=== PATIENT | female | born 1975 | race Caucasian/White ===

== ENCOUNTER 2019-05-22 19:25 | Emergency (ER) | payer MEDICAID, SELFPAY ==
[2019-05-22 19:38] VITALS: BP 145/98; PULSE 73; RESP 18; TEMP 36.8; O2SAT 100
--- NOTE | 2019-05-22 20:06 | ED.ABDPAIN ---
HPI - Abdominal Pain General Chief Complaint: Urogenital-Female Stated Complaint: UTI Time Seen by Provider: 05/22/19 19:52 Source: patient and old records reviewed Mode of arrival: ambulatory Limitations: no limitations History of Present Illness HPI narrative: Patient is a 43-year-old female who presents to emergency department for evaluation of urinary tract infection symptoms that began today had outpatient urinalysis performed by primary care was instructed to come to the emergency department for evaluation patient notes she has been taking Azo as well has been having some urinary urgency and frequency. Patient notes she was treated for presumed urinary tract infection at the end of April was given a Rocephin shot and put on ciprofloxacin for 7 days which she has completed. Patient denies fever vomiting diarrhea or vaginal discharge. Patient notes that she has history of resistant urinary tract infection organism patient notes mild lower abdominal and back discomfort Related Data Home Medications Medication Instructions Recorded Confirmed bupropion HCl 100 mg PO BID 04/30/19 04/30/19 clonazepam 1 mg PO BID PRN 04/30/19 04/30/19 dextroamphetamine-amphetamine 20 mg PO DAILY 04/30/19 04/30/19 trazodone 150 mg PO HS 04/30/19 04/30/19 Allergies Allergy/AdvReac Type Severity Reaction Status Date / Time No Known Allergies Allergy Verified 05/22/19 19:54 Review of Systems Review of Systems: All systems reviewed & are unremarkable except as noted in HPI and below PMFSH Past Medical History Medical History (Updated 05/22/19 @ 21:53 by Reuben Torrez PA-C) Kidney infection UTI (urinary tract infection) Surgical History Surgical History Hx of breast augmentation No pertinent past surgical history Family History Family History Father Lung cancer Social History Social History Smoking status: Never smoker Alcohol intake: never Drinks per week: 0 Substance use: never Substance use type: does not use Gender identity (if verbalized by the patient): Female Spiritual care concerns: No Agree to blood products: Yes Exam Narrative: Exam Narrative: GENERAL: Well-appearing, well-nourished, and in no acute distress. HEAD: Normocephalic, atraumatic. EYES: PERRLA and EOMI. ENT: Nares clear, no rhinorrhea or epistaxis. Mucous membranes moist. NECK: Supple. No adenopathy or masses. No carotid bruits or JVD CHEST: Clear to auscultation. No respiratory distress. No wheezes rales or rhonchi HEART: Regular rate and rhythm. No murmur heard. Normal peripheral pulses. ABDOMEN: Soft, nontender, nondistended EXTREMITIES: Normal range of motion. No edema. SKIN: Warm, dry, no rash. NEURO: No focal deficits. Alert and oriented x3. PSYCH: Normal mood and affect. Course Course Emergency Course: Patient in the room in no distress aware of case findings treatment plan and diagnosis agreeing to follow-up as directed with primary care is aware of discussion with primary care Consultations Consultation #1: Discussed case with primary care who notes that patient had unremarkable urinalysis with out urine culture results at this time does not recommend placing the patient on antibiotics given the history and would like the patient to follow in clinic Date: 05/22/19 Vital Signs Vital signs: Vital Signs Temperature 98.2 F 05/22/19 19:38 Pulse Rate 73 05/22/19 19:38 Respiratory Rate 18 05/22/19 19:38 Blood Pressure 145/98 H 05/22/19 19:38 Pulse Oximetry 100 05/22/19 19:38 Temperature 98.2 F 05/22/19 19:38 Pulse Rate 73 05/22/19 19:38 Respiratory Rate 18 05/22/19 19:38 Blood Pressure 145/98 H 05/22/19 19:38 Pulse Oximetry 100 05/22/19 19:38 MDM - Abdominal Pain MDM Narrative Medical decision win[facility]
[2019-05-22] MEDS: IBUPROFEN IV 800 MG/200 ML 800 MG/200 ML BAG 400 MG IVPB (20:16)
[2019-05-22] MEDS: FAMOTIDINE 20 MG/2 ML VIAL IV PUSH (20:16)
[2019-05-22 20:18] LABS: Add Urine Microscopic? YES; Appearance Urine Clear (Clear); Bacteria Urine Trace /hpf; Bilirubin Urine Negative (Negative); Blood Urine 1+ (Negative); Color Urine Amber (Yellow); Glucose Urine UA Negative (Negative); Ketones Urine Negative (Negative); Leukocyte Esterase Ur 1+ LEU/UL (Negative); Mucus Urine Rare /lpf; Nitrate Urine Positive (Negative); Protein Urine 1+ mg/dL (Negative); Specific Grav Ur 1.019 (1.001-1.035); Squamous Epithelial Cell Urine Many /hpf (Few); WBC Urine >75 /hpf
[2019-05-22] MEDS: SODIUM CHLORIDE 0.9% IV 1,000 ML 999 ML IV CONT (20:18)
[2019-05-22 20:20] LABS: Basophils Absolute Auto 0.1 K/mm3 (0.0-0.1); Basophils Percent Auto 0.8 % (0.2-1.2); Eosinophils Absolute Auto 0.2 K/mm3 (0-0.3); Eosinophils Percent Auto 2.4 % (0-4.4); Hematocrit 34.3 % (37.0-47.0); Immature Granulocyte Absolute 0.02 K/mm3 (0.00-0.031); Immature Granulocyte Percent A 0.3 % (0-0.5); Lymphocytes Absolute Auto 2.51 K/mm3 (0.9-3.2); Lymphocytes Percent Auto 31.5 % (18.3-44.2); Mean Corpuscular HGB Conc 32.1 g/dl (32-36); Mean Corpuscular Hemoglobin 30.7 pg (26-34); Mean Corpuscular Volume 95.8 fl (80-100); Mean Platelet Volume 8.4 fl (7.4-10.4); Monocytes Absolute Auto 0.5 K/mm3 (0.1-0.6); Monocytes Percent Auto 6.6 % (2.6-8.5); Neutrophils Absolute Auto 4.7 K/mm3 (1.3-6.7); Neutrophils Percent Auto 58.4 % (45.5-73.1); Platelet Count Result 239 k/mm3 (150-375); Red Blood Count 3.58 M/mm3 (4.2-5.4); Red Cell Distribution Width 12.2 % (11.5-14.5)
[2019-05-22 20:30] LABS: Alanine Aminotransferase 24 U/L (4-35); Albumin Level 4.4 g/dL (3.5-5.1); Alkaline Phosphatase 24 U/L (38-126); Aspartate Amino Transferase 24 U/L (14-36); Bilirubin,Total 0.3 mg/dL (0.2-1.3); Blood Urea Nitrogen 15 mg/dL (7-17); Calcium 8.6 mg/dL (8.4-10.2); Carbon Dioxide 29 mmol/L (22-30); Chloride 99 mmol/L (98-107); Estimated CRCL calculation 76 ml/min; Estimated Glomerular Filt Rate > 60; Glucose 77 mg/dL (65-105); Potassium 3.4 mmol/L (3.4-5.0); Sodium 137 mmol/L (137-145)
--- NOTE | 2019-05-26 14:05 | PC.NURSE ---
LATE ENTRY This note is being entered to document information to the patient's record. The following information was omitted on [05/22/2019], by [Deidre Mayfield]. Vancomycin Stop time 2312
== END 2019-05-22 22:46 | disposition home or self-care (01) ==
PROVIDERS: Emergency Medicine; Emergency Medicine Emergency Medical Services; Emergency Provider Emergency Medicine; PCP Nurse Practitioner Family
DX: R10.9 Unspecified abdominal pain (principal)
CPT/HCPCS: 36415; 80053; 81001; 85025; 87086; 87804; 96365; 96367; 96375; 99285; J1741; J3370; J7030

== ENCOUNTER 2019-06-21 20:40 | Emergency (ER) | payer MEDICAID, SELFPAY ==
[2019-06-21 20:42] VITALS: BP 148/86; PULSE 69; RESP 16; TEMP 36.7; O2SAT 100
[2019-06-21 21:09] LABS: Add Urine Microscopic? YES; Appearance Urine Clear (Clear); Bacteria Urine Trace /hpf; Bilirubin Urine Negative (Negative); Color Urine Amber (Yellow); Glucose Urine UA Negative (Negative); Ketones Urine Negative (Negative); Leukocyte Esterase Ur 1+ LEU/UL (Negative); Mucus Urine Rare /lpf; Nitrate Urine Positive (Negative); Protein Urine Negative (Negative); Specific Grav Ur 1.015 (1.001-1.035); Squamous Epithelial Cell Urine Many /hpf (Few)
[2019-06-21 21:10] LABS: Blood Urine Negative (Negative)
--- NOTE | 2019-06-21 23:02 | ED.ABDPAIN ---
HPI - Abdominal Pain General Chief Complaint: Urogenital-Female Stated Complaint: possible uti Time Seen by Provider: 06/21/19 22:39 Source: RN notes reviewed History of Present Illness HPI narrative: Patient presents emergency department from home for dysuria. Patient states symptoms began 3 days ago. Patient notes dysuria, frequent urination and associated suprapubic abdominal pain with radiation to bilateral flank. Patient denies having any fevers or chills, nausea vomiting or any other symptoms denies any chance of . Patient states she is been having a history of frequent UTIs and is scheduled to see a uro-design project manager on the and has been told she possibly needs a cystoscopy. Related Data Home Medications Medication Instructions Recorded Confirmed bupropion HCl 100 mg PO BID 04/30/19 04/30/19 clonazepam 1 mg PO BID PRN 04/30/19 04/30/19 dextroamphetamine-amphetamine 20 mg PO DAILY 04/30/19 04/30/19 trazodone 150 mg PO HS 04/30/19 04/30/19 Allergies Allergy/AdvReac Type Severity Reaction Status Date / Time No Known Allergies Allergy Verified 05/22/19 19:54 Review of Systems Review of Systems: Narrative: Gen.: Denies fevers or chills ENT: Denies congestion Respiratory: Denies shortness of breath or cough CV: Denies chest pain or palpitations GI: Reports suprapubic abdominal pain see HPI Musculoskeletal: Denies back pain or muscle pain Neuro: Denies numbness, tingling, weakness or focal weakness Skin: Denies rash Except as documented, all other systems reviewed and negative [facility] Past Medical History Medical History Kidney infection UTI (urinary tract infection) Social History Social History Smoking status: Never smoker Alcohol intake: never Drinks per week: 0 Substance use: never Substance use type: does not use Gender identity (if verbalized by the patient): Female Spiritual care concerns: No Agree to blood products: Yes Exam Narrative: Exam Narrative: APPEARANCE: No acute distress, nontoxic, resting in bed HEENT: Normocephalic, atraumatic, OMM RESPIRATORY: No respiratory distress, clear to auscultation bilaterally with no rhonchi wheezing or rales CARDIOVASCULAR: RRR s murmur ABDOMINAL: Soft, nondistended, tender palpation suprapubic region, no tenderness right upper quadrant, left upper quadrant, right lower quadrant with lower quadrant, no rebound or guarding MUSCULOSKELETAl: Moves all extremities. No clubbing, cyanosis or edema. NEURO: Awake and alert. Following commands, speech normal, no focal deficits SKIN:: Warm, dry. Normal Color PSYCHIATRIC: Normal affect/mood Course Course Emergency Course: Discussed with patient results of workup and diagnosis. Discussed need for follow-up with primary care, proper use of medication, and reasons to return to the emergency department. Patient understands and agrees to current treatment plan Vital Signs Vital signs: Vital Signs Temperature 98.1 F 06/21/19 20:42 Pulse Rate 69 06/21/19 20:42 Respiratory Rate 16 06/21/19 20:42 Blood Pressure 148/86 H 06/21/19 20:42 Pulse Oximetry 100 06/21/19 20:42 Temperature 98.1 F 06/21/19 20:42 Pulse Rate 69 06/21/19 20:42 Respiratory Rate 16 06/21/19 20:42 Blood Pressure 148/86 H 06/21/19 20:42 Pulse Oximetry 100 06/21/19 20:42 MDM - Abdominal Pain Lab Data Result diagrams: 06/21/19 23:06 06/21/19 23:06 Labs: Lab Results 06/21/19 06/21/19 06/21/19 Range/Units 20:55 23:06 23:06 WBC 9.2 (4.5-10.0) K/mm3 RBC 3.96 L (4.2-5.4) M/mm3 Hgb 12.1 (12.0-15.0) g/dL Hct 36.8 L (37.0-47.0) % MCV 92.9 (80-100) fl MCH 30.6 (26-34) pg MCHC 32.9 (32-36) g/dl RDW 11.3 L (11.5-14.5) % Plt Count 266 (150-375) k/mm3 MPV 8.8 (7.4-10.4) fl Immature Gran % (Auto) 0.3
[2019-06-21 23:14] LABS: Basophils Absolute Auto 0.1 K/mm3 (0.0-0.1); Basophils Percent Auto 0.8 % (0.2-1.2); Eosinophils Absolute Auto 0.2 K/mm3 (0-0.3); Eosinophils Percent Auto 1.6 % (0-4.4); Hematocrit 36.8 % (37.0-47.0); Hemoglobin 12.1 g/dL (12.0-15.0); Immature Granulocyte Absolute 0.03 K/mm3 (0.00-0.031); Immature Granulocyte Percent A 0.3 % (0-0.5); Lymphocytes Absolute Auto 2.48 K/mm3 (0.9-3.2); Lymphocytes Percent Auto 26.9 % (18.3-44.2); Mean Corpuscular HGB Conc 32.9 g/dl (32-36); Mean Corpuscular Hemoglobin 30.6 pg (26-34); Mean Corpuscular Volume 92.9 fl (80-100); Mean Platelet Volume 8.8 fl (7.4-10.4); Monocytes Absolute Auto 0.5 K/mm3 (0.1-0.6); Monocytes Percent Auto 5.2 % (2.6-8.5); Neutrophils Percent Auto 65.2 % (45.5-73.1); Platelet Count Result 266 k/mm3 (150-375); Red Blood Count 3.96 M/mm3 (4.2-5.4); Red Cell Distribution Width 11.3 % (11.5-14.5); White Blood Count 9.2 K/mm3 (4.5-10.0)
[2019-06-21] MEDS: KETOROLAC 30 MG/ML VIAL (*BKC) IV PUSH (23:14)
[2019-06-21] MEDS: LACTATED RINGERS 1,000 ML 999 ML IV CONT (23:15)
[2019-06-21 23:25] LABS: Alanine Aminotransferase 22 U/L (4-35); Albumin Level 4.1 g/dL (3.5-5.1); Alkaline Phosphatase 25 U/L (38-126); Aspartate Amino Transferase 24 U/L (14-36); Bilirubin,Total 0.3 mg/dL (0.2-1.3); Blood Urea Nitrogen 15 mg/dL (7-17); Calcium 8.9 mg/dL (8.4-10.2); Carbon Dioxide 29 mmol/L (22-30); Chloride 102 mmol/L (98-107); Estimated Glomerular Filt Rate > 60; Glucose 81 mg/dL (65-105); Potassium 3.7 mmol/L (3.4-5.0); Sodium 136 mmol/L (137-145)
[2019-06-21] MEDS: NITROFURANTOIN MONOHYD MACROCR 100 MG CAP PO (23:43)
[2019-06-22 00:31] VITALS: BP 136/88; PULSE 64; RESP 16; O2SAT 98
== END 2019-06-22 00:32 | disposition home or self-care (01) ==
PROVIDERS: Emergency Medicine; Emergency Provider Emergency Medicine; PCP Nurse Practitioner Family
DX: N39.0 Urinary tract infection, site not specified (principal)
CPT/HCPCS: 36415; 80053; 81001; 81025; 85025; 87086; 87088; 96361; 96374; 99284; A9270; J1885; J7120

== ENCOUNTER 2019-11-18 17:12 | Emergency (ER) | payer OTHER, SELFPAY ==
[2019-11-18 17:15] VITALS: BP 157/85; PULSE 67; RESP 18; TEMP 36.9; O2SAT 100
[2019-11-18 19:49] VITALS: RESP 16; O2SAT 100
--- NOTE | 2019-11-18 19:52 | ED.GENADULT ---
HPI - General Adult General Chief complaint: Unspecified Stated complaint: ruptured silicone implant, need covid test Time Seen by Provider: 11/18/19 19:44 History of Present Illness HPI narrative: Patient comes in with multiple complaints. She has had cold exposure and has had recent chills. She has had no documented fever. She says she feels shortness of breath, but her oxygenation is 100% here. She says she has no cough. She said she just feels terrible and wants some IV fluids. She also complains of asymmetry on her breasts. She has had bilateral breast implants by Dr. Herndon in the past. Her primary care physician said to come to the ER to get an ultrasound of the breasts. But I explained that would best be done by her plastic surgeon. She works doing [employer]. Her only surgery is her breast implant. She does not smoke cigarettes, drink alcohol, do drugs. She said she has had a stressful year. Related Data Home Medications Medication Instructions Recorded Confirmed bupropion HCl 100 mg PO BID 04/30/19 04/30/19 clonazepam 1 mg PO BID PRN 04/30/19 04/30/19 dextroamphetamine-amphetamine 20 mg PO DAILY 04/30/19 04/30/19 trazodone 150 mg PO HS 04/30/19 04/30/19 Allergies Allergy/AdvReac Type Severity Reaction Status Date / Time No Known Allergies Allergy Verified 05/22/19 19:54 Review of Systems Review of Systems: Narrative: CONSTITUTIONAL: Denies fever, but has had chills. EYES: Denies visual changes, redness, or discharge. ENT: Denies rhinorrhea, congestion, sore throat, or otalgia. CARDIOVASCULAR: Denies chest pain, palpitations, or edema. RESPIRATORY: Denies cough, but has had shortness of breath. GASTROINTESTINAL: Denies abdominal pain, nausea, vomiting, or diarrhea. She said her appetite is poor. GENITOURINARY: Denies dysuria or hematuria. SKIN: Denies rash or itching. MUSCULOSKELETAL: Denies back pain, joint pain, or myalgia. NEUROLOGIC: Denies headache, numbness, or weakness. PSYCHIATRIC: She has stress.. All systems reviewed & are unremarkable except as noted in HPI and below PMFSH Past Medical History Medical History Anxiety Kidney infection UTI (urinary tract infection) Surgical History Surgical History (Updated 11/18/19 @ 19:55 by Tonya Beltran MD) Hx of breast augmentation Social History Social History Smoking status: Never smoker Alcohol intake: never Drinks per week: 0 Substance use: never Substance use type: does not use Gender identity (if verbalized by the patient): Female Spiritual care concerns: No Agree to blood products: Yes Exam Narrative: Exam Narrative: GENERAL: Cachectic, crying HEAD: Normocephalic, atraumatic. EYES: PERRLA and EOMI. ENT: Nares clear, no rhinorrhea or epistaxis. Mucous membranes moist. NECK: Supple. CHEST: Clear to auscultation. No respiratory distress. HEART: Regular rate and rhythm. No murmur heard. Normal peripheral pulses. ABDOMEN: Soft, nontender, nondistended, normal active bowel sounds. EXTREMITIES: Normal range of motion. No edema. Hands are cool with purple discoloration. SKIN: Warm, dry, no rash. NEURO: No focal deficits. Alert and oriented x3. PSYCH: Anxious. Course Vital Signs Vital signs: Vital Signs Temperature 98.5 F 11/18/19 17:15 Pulse Rate 67 11/18/19 17:15 Respiratory Rate 18 11/18/19 17:15 Blood Pressure 157/85 H 11/18/19 17:15 Pulse Oximetry 100 11/18/19 17:15 Temperature 98.5 F 11/18/19 17:15 Pulse Rate 58 L 11/18/19 21:52 Respiratory Rate 18 11/18/19 21:52 Blood Pressure 159/90 H 11/18/19 21:52 Pulse Oximetry 99 11/18/19 21:52 Medical Decision Making MDM Narrative Medical decision making narrative: The patient seems very upset over I do not know what. She is not happy that I recommend she see her plastic surgeon for the evaluation of her asymmetric breast.
[2019-11-18] MEDS: SODIUM CHLORIDE 0.9% IV 1,000 ML 999 ML IV CONT (20:20)
[2019-11-18 20:26] LABS: Basophils Absolute Auto 0.1 K/mm3 (0.0-0.1); Basophils Percent Auto 1.1 % (0.2-1.2); Eosinophils Absolute Auto 0.1 K/mm3 (0-0.3); Eosinophils Percent Auto 1.8 % (0-4.4); Hematocrit 35.9 % (37.0-47.0); Hemoglobin 11.8 g/dL (12.0-15.0); Immature Granulocyte Absolute 0.02 K/mm3 (0.00-0.031); Immature Granulocyte Percent A 0.3 % (0-0.5); Lymphocytes Absolute Auto 2.52 K/mm3 (0.9-3.2); Lymphocytes Percent Auto 38.5 % (18.3-44.2); Mean Corpuscular HGB Conc 32.9 g/dl (32-36); Mean Corpuscular Hemoglobin 29.4 pg (26-34); Mean Corpuscular Volume 89.3 fl (80-100); Mean Platelet Volume 8.9 fl (7.4-10.4); Monocytes Absolute Auto 0.4 K/mm3 (0.1-0.6); Monocytes Percent Auto 6.3 % (2.6-8.5); Neutrophils Absolute Auto 3.4 K/mm3 (1.3-6.7); Platelet Count Result 224 k/mm3 (150-375); Red Blood Count 4.02 M/mm3 (4.2-5.4); Red Cell Distribution Width 12.3 % (11.5-14.5); White Blood Count 6.5 K/mm3 (4.5-10.0)
[2019-11-18 20:44] LABS: Alanine Aminotransferase 25 U/L (4-35); Albumin Level 4.2 g/dL (3.5-5.1); Alkaline Phosphatase 24 U/L (38-126); Anion Gap 10.4 mmol/L (7-16); Aspartate Amino Transferase 29 U/L (14-36); Bilirubin,Total 0.3 mg/dL (0.2-1.3); Blood Urea Nitrogen 11 mg/dL (7-17); Calcium 8.6 mg/dL (8.4-10.2); Carbon Dioxide 28 mmol/L (22-30); Chloride 102 mmol/L (98-107); Estimated CRCL calculation 88 ml/min; Estimated Glomerular Filt Rate > 60; Glucose 53 mg/dL (65-105); Potassium 3.4 mmol/L (3.4-5.0); Sodium 137 mmol/L (137-145)
[2019-11-18 21:52] VITALS: BP 159/90; PULSE 58; RESP 18; O2SAT 99
[2019-11-18 22:05] LABS: Glucose Point of Care 39 (65-105)
[2019-11-18 22:05] LABS: Glucose Point of Care 72 (65-105)
== END 2019-11-18 21:53 | disposition home or self-care (01) ==
PROVIDERS: Emergency Provider Emergency Medicine; PCP Nurse Practitioner Family
DX: F41.9 Anxiety disorder, unspecified (principal); R63.0 Anorexia; E16.2 Hypoglycemia, unspecified; Z87.440 Personal history of urinary (tract) infections; Z68.1 Body mass index [BMI] 19.9 or less, adult
CPT/HCPCS: 36415; 80053; 82948; 85025; 96360; 99283; J7030

== ENCOUNTER 2019-12-16 12:33 | Outpatient (CLI) | payer OTHER, SELFPAY ==
--- NOTE | ~2019-12-16 | MMUS_ITS ---
EXAMINATION: MM screen RT diag LT w joleen, US breast LT limited HISTORY: Left breast pain. Breast implants. TECHNIQUE: Additional 3-D tomosynthesis images of the breasts were performed and synthetic 2-D images were generated. CAD analysis was submitted and interpreted. High resolution left breast ultrasound w as performed. COMPARISON: None BREAST PARENCHYMAL COMPOSITION: The breasts are extremely dense, which lowers the sensitivity of mamm ography FINDINGS: MAMMOGRAPHIC FINDINGS: There is no mammographic evidence for malignancy in the right breast. There are multiple clusters of pleomorphic calcifications centered in the upper outer quadrant of the left breast. ULTRASOUND: Left breast ultrasound: At 12:00, 4 cm from the nipple adjacent to the breast implant there is an oval hypoechoic mass with c ircumscribed margins, parallel orientation and no internal vascularity. No significant posterior feat ures. This mass measures 8 x 7 x 4 mm. IMPRESSION: 1. Multiple clusters of pleomorphic regional calcifications centered in the upper outer quadrant of t he left breast. Stereotactic left breast biopsy recommended. 2. Probable benign left breast mass identified by ultrasound at 12:00, 4 cm from the nipple. Six-butch h follow-up left breast ultrasound recommended. BI-RADS category 4, suspicious findings. Reviewed, dictated and finalized at location A. IMPRESSION: 1. Multiple clusters of pleomorphic regional calcifications centered in the upp er outer quadrant of the left breast. Stereotactic left breast biopsy recommend ed. 2. Probable benign left breast mass identified by ultrasound at 12:00, 4 cm fro m the nipple. Six-month follow-up left breast ultrasound recommended. BI-RADS category 4, suspicious findings.
== END 2019-12-16 12:34 | disposition home or self-care (01) ==
LOC: ANHIMG 12:36
PROVIDERS: PCP Nurse Practitioner Family; Visit Provider Nurse Practitioner Family
DX: N64.4 Mastodynia (principal); R92.8 Other abnormal and inconclusive findings on diagnostic imaging of breast
CPT/HCPCS: 76642; 77063; 77065; 77067

== ENCOUNTER 2020-08-28 14:11 | Emergency (ER) | payer OTHER, SELFPAY ==
[2020-08-28 14:23] VITALS: BP 128/77; PULSE 69; RESP 16; TEMP 36.9; O2SAT 97
--- NOTE | 2020-08-28 14:25 | ED.FEMALEGU ---
HPI - Female Genitourinary General Chief complaint: Urogenital-Female Stated complaint: UTI Time Seen by Provider: 08/28/20 14:25 Source: patient and RN notes reviewed Mode of arrival: ambulatory Limitations: no limitations History of Present Illness HPI Narrative: 44-year-old female presents to the [facility] with complaints of dysuria, frequency and urgency for couple of days. Patient currently undergoing radiation treatment for left-sided breast cancer. Has a history of interstitial cystitis. States that she has had fatigue since starting radiation treatment. Diagnosed with a sinus infection and put on a Z-Fredo yesterday. MD elicited complaint: UTI Related Data Home Medications Medication Instructions Recorded Confirmed clonazepam 1 mg PO BID PRN 04/30/19 08/28/20 dextroamphetamine-amphetamine 20 mg PO DAILY 04/30/19 08/28/20 trazodone 150 mg PO HS 04/30/19 08/28/20 bupropion HCl 300 mg PO DAILY 08/28/20 08/28/20 montelukast 10 mg PO DAILY 08/28/20 08/28/20 solifenacin 10 mg PO DAILY 08/28/20 08/28/20 tamoxifen 20 mg PO DAILY 08/28/20 08/28/20 Allergies Allergy/AdvReac Type Severity Reaction Status Date / Time No Known Allergies Allergy Verified 08/28/20 15:07 Review of Systems Review of Systems: All systems reviewed & are unremarkable except as noted in HPI and below Constitutional: Constitutional: Reports no additional constitutional complaints, Denies chills and Reports fatigue ENT: Reports system reviewed and no additional complaints, except as documented Cardiovascular: Cardiovascular: Reports no additional cardiovascular complaints and Denies chest pain Respiratory: Respiratory: Reports no additional respiratory complaints, Denies cough, Denies dyspnea and Denies wheezing Genitourinary: Genitourinary: Reports as per HPI, Reports dysuria, Denies pelvic pain, Denies flank pain and Denies vaginal discharge Musculoskeletal: Musculoskeletal: Reports no additional musculoskeletal complaints Integumentary/Breasts: Skin/Breast: Reports system reviewed and no additional complaints, except as docu and Denies rash Neurologic: Reports system reviewed and no additional complaints, except as documented Psychiatric: Psychiatric: Reports no additional psychiatric complaints PMFSH Past Medical History Medical History (Updated 08/29/20 @ 12:55 by Gita Lopez) Anxiety Breast cancer Interstitial cystitis Kidney infection UTI (urinary tract infection) Surgical History Surgical History (Updated 08/29/20 @ 12:55 by Gita Lopez) History of lumpectomy of left breast Hx of breast augmentation Family History Family History Father Lung cancer Social History Social History Smoking status: Never smoker Alcohol intake: never Drinks per week: 0 Substance use: never Substance use type: does not use Gender identity (if verbalized by the patient): Female Spiritual care concerns: No Agree to blood products: Yes Comments At the time of my signature, I reviewed and agree with the nursing past medical, surgical, social, and family history. There is no relevant family history pertinent to the patient complaint. Exam Const: General: healthy appearing, no acute distress and alert Nutritional Appearance: well nourished and thin Orientation/consciousness: patient oriented x3 HENMT: Head: normal to inspection Ears: external ears normal and TM's normal bilaterally Eyes: Conjunctivae: conjunctivae normal Pupils: Equal, round and reactive pupils present Neck: Neck: normal visual inspection Resp: Effort & Inspection: normal respiratory effort and no use of accessory muscles Auscultation: clear to auscultation bilaterally, no crackles, no rales, no rhonchi and no wheezes Cardio: Rate: regular rate Rhythm: regular rhythm : General: Yes no CVA tenderness Back/Spine/Pelvis: Back:
== END 2020-08-28 14:50 | disposition home or self-care (01) ==
PROVIDERS: Emergency Provider Nurse Practitioner; PCP Nurse Practitioner Family
DX: R30.0 Dysuria (principal); F41.9 Anxiety disorder, unspecified; Z85.3 Personal history of malignant neoplasm of breast
CPT/HCPCS: 81003; 99213; G0463

== ENCOUNTER → 2020-11-02 02:16 | Outpatient (CLI) | payer OTHER, SELFPAY ==
[2020-11-02 17:52] LABS: SARS-CoV-2 RNA PCR Negative
== END ==
PROVIDERS: PCP Nurse Practitioner Family; Visit Provider Student in an Organized Health Care Education/Training Program
DX: Z01.812 Encounter for preprocedural laboratory examination (principal); Z20.822 Contact with and (suspected) exposure to COVID-19
CPT/HCPCS: C9803; U0003; U0005

== ENCOUNTER 2020-11-03 08:31 | Outpatient (CLI) | payer OTHER, SELFPAY ==
[2020-11-03 09:31] LABS: Hemoglobin 11.5 g/dL (12.0-15.0); Mean Corpuscular HGB Conc 31.9 g/dl (32-36); Mean Corpuscular Hemoglobin 30.4 pg (26-34); Mean Corpuscular Volume 95.2 fl (80-100); Mean Platelet Volume 9.7 fl (7.4-10.4); Platelet Count Result 166 k/mm3 (150-375); Red Blood Count 3.78 M/mm3 (4.2-5.4); Red Cell Distribution Width 11.5 % (11.5-14.5); White Blood Count 3.6 K/mm3 (4.5-10.0)
== END 2020-11-03 08:32 | disposition home or self-care (01) ==
LOC: ANHSURGERY 08:36
PROVIDERS: PCP Nurse Practitioner Family; Visit Provider Student in an Organized Health Care Education/Training Program
DX: Z01.812 Encounter for preprocedural laboratory examination (principal); C50.919 Malignant neoplasm of unspecified site of unspecified female breast
CPT/HCPCS: 36415; 85027; 86850; 86900; 86901

== ENCOUNTER 2020-11-05 01:19 | Day surgery (SDC) | payer OTHER, SELFPAY ==
[2020-11-01 14:46] VITALS: BMI 19.0
--- NOTE | 2020-11-04 16:56 | P.PNAN_ITS ---
Anes - Initial Pre Proc Eval Procedure: Operation Date: 11/05/20 11:30 Proposed Procedures p Robotic Assisted Total Vaginal Hysterectomy, with Bilateral Salpingo- Oophorectomy - Hay Mchugh MD Date/Time: 11/04/20 16:56 Surgeon: Hay Mchugh MD Pre Op Diagnosis: Breast Cancer Patient Data Age: 44 Gender: F Height: 1.75 m Weight: 58.34 kg Allergies Allergy/AdvReac Type Severity Reaction Status Date / Time No Known Allergies Allergy Verified 11/01/20 14:40 Home Medications Medication Instructions Recorded Confirmed Type clonazepam 1 mg PO BID PRN 04/30/19 11/01/20 History dextroamphetamine-amphetamine 20 mg PO DAILY PRN 04/30/19 11/01/20 History trazodone 150 mg PO HS 04/30/19 11/01/20 History bupropion HCl 300 mg PO DAILY 08/28/20 11/01/20 History montelukast 10 mg PO DAILY 08/28/20 11/01/20 History solifenacin 10 mg PO DAILY 08/28/20 11/01/20 History tamoxifen 20 mg PO DAILY 08/28/20 11/01/20 History Patient hx anesthesia problems: none Family hx anesthesia problems: none PMFSH Past Medical History Medical History (Updated 11/05/20 @ 08:54 by Hay Mchugh MD) Anxiety Breast cancer Interstitial cystitis Kidney infection UTI (urinary tract infection) Surgical History Surgical History (Updated 08/29/20 @ 12:55 by Gita Lopez) History of lumpectomy of left breast Hx of breast augmentation Family History Family History Father Lung cancer Social History Social History Smoking status: Never smoker Second hand tobacco smoke exposure: No Alcohol intake: former Drinks per week: 0 Alcohol use details: LAST 2019 Substance use: never Substance use type: marijuana Other substance usage details: MEDICAL MARIJUANA Last use: 10/31/2020 Living arrangements: with family Gender identity (if verbalized by the patient): Female Spiritual care concerns: No Agree to blood products: Yes Anes - Eval Final PreProcedure Day of Procedure 11/04/20 16:56 Patient weight: normal Heart: regular rate and rhythm Lungs: clear to auscultation and normal air movement Airway: Mallampati scale class II Neurological: alert and oriented Last oral intake: >/= 8 hours ASA classification: III Emergent: no Anesthetic plan: proceed Anesthesia type and monitoring: general ETT Informed Consent: The patient's anesthetic plan and its attendant risks and benefits were discussed with the patient/family/POA. Questions were solicited and answers provided to the satisfaction of the patient/family/POA.
[2020-11-05] VITALS (10 sets, daily range): BP systolic 104–130; BP diastolic 57–70; PULSE 52–70; RESP 16–23; TEMP 36.2–36.9; O2SAT 90–99
--- NOTE | 2020-11-05 08:48 | PM.IMHP ---
H&P: HPI History of Present Illness Date/Time: 11/05/20 08:48 43 yo female who presents for robotic assisted TLH/BSO. Pt was recently diagnosed with hormone sensitive breast cancer. She is s/p lumpectomy and currently taking tamoxifen and has undergone radiation. She was referred to me by her oncologist for risk reducing prophylactic oophorectomy. Chief Complaint: hormone sensitive breast cancer Review of Systems Cardiovascular: Cardiovascular: Denies chest pain, Denies leg edema, Denies palpitations, Denies dyspnea and Denies dyspnea on exertion Respiratory: Respiratory: Denies cough, Denies dyspnea and Denies dyspnea on exertion Gastrointestinal: Gastrointestinal: Denies abdominal pain, Denies constipation, Denies diarrhea, Denies nausea and Denies vomiting Genitourinary: Genitourinary: Denies hematuria, Denies urinary frequency, Denies dysuria, Denies pelvic pain, Denies urinary incontinence and Denies vaginal discharge Neurologic: Reports system reviewed and no additional complaints, except as documented Psychiatric: Psychiatric: Reports no additional psychiatric complaints Endocrine: Endocrine: Denies palpitations PMFSH Past Medical History Medical History (Updated 11/05/20 @ 08:54 by Hay Mchugh MD) Anxiety Breast cancer Interstitial cystitis Kidney infection UTI (urinary tract infection) Surgical History Surgical History (Updated 08/29/20 @ 12:55 by Gita Lopez) History of lumpectomy of left breast Hx of breast augmentation Family History Family History Father Lung cancer Social History Social History Smoking status: Never smoker Second hand tobacco smoke exposure: No Alcohol intake: former Drinks per week: 0 Alcohol use details: LAST 2019 Substance use: never Substance use type: marijuana Other substance usage details: MEDICAL MARIJUANA Last use: 10/31/2020 Living arrangements: with family Gender identity (if verbalized by the patient): Female Spiritual care concerns: No Agree to blood products: Yes Meds Home Medications and Allergies Home Medications Medication Instructions Recorded Confirmed Type clonazepam 1 mg PO BID PRN 04/30/19 11/01/20 History dextroamphetamine-amphetamine 20 mg PO DAILY PRN 04/30/19 11/01/20 History trazodone 150 mg PO HS 04/30/19 11/01/20 History bupropion HCl 300 mg PO DAILY 08/28/20 11/01/20 History montelukast 10 mg PO DAILY 08/28/20 11/01/20 History solifenacin 10 mg PO DAILY 08/28/20 11/01/20 History tamoxifen 20 mg PO DAILY 08/28/20 11/01/20 History Allergies Allergy/AdvReac Type Severity Reaction Status Date / Time No Known Allergies Allergy Verified 11/01/20 14:40 Exam Const: General: no acute distress Eyes: EOM: EOMs intact bilaterally Neck: Neck: supple Thyroid: thyroid normal Chest: Breast/axilla inspection: normal inspection of the breasts Breast/axilla palpation: normal palpation of the breasts, normal palpation of the axillae and no axillary lymphadenopathy Resp: Effort & Inspection: normal respiratory effort Auscultation: clear to auscultation bilaterally Cardio: Rate: regular rate Rhythm: regular rhythm GI: Inspection: non-distended GI Palp: Yes Soft to palpation, No Tenderness to palpation present (GI) and No Guarding due to palpation present (GI) Auscultation: normal bowel sounds : General: No bladder normal to palpation External Female Exam: normal external appearance Speculum Exam - Vagina: normal vaginal discharge and No vaginal bleeding Speculum Exam - Cervix: nontender Bimanual exam- vagina & uterus: No bladder normal to palpation and No Cervical tenderness present OB/external & speculum: No vaginal bleeding Skin: General skin exam: normal color and no rashes or lesions noted Neuro: Cognition (Neuro): normal cognition Speech: normal speech Extrem: General: normal
--- NOTE | 2020-11-05 08:56 | WPDHPUPDATE1 ---
History and Physical Update Update Date/Time: 11/05/20 08:56 History and Physical has been reviewed, including an updated exam of the patient. There are NO changes in the patient's condition. Risks, benefits, and alternatives have been discussed and questions answered. Patient agrees to proceed with procedure.
[2020-11-05] MEDS: LACTATED RINGERS 1,000 ML 30 ML IV CONT ×2 (10:30→14:29)
[2020-11-05] MEDS: ACETAMINOPHEN 500 MG TABLET 1000 MG PO (11:00)
[2020-11-05] MEDS: KETOROLAC 15 MG/ML VIAL (*BKC) IV PUSH (11:00)
[2020-11-05] MEDS: ceFAZolin 2 GM/D5W 50 ML 2 GM/50 ML BAG IVPB (11:41)
[2020-11-05] MEDS: LIDO 1%/EPINEPHRINE 1:100,000 10 ML VIAL 50 ML INFILTRATE (12:35)
[2020-11-05] MEDS: METHYLENE BLUE 0.5% INJ 10 ML AMPULE IV PUSH (13:22)
--- NOTE | 2020-11-05 13:55 | W.PM.PROC2 ---
Procedure Note - Detailed Date of Procedure 11/05/20 Pre-op Diagnosis hormone sensitive Breast Cancer Post-op Diagnosis same Procedure Performed robotic assisted total laparoscopic hysterectomy and bilateral salpingo-oophorectomy cystoscopy Surgeon Hay Mchugh MD Anesthesia general Indications pt with hormone sensitive breast cancer presents for prophylactic oophorectomy Findings normal appearing uterus. bilateral serosal adhesions of the ovaries to the posterior broad ligament Description of Procedure After the patient was appropriately consented she was taken to the operating room where she was transferred to the table in a dorsal supine position. General anesthesia was then induced with endotracheal intubation. The patient was transferred to a dorsal lithotomy position using adjustable yellow-fin stirrups. Her position was adjusted for appropriate support of her lower back and lower extremities. The patient was prepped and draped. A transurethral parra catheter was place. The cervix was sequentially dilated and a ELIAS uterine manipulator placed in typical fashion about a 3cm NICOLE ring. Gloves were changed. After confirmation of a functioning orogastric tube, lidocaine was injected at James's point in the LUQ and a 5mm incision was made. A 5mm Optiview trocar was then inserted into the abdominal cavity under direct visualization and done so without complication. The abdomen was then insufflated with approximately 2-3L of CO2 establishing a pneumoperitoneum and the patient was placed in Trendelenburg position. Just above the umbilicus in the midline, a 8 mm incision made after injection of lidocaine and a 8 mm bladeless trocar advanced into the abdominal cavity under direct visualization without incident. We subsequently placed two robotic ports in a similar fashion, one in the left mid-quadrant and one in the right, 10cm lateral to the midline port. The robot was then docked. The left round ligament was divided and the pararectal and paravesicle spaces developed, identifying the course of the ureter. The infundibulopelvic ligaments were skeletonized, triply coagulated and then transected with monopolar maddie away from the course of the ureter. The posterior aspect of the broad ligament was then skeletonized down to the level of the internal cervical os. During dissection the ureter was noted to have an abherent course and was directing toward the ovary in the posterior broad ligament. Attention was taken to help mobilizing the ureter laterally. The bladder flap was then created sharply. The ipsilateral uterine artery was skeletonized, bipolar cauterized and transected. A similar procedure was performed on the contralateral side, developing the pelvic spaces, coagulating and dividing the IP away from the ureter, completing the bladder flap, and skeletonizing, ligating, and dividing the uterine artery on this side. Again the course of the ureter was noted to extended in close proximity to the ovary in the posterior broad ligament. The ureter was cautiously dissected away from the uterine vessels. We ensured the vaginal pneumo-occluder balloon was insufflated and made a circumferential colpotomy using monopolar current. The uterus, cervix, bilateral tubes and ovaries were then delivered transvaginally. A single interrupted figure of 8 sutures was placed in the left lateral apex of the vaginal cuff with 0-vicryl. I then re-approximated the colpotomy with a running #1 PDO Quill suture in 2 layers. Following this dissection, the abdomen and pelvis were copiously irrigated and all surgical sites found to be hemostatic. The area of the ureters were again visualized bilaterally. Peristalsis was difficult to appreciate in the patient's left ureter. Methylene blue was administered and cystoscopy was called for. The robot was un-docked and the parra catheter was removed. Cystoscopy was performed. The bladder was found to be free of any lesions or injury. [place]
[2020-11-05] MEDS: ONDANSETRON INJ 4 MG/2 ML VIAL IV PUSH (15:04)
[2020-11-05] MEDS: fentaNYL CITRATE INJ (*CRX) 100 MCG/2 ML VIAL 25 MCG IV PUSH ×4 (15:10→15:35)
--- NOTE | 2020-11-05 15:13 | SUR.PHASEI ---
1504; PT C/O NAUSEA, HAVING DRY HEAVES. ZOFRAN GIVEN IV. IVF INCREASED.
--- NOTE | 2020-11-05 15:53 | SUR.PHASEI ---
PT DOZING. AWAKENS EASILY, RESTING COMFORTABLY. MEETS DISCHARGE CRITERIA. DENIES NAUSEA. STATES PAIN MODERATE
--- NOTE | 2020-11-05 16:36 | PC.NURSE ---
This patient, Alice Rowe, was received from PACU on 11/05/20 at 1607. Patient/family oriented to unit policies and routines
[2020-11-05] MEDS: KETOROLAC 30 MG/ML VIAL (*BKC) IV PUSH ×2 (17:15→23:09)
[2020-11-05] MEDS: DEXTROSE 5%/LACTATED RINGERS 1,000 ML 125 ML IV CONT (17:15)
[2020-11-05] MEDS: oxyCODONE/ACETAMINOPHEN (*CRX) 5-325 MG TABLET 1 TABLET PO ×2 (18:49→23:10)
[2020-11-05] MEDS: SENNA/DOCUSATE SODIUM TABLET 2 TAB PO (23:09)
[2020-11-05] MEDS: diphenhydrAMINE HCl INJ 50 MG/ML VIAL 25 MG IV PUSH (23:39)
[2020-11-06 05:00] VITALS: BP 136/83; PULSE 62; RESP 16; TEMP 37.1; O2SAT 98
[2020-11-06] MEDS: IBUPROFEN 600 MG TABLET PO ×2 (05:02→10:45)
[2020-11-06] MEDS: oxyCODONE/ACETAMINOPHEN (*CRX) 5-325 MG TABLET 1 TABLET PO ×2 (05:03→09:02)
[2020-11-06] MEDS: SIMETHICONE 80 MG TAB.CHEW (05:20)
[2020-11-06 06:00] LABS: Basophils Percent Auto 0.4 % (0.2-1.2); Eosinophils Percent Auto 0.1 % (0-4.4); Hematocrit 33.3 % (37.0-47.0); Hemoglobin 10.9 g/dL (12.0-15.0); Immature Granulocyte Absolute 0.05 K/mm3 (0.00-0.031); Immature Granulocyte Percent A 0.4 % (0-0.5); Lymphocytes Absolute Auto 0.86 K/mm3 (0.9-3.2); Lymphocytes Percent Auto 7.6 % (18.3-44.2); Mean Corpuscular HGB Conc 32.7 g/dl (32-36); Mean Corpuscular Hemoglobin 30.5 pg (26-34); Mean Corpuscular Volume 93.3 fl (80-100); Mean Platelet Volume 9.6 fl (7.4-10.4); Monocytes Absolute Auto 0.6 K/mm3 (0.1-0.6); Monocytes Percent Auto 5.1 % (2.6-8.5); Neutrophils Absolute Auto 9.7 K/mm3 (1.3-6.7); Neutrophils Percent Auto 86.4 % (45.5-73.1); Platelet Count Result 172 k/mm3 (150-375); Red Blood Count 3.57 M/mm3 (4.2-5.4); Red Cell Distribution Width 11.3 % (11.5-14.5); White Blood Count 11.3 K/mm3 (4.5-10.0)
[2020-11-06 06:14] LABS: Anion Gap 4 mmol/L (8-16); Blood Urea Nitrogen 10 mg/dL (7-17); Calcium 8.5 mg/dL (8.4-10.2); Carbon Dioxide 28 mmol/L (22-30); Chloride 105 mmol/L (98-107); Estimated CRCL calculation 73 ml/min; Estimated Glomerular Filt Rate > 60; Glucose 83 mg/dL (65-110); Sodium 137 mmol/L (137-145)
--- NOTE | 2020-11-06 08:44 | PM.DS ---
DS: Admitting Diagnosis Admitting Diagnosis hormone sensitive breast cancer DS: Summary Hospital Course Hospital Course: Alice Rowe was admitted after robotic assisted total laparoscopic hysterectomy and bilateral salpingo-oophorectomy for prophylactic oophorectomy in the setting of hormone sensitive breast cancer. The above procedure was performed with no complications. She is doing well post op. She states her pain is well controlled with PO medications. She reports minimal bleeding. She is ambulating up to the chair. Her parra catheter was removed. She is tolerating PO without N/V. She reports passing flatus. Status at Discharge Overall status at discharge: patient is progressing back to baseline Time Spent with Patient Time attestation: Total time spent providing and/or coordinating discharge services: Time spent: Less than 30 minutes Exam Const: General: comfortable and no acute distress Limitations: no limitations Resp: Effort & Inspection: normal respiratory effort Auscultation: clear to auscultation bilaterally Cardio: Rate: regular rate Rhythm: regular rhythm GI: Inspection: non-distended GI Palp: Yes Soft to palpation, Yes Tenderness to palpation present (GI) (milder tenderness to deep palpation) and No Guarding due to palpation present (GI) Auscultation: normal bowel sounds Other: incisions C/D/I covered with dermabond Urinary Catheter: Urinary Catheter: urine clear Skin: General skin exam: normal color Extrem: General: normal to inspection Psych: Mental Status: mental status grossly normal Affect: normal affect DS: Data Data Completed and Pending Pending studies at discharge: Pending at discharge 11/05/20 12:47 Surgical [PTH] Routine Labs on day of discharge: Labs from last 24 hours 11/06/20 11/06/20 05:13 05:13 WBC 11.3 H RBC 3.57 L Hgb 10.9 L Hct 33.3 L MCV 93.3 MCH 30.5 MCHC 32.7 RDW 11.3 L Plt Count 172 MPV 9.6 Immature Gran % (Auto) 0.4 Neut % (Auto) 86.4 H Lymph % (Auto) 7.6 L Moody % (Auto) 5.1 Eos % (Auto) 0.1 Baso % (Auto) 0.4 Lymph # (Auto) 0.86 L Moody # (Auto) 0.6 Eos # (Auto) 0.0 Baso # (Auto) 0.0 Abs Immat Gran (auto) 0.05 H Absolute Neuts (auto) 9.7 H Absolute Nucleated RBC 0.0 Nucleated RBC % 0.0 Sodium 137 Potassium 4.0 Chloride 105 Carbon Dioxide 28 Anion Gap 4 L BUN 10 Creatinine 0.70 Estim Creat Clear Calc 73 Estimated GFR > 60 Glucose 83 Calcium 8.5 Discharge Plan Discharge Patient Disposition: Home, Self-Care Discharge Instructions: call or return for temperature >100.4, bleeding >2 pads/hr for 2 hrs, pain not controlled with medications Patient Instructions: Hysterectomy (DC), Deep Vein Thrombosis Prevention (DC) Stand Alone Forms: General Discharge Instructions Follow-up/Referrals: Hay Mchugh MD [Physician] - 2 Weeks Discharge Medications: New ibuprofen 600 mg Tablet 600 mg PO Q6H PRN (Reason: Cramping) Qty: 30 RF: 0 enoxaparin [Lovenox] 40 mg/0.4 mL Syringe 40 mg subcut DAILY 14 Days Qty: 5.6 RF: 0 oxycodone-acetaminophen 5-325 mg tablet 1 tablet PO Q6H PRN (Reason: pain) Qty: 28 RF: 0 Continued montelukast 10 mg tablet 10 mg PO DAILY RF: 0 tamoxifen 20 mg tablet 20 mg PO DAILY RF: 0 bupropion HCl 300 mg tablet extended release 24 hr 300 mg PO DAILY RF: 0 solifenacin 10 mg tablet 10 mg PO DAILY RF: 0 dextroamphetamine-amphetamine 20 mg tablet 20 mg PO DAILY PRN (Reason: ATTENTION DEFICIT) RF: 0 Held clonazepam 1 mg tablet 1 mg PO BID PRN (Reason: Anxiety) RF: 0 Hold Instructions: Resume on 11/10/20. Hold while taking narcotic pain medications trazodone 150 mg tablet 150 mg PO HS RF: 0 Hold Instructions: Resume on 11/10/20. Hold while taking narcotic pain medications
[2020-11-06 09:00] VITALS: BP 110/77; PULSE 52; PULSE 62; RESP 16; TEMP 37.4; O2SAT 95; O2SAT 96
[2020-11-06] MEDS: ENOXAPARIN 40 MG/0.4 ML SYRINGE SUB-Q (10:45)
== END 2020-11-06 11:00 | disposition home or self-care (01) ==
LOC: ANHSURGERY 09:33 → ANHOB2 20:51
PROVIDERS: PCP Nurse Practitioner Family; Visit Provider Student in an Organized Health Care Education/Training Program
PROC: (CPT 58571; principal; 2020-11-05 11:30)
DX: Z40.02 Encounter for prophylactic removal of ovary(s) (principal); Z85.3 Personal history of malignant neoplasm of breast; N80.2 Endometriosis of fallopian tube; N73.6 Female pelvic peritoneal adhesions (postinfective); N80.0 Endometriosis of uterus; N83.201 Unspecified ovarian cyst, right side; F41.9 Anxiety disorder, unspecified; F12.90 Cannabis use, unspecified, uncomplicated
CPT/HCPCS: 58571; S2900; 36415; 80048; 85025; 88307; 99199; A9270; J0360; J0690; J1100; J1170; J1200; J1650; J1885; J2250; J2405; J2704; J3010; J7030; J7120; J7121; Q9968

== ENCOUNTER 2021-02-17 09:03 | Emergency (ER) | payer OTHER, SELFPAY ==
--- NOTE | ~2021-02-17 | XR_ITS ---
EXAMINATION: XR chest 1V portable EXAM DATE: 02/17/2021 10:18 INDICATION: Body aches chills. History breast cancer. TECHNIQUE: Portable AP frontal chest x-ray was obtained. There is no prior study for comparison. FINDINGS: The lungs are clear. There are no pleural effusions. The cardiomediastinal silhouette is within normal limits. There is no pneumothorax suspected. Left breast surgical changes, spacer. IMPRESSION: No acute cardiopulmonary findings. Reviewed, dictated and finalized at location A.
[2021-02-17 09:19] VITALS: BP 132/119; PULSE 59; RESP 18; TEMP 36.8; O2SAT 100
[2021-02-17] MEDS: SODIUM CHLORIDE 0.9% IV 1,000 ML 999 ML IV CONT (10:07)
[2021-02-17 10:12] LABS: Basophils Absolute Auto 0.1 K/mm3 (0.0-0.1); Basophils Percent Auto 1.3 % (0.2-1.2); Eosinophils Absolute Auto 0.2 K/mm3 (0-0.3); Eosinophils Percent Auto 4.8 % (0-4.4); Hemoglobin 11.6 g/dL (12.0-15.0); Immature Granulocyte Absolute 0.01 K/mm3 (0.00-0.031); Immature Granulocyte Percent A 0.3 % (0-0.5); Lymphocytes Absolute Auto 0.85 K/mm3 (0.9-3.2); Lymphocytes Percent Auto 21.5 % (18.3-44.2); Mean Corpuscular HGB Conc 33.1 g/dl (32-36); Mean Corpuscular Volume 93.6 fl (80-100); Mean Platelet Volume 9.1 fl (7.4-10.4); Monocytes Absolute Auto 0.3 K/mm3 (0.1-0.6); Monocytes Percent Auto 7.1 % (2.6-8.5); Neutrophils Absolute Auto 2.6 K/mm3 (1.3-6.7); Platelet Count Result 171 k/mm3 (150-375); Red Blood Count 3.74 M/mm3 (4.2-5.4); Red Cell Distribution Width 12.1 % (11.5-14.5)
[2021-02-17 10:29] LABS: Alanine Aminotransferase 22 U/L (4-35); Alkaline Phosphatase 25 U/L (38-126); Anion Gap 3 mmol/L (8-16); Aspartate Amino Transferase 26 U/L (14-36); Bilirubin,Total 0.6 mg/dL (0.2-1.3); Blood Urea Nitrogen 12 mg/dL (7-17); Carbon Dioxide 32 mmol/L (22-30); Chloride 105 mmol/L (98-107); Estimated CRCL calculation 88 ml/min; Estimated Glomerular Filt Rate > 60; Glucose 91 mg/dL (65-110); Potassium 4.2 mmol/L (3.4-5.0); Sodium 140 mmol/L (137-145)
[2021-02-17 10:32] LABS: Add Urine Microscopic? YES; Appearance Urine Turbid (Clear); Bilirubin Urine Negative (Negative); Blood Urine Negative (Negative); Color Urine Amber (Yellow); Glucose Urine UA Negative (Negative); Ketones Urine Negative (Negative); Leukocyte Esterase Ur Negative LEU/UL (Negative); Mucus Urine Rare /lpf; Nitrate Urine Negative (Negative); Protein Urine Negative (Negative); RBC Urine 0-2 /hpf (0-2); Specific Grav Ur 1.016 (1.001-1.035); Squamous Epithelial Cell Urine Occasional /hpf (Few); Urobilinogen Urine Negative mg/dL (<2.0)
[2021-02-17 12:10] VITALS: BP 148/93; PULSE 58; RESP 18; O2SAT 100
--- NOTE | 2021-02-17 12:19 | ED.GENADULT ---
HPI - General Adult General Chief complaint: Upper Respiratory Infection Stated complaint: body aches Time Seen by Provider: 02/17/21 09:18 Source: patient Mode of arrival: ambulatory Limitations: no limitations History of Present Illness HPI narrative: Patient [id number]-nek female with chief complaint of breast cancer in remission since November. Patient reports that she had radiation performed that ended in October and she has since been on chemotherapy pills which she will be on for the next 5 years. Patient reports in October she had a left-sided mastectomy. She has a spacer in place at this time. Patient reports that her oncologist is Dr. Arnett in [place]. Patient reports that she has been attempting to go to work but she calls off every other day due to fatigue and body aches. Patient states that this has been going on for multiple months. Patient reports that her symptoms are side effect of the chemotherapy but she wants to make sure that there may not be an acute cause. Patient reports that her primary care did blood work last week to evaluate but did not check her urine. Patient reports that she also has a metallic taste on her tongue and feels that her mouth is dry. She is concerned that she may be dehydrated. Patient has not had any fevers, vomiting, diarrhea, or bleeding from any of her orifices. Patient denies chance of due to hysterectomy. Related Data Home Medications Medication Instructions Recorded Confirmed clonazepam 1 mg PO BID PRN 04/30/19 11/05/20 dextroamphetamine-amphetamine 20 mg PO DAILY PRN 04/30/19 11/01/20 trazodone 150 mg PO HS 04/30/19 11/05/20 bupropion HCl 300 mg PO DAILY 08/28/20 11/05/20 montelukast 10 mg PO DAILY 08/28/20 11/05/20 solifenacin 10 mg PO DAILY 08/28/20 11/05/20 tamoxifen 20 mg PO DAILY 08/28/20 11/05/20 Allergies Allergy/AdvReac Type Severity Reaction Status Date / Time No Known Allergies Allergy Verified 11/05/20 11:23 Review of Systems Review of Systems: CONSTITUTIONAL: Reports body aches and chills denies fever or sweats. EYES: Denies visual changes, redness, or discharge. ENT: Denies rhinorrhea, congestion, sore throat, or otalgia. CARDIOVASCULAR: Denies chest pain, palpitations, or edema. RESPIRATORY: Denies cough or dyspnea. GASTROINTESTINAL: Denies abdominal pain, nausea, vomiting, or diarrhea. GENITOURINARY: Denies dysuria or hematuria. SKIN: Denies rash or itching. MUSCULOSKELETAL: Denies back pain, joint pain, or myalgia. NEUROLOGIC: Denies headache, numbness, dizziness, or weakness. PSYCHIATRIC: Denies anxiety or depression. [facility] Past Medical History Medical History (Updated 02/17/21 @ 12:42 by Rio Fallon PA-C) Anxiety Breast cancer Interstitial cystitis Kidney infection UTI (urinary tract infection) Surgical History Surgical History (Updated 08/29/20 @ 12:55 by Gita Lopez) History of lumpectomy of left breast Hx of breast augmentation Family History Family History Father Lung cancer Social History Social History Smoking status: Never smoker Second hand tobacco smoke exposure: No Alcohol intake: former Drinks per week: 0 Alcohol use details: LAST 2019 Substance use: never Substance use type: marijuana Other substance usage details: MEDICAL MARIJUANA Last use: 10/31/2020 Gender identity (if verbalized by the patient): Female Spiritual care concerns: No Agree to blood products: Yes Exam Narrative: GENERAL: Well-appearing, well-nourished, and in no acute distress. HEAD: Normocephalic, atraumatic. EYES: PERRLA and EOMI. ENT: Nares clear, no rhinorrhea or epistaxis. Mucous membranes slightly dry. Oropharynx without tonsillar hypertrophy exudate or other lesions. Bilateral TMs pearly chinchilla nonbulging. NECK: Supple. ROM intact. CHEST: Clear to auscultation. No respiratory distress. No
[2021-02-17 12:56] VITALS: BP 132/84; PULSE 84; RESP 16; O2SAT 97
== END 2021-02-17 12:56 | disposition home or self-care (01) ==
PROVIDERS: Physician Assistant; Emergency Provider Emergency Medicine; PCP Nurse Practitioner Family
DX: R52 Pain, unspecified (principal); C50.912 Malignant neoplasm of unspecified site of left female breast; F41.9 Anxiety disorder, unspecified; N30.10 Interstitial cystitis (chronic) without hematuria; Z87.440 Personal history of urinary (tract) infections; Z92.3 Personal history of irradiation; Z79.899 Other long term (current) drug therapy; Z90.12 Acquired absence of left breast and nipple
CPT/HCPCS: 36415; 71045; 80053; 81001; 85025; 96360; 99283; J7030

== ENCOUNTER 2021-05-11 18:04 | Emergency (ER) | payer OTHER, SELFPAY ==
[2021-05-11 18:17] VITALS: BP 137/88; PULSE 75; RESP 16; TEMP 37.3; O2SAT 100
--- NOTE | 2021-05-11 18:26 | ED.URI ---
HPI - URI/Sore Throat General Chief Complaint: Upper Respiratory Infection Stated Complaint: body aches/sore throat/ear pain Time Seen by Provider: 05/11/21 18:26 Source: patient and RN notes reviewed Mode of arrival: ambulatory Limitations: no limitations History of Present Illness HPI Narrative: 45-year-old female presents with concern for right ear pain. She reports she has had symptoms for 3 weeks of nasal congestion, rhinorrhea, ear pain, fatigue, body aches. Reports she had a teledoc visit with her primary doctor who prescribed her Augmentin which she has been taking for 7 days without relief. Reports she had multiple negative Covid test. Reports she has been using Flonase and occasionally Sudafed. MD elicited complaint: nasal congestion and other (Ear pain) Related Data Home Medications Medication Instructions Recorded Confirmed clonazepam 1 mg PO BID PRN 04/30/19 05/11/21 dextroamphetamine-amphetamine 20 mg PO DAILY 04/30/19 05/11/21 trazodone 150 mg PO HS 04/30/19 05/11/21 bupropion HCl 300 mg PO DAILY 08/28/20 05/11/21 montelukast 10 mg PO DAILY 08/28/20 05/11/21 amoxicillin-pot clavulanate 1 tablet PO DAILY 05/11/21 05/11/21 Allergies Allergy/AdvReac Type Severity Reaction Status Date / Time No Known Allergies Allergy Verified 05/11/21 18:10 Review of Systems Review of Systems: CONSTITUTIONAL: Reports malaise, fatigue. Denies chills, sweats, or fever. EYES: Denies visual changes, redness, or discharge. ENT: Reports rhinorrhea, congestion,otalgia. Denies sinus pain and sore throat. CARDIOVASCULAR: Denies chest pain, palpitations, or edema. RESPIRATORY: Denies cough. Denies dyspnea. GASTROINTESTINAL: Denies abdominal pain, nausea, vomiting, diarrhea SKIN: Denies rash or itching. MUSCULOSKELETAL: Reports myalgia. NEUROLOGIC: Reports headache. All systems reviewed & are unremarkable except as noted in HPI and below PMFSH Past Medical History Medical History (Updated 05/11/21 @ 18:36 by Gita Stovall NP) Anxiety Breast cancer Interstitial cystitis Kidney infection UTI (urinary tract infection) Surgical History Surgical History (Updated 08/29/20 @ 12:55 by Gita Lopez) History of lumpectomy of left breast Hx of breast augmentation Family History Family History Father Lung cancer Social History Social History Smoking status: Never smoker Second hand tobacco smoke exposure: No Alcohol intake: former Drinks per week: 0 Alcohol use details: LAST 2019 Substance use: never Substance use type: marijuana Other substance usage details: MEDICAL MARIJUANA Last use: 10/31/2020 Gender identity (if verbalized by the patient): Female Spiritual care concerns: No Agree to blood products: Yes Comments At time of signature, agree with nursing past medical, surgical, social and family history. There is no relevant family history pertinent to the presenting complaint Exam Narrative: GENERAL: Well-appearing, well-nourished, and in no acute distress. HEAD: Normocephalic EYES: PERRLA, conjunctivae clear ENT: Nares clear, turbinates edematous and erythematous, clear discharge. Mucous membranes moist. TM pearly chinchilla with sharp light reflex bilaterally; no tragal tenderness. Oropharynx not erythematous without lesions. Tonsils not enlarged and without exudate, no drooling, no hoarseness, no trismus, uvula midline. NECK: Supple. No lymphadenopathy CHEST: Clear to auscultation, breath sounds equal. No wheezing, rhonchi, rales, or stridor. No respiratory distress, speaks in full sentences. HEART: Regular rate and rhythm. No murmur heard. SKIN: Warm, dry, no rash. NEURO: Alert and oriented x3. PSYCH: Normal mood and affect Course Course Emergency Course: Patient is aware of diagnosis, understands and agrees to treatment plan. Anticipatory guidance given. Patient agrees to fol
== END 2021-05-11 18:37 | disposition home or self-care (01) ==
PROVIDERS: Emergency Provider Nurse Practitioner; PCP Nurse Practitioner Family
DX: H92.01 Otalgia, right ear (principal); F41.9 Anxiety disorder, unspecified; Z85.3 Personal history of malignant neoplasm of breast
CPT/HCPCS: 99213; G0463

== ENCOUNTER 2021-05-16 16:14 | Emergency (ER) | payer OTHER, SELFPAY ==
[2021-05-16 16:24] VITALS: BP 151/83; PULSE 70; RESP 16; TEMP 36.6; O2SAT 100
--- NOTE | 2021-05-16 17:27 | ED.GENADULT ---
HPI - General Adult General Chief complaint: Upper Respiratory Infection Stated complaint: Ear Pain,Body Aches Time Seen by Provider: 05/16/21 17:22 Source: patient, family, RN notes reviewed and old records reviewed Mode of arrival: ambulatory Limitations: no limitations History of Present Illness HPI narrative: 45-year-old female presents to the [facility] with complaints of right ear pain and generalized body aches since 16 April. Has just finished a course of amoxicillin for 10 days. States that she has been taking a steroid. Has done multiple [id number] Covid test which she states is negative Patient has a very complicated past medical history and to include breast cancer. Had tried calling her primary care provider but they were out with health issues. Just finished Augmentin her medical record. Related Data Home Medications Medication Instructions Recorded Confirmed clonazepam 1 mg PO BID PRN 04/30/19 05/16/21 dextroamphetamine-amphetamine 20 mg PO DAILY 04/30/19 05/16/21 trazodone 150 mg PO HS 04/30/19 05/16/21 montelukast 10 mg PO DAILY 08/28/20 05/16/21 exemestane 25 mg PO DAILY 05/16/21 05/16/21 Allergies Allergy/AdvReac Type Severity Reaction Status Date / Time No Known Allergies Allergy Verified 05/16/21 17:01 Review of Systems Review of Systems: All systems reviewed & are unremarkable except as noted in HPI and below Constitutional: Constitutional: Reports no additional constitutional complaints, Denies chills, Denies fever(s) and Denies headache(s) Eyes: Eyes: Reports no additional eye complaints ENT: Reports as per HPI, Denies vertigo, Denies dizziness, Denies headache(s), Reports nasal congestion and Denies sore throat Cardiovascular: Cardiovascular: Reports no additional cardiovascular complaints, Denies chest pain, Denies syncope, Denies rapid heart rate and Denies dyspnea Respiratory: Respiratory: Reports no additional respiratory complaints, Denies cough, Denies dyspnea and Denies wheezing Gastrointestinal: Gastrointestinal: Reports no additional gastrointestinal complaints, Denies abdominal pain, Denies diarrhea, Denies nausea and Denies vomiting Musculoskeletal: Musculoskeletal: Reports no additional musculoskeletal complaints and Denies numbness Integumentary/Breasts: Skin/Breast: Reports system reviewed and no additional complaints, except as docu Neurologic: Reports system reviewed and no additional complaints, except as documented, Denies vertigo, Denies dizziness, Denies syncope, Denies headache(s), Denies focal weakness and Denies numbness Psychiatric: Psychiatric: Reports no additional psychiatric complaints Allergic/Immunologic: Allergic/Immunologic: Reports no additional allergic/immunologic complaints and Denies wheezing PMFSH Past Medical History Medical History Anxiety Breast cancer Interstitial cystitis Kidney infection UTI (urinary tract infection) Surgical History Surgical History History of lumpectomy of left breast Hx of breast augmentation Family History Family History Father Lung cancer Social History Social History Smoking status: Never smoker Second hand tobacco smoke exposure: No Alcohol intake: former Drinks per week: 0 Alcohol use details: LAST 2019 Substance use: never Substance use type: marijuana Other substance usage details: MEDICAL MARIJUANA Last use: 10/31/2020 Gender identity (if verbalized by the patient): Female Spiritual care concerns: No Agree to blood products: Yes Comments At the time of my signature, I reviewed and agree with the nursing past medical, surgical, social, and family history. There is no relevant family history pertinent to the patient complaint. Exam Const: General: cooperative, hea
[2021-05-18 10:49] LABS: SARS-CoV-2 RNA PCR Negative
== END 2021-05-16 17:55 | disposition home or self-care (01) ==
PROVIDERS: Emergency Provider Nurse Practitioner; PCP Nurse Practitioner Family
DX: H65.01 Acute serous otitis media, right ear (principal); J32.9 Chronic sinusitis, unspecified; Z20.822 Contact with and (suspected) exposure to COVID-19; Z85.3 Personal history of malignant neoplasm of breast; F41.9 Anxiety disorder, unspecified
CPT/HCPCS: 99213; C9803; G0463; U0003; U0005

== ENCOUNTER 2021-08-07 11:25 | Emergency (ER) | payer OTHER, SELFPAY ==
[2021-08-07 11:30] VITALS: BP 126/75; PULSE 59; RESP 16; TEMP 36.7; O2SAT 100
--- NOTE | 2021-08-07 11:32 | ED.FEMALEGU ---
HPI - Female Genitourinary General Chief complaint: Urogenital-Female Stated complaint: uti Time Seen by Provider: 08/07/21 11:33 Source: patient Mode of arrival: ambulatory Limitations: no limitations History of Present Illness HPI Narrative: Ms Rowe is a 45-year-old female patient presenting to the clinic today with complaints of urinary symptoms x1 to 2 days. She reports she is to get surgery here this week and is concerned that she may have a urinary tract infection. She is reporting some burning and frequency with urination. Does have a history of frequent UTIs as well as interstitial cystitis. Also stating that she has some congestion and some ear fullness. She denies any fever or chills. She denies any known exposure to anybody with COVID, influenza, or strep. Related Data Home Medications Medication Instructions Recorded Confirmed clonazepam 1 mg PO BID PRN 04/30/19 05/16/21 dextroamphetamine-amphetamine 20 mg PO DAILY 04/30/19 05/16/21 trazodone 150 mg PO HS 04/30/19 05/16/21 montelukast 10 mg PO DAILY 08/28/20 05/16/21 exemestane 25 mg PO DAILY 05/16/21 05/16/21 Allergies Allergy/AdvReac Type Severity Reaction Status Date / Time No Known Allergies Allergy Verified 05/16/21 17:01 Review of Systems Review of Systems: Pertinent positives per HPI. Patient denies any fever, chills, rash, headache, visual changes, dizziness, cough, sore throat, shortness of breath, chest pain, palpitations, nausea, vomiting, diarrhea, constipation, abdominal pain. [facility] Past Medical History Medical History Anxiety Breast cancer Interstitial cystitis Kidney infection UTI (urinary tract infection) Surgical History Surgical History History of lumpectomy of left breast Hx of breast augmentation Family History Family History Father Lung cancer Social History Social History Smoking status: Never smoker Second hand tobacco smoke exposure: No Alcohol intake: former Drinks per week: 0 Alcohol use details: LAST 2019 Substance use: never Substance use type: marijuana Other substance usage details: MEDICAL MARIJUANA Last use: 10/31/2020 Gender identity (if verbalized by the patient): Female Spiritual care concerns: No Agree to blood products: Yes Comments At the time of my signature, I reviewed and agree with the nursing past medical, surgical, social, and family history. There is no relevant family history pertinent to the patient complaint. Exam Narrative: General: Well-developed, well nourished, in no apparent distress Head: Normocephalic, atraumatic Eyes: Pupils equally round and reactive to light bilaterally, EOM intact, sclera and conjunctive clear, no discharge, lids normal Ears: TMs intact, dull, mild fluid behind TMs, ear canals clear, no drainage, grossly hearing normal. Nose: Nares patent, clear discharge, no inflammation, no sinus tenderness. Mouth: Oropharynx without lesions or masses, good dentition, MMM. Neck: Supple, trachea midline, no enlargement of anterior or posterior cervical nodes, no thyroid masses or goiter palpable. Cardio: Regular rate and rhythm, s1 and s2 normal, no murmur appreciated. Resp: Clear to auscultation bilaterally anteriorly and posteriorly, no rhonchi, rales, wheezing or rubs Abdomen: Soft, pliable, bowel sounds present in all quadrants, non-tender to palpation, no organomegly, no CVAT tenderness. No suprapubic tenderness Course Course Emergency Course: Portions of this record may have been created with voice recognition software. Level of Care: Express Care Visit Vital Signs Vital signs: Vital Signs Temperature 36.7 C 08/07/21 11:30 Pulse Rate 59 L 08/07/21 11:30 Respiratory
== END 2021-08-07 12:07 | disposition home or self-care (01) ==
PROVIDERS: Emergency Provider Nurse Practitioner Family
DX: N30.10 Interstitial cystitis (chronic) without hematuria (principal); J30.9 Allergic rhinitis, unspecified; F41.9 Anxiety disorder, unspecified; Z85.3 Personal history of malignant neoplasm of breast; F12.90 Cannabis use, unspecified, uncomplicated
CPT/HCPCS: 81003; 99212; G0463

== ENCOUNTER 2022-08-03 16:26 | Emergency (ER) | payer OTHER, SELFPAY ==
[2022-08-03 16:37] VITALS: BP 170/74; PULSE 62; RESP 12; TEMP 36.6; O2SAT 100
--- NOTE | 2022-08-03 17:00 | ED.GENADULT ---
HPI - General Adult General Chief complaint: Extremity Injury, Lower Stated complaint: Right Leg Pain Time Seen by Provider: 08/03/22 17:01 Source: patient, RN notes reviewed and old records reviewed Mode of arrival: ambulatory Limitations: no limitations History of Present Illness HPI narrative: 46-year-old female presents to the [facility] with complaints of right or back and right leg pain that has increased over the last 4 days. States that she has not been able a CT of bed because the pain is so bad. Currently on gabapentin for her back pain as well as muscle relaxers and hydrocodone. States those are not working for her pain. Sees a pain management at [facility]. Patient had for stated that she is possibly scheduled for a spinal injection steroids next week. Is requesting a shot Toradol stating that has helped her in the past. discussed with patient that Toradol shots or any NSAIDs or blood thinners are not recommended within a week spinal injections the risk spinal hematomas, paralysis could occur. Patient then stated that her injections for her bulging tests were denied. Denies any loss or retention of bowel bladder. Denies any saddle anesthesia. States the pain shoots down right leg. Patient had MRI from March of 2022 reports that she has taken medications and is sitting ice pack that helps. Related Data Home Medications Medication Instructions Recorded Confirmed montelukast 10 mg tablet 10 mg PO DAILY 08/28/20 07/21/22 letrozole 2.5 mg tablet 2.5 mg PO DAILY 01/05/22 07/21/22 solifenacin 10 mg tablet 10 mg PO DAILY 01/05/22 07/21/22 prednisone PO 03/29/22 07/21/22 Allergies Allergy/AdvReac Type Severity Reaction Status Date / Time No Known Allergies Allergy Verified 08/03/22 17:02 Review of Systems Review of Systems: All systems reviewed & are unremarkable except as noted in HPI and below Constitutional: Constitutional: Reports no additional constitutional complaints Eyes: Eyes: Reports no additional eye complaints ENT: Reports system reviewed and no additional complaints, except as documented Cardiovascular: Cardiovascular: Reports no additional cardiovascular complaints, Denies chest pain and Denies dyspnea Respiratory: Respiratory: Reports no additional respiratory complaints, Denies chest congestion, Denies cough and Denies dyspnea Gastrointestinal: Gastrointestinal: Reports no additional gastrointestinal complaints, Denies abdominal pain, Denies nausea and Denies vomiting Musculoskeletal: Musculoskeletal: Reports as per HPI Integumentary/Breasts: Skin/Breast: Reports system reviewed and no additional complaints, except as docu Neurologic: Reports system reviewed and no additional complaints, except as documented Psychiatric: Psychiatric: Reports no additional psychiatric complaints Allergic/Immunologic: Allergic/Immunologic: Reports no additional allergic/immunologic complaints PMFSH Past Medical History Medical History Acne ADHD Anorexia Anxiety Anxiety and depression Breast cancer Chronic allergic rhinitis Chronic idiopathic constipation Constipation Depression Encounter to establish care Interstitial cystitis Irritable bowel syndrome with constipation Kidney infection Low back pain with right-sided sciatica Post-operative pain Sinusitis UTI (urinary tract infection) Surgical History Surgical History H/O: hysterectomy History of lumpectomy of left breast Hx of breast augmentation Family History Family History Father Lung cancer Social History Social History Smoking status: Never smoker Second hand tobacco smoke exposure: No Alcohol intake: former Drinks per week: 0 Alcohol use details: LAST 2019 Substance use: cu
[2022-08-03] MEDS: KETOROLAC (*BKC) 60 MG/2 ML VIAL IM (17:29)
== END 2022-08-03 18:09 | disposition home or self-care (01) ==
PROVIDERS: Emergency Provider Nurse Practitioner; PCP Nurse Practitioner Family
DX: G89.29 Other chronic pain (principal); M54.50 Low back pain, unspecified; Z85.3 Personal history of malignant neoplasm of breast; F12.90 Cannabis use, unspecified, uncomplicated
CPT/HCPCS: 81003; 96372; 99213; G0463; J1885

== ENCOUNTER 2022-12-28 15:12 | Emergency (ER) | payer OTHER, SELFPAY ==
--- NOTE | 2022-12-28 15:14 | ED.BACK ---
HPI - Back Pain/Injury General Chief Complaint: Back Pain/Injury Stated Complaint: back pain Time Seen by Provider: 12/28/22 15:14 Source: patient Mode of arrival: ambulatory Limitations: no limitations History of Present Illness HPI Narrative: patient is a 47-year-old female that presents with right-sided low back pain that is worsened in the last 3 days. Patient has chronic back pain with bulging discs. Patient is currently in physical therapy and applying for disability. Patient has been seen by pain management and had steroid injections in the past. Patient states she has also been given Toradol injections with relief in the past and is requesting a Toradol injection. Has not taken any ibuprofen or Celebrex today. Denies any numbness tingling or loss of bowel or bladder. Related Data Home Medications Medication Instructions Recorded Confirmed letrozole 2.5 mg tablet 2.5 mg PO DAILY 01/05/22 12/28/22 Allergies Allergy/AdvReac Type Severity Reaction Status Date / Time No Known Allergies Allergy Verified 12/28/22 15:17 Review of Systems Review of Systems: All systems reviewed & are unremarkable except as noted in HPI and below Constitutional: Constitutional: Denies body ache(s), Denies chills, Denies fatigue, Denies fever(s), Denies headache(s), Denies malaise and Denies weakness Eyes: Eyes: Denies blurry vision, Denies irritation and Denies loss of vision ENT: Denies otalgia, Denies headache(s), Denies nasal discharge, Denies sinus pain and Denies sore throat Cardiovascular: Cardiovascular: Denies chest pain, Denies irregular heart rhythm and Denies dyspnea Respiratory: Respiratory: Denies dyspnea Gastrointestinal: Gastrointestinal: Denies abdominal pain, Denies melena, Denies hematochezia, Denies diarrhea, Denies nausea and Denies vomiting Musculoskeletal: Musculoskeletal: Reports back pain, Denies myalgias and Denies arthralgias Integumentary/Breasts: Skin/Breast: Denies pruritus and Denies rash Neurologic: Denies headache(s), Denies loss of vision and Denies weakness Psychiatric: Psychiatric: Reports no additional psychiatric complaints Endocrine: Endocrine: Denies fatigue PMFSH Past Medical History Medical History Acne ADHD Anorexia Anxiety Anxiety and depression Breast cancer Chronic allergic rhinitis Chronic idiopathic constipation Constipation Depression Encounter to establish care Interstitial cystitis Irritable bowel syndrome with constipation Kidney infection Low back pain with right-sided sciatica Post-operative pain Sinusitis Urinary frequency UTI (urinary tract infection) Surgical History Surgical History H/O: hysterectomy History of lumpectomy of left breast Hx of breast augmentation Family History Family History Father Lung cancer Social History Social History Smoking status: Never smoker Second hand tobacco smoke exposure: No Alcohol intake: former Drinks per week: 0 Alcohol use details: LAST 2019 Substance use: current Substance use type: marijuana Other substance usage details: MEDICAL MARIJUANA Last use: 10/31/2020 Lack of Transportation: No Lack of Food: Sometimes True Current Housing: I Have Housing Concerned About Future Housing: No Difficulty Paying Gas/Electric Bills: YES Difficulty Paying for Meds: No Currently Unemployed: No Education: Trade/Vocational Certificate Difficulty w/ Childcare or Family Care: No Living arrangements: with family Gender identity (if verbalized by the patient): Female Spiritual care concerns: No Agree to blood products: Yes Comments At time of signature, agree with nursing past medical, surgical, social and family history. There is no relevant family
[2022-12-28 15:25] VITALS: BP 106/61; PULSE 120; RESP 14; TEMP 36.6; O2SAT 100
[2022-12-28 15:28] VITALS: BP 106/61; PULSE 120; RESP 14; TEMP 36.6; O2SAT 100
[2022-12-28] MEDS: KETOROLAC (*BKC) 60 MG/2 ML VIAL IM (16:30)
[2022-12-28 16:53] VITALS: PULSE 62
== END 2022-12-28 16:53 | disposition home or self-care (01) ==
PROVIDERS: Emergency Provider Nurse Practitioner Family; PCP Nurse Practitioner Family
DX: M54.16 Radiculopathy, lumbar region (principal); F41.9 Anxiety disorder, unspecified; F32.A Depression, unspecified; Z85.3 Personal history of malignant neoplasm of breast
CPT/HCPCS: 96372; 99213; G0463; J1885

== ENCOUNTER 2023-02-16 13:45 | Outpatient (RCR) | payer OTHER, SELFPAY ==
--- NOTE | 2022-09-28 15:54 | PCPTNOTE ---
Patient did not show up for scheduled evaluation this date.
--- NOTE | 2022-12-15 13:38 | OPREHPOC ---
Outpatient Therapy Plan of Care This is a Multidisciplinary Plan of Care that may contain components documented by all disciplines (PT, OT, and ST.) PT Problem 1 PT Problem #1 Knowledge Deficit PT Goal 1 Goal 1* indep with HEP- on land and in water 2* demonstrate good posture and position of back during session PT Problem 2 PT Problem #2 Pain PT Goal 1 Goal 1* pt report pain rating at worst of 5/10 2* radicular pain to R knee at worst 3* Oswestry self assessment functional limitation of 50% PT Problem 3 PT Problem #3 Impaired Flexibility PT Goal 1 Goal 1* increase length of hamstring with supine SLR R 60' 2* supine trunk rotation R/L without pain increase 3* supine hamstring stretch without pain increase PT Problem 4 PT Problem #4 Impaired Strength PT Goal 1 Goal 1* pt able to perform 45 minutes of aquatic exercises 2* pt able to perform 20 reps of mat strengthening exercises with good stability 3* pt able to perform 10 reps of sitting on ball exercises with good stability of trunk
--- NOTE | 2022-12-15 13:38 | PTOPEVAL1 ---
Assessment and note entered by Dunia Link, PT Evaluation Information Assessment Status Evaluation Diagnosis lumbar pain Onset about the past year Subjective Information gradual increase in back pain, history of back pain and now taking chemo med, Letrozole which can cause joint and muscle pains, osteoporosis-- have discussed with her oncologist; have been to urgent care a few times due to severe pain; had chiropractor treatment, helped some, massage gun and lie on a machine for 10 min; pain management- had 2 injections, did not help; has not had PT treatment; back surgeon--at [facility], recommended surgery to back MRI-- R hip small labral tear; ganglion cyst; lumbar: L 3-4: mod facet arthropathy, L 4-5 foraminal stenosis and facet arthropathy; L5-S1 moderate to advance facet arthropathy; ACTIVITY: not able to work due to pain, have not worked since September 2022; 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 [employer]- had to quit due to not able to stand and lean over and 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; Have tried some exercises at home, from internet and dr office, but they do not help; was in [place], liked the water exercises; Reported Pain Level Pain Score Self Report Additional Pain Score Comments pain range in the past week 2-8/10; throb, hurts; R lower lumbar, sacral and buttock; always to lateral upper thigh and at worst, to R foot increase pain: sitting 30 min; stress-tension; decrease pain: walking, change positions, ice; gabapentin and celebrex with sleeping, take med to help with sleeping; awaken with pain after 6 hours sleeping Assessment PT Clinical Summary Alice has the diagnosis of back pain. Pain is radicular intermittent to R foot, with self assessment functional limitation of 66%; limited sitting, sleeping, activity level due to pain. Reports she is not able to work due to pain. Her history includes breast cancer with radiation treatment, completed in 2020 and is still taking chemo pill letrozo
--- NOTE | 2023-01-02 11:43 | PCPTNOTE ---
Pt cancelled due to injections she received yesterday.
--- NOTE | 2023-01-04 11:35 | PCPTNOTE ---
Patient called & cancelled scheduled appointment this date due to being sick.
--- NOTE | 2023-01-09 12:34 | PCPTNOTE ---
Pt. canceled 01/09/23 appointment stating she was in too much pain.
--- NOTE | 2023-01-11 11:57 | PCPTNOTE ---
Pt cancelled appt today.
--- NOTE | 2023-01-18 10:58 | OPREHPOC ---
Outpatient Therapy Plan of Care This is a Multidisciplinary Plan of Care that may contain components documented by all disciplines (PT, OT, and ST.) PT Problem 1 PT Problem #1 Knowledge Deficit PT Goal 1 Goal 1* indep with HEP- on land and in water 2* demonstrate good posture and position of back during session Progress Partially Met Comment 01-18-23 progress continue towards goals for education PT Problem 2 PT Problem #2 Pain PT Goal 1 Goal 1* pt report pain rating at worst of 5/10 2* radicular pain to R knee at worst 3* Oswestry self assessment functional limitation of 50% Progress Not Met Comment 01-18-23 progress continue towards goals PT Problem 3 PT Problem #3 Impaired Flexibility PT Goal 1 Goal 1* increase length of hamstring with supine SLR R 60' 2* supine trunk rotation R/L without pain increase 3* supine hamstring stretch without pain increase Progress Partially Met Comment 01-18-23 progress met goal 2; continue towards goals 1 & 3 PT Problem 4 PT Problem #4 Impaired Strength PT Goal 1 Goal 1* pt able to perform 45 minutes of aquatic exercises 2* pt able to perform 20 reps of mat strengthening exercises with good stability 3* pt able to perform 10 reps of sitting on ball exercises with good stability of trunk Progress Partially Met Comment 01-18-23 progress met goal 2 continue with goals & progress to more advanced mat strengthening
--- NOTE | 2023-01-18 10:58 | PTOPPROG ---
Assessment and note entered by Dunia Link, PT Evaluation Information Assessment Status Progress Diagnosis lumbar pain Onset about the past year Subjective Information was in ER due to hip pain few days ago; going to get a second opinion about back surgery--not sure what going to do; no longer seeing pain management; PAIN: range in the past week: 5 -9/10; R lumbar into R lateral ankle- intermittent; gabapentin helps; self assessment Oswestry rating of 82% limitation in activity; increase pain: house work, activity; sitting 20 min in car; grocery shop with 13 yr old son assist to carry groceries decrease pain: sit,rest,ice, lidocaine pain patch; Assessment PT Clinical Summary Alice has received 3 PT sessions. She called and canceled 4 appointments due to being ill and having more pain. She did go to ER recently due to pain. During sessions, she has anxiety about increasing her pain, what to do for her back and sometimes asks the same question multiple times during the session. Compared to the initial evaluation: pain rating is worse, from 2-8/10 to 5-9/10; radicular p ain continues to be to R ankle/foot intermittent; self assessment Oswestry is worse, from 66 to 82% limitation in activity level; reported sitting tolerance worse, from 30 to 20 minutes; improved with strength of trunk and hips with mat exercises and supine trunk rotation does not increase her pain now; The goals were not achieved. She only had 3 sessions. Educated pt on home exercise program, importance of moving as tolerated and posture. Continue PT treatment. She agreed to attend therapy. Plan of Care Interventions Aquatic Therapy,Gait Training,Hot Pack/Cold Pack, Manual Therapy,Mechanical Traction,Neuro Re- education,Patient Education,Therapeutic Activities,Therapeutic Exercise,Other Other Interventions DESIRAE proctor PT Services Indicated Yes Treatment Frequency and 2x/wk for 4 weeks Duration These treatments will address
--- NOTE | 2023-01-30 08:44 | PCPTNOTE ---
Patient called to cancel appointment due to illness 01/30/23.
--- NOTE | 2023-02-06 13:23 | PCPTNOTE ---
Pt showed for appt and then cancelled due to not feeling well .
--- NOTE | 2023-02-16 15:58 | PTOPPROG ---
Assessment and note entered by Americo Segal, PT Evaluation Information Assessment Status Progress Diagnosis lumbar pain Onset 1 year Subjective Information Reports that she was doing better up until this week. She is noticing some pain in the back of the right hamstring and into her foot. Pain has been fairly consistent and she has not seen a lot of consistent pain relief with therapy at this time. She is concerned about the physics tutor presence of her pain and plans to consult for possible surgical intervention should she not see consistent relief. Assessment PT Clinical Summary Patient was seeing minimal improvement up to this progress note. Continues to rate subjective pain as significantly above 5/10 consistently. Gets increased pain with abdominal work and with integrated recent mexican ball activity. She appeared to be on track with prone progressions but has not seen mcc improvement in pain. She has remaining treatment time available and plans to continue emphasis on prone extension activity deferring exercise progression due to recent increase in pain. Continues to show signs and symptoms consistent with chronic unilateral discogenic agitation. Plan of Care Interventions Aquatic Therapy,Gait Training,Hot Pack/Cold Pack, Manual Therapy,Mechanical Traction,Neuro Re- education,Patient/Caregiver Education,Therapeutic Activities,Therapeutic Exercise,Other Other Interventions gaeling, [facility] PT Services Indicated Yes Treatment Frequency and 2x/wk for 2 weeks Duration These treatments will address the objective and functional deficits as defined above. The patient will be advanced safely and appropriately in order for the patient to progress towards his/her prior level of function. Additional exercises will be introduced and as well as a comprehensive home exercise program upon discharge, if needed, ?to ensure carryover of functional gains achieved in the clinic. This treatment plan has been reviewed and agreement upon by the patient.
--- NOTE | 2023-02-28 11:01 | PCPTNOTE ---
02/28/23: Patient did not receive any further authorization for treatment and today's session was canceled.
--- NOTE | 2023-03-12 15:07 | PTOPDC ---
Assessment and note entered by Dunia Link, PT Discharge Information Assessment Status Discharge - Pt Not Present Diagnosis lumbar pain Onset about the past year Assessment PT Clinical Summary PHYSICAL THERAPY DISCHARGE Alice has not returned for additional therapy since the progress report dated 02-16-23. Her insurance did not authorize any additional appointments. Therefore, she will be discharged from PT at this time. The goals were not achieved. Plan of Care PT Services Indicated No
== END 2023-03-12 15:19 | disposition home or self-care (01) ==
LOC: ANHPT 13:45
PROVIDERS: PCP Nurse Practitioner Family; Visit Provider Nurse Practitioner Family
DX: M54.41 Lumbago with sciatica, right side (principal); G89.29 Other chronic pain
CPT/HCPCS: 97012; 97110; 97140; 97161; 97530

== ENCOUNTER 2023-03-04 10:30 | Emergency (ER) | payer OTHER, SELFPAY ==
[2023-03-04 10:39] VITALS: BP 136/75; PULSE 57; RESP 16; TEMP 37.2; O2SAT 100
--- NOTE | 2023-03-04 11:54 | ED.GENADULT ---
HPI - General Adult General Chief complaint: Back Pain/Injury Stated complaint: back pain, unable to go to bathroom Source: patient Mode of arrival: ambulatory Limitations: no limitations History of Present Illness HPI narrative: Patient presents for evaluation of right lower back pain. Symptom onset a few weeks ago. She thinks she strained it while picking something up in a store. Pain is constant, without descriptive quality, rated 9/10 in severity, with radiation down RLE. She states movement makes her symptoms worse. She has tried celebrex and gabapentin for her symptoms. She has a history of herniated lumbar discs in lumbar spine. In the past she has been given Toradol which alleviates her pain. She does reports some urinary symptoms including frequency, hesitancy and dysuria. No fever, chills, nausea, vomiting and abdominal pain. Related Data Home Medications Medication Instructions Recorded Confirmed letrozole 2.5 mg tablet 2.5 mg PO DAILY 01/05/22 03/04/23 Allergies Allergy/AdvReac Type Severity Reaction Status Date / Time No Known Allergies Allergy Verified 03/04/23 10:33 Review of Systems Review of Systems: CONSTITUTIONAL: Denies fever, chills, or sweats. EYES: Denies visual changes, redness, or discharge. ENT: Denies rhinorrhea, congestion, sore throat, or otalgia. CARDIOVASCULAR: Denies chest pain, palpitations, or edema. RESPIRATORY: Denies cough or dyspnea. GASTROINTESTINAL: Denies abdominal pain, nausea, vomiting, or diarrhea. GENITOURINARY: Reports dysuria, urinary frequency and hesitancy. SKIN: Denies rash or itching. MUSCULOSKELETAL: Reports right lower back pain. Denies joint pain, or myalgia. NEUROLOGIC: Denies headache, numbness, dizziness, or weakness. PSYCHIATRIC: Denies anxiety or depression. [facility] Past Medical History Medical History Acne ADHD Anorexia Anxiety Anxiety and depression Breast cancer Chronic allergic rhinitis Chronic idiopathic constipation Constipation Depression Encounter to establish care Interstitial cystitis Irritable bowel syndrome with constipation Kidney infection Low back pain with right-sided sciatica Post-operative pain Sinusitis Urinary frequency UTI (urinary tract infection) Surgical History Surgical History H/O: hysterectomy History of lumpectomy of left breast Hx of breast augmentation Family History Family History Father Lung cancer Social History Social History Smoking status: Never smoker Second hand tobacco smoke exposure: No Alcohol intake: former Drinks per week: 0 Alcohol use details: LAST 2019 Substance use: current Substance use type: marijuana Other substance usage details: MEDICAL MARIJUANA Last use: 10/31/2020 Lack of Transportation: No Lack of Food: Sometimes True Current Housing: I Have Housing Concerned About Future Housing: No Difficulty Paying Gas/Electric Bills: YES Difficulty Paying for Meds: No Currently Unemployed: No Education: Trade/Vocational Certificate Difficulty w/ Childcare or Family Care: No Living arrangements: with family Gender identity (if verbalized by the patient): Female Spiritual care concerns: No Agree to blood products: Yes Exam Narrative: GENERAL: Well-appearing, well-nourished, and in no acute distress. HEAD: Normocephalic, atraumatic. EYES: PERRLA and EOMI. ENT: Nares clear, no rhinorrhea or epistaxis. Mucous membranes moist. Oropharynx without tonsillar hypertrophy exudate or other lesions. Bilateral TMs pearly chinchilla nonbulging NECK: Supple. No adenopathy or masses. No carotid bruits or JVD CHEST: Clear to auscultation. No respiratory distress. No wheezes rales or rhonchi HEART: Regu
[2023-03-04] MEDS: KETOROLAC (*BKC) 60 MG/2 ML VIAL IM (12:10)
== END 2023-03-04 12:21 | disposition home or self-care (01) ==
PROVIDERS: Emergency Provider Nurse Practitioner; PCP Nurse Practitioner Family
DX: M54.50 Low back pain, unspecified (principal); R31.29 Other microscopic hematuria; M51.26 Other intervertebral disc displacement, lumbar region; Z85.3 Personal history of malignant neoplasm of breast; Z90.12 Acquired absence of left breast and nipple
CPT/HCPCS: 81003; 96372; 99213; G0463; J1885

== ENCOUNTER 2023-03-20 16:52 | Emergency (ER) | payer OTHER, SELFPAY ==
[2023-03-20 17:00] VITALS: BP 76/39; PULSE 53; RESP 16; TEMP 36.8; O2SAT 99
[2023-03-20 17:02] VITALS: BP 76/39; BP 78/40; PULSE 53; RESP 16; TEMP 36.8; O2SAT 99
[2023-03-20] MEDS: SODIUM CHLORIDE 0.9% IV 1,000 ML 999 ML IV CONT (17:16)
--- NOTE | 2023-03-20 17:19 | ED.DIZZY ---
HPI - Dizziness General Chief Complaint: Back Pain/Injury Stated Complaint: Dizziness/Back Pain Time Seen by Provider: 03/20/23 17:05 Source: patient Mode of arrival: ambulatory Limitations: no limitations History of Present Illness HPI Narrative: 47-year-old female presents with concern for dizziness, back pain. She reports right low back pain that radiates down to her toes, dizziness, nausea. She reports she has recently in remission from breast cancer which gave her osteoporosis, she had an infusion for osteoporosis yesterday. She reports she was tired all day, slept most of the day and woke up with the symptoms. MD elicited complaint: dizziness Related Data Home Medications Medication Instructions Recorded Confirmed letrozole 2.5 mg tablet 2.5 mg PO DAILY 01/05/22 03/20/23 Allergies Allergy/AdvReac Type Severity Reaction Status Date / Time No Known Allergies Allergy Verified 03/16/23 14:42 Review of Systems Review of Systems: CONSTITUTIONAL: Reports malaise, cloudy thinking CARDIOVASCULAR: Denies chest pain, palpitations, or edema. RESPIRATORY: Denies dyspnea. GASTROINTESTINAL: Reports nausea MUSCULOSKELETAL: Reports back pain radiating down the right leg All systems reviewed & are unremarkable except as noted in HPI and below PMFSH Past Medical History Medical History Acne ADHD Anorexia Anxiety Anxiety and depression Breast cancer Chronic allergic rhinitis Chronic idiopathic constipation Constipation Depression Encounter to establish care Interstitial cystitis Irritable bowel syndrome with constipation Kidney infection Low back pain with right-sided sciatica Post-operative pain Sinusitis Urinary frequency UTI (urinary tract infection) Surgical History Surgical History H/O: hysterectomy History of lumpectomy of left breast Hx of breast augmentation Family History Family History Father Lung cancer Social History Social History Smoking status: Never smoker Second hand tobacco smoke exposure: No Alcohol intake: former Drinks per week: 0 Alcohol use details: LAST 2019 Substance use: current Substance use type: marijuana Other substance usage details: MEDICAL MARIJUANA Last use: 10/31/2020 Lack of Transportation: No Lack of Food: Never True Current Housing: I Have Housing Concerned About Future Housing: No Difficulty Paying Gas/Electric Bills: YES Difficulty Paying for Meds: No Currently Unemployed: YES Education: Trade/Vocational Certificate Difficulty w/ Childcare or Family Care: No Living arrangements: with family Gender identity (if verbalized by the patient): Female Spiritual care concerns: No Agree to blood products: Yes Comments At time of signature, agree with nursing past medical, surgical, social and family history. There is no relevant family history pertinent to the presenting complaint Exam Narrative: GENERAL: Ill-appearing HEAD: Normocephalic, atraumatic. EYES: Sclera clear, patient having trouble with EOMI NECK: Supple. CHEST: No respiratory distress. Clear to auscultation. No bony deformities, no asymmetry. Speaks in full sentences. HEART: Slow rate. ABDOMEN: Soft, nontender, nondistended SKIN: Warm, dry NEURO: Alert and oriented x3. PSYCH: Slightly slurred speech Course Course Emergency Course: Right AC IV started by RN, normal saline bolus started Patient is aware of, understands and agrees to be transferred to the emergency room via EMS. Patient stated her [facility] because that is where her physicians are, however due to her low blood pressure EMS would like to go to the closest hospital which is [place]. She is agreeable Portions of this record may have been
== END 2023-03-20 17:22 | disposition short-term general hospital (02) ==
PROVIDERS: Emergency Provider Nurse Practitioner; PCP Nurse Practitioner Family
DX: I95.9 Hypotension, unspecified (principal); Z85.3 Personal history of malignant neoplasm of breast; F41.9 Anxiety disorder, unspecified; F32.A Depression, unspecified
CPT/HCPCS: 99215; G0463; J7030

== ENCOUNTER 2023-03-20 17:37 | Emergency (ER) | payer OTHER, SELFPAY ==
[2023-03-20 17:38] VITALS: BP 96/47; PULSE 53; RESP 18; TEMP 36.6; O2SAT 98
--- NOTE | 2023-03-20 17:47 | ECG_ITS ---
Measurements Intervals [place] Rate: 52 P: 30 NE: 160 QRS: 26 QRSD: 100 T: 39 QT: 454 QTc: 423 Interpretive Statements SINUS BRADYCARDIA POSSIBLE RIGHT VENTRICULAR CONDUCTION DELAY [RSR (QR) IN V1/V2] NO PREVIOUS ECG AVAILABLE FOR COMPARISON Electronically Signed On 03-20-2023 20:24:26 STOCK CHECKER by Tess Monique M.D.
[2023-03-20 18:36] LABS: Hematocrit 33.5 % (37.0-47.0); Hemoglobin 10.7 g/dL (12.0-15.0); Immature Platelet Fraction Pct 2.2 % (0.9-11.2); Mean Corpuscular HGB Conc 31.9 g/dl (32-36); Mean Corpuscular Hemoglobin 30.7 pg (26-34); Mean Platelet Volume 9.8 fl (7.4-10.4); Platelet Count Result 139 k/mm3 (150-375); Red Blood Count 3.49 M/mm3 (4.2-5.4); Red Cell Distribution Width 11.5 % (11.5-14.5); White Blood Count 4.4 K/mm3 (4.5-10.0)
[2023-03-20 18:37] LABS: Alanine Aminotransferase 95 U/L (6-35); Albumin Level 3.6 g/dL (3.5-5.1); Alkaline Phosphatase 44 U/L (38-126); Anion Gap 7 mmol/L (8-16); Aspartate Amino Transferase 98 U/L (14-36); Bilirubin,Total 0.6 mg/dL (0.2-1.3); Blood Urea Nitrogen 34 mg/dL (7-17); Calcium 8.2 mg/dL (8.4-10.2); Carbon Dioxide 20 mmol/L (22-30); Chloride 107 mmol/L (98-107); Estimated CRCL calculation 60 ml/min; Estimated Glomerular Filt Rate > 60; Glucose 86 mg/dL (65-110); Potassium 4.4 mmol/L (3.4-5.0); Sodium 134 mmol/L (137-145)
--- NOTE | 2023-03-20 19:32 | ED.DIZZY ---
HPI - Dizziness General Chief Complaint: Dizziness Stated Complaint: hypotensive Time Seen by Provider: 03/20/23 19:04 History of Present Illness HPI Narrative: Patient is a 47-year-old female with a history of breast cancer in remission presenting with low blood pressure. Patient states that she had an infusion yesterday for osteoporosis. She was warned that she may feel ill today. States that she has chronic lower back pain that has been worse than normal lately. States that the pain is radiating all the way down to her ankle. She has already seen her back surgeon and oncologist regarding this and had recent imaging. States that today she was feeling lightheaded her and nausea as well as generally weak. She went to urgent care and her blood pressure was in the 70 systolic. She was brought here for further evaluation. states that she starting to feel better after IV fluids but she still feels generally weak. States that she thinks she may be dehydrated. No chest pain, shortness of breath, cough, fevers, abdominal pain, vomiting, dysuria. Related Data Home Medications Medication Instructions Recorded Confirmed letrozole 2.5 mg tablet 2.5 mg PO DAILY 01/05/22 03/20/23 Allergies Allergy/AdvReac Type Severity Reaction Status Date / Time No Known Allergies Allergy Verified 03/16/23 14:42 Review of Systems Review of Systems: All systems reviewed & are unremarkable except as noted in HPI and below PMFSH Past Medical History Medical History Acne ADHD Anorexia Anxiety Anxiety and depression Breast cancer Chronic allergic rhinitis Chronic idiopathic constipation Constipation Depression Encounter to establish care Interstitial cystitis Irritable bowel syndrome with constipation Kidney infection Low back pain with right-sided sciatica Post-operative pain Sinusitis Urinary frequency UTI (urinary tract infection) Surgical History Surgical History H/O: hysterectomy History of lumpectomy of left breast Hx of breast augmentation Family History Family History Father Lung cancer Social History Social History Smoking status: Never smoker Second hand tobacco smoke exposure: No Alcohol intake: former Drinks per week: 0 Alcohol use details: LAST 2019 Substance use: current Substance use type: marijuana Other substance usage details: MEDICAL MARIJUANA Last use: 10/31/2020 Lack of Transportation: No Lack of Food: Never True Current Housing: I Have Housing Concerned About Future Housing: No Difficulty Paying Gas/Electric Bills: YES Difficulty Paying for Meds: No Currently Unemployed: YES Education: Trade/Vocational Certificate Difficulty w/ Childcare or Family Care: No Living arrangements: with family Gender identity (if verbalized by the patient): Female Spiritual care concerns: No Agree to blood products: Yes Exam Narrative: GENERAL: Well-appearing, In no acute distress, pleasant cooperative HEAD: Normocephalic, atraumatic. EYES: PERRLA and EOMI. ENT: Mucous membranes dry NECK: Supple. CHEST: . No respiratory distress. HEART: bradycardic, regular rhythm ABDOMEN: nondistended EXTREMITIES: Normal range of motion. No edema. SKIN: Warm, dry, no rash. NEURO: Alert and oriented x3. PSYCH: Normal mood and affect. Course Vital Signs Vital signs: Vital Signs Temperature 97.8 F 03/20/23 17:38 Pulse Rate 53 L 03/20/23 17:38 Respiratory Rate 18 03/20/23 17:38 Blood Pressure 96/47 L 03/20/23 17:38 Pulse Oximetry 98 03/20/23 17:38 Oxygen Delivery Room Air 03/20/23 17:38 Temperature 97.8 F 03/20/23 17:38 Pulse Rate 62 03/20/23 22:18 Respiratory Rate 15 03/20/23 22:18 Blood Pr
[2023-03-20 19:45] VITALS: BP 91/48; PULSE 55; RESP 15; O2SAT 98
[2023-03-20] MEDS: SODIUM CHLORIDE 0.9% IV 1,000 ML 999 ML IV CONT ×2 (19:48→19:49)
[2023-03-20] MEDS: HYDROmorphone HCL INJ (*CRX) 1 MG/ML SYR 0.5 MG IV PUSH (19:49)
[2023-03-20] MEDS: KETOROLAC 30 MG/ML VIAL (*BKC) IV PUSH (19:49)
[2023-03-20 19:54] VITALS: BP 95/59; PULSE 54
[2023-03-20 19:58] VITALS: BP 103/60; PULSE 64
[2023-03-20 20:10] LABS: Appearance Urine Clear (Clear); Bacteria Urine None Seen /hpf; Bilirubin Urine Negative (Negative); Blood Urine Trace (Negative); Color Urine Yellow (Yellow); Glucose Urine UA Negative (Negative); Ketones Urine Negative (Negative); Leukocyte Esterase Ur Negative LEU/UL (Negative); Nitrate Urine Negative (Negative); Non Pathogenic Casts 0-2; Protein Urine Negative (Negative); RBC Urine 0-2 /hpf (0-2); Specific Grav Ur 1.008 (1.001-1.035); Squamous Epithelial Cell Urine Occasional /hpf (Few); Urobilinogen Urine 0.2 mg/dL (<2.0); WBC Urine 0-5 /hpf
[2023-03-20 20:11] LABS: Pregnancy On Board Control Positive; Urine Pregnancy Test Negative
[2023-03-20 20:12] LABS: Add Urine Microscopic? YES
[2023-03-20] MEDS: ONDANSETRON INJ 4 MG/2 ML VIAL IV PUSH (20:20)
[2023-03-20 20:34] LABS: Lactic Acid Reflex < 0.5 mmol/L (0.7-2.0)
[2023-03-20 20:56] VITALS: PULSE 85; RESP 13; O2SAT 99
[2023-03-20 22:06] LABS: Lipase 45 U/L (23-300)
[2023-03-20 22:18] VITALS: BP 107/69; PULSE 62; RESP 15; O2SAT 100
== END 2023-03-20 22:10 | disposition home or self-care (01) ==
PROVIDERS: Emergency Medicine; Emergency Provider Emergency Medicine; PCP Nurse Practitioner Family
DX: M54.41 Lumbago with sciatica, right side (principal); E86.0 Dehydration; I95.9 Hypotension, unspecified; F90.9 Attention-deficit hyperactivity disorder, unspecified type; F41.9 Anxiety disorder, unspecified; F32.A Depression, unspecified; Z87.440 Personal history of urinary (tract) infections
CPT/HCPCS: 36415; 80053; 81001; 81025; 83605; 83690; 85025; 85055; 93005; 96361; 96374; 96375; 99284; J1170; J1885; J2405; J7030

== ENCOUNTER 2023-03-27 10:59 | Emergency (ER) | payer OTHER, SELFPAY ==
--- NOTE | ~2023-03-27 | CT_ITS ---
EXAMINATION: CT abdomen pelvis wo con DATE: 03/27/2023 12:40 INDICATION: Low back pain. Nausea. TECHNIQUE: Computed tomography (CT) of the abdomen and pelvis was performed without intravenous contr ast. Automated exposure control and iterative reconstruction technique were employed. The dose-length product was 230.74 mGy-cm. COMPARISON: CT abdomen and pelvis 04/30/2019 FINDINGS: The visualized portions of the lung bases demonstrate mild atelectasis. No pleural effusion . The heart size is normal. No pericardial effusion. Breast implants are noted. The liver, gallbladde r, spleen, pancreas, adrenal glands, and right kidney are normal. There is a 4 mm stone in left kidne y. There are no dilated loops of bowel. The appendix is not visualized. There are no pathologically e nlarged lymph nodes. There is no free intraperitoneal fluid. There is mild thoracic and lumbar spondy losis. Thoracolumbar dextroscoliosis is noted. IMPRESSION: 1. 4 mm nonobstructing left kidney stone. Reviewed, dictated and finalized at location A. MATIC GLOVE FORMER
[2023-03-27 11:03] VITALS: BP 144/79; PULSE 61; RESP 16; TEMP 36.8; O2SAT 100
--- NOTE | 2023-03-27 12:14 | ED.BACK ---
HPI - Back Pain/Injury General Chief Complaint: Back Pain/Injury Stated Complaint: acute on chronic back pain Time Seen by Provider: 03/27/23 13:19 Source: patient Mode of arrival: wheelchair Limitations: no limitations History of Present Illness HPI Narrative: This is a 47-year-old female that presents to the emergency department for low back pain. Worsening since last night. She bent down and felt sudden pain in her low back. She has had difficulty ambulating since. Reports some nausea and feels as though she is dehydrated. Denies fevers, vomiting, dysuria, hematuria, saddle anesthesia, bowel/bladder incontinence. Related Data Home Medications Medication Instructions Recorded Confirmed letrozole 2.5 mg tablet 2.5 mg PO DAILY 01/05/22 03/20/23 Allergies Allergy/AdvReac Type Severity Reaction Status Date / Time No Known Allergies Allergy Verified 03/16/23 14:42 Review of Systems Review of Systems: CONSTITUTIONAL: Denies fever GASTROINTESTINAL: Reports nausea. Denies abdominal pain, vomiting GENITOURINARY: Denies dysuria or hematuria. SKIN: Denies rash MUSCULOSKELETAL: Reports back pain, joint pain, and myalgia. NEUROLOGIC: Denies numbness, or weakness. All systems reviewed & are unremarkable except as noted in HPI and below PMFSH Past Medical History Medical History Acne ADHD Anorexia Anxiety Anxiety and depression Breast cancer Chronic allergic rhinitis Chronic idiopathic constipation Constipation Depression Encounter to establish care Interstitial cystitis Irritable bowel syndrome with constipation Kidney infection Low back pain with right-sided sciatica Post-operative pain Sinusitis Urinary frequency UTI (urinary tract infection) Surgical History Surgical History H/O: hysterectomy History of lumpectomy of left breast Hx of breast augmentation Family History Family History Father Lung cancer Social History Social History Smoking status: Never smoker Second hand tobacco smoke exposure: No Alcohol intake: former Drinks per week: 0 Alcohol use details: LAST 2019 Substance use: current Substance use type: marijuana Other substance usage details: MEDICAL MARIJUANA Last use: 10/31/2020 Lack of Transportation: No Lack of Food: Never True Current Housing: I Have Housing Concerned About Future Housing: No Difficulty Paying Gas/Electric Bills: YES Difficulty Paying for Meds: No Currently Unemployed: YES Education: Trade/Vocational Certificate Difficulty w/ Childcare or Family Care: No Living arrangements: with family Gender identity (if verbalized by the patient): Female Spiritual care concerns: No Agree to blood products: Yes Exam Narrative: GENERAL: Well-appearing, well-nourished, and in no acute distress. HEAD: Normocephalic, atraumatic. EYES: EOMI. CHEST: Clear to auscultation. No respiratory distress. No wheezes rales or rhonchi HEART: Regular rate and rhythm. No murmur heard. Normal peripheral pulses. ABDOMEN: Soft, nontender, nondistended, normal active bowel sounds. EXTREMITIES: Normal range of motion. No edema. Strength equal in bilateral lower extremities (5/5) SKIN: Warm, dry, no rash. NEURO: No focal deficits. Alert and oriented x3. Normal gait PSYCH: Normal mood and affect Course Course Emergency Course: Patient updated on workup. Reports improvement. Walked to the bathroom Vital Signs Vital signs: Vital Signs Temperature 98.3 F 03/27/23 11:03 Pulse Rate 61 03/27/23 11:03 Respiratory Rate 16 03/27/23 11:03 Blood Pressure 144/79 H 03/27/23 11:03 Pulse Oximetry 100 03/27/23 11:03 Oxygen Delivery Room Air 03/27/23 11:03 Temperature 98.3 F 12
[2023-03-27] MEDS: ONDANSETRON INJ 4 MG/2 ML VIAL IV PUSH (12:26)
[2023-03-27] MEDS: diazePAM INJ (*CRX) 10 MG/2 ML SYRINGE 5 MG IV PUSH (12:26)
[2023-03-27] MEDS: ACETAMINOPHEN 500 MG TABLET 1000 MG PO (12:27)
[2023-03-27 12:37] LABS: Basophils Absolute Auto 0.1 K/mm3 (0.0-0.1); Basophils Percent Auto 0.8 % (0.2-1.2); Eosinophils Absolute Auto 0.2 K/mm3 (0-0.3); Eosinophils Percent Auto 2.8 % (0-4.4); Hematocrit 38.8 % (37.0-47.0); Hemoglobin 12.9 g/dL (12.0-15.0); Immature Granulocyte Absolute 0.02 K/mm3 (0.00-0.031); Immature Granulocyte Percent A 0.3 % (0-0.5); Lymphocytes Percent Auto 28.5 % (18.3-44.2); Mean Corpuscular HGB Conc 33.2 g/dl (32-36); Mean Corpuscular Hemoglobin 30.8 pg (26-34); Mean Corpuscular Volume 92.6 fl (80-100); Monocytes Absolute Auto 0.5 K/mm3 (0.1-0.6); Monocytes Percent Auto 7.9 % (2.6-8.5); Neutrophils Absolute Auto 3.8 K/mm3 (1.3-6.7); Neutrophils Percent Auto 59.7 % (45.5-73.1); Platelet Count Result 250 k/mm3 (150-375); Red Blood Count 4.19 M/mm3 (4.2-5.4); Red Cell Distribution Width 11.1 % (11.5-14.5); White Blood Count 6.3 K/mm3 (4.5-10.0)
[2023-03-27] MEDS: KETOROLAC 15 MG/ML VIAL (*BKC) IV PUSH (12:41)
[2023-03-27 12:47] LABS: Alanine Aminotransferase 44 U/L (6-35); Albumin Level 4.9 g/dL (3.5-5.1); Alkaline Phosphatase 54 U/L (38-126); Anion Gap 7 mmol/L (8-16); Aspartate Amino Transferase 26 U/L (14-36); Bilirubin,Total 0.6 mg/dL (0.2-1.3); Blood Urea Nitrogen 23 mg/dL (7-17); Calcium 9.4 mg/dL (8.4-10.2); Carbon Dioxide 31 mmol/L (22-30); Chloride 104 mmol/L (98-107); Estimated CRCL calculation 75 ml/min; Estimated Glomerular Filt Rate > 60; Glucose 92 mg/dL (65-110); Potassium 4.1 mmol/L (3.4-5.0); Sodium 142 mmol/L (137-145)
[2023-03-27 12:53] LABS: Appearance Urine Cloudy (Clear); Bacteria Urine None Seen /hpf; Bilirubin Urine Negative (Negative); Blood Urine Negative (Negative); Color Urine Dark Yellow (Yellow); Glucose Urine UA Negative (Negative); Ketones Urine Trace mg/dL (Negative); Leukocyte Esterase Ur Negative LEU/UL (Negative); Need Manual Microscopic Reviewed; Nitrate Urine Negative (Negative); Non Pathogenic Casts 0-2; Protein Urine Trace mg/dL (Negative); Squamous Epithelial Cell Urine Few /hpf (Few); WBC Urine 0-5 /hpf; pH Urine 6.5 (5.0-9.0)
[2023-03-27 12:55] LABS: Add Urine Microscopic? YES; Specific Grav Ur 1.037 (1.001-1.035)
[2023-03-27] MEDS: SODIUM CHLORIDE 0.9% IV 1,000 ML 999 ML IV CONT (13:25)
[2023-03-27] MEDS: MORPHINE SULFATE (*CRX) 4 MG/ML INJ IV PUSH (14:16)
[2023-03-27] MEDS: predniSONE 20 MG TABLET 40 MG PO (14:16)
[2023-03-27] MEDS: oxyCODONE HCL (*CRX) 5 MG TAB IR PO (15:38)
== END 2023-03-27 15:51 | disposition home or self-care (01) ==
PROVIDERS: Emergency Provider Physician Assistant; PCP Nurse Practitioner Family
DX: M54.16 Radiculopathy, lumbar region (principal); F41.9 Anxiety disorder, unspecified; F32.A Depression, unspecified; Z85.3 Personal history of malignant neoplasm of breast
CPT/HCPCS: 36415; 74176; 80053; 81001; 81025; 85025; 96361; 96374; 96375; 99284; A9270; J1885; J2270; J2405; J3360; J7030; J7512

== ENCOUNTER 2023-03-30 09:38 | Outpatient (CLI) | payer OTHER, SELFPAY ==
--- NOTE | ~2023-03-30 | XR_ITS ---
EXAMINATION: XR lumbar spine min 4V DATE: 03/30/2023 09:58 INDICATION: Low back pain AP TECHNIQUE: AP and lateral views of the lumbar spine in neutral, flexion, and extension were obtained. COMPARISON: None. FINDINGS: There are 15 degrees of lumbar dextroscoliosis. There are 3 mm of anterolisthesis of L5 on S1. No hypermobility is present with flexion or extension. The vertebral body heights are maintained. There is mild loss of intervertebral disc space height at L5-S1. IMPRESSION: 1. Mild lumbar spondylosis at L5-S1. 2. Lumbar dextroscoliosis. Reviewed, dictated and finalized at location B. 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
== END 2023-03-30 09:39 | disposition home or self-care (01) ==
PROVIDERS: PCP Nurse Practitioner Family; Visit Provider Physician Assistant
DX: M54.41 Lumbago with sciatica, right side (principal); G89.29 Other chronic pain; M48.07 Spinal stenosis, lumbosacral region; M47.816 Spondylosis without myelopathy or radiculopathy, lumbar region
CPT/HCPCS: 72110

== ENCOUNTER 2023-04-04 07:49 | Outpatient (CLI) | payer OTHER, SELFPAY ==
--- NOTE | ~2023-04-04 | MR_ITS ---
MRI of the lumbar spine Clinical History: Back pain Technique: Axial T2-weighted images, and sagittal T1-weighted, T2-weighted, and T2 fat-sat images wer e acquired. Findings: No fracture. There are there is minimal grade 1 retrolisthesis of L3 over L4, and L4 over L 5. No suspicious bone marrow signal reality seen. At L1-L2 and L2-L3, there is no disc bulge or herniation. There are mild facet joint degenerative christopher nges. No spinal canal stenosis or neural foraminal narrowing at these levels. At L3-L4, there is mild disc bulge with mild to moderate facet arthropathy. No central canal stenosis . There is mild bilateral neural foraminal narrowing. At L4-L5, there is moderate degenerative disc narrowing. There is disc bulge and moderate facet arthr opathy. No central canal stenosis. There is moderate bilateral neural foraminal narrowing. At L5-S1, there is diffuse disc bulge and advanced facet arthropathy, with right lateral recess steno sis. There is severe right neural foraminal narrowing. There is mild to moderate left neural foramina l narrowing. Paravertebral soft tissues are unremarkable. Impression: [id number] degenerative spondylosis of the lower lumbar spine, worst at L5-S1, as above. Reviewed, dictated and finalized at location . 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
== END 2023-04-04 07:50 | disposition home or self-care (01) ==
PROVIDERS: PCP Nurse Practitioner Family; Visit Provider Physician Assistant
DX: G89.29 Other chronic pain (principal); M48.07 Spinal stenosis, lumbosacral region; M54.41 Lumbago with sciatica, right side; M43.16 Spondylolisthesis, lumbar region
CPT/HCPCS: 72148

== ENCOUNTER 2023-04-16 12:56 | Emergency (ER) | payer OTHER, SELFPAY ==
--- NOTE | ~2023-04-16 | XR_ITS ---
EXAMINATION: [id number] DATE: 04/16/2023 13:22 INDICATION: Left chest pain. Fall. TECHNIQUE: A frontal view of the chest and 2 views on 4 radiographs of the left ribs were obtained. COMPARISON: Chest single view 02/17/2021, CT abdomen and pelvis 03/27/2023 FINDINGS: There is no pneumonia, pleural effusion, pneumothorax. The heart size is normal. Breast imp lants are noted. IMPRESSION: 1. No rib fracture. Reviewed, dictated and finalized at location A. CTOR OF SCOUT WORK IMPRESSION: 1. No rib fracture.
[2023-04-16 12:57] VITALS: BP 151/81; PULSE 70; RESP 16; TEMP 36.6; O2SAT 100
[2023-04-16 13:58] VITALS: BP 157/81; PULSE 68; RESP 18; O2SAT 100
--- NOTE | 2023-04-16 15:17 | ED.FALL ---
HPI - Fall General Chief Complaint: Fall Stated Complaint: fall Time Seen by Provider: 04/16/23 13:50 History of Present Illness HPI Narrative: Patient is a 47-year-old female presenting with left-sided chest pain. Patient states that she fell last night and landed on her left ribs. States that she has a history of breast cancer and she actually fell right along the incision line on her left breast. States that there was some swelling that she is concerned about. She took some Tylenol with minimal relief. No shortness of breath. Denies striking her head or losing consciousness. No neck or back pain. No further complaints. Related Data Home Medications Medication Instructions Recorded Confirmed letrozole 2.5 mg tablet 2.5 mg PO DAILY 01/05/22 03/30/23 Allergies Allergy/AdvReac Type Severity Reaction Status Date / Time No Known Allergies Allergy Verified 04/16/23 13:58 Review of Systems Review of Systems: All systems reviewed & are unremarkable except as noted in HPI and below PMFSH Past Medical History Medical History Acne ADHD Anorexia Anxiety Anxiety and depression Breast cancer Chronic allergic rhinitis Chronic idiopathic constipation Constipation Depression Encounter to establish care Interstitial cystitis Irritable bowel syndrome with constipation Kidney infection Low back pain with right-sided sciatica Post-operative pain Sinusitis Urinary frequency UTI (urinary tract infection) Surgical History Surgical History H/O: hysterectomy History of lumpectomy of left breast Hx of breast augmentation Family History Family History Father Lung cancer Social History Social History Smoking status: Never smoker Second hand tobacco smoke exposure: No Alcohol intake: former Drinks per week: 0 Alcohol use details: LAST 2019 Substance use: current Substance use type: marijuana Other substance usage details: MEDICAL MARIJUANA Last use: 10/31/2020 Do You Feel Safe in your Home?: Yes Lack of Transportation: No Lack of Food: Never True Current Housing: I Have Housing Concerned About Future Housing: No Difficulty Paying Gas/Electric Bills: YES Difficulty Paying for Meds: No Currently Unemployed: YES Education: Trade/Vocational Certificate Difficulty w/ Childcare or Family Care: No Living arrangements: with family Gender identity (if verbalized by the patient): Female Spiritual care concerns: No Agree to blood products: Yes Exam Narrative: GENERAL: Well-appearing, No acute distress, pleasant cooperative HEAD: Normocephalic, atraumatic. EYES: PERRLA and EOMI. ENT: grossly unremarkable NECK: Supple. CHEST: Clear to auscultation. No respiratory distress. incision on left breast is intact, there is a hematoma along the lateral aspect of the incision, tenderness over her left lower ribs HEART: Regular rate and rhythm ABDOMEN: Soft, nontender, nondistended EXTREMITIES: Normal range of motion SKIN: Warm, dry, as above NEURO: Alert and oriented x3. PSYCH: Normal mood and affect. Course Vital Signs Vital signs: Vital Signs Temperature 97.8 F 04/16/23 12:57 Pulse Rate 70 04/16/23 12:57 Respiratory Rate 16 04/16/23 12:57 Blood Pressure 151/81 H 04/16/23 12:57 Pulse Oximetry 100 04/16/23 12:57 Oxygen Delivery Room Air 04/16/23 12:57 Temperature 97.8 F 04/16/23 12:57 Pulse Rate 68 04/16/23 13:58 Respiratory Rate 18 04/16/23 13:58 Blood Pressure 157/81 H 04/16/23 13:58 Pulse Oximetry 100 04/16/23 13:58 Oxygen Delivery Room Air 04/16/23 12:57 MDM - Fall MDM Narrative Medical decision making narrative: patient is a 47-year-old female presenting with left br
[2023-04-16] MEDS: HYDROcodone/acetaminophen (*CRX) 5-325 MG TABLET 1 TAB PO (15:38)
== END 2023-04-16 15:45 | disposition home or self-care (01) ==
PROVIDERS: Emergency Provider Emergency Medicine; PCP Nurse Practitioner Family
DX: S20.02XA Contusion of left breast, initial encounter (principal); K58.1 Irritable bowel syndrome with constipation; N30.10 Interstitial cystitis (chronic) without hematuria; Z85.3 Personal history of malignant neoplasm of breast; Z87.440 Personal history of urinary (tract) infections; Z90.710 Acquired absence of both cervix and uterus; W19.XXXA Unspecified fall, initial encounter
CPT/HCPCS: 71101; 99283; A9270

== ENCOUNTER 2023-05-06 13:18 | Emergency (ER) | payer OTHER, SELFPAY ==
[2023-05-06 14:25] VITALS: BP 152/73; PULSE 56; O2SAT 100
--- NOTE | 2023-05-06 15:22 | ED.GENADULT ---
HPI - General Adult General Chief complaint: Back Pain/Injury Stated complaint: Back /Right Leg Pain Source: patient Mode of arrival: ambulatory Limitations: no limitations History of Present Illness HPI narrative: Patient presents for evaluation of low back pain with radiation into the right lower extremity for the last 2 days. She was evaluated by neuro surgery last month. Documentation from that time indicates that she had an MRI 1 year prior that showed right L5-S1 lateral disc bulge /herniation causing severe right neural foraminal stenosis. She states she has exacerbations of pain which typically respond well to Toradol. She is requesting an injection today. She rates her current pain as 8 on scale of 1-10. She has tingling in the right foot. She denies numbness. No saddle anesthesia. No bladder / bowel incontinence. She received medrol dose tiffany in the past and does not feel it helped much. She cannot identify a recent injury to exacerbate her pain. Related Data Home Medications Medication Instructions Recorded Confirmed letrozole 2.5 mg tablet 2.5 mg PO DAILY 01/05/22 03/30/23 Allergies Allergy/AdvReac Type Severity Reaction Status Date / Time No Known Allergies Allergy Verified 04/16/23 13:58 Review of Systems Review of Systems: CONSTITUTIONAL: Denies fever, chills, or sweats. EYES: Denies visual changes, redness, or discharge. ENT: Denies rhinorrhea, congestion, sore throat, or otalgia. CARDIOVASCULAR: Denies chest pain, palpitations, or edema. RESPIRATORY: Denies cough or dyspnea. GASTROINTESTINAL: Denies abdominal pain, nausea, vomiting, or diarrhea. GENITOURINARY: Denies dysuria or hematuria. SKIN: Denies rash or itching. MUSCULOSKELETAL: Reports low back pain with radiation into RLE NEUROLOGIC: reports tingling in the right foot. Denies headache, numbness, dizziness, or weakness. PSYCHIATRIC: Denies anxiety or depression. [facility] Past Medical History Medical History Acne ADHD Anorexia Anxiety Anxiety and depression Breast cancer Chronic allergic rhinitis Chronic idiopathic constipation Constipation Depression Encounter to establish care Interstitial cystitis Irritable bowel syndrome with constipation Kidney infection Low back pain with right-sided sciatica Post-operative pain Sinusitis Urinary frequency UTI (urinary tract infection) Surgical History Surgical History H/O: hysterectomy History of lumpectomy of left breast Hx of breast augmentation Family History Family History Father Lung cancer Social History Social History Smoking status: Never smoker Second hand tobacco smoke exposure: No Alcohol intake: former Drinks per week: 0 Alcohol use details: LAST 2019 Substance use: current Substance use type: marijuana Other substance usage details: MEDICAL MARIJUANA Last use: 10/31/2020 Do You Feel Safe in your Home?: Yes Lack of Transportation: No Lack of Food: Never True Current Housing: I Have Housing Concerned About Future Housing: No Difficulty Paying Gas/Electric Bills: YES Difficulty Paying for Meds: No Currently Unemployed: YES Education: Trade/Vocational Certificate Difficulty w/ Childcare or Family Care: No Living arrangements: with family Gender identity (if verbalized by the patient): Female Spiritual care concerns: No Agree to blood products: Yes Exam Narrative: GENERAL: Well-appearing, well-nourished, and in no acute distress. HEAD: Normocephalic, atraumatic. EYES: PERRLA and EOMI. ENT: Nares clear, no rhinorrhea or epistaxis. Mucous membranes moist. Oropharynx without tonsillar hypertrophy exudate or other lesions. Bilateral TMs pearly chinchilla nonbul
[2023-05-06] MEDS: KETOROLAC (*BKC) 60 MG/2 ML VIAL IM (15:32)
== END 2023-05-06 16:10 | disposition home or self-care (01) ==
PROVIDERS: Emergency Provider Nurse Practitioner; PCP Nurse Practitioner Family
DX: M51.16 Intervertebral disc disorders with radiculopathy, lumbar region (principal); Z85.3 Personal history of malignant neoplasm of breast
CPT/HCPCS: 96372; 99213; G0463; J1885

== ENCOUNTER 2023-05-28 12:45 | Outpatient (CLI) | payer OTHER, SELFPAY ==
--- NOTE | ~2023-05-28 | MR_ITS ---
MRI of the cervical spine Clinical History: Cervicalgia Technique: Axial T2-weighted and gradient images, and sagittal T1-weighted, T2-weighted, and STIR alysa ges were acquired. Findings: No acute fracture seen. There is 4 mm anterolisthesis of C4 over C5. There is 2 mm retrolis thesis of C5 over C6. There is minimal grade 1 retrolisthesis of C6 over C7. No suspicious bone marro w signal abnormality seen. At C2-C3, there is small central disc protrusion. No spinal canal stenosis, cord compression, or neur al foraminal narrowing. At C3-C4, there is minimal disc osteophyte complex. No spinal canal stenosis or cord compression. Pro bable minimal bilateral neural foraminal narrowing, right worse than left, with mild facet arthropath y. At C4-C5, there is mild disc osteophyte complex, without canal stenosis or cord compression. There is right neural foraminal narrowing and moderate facet arthropathy. Left neural foramen preserved. At C5-C6, there is degenerative disc narrowing and minimal disc osteophyte complex. There is mild can al stenosis without pamela cord compression. There is bilateral neural foraminal narrowing. At C6-C7, there is tiny central disc protrusion. No central canal stenosis or cord compression. There is probable bilateral neural foraminal narrowing, left worse than right. No abnormal signal seen in the spinal cord. Paravertebral soft tissues are unremarkable. Impression: [id number] degenerative spondylosis, as above. Multiple grade 1 listheses in the cervical spine, as detailed above. Reviewed, dictated and finalized at [facility]. 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 Multiple grade 1 listheses in the cervical spine, as detailed above.
== END 2023-05-28 12:46 | disposition home or self-care (01) ==
LOC: ANHIMG 12:46
PROVIDERS: PCP Nurse Practitioner Family; Visit Provider Physician Assistant
DX: M50.322 Other cervical disc degeneration at C5-C6 level (principal); M43.02 Spondylolysis, cervical region
CPT/HCPCS: 72141

== ENCOUNTER 2023-05-31 12:55 | Emergency (ER) | payer OTHER, SELFPAY | END 2023-05-31 14:04 | disposition left against medical advice (07) | PROVIDERS: PCP Nurse Practitioner Family | DX: Z53.21 Procedure and treatment not carried out due to patient leaving prior to being seen by health care provider (principal) | CPT/HCPCS: 99199 ==

== ENCOUNTER 2023-07-20 22:51 | Emergency (ER) | payer OTHER, SELFPAY ==
--- NOTE | ~2023-07-20 | CT_ITS ---
EXAMINATION: CT lumbar spine w con DATE: 07/21/2023 00:38 INDICATION: Fever post lumbar spine fusion TECHNIQUE: Computed tomography (CT) of the lumbar spine was performed without intravenous contrast. T he mA was adjusted according to patient size. Iterative reconstruction technique was employed. Exam d ose: 193.00 mGy-cm total exam DLP. Lumbar spine COMPARISON: None FINDINGS: There are bilateral L5 and S1 pedicle screws with rods, providing posterior fixation at L5- S1. This bone graft material along the posterior elements bilaterally. There is minimal grade 1 anterolisthesis at L5-S1. Lumbar and lumbosacral interspaces are well preserved. No fracture or bone destruction is evident. Approximately 3.5 mm nonobstructing lower pole left renal calculus is incidentally noted. IMPRESSION: Status post bilateral posterior surgical fusion at L5-S1 Reviewed, dictated and finalized at [facility]. Reviewed, dictated and finalized at location A.
--- NOTE | ~2023-07-20 | XR_ITS ---
XR chest 2V DATE: 07/21/2023 00:40 INDICATION: Fever and back pain TECHNIQUE: PA and lateral views COMPARISON: No prior radiographs are available from PACS at this time. FINDINGS: There is suggestion of left ventricular enlargement. The lungs are moderately hyperinflated , with mild discoid atelectasis or scarring in the basilar right lower lobe, but otherwise clear. No pleural effusion or pulmonary vascular congestion or pneumothorax. Contrast material is noted in bilateral renal collecting systems. Osteopenia IMPRESSION: Mild discoid atelectasis or scarring, basilar right lower lobe Bilateral hyperinflation, suggesting obstructive airways disease Left ventricular enlargement Osteopenia Reviewed, dictated and finalized at location A.
[2023-07-20 22:54] VITALS: BP 131/55; PULSE 85; RESP 15; TEMP 37.2; O2SAT 97
[2023-07-20 23:10] VITALS: BP 138/72; PULSE 79; RESP 18; O2SAT 99
[2023-07-20 23:16] VITALS: BP 147/81; PULSE 80; PULSE 84; RESP 18; RESP 20; O2SAT 100
--- NOTE | 2023-07-20 23:28 | ED.FEVER ---
HPI - Fever General Chief Complaint: Fever <VAIBHAV Peraza Last Filed: 07/21/23 03:12> Stated Complaint: fever, recent spinal injections <VAIBHAV Peraza Last Filed: 07/21/23 03:12> Time Seen by Provider: 07/20/23 23:06 <VAIBHAV Peraza Last Filed: 07/21/23 03:12> History of Present Illness HPI Narrative: 47-year-old female with a hx of breast cancer presents to the emergency department for a fever, body aches and chills started today. Patient had a L4, 5 and [address] Dumont 2 days ago at [facility]. Patient states the procedure went well and she was discharged home the following day without complications. States today she began feeling ill and noted a 101.5 T-max at home which prompted her to come to the ED. She took oxycodone with Tylenol prior to arrival her temperature is now 98.9 in the ED. denies saddle anesthesia, lower extremity weakness or numbness, nausea or vomiting, abdominal pain, dysuria or hematuria. <VAIBHAV Peraza Last Filed: 07/21/23 03:12> Related Data Home Medications: Home Medications Medication Instructions Recorded Confirmed letrozole 2.5 mg tablet 2.5 mg PO DAILY 01/05/22 05/18/23 <VAIBHAV Peraza Last Filed: 07/21/23 03:12> Allergies/Adverse Reactions: Allergies Allergy/AdvReac Type Severity Reaction Status Date / Time No Known Allergies Allergy Verified 05/18/23 09:15 <VAIBHAV Peraza Last Filed: 07/21/23 03:12> Review of Systems Review of Systems: CONSTITUTIONAL: Denies fever, chills, or sweats. EYES: Denies visual changes, redness, or discharge. ENT: Denies rhinorrhea, congestion, sore throat, or otalgia. CARDIOVASCULAR: Denies chest pain, palpitations, or edema. RESPIRATORY: Denies cough or dyspnea. GASTROINTESTINAL: Denies abdominal pain, nausea, vomiting, or diarrhea. GENITOURINARY: Denies dysuria or hematuria. SKIN: Denies rash or itching. MUSCULOSKELETAL: See HPI NEUROLOGIC: Denies headache, numbness, or weakness. PSYCHIATRIC: Denies anxiety or depression. <Bere Padron PA-C - Last Filed: 07/21/23 03:12> [facility] Past Medical History Medical History: Medical History Acne ADHD Anorexia Anxiety Anxiety and depression Breast cancer Chronic allergic rhinitis Chronic idiopathic constipation Constipation Depression Encounter to establish care Interstitial cystitis Irritable bowel syndrome with constipation Kidney infection Low back pain with right-sided sciatica Post-operative pain Sinusitis Urinary frequency UTI (urinary tract infection) <Bere Padron PA-C - Last Filed: 07/21/23 03:12> Surgical History Surgical History: Surgical History H/O: hysterectomy History of lumpectomy of left breast Hx of breast augmentation <Bere Padron PA-C - Last Filed: 07/21/23 03:12> Family History Family History: Family History Father Lung cancer <Bere Padron PA-C - Last Filed: 07/21/23 03:12> Social History Social History: Social History Smoking status: Never smoker Second hand tobacco smoke exposure: No Alcohol intake: former Drinks per week: 0 Alcohol use details: LAST 2019 Substance use: current Substance use type: marijuana Other substance usage details: MEDICAL MARIJUANA Last use: 10/31/2020 Do You Feel Safe in your Home?: Yes Lack of Transportation: No Lack of Food: Never True Current Housing: I Have Housing Concerned About Future Housing: No Difficulty Paying Gas/Electric Bills: YES Difficulty Paying for Meds: No Currently Unemployed: YES Education: Trade/Vocational Certificate Difficulty w/ Childcare or Family Care: No [place]
[2023-07-20 23:31] VITALS: BP 145/76; PULSE 80; RESP 22; O2SAT 100
[2023-07-20] MEDS: MORPHINE SULFATE (*CRX) 2 MG/ML INJ IV PUSH (23:54)
[2023-07-20] MEDS: SODIUM CHLORIDE 0.9% IV 1,000 ML 999 ML IV CONT (23:54)
[2023-07-20 23:56] LABS: Basophils Percent Auto 0.3 % (0.2-1.2); Eosinophils Percent Auto 0.4 % (0-4.4); Hematocrit 34.8 % (37.0-47.0); Hemoglobin 11.4 g/dL (12.0-15.0); Immature Granulocyte Absolute 0.03 K/mm3 (0.00-0.031); Immature Granulocyte Percent A 0.3 % (0-0.5); Lymphocytes Absolute Auto 1.09 K/mm3 (0.9-3.2); Lymphocytes Percent Auto 11.5 % (18.3-44.2); Mean Corpuscular HGB Conc 32.8 g/dl (32-36); Mean Corpuscular Hemoglobin 31.1 pg (26-34); Mean Corpuscular Volume 94.8 fl (80-100); Mean Platelet Volume 9.3 fl (7.4-10.4); Monocytes Absolute Auto 0.7 K/mm3 (0.1-0.6); Monocytes Percent Auto 7.6 % (2.6-8.5); Neutrophils Absolute Auto 7.5 K/mm3 (1.3-6.7); Neutrophils Percent Auto 79.9 % (45.5-73.1); Platelet Count Result 159 k/mm3 (150-375); Red Blood Count 3.67 M/mm3 (4.2-5.4); Red Cell Distribution Width 11.5 % (11.5-14.5); White Blood Count 9.5 K/mm3 (4.5-10.0)
[2023-07-21 00:04] LABS: Appearance Urine Clear (Clear); Bacteria Urine None Seen /hpf; Bilirubin Urine Negative (Negative); Blood Urine 1+ (Negative); Color Urine Yellow (Yellow); Glucose Urine UA Negative (Negative); Ketones Urine Negative (Negative); Leukocyte Esterase Ur Negative LEU/UL (Negative); Nitrate Urine Negative (Negative); Non Pathogenic Casts 0-2; Protein Urine Trace mg/dL (Negative); Specific Grav Ur 1.011 (1.001-1.035); Squamous Epithelial Cell Urine None Seen /hpf (Few); Urobilinogen Urine 0.2 mg/dL (<2.0); WBC Urine 0-5 /hpf (0-3)
[2023-07-21 00:06] LABS: Add Urine Microscopic? YES; Lactic Acid Reflex 0.9 mmol/L (0.7-2.0)
[2023-07-21 00:14] LABS: Alanine Aminotransferase 61 U/L (6-35); Albumin Level 4.2 g/dL (3.5-5.1); Alkaline Phosphatase 33 U/L (38-126); Anion Gap 6 mmol/L (4-12); Aspartate Amino Transferase 70 U/L (14-36); Bilirubin,Total 0.6 mg/dL (0.2-1.3); Blood Urea Nitrogen 10 mg/dL (7-17); Calcium 9.2 mg/dL (8.4-10.2); Carbon Dioxide 28 mmol/L (22-30); Chloride 102 mmol/L (98-107); Estimated CRCL calculation 93 ml/min; Estimated Glomerular Filt Rate > 60; Glucose 125 mg/dL (65-110); Potassium 3.3 mmol/L (3.4-5.0); Sodium 136 mmol/L (137-145)
[2023-07-21 00:32] LABS: CRP 19.1 mg/dL (<1.0)
[2023-07-21 00:35] LABS: Influenza A QL RT-PCR Negative (Negative); Influenza B QL RT-PCR Negative (Negative); RSV RNA, RT-PCR Negative (Negative); SARS-CoV-2 RNA PCR Negative (Negative)
[2023-07-21 00:41] LABS: Erythrocyte Sedimentation Rate 55 mm/hr (0-20)
[2023-07-21] MEDS: HYDROmorphone HCL INJ (*CRX) 1 MG/ML SYR IV PUSH (00:56)
[2023-07-21 01:00] VITALS: BP 146/72; PULSE 75; RESP 13; O2SAT 100
[2023-07-21] MEDS: MORPHINE SULFATE (*CRX) 4 MG/ML INJ IV PUSH (02:58)
[2023-07-21 04:49] VITALS: BP 136/72; PULSE 84; RESP 20; TEMP 37.2; O2SAT 99
--- NOTE | 2023-07-21 04:52 | PC.NURSE ---
pt verbalized that she needed something more for pain. this rn spoke with edp dr. shankar. per edp dr. shankar pt to recieve 2mg of morphine. pt refused morphine at this time stating, I do not want that, nothing works. I have sat here for 5 hours in pain and no one is doing anything . This Rn educated patient about statrad and delayed wait times for scans. Pt stated, I cannot wait here any longer, my medications I take at home are better than the ones here . This rn verbalized understanding and instilled active listening. this rn notified edp dr. shankar about patient request. Pt visitor requested pt temperature be taken to check for a fever. this rn used temporal scanner to check patient temperature. pt temperature at this time was 99 degrees Fahrenheit.
[2023-07-21] MEDS: HYDROmorphone HCL INJ (*CRX) 1 MG/ML SYR 0.5 MG IV PUSH (05:26)
== END 2023-07-21 05:34 | disposition left against medical advice (07) ==
PROVIDERS: Physician Assistant; Emergency Provider Emergency Medicine; PCP Nurse Practitioner Family
DX: M54.50 Low back pain, unspecified (principal); F41.8 Other specified anxiety disorders; Z85.3 Personal history of malignant neoplasm of breast; Z20.822 Contact with and (suspected) exposure to COVID-19
CPT/HCPCS: 36415; 71046; 72132; 80053; 81001; 81025; 83605; 85025; 85652; 86140; 87637; 96361; 96374; 96375; 96376; 99284; J1170; J2270; J7030; Q9967

== ENCOUNTER 2023-09-05 09:45 | Outpatient (CLI) | payer OTHER, SELFPAY ==
--- NOTE | ~2023-09-05 | XR_ITS ---
EXAMINATION: XR pelvis 1-2V DATE: 09/05/2023 10:02 INDICATION: Low back pain. Leg pain. TECHNIQUE: An anteroposterior view of the pelvis standing was obtained. COMPARISON: CT abdomen and pelvis 03/27/2023 FINDINGS: There is lumbar dextroscoliosis. There are changes of posterior fusion procedure at L5-S1. There is mild osteoarthritis of the hips characterized by tiny osteophytes. IMPRESSION: 1. Mild osteoarthritis of the hips. Reviewed, dictated and finalized at location A.
--- NOTE | ~2023-09-05 | XR_ITS ---
EXAMINATION: XR lumbar spine 2-3V DATE: 09/05/2023 10:02 INDICATION: Spinal stenosis, lumbosacral region. TECHNIQUE: 3 views of lumbar spine were obtained. COMPARISON: Lumbar spine radiographs 03/30/2023, CT 07/21/2023 FINDINGS: There is 13 degrees levoscoliosis of the lumbar spine. Vertebral body heights are normal. T here are changes of posterior fusion procedure L5-S1 with pedicle screws. There is mildly decreased d isc height at L3-L4 and L4-L5 and moderately decreased disc height at L5-S1. There is multilevel face t joint osteoarthritis, severe in lower lumbar spine. IMPRESSION: 1. Mild lumbar spondylosis. 2. Posterior fusion procedure at L5-S1. 3. Thoracolumbar dextroscoliosis. Reviewed, dictated and finalized at location A.
== END 2023-09-05 09:46 | disposition home or self-care (01) ==
LOC: ANHIMG 09:48
PROVIDERS: PCP Nurse Practitioner Family; Visit Provider Neurological Surgery
DX: M54.50 Low back pain, unspecified (principal); M54.16 Radiculopathy, lumbar region; M16.0 Bilateral primary osteoarthritis of hip; M43.06 Spondylolysis, lumbar region; Z98.1 Arthrodesis status; M41.85 Other forms of scoliosis, thoracolumbar region
CPT/HCPCS: 72100; 72170; 97110; 97140; 97161; 97530

== ENCOUNTER 2023-10-29 11:15 | Emergency (ER) | payer OTHER, SELFPAY ==
[2023-10-29 11:24] VITALS: BP 137/74; PULSE 67; RESP 20; TEMP 36.7; O2SAT 100
--- NOTE | 2023-10-29 11:35 | ED.FEMALEGU ---
HPI - Female Genitourinary General Chief complaint: Urogenital-Female Stated complaint: UTI Time Seen by Provider: 10/29/23 11:30 Source: patient Mode of arrival: ambulatory Limitations: no limitations History of Present Illness HPI Narrative: Alice is a 47-year-old female patient presenting to the clinic today with complaints of bladder pain and urinary frequency over the last few days. She reports that she has noticed some blood in her urine. Has been taking azo for symptoms. States that she did have a kidney stone and is wondering if she is passing it. Related Data Home Medications Medication Instructions Recorded Confirmed letrozole 2.5 mg tablet 2.5 mg PO DAILY 01/05/22 10/29/23 buprenorphine transdermal 10/04/23 10/04/23 Allergies Allergy/AdvReac Type Severity Reaction Status Date / Time No Known Allergies Allergy Verified 10/29/23 11:31 Review of Systems Review of Systems: Pertinent positives per HPI. Patient denies any fever, chills, rash, headache, visual changes, dizziness, cough, runny nose, sore throat, shortness of breath, chest pain, palpitations, nausea, vomiting, diarrhea, constipation, abdominal pain. [facility] Past Medical History Medical History (Updated 10/29/23 @ 11:38 by Junior Jacinto APRN) Acne ADHD Anemia Anorexia Anxiety Anxiety and depression Breast cancer Chronic allergic rhinitis Chronic idiopathic constipation Constipation Depression Elevated liver enzymes Encounter to establish care Interstitial cystitis Irritable bowel syndrome with constipation Kidney infection Low back pain with right-sided sciatica Osteoporosis Post-operative pain Sinusitis Urinary frequency UTI (urinary tract infection) Surgical History Surgical History H/O: hysterectomy History of lumpectomy of left breast Hx of breast augmentation Family History Family History Father Lung cancer Social History Social History Smoking status: Never smoker Second hand tobacco smoke exposure: No Alcohol intake: former Drinks per week: 0 Alcohol use details: LAST 2019 Substance use: current Substance use type: marijuana Other substance usage details: MEDICAL MARIJUANA Last use: 10/31/2020 Do You Feel Safe in your Home?: Yes Lack of Transportation: No Lack of Food: Never True Current Housing: I Have Housing Concerned About Future Housing: No Difficulty Paying Gas/Electric Bills: No Difficulty Paying for Meds: No Currently Unemployed: YES Education: Associate Degree Difficulty w/ Childcare or Family Care: No Living arrangements: with family Gender identity (if verbalized by the patient): Female Spiritual care concerns: No Agree to blood products: Yes Comments At the time of my signature, I reviewed and agree with the nursing past medical, surgical, social, and family history. There is no relevant family history pertinent to the patient complaint. Exam Narrative: General: Well-developed, well nourished, in no apparent distress. Head: Normocephalic, atraumatic. Cardio: Regular rate and rhythm, s1 and s2 normal, no murmur appreciated. Resp: Clear to auscultation bilaterally, no rhonchi, rales, wheezing or rubs. Abdomen: Soft, pliable, bowel sounds present in all quadrants, tender to palpation over the urinary bladder, no organomegly, no CVAT tenderness. Course Course Emergency Course: Portions of this record may have been created with voice recognition software. Level of Care: Express Care Visit Vital Signs Vital signs: Vital Signs Temperature 36.7 C 10/29/23 11:24 Pulse Rate 67 10/29/23 11:24 Respiratory Rate 20 10/29/23 11:24 Blood Pressure 137/74 10/29/23 11:24 Pulse Oximetry 100 10/29/23 11:24 Oxygen Delivery Room Air
[2023-10-29 11:52] LABS: EDUAAPPEAR Cloudy; EDUABILI 1+; EDUABLOOD 3+; EDUACOLOR1 Yellow; EDUAGLUCOSE Negative; EDUAKETONE Trace; EDUALEUKO 3+; EDUANITRATE Negative; EDUAPH 6.5; EDUAPROTEIN 1+; EDUASPGRAVITY 1.025; EDUAUROBILI 0.2
== END 2023-10-29 12:05 | disposition home or self-care (01) ==
PROVIDERS: Emergency Provider Nurse Practitioner Family; PCP Nurse Practitioner Family
DX: N39.0 Urinary tract infection, site not specified (principal); B96.20 Unspecified Escherichia coli [E. coli] as the cause of diseases classified elsewhere; M81.0 Age-related osteoporosis without current pathological fracture; Z85.3 Personal history of malignant neoplasm of breast; Z90.12 Acquired absence of left breast and nipple
CPT/HCPCS: 81003; 87077; 87086; 87186; 99213; G0463

== ENCOUNTER 2023-11-20 08:00 | Outpatient (RCR) | payer OTHER, SELFPAY ==
--- NOTE | 2023-09-05 12:21 | PTOPEVAL1 ---
Assessment and note entered by Tasha Lopez, PT Evaluation Information Assessment Status Evaluation Diagnosis arthrodesis s/p lumbar fusion Onset 07/18/2023 Therapy Conditions pain weakness ROM deficits postural impairments Subjective Information Pt reports she underwent lumbar decompression, posterolateral fusion last 07/18/2023. States experienced severe pain last night 12/24 and passed out in bed, when she woke up this morning, she only felt faint stiffness and throbbing which was resolved after applying pain patches. states pain at this time is /10, denies using pain medication. Reports having difficulty with sitting or standing for prolonged period of time, which makes driving challenging. She states she sits on an icepack while driving during days that the pain is bad; she also has difficulty with stairs and getting in and out of bed. Reported Pain Level Pain Score 4: Self Report Assessment PT Clinical Summary Pt presents with increased pain, muscle imbalance due to postural deficits and compensatory S curve (thoracic dextroscoliosis and lumbar levoscoliosis ), weakness RLE > LLE, balance deficits and gait impairments impacting ability to perform ADLs and IADLs. Skilled PT indicated to reduce pain, improve flexibility and strength, improve safety awareness and proper body mechanics. Plan of Care Interventions Electrical Stimulation,Gait Training,Hot Pack/Cold Pack,Manual Therapy,Neuro Re-education,Patient/ Caregiver Education,Therapeutic Activities, Therapeutic Exercise PT Services Indicated Yes Treatment Frequency and 2x/wk x 12 visits Duration These treatments will address the objective and functional deficits as defined above. The patient will be advanced safely and appropriately in order for the patient to progress towards his/her prior level of function. Additional exercises will be introduced and as well as a comprehensive home exercise program upon discharge, if needed, ?to ensure carryover of functional gains achieved in the clinic. This treatment plan has been reviewed and agreement upon by the patient.
--- NOTE | 2023-09-05 12:23 | OPREHPOC ---
Outpatient Therapy Plan of Care This is a Multidisciplinary Plan of Care that may contain components documented by all disciplines (PT, OT, and ST.) PT Problem 1 PT Problem #1 Knowledge Deficit PT Goal 1 Goal Pt will demo proper body mechanics in lifting and performing bed mobility. Target Visit 6 PT Goal 2 Goal Pt will demo HEPs to improve core strength, total body strength and flexibility (Scoliosis exercises) Target Visit 12 PT Problem 2 PT Problem #2 Pain PT Goal 1 Goal Pt will report pain level of 2/10 at worst or during functional tasks (standing and walking, stairs ambulation) Target Visit 12 PT Problem 3 PT Problem #3 Impaired Strength PT Goal 1 Goal Pt will demo 5/5 strength of thoracic, lumbar and BLEs Target Visit 12 PT Problem 4 PT Problem #4 Impaired Gait PT Goal 1 Goal Pt will demo normalized gait pattern with improved weight shifting and stance time on LLE Target Visit 12
--- NOTE | 2023-09-18 12:55 | PCPTNOTE ---
Pt canceled due to car troubles.
--- NOTE | 2023-10-23 07:51 | PCPTNOTE ---
pt called and canceled today's reevaluation appt due to being ill.
--- NOTE | 2023-10-30 13:45 | PCPTNOTE ---
pt called/canceled and rescheduled today's reevaluation appt. due to illness.
--- NOTE | 2023-11-20 09:01 | OPREHPOC ---
Outpatient Therapy Plan of Care This is a Multidisciplinary Plan of Care that may contain components documented by all disciplines (PT, OT, and ST.) PT Problem 1 PT Problem #1 Knowledge Deficit PT Goal 1 Goal Pt will demo proper body mechanics in lifting and performing bed mobility. Target Visit 6 PT Goal 2 Goal Pt will demo HEPs to improve core strength, total body strength and flexibility (Scoliosis exercises) Target Visit 12 Progress Met Comment 11-20-23 progress goals met continue to progress HEP and education TARGET visit: 17 total PT Problem 2 PT Problem #2 Pain PT Goal 1 Goal Pt will report pain level of 2/10 at worst or during functional tasks (standing and walking, stairs ambulation) Target Visit 12 Progress Not Met Comment 11-20-23 progress goal not met NEW GOALS: 1* pain rating of 5/10 at worst 2* self assessment Oswestry rating of 60% limitation 3* pt report activity tolerance with light home tasks of 30 minutes 4* radicular pain R LE to knee at worst 5* radicular pain L LE to mid thigh at worst TARGET visit: 17 total PT Problem 3 PT Problem #3 Impaired Strength PT Goal 1 Goal Pt will demo 5/5 strength of thoracic, lumbar and BLEs Target Visit 12 Progress Not Met Comment 11-20-23 progress goal not met; NEW GOALS: 1* single leg standing R x 10 seconds with good stability
--- NOTE | 2023-11-20 09:01 | PTOPPROG ---
Assessment and note entered by Dunia Link, PT Progress Report Assessment Status Progress Diagnosis arthrodesis s/p lumbar fusion ICD-10 Condition Codes (PT) Pain in low back M54.50,M54.16,R26.9,Weakness R53. 1 Onset 07/18/2023 Subjective Information feel like about the same; still having the back pain and limited in what I can do; to see surgeon next week; still with pain management dr--for pain meds; the pain patches have given her problems with constipation; have a brain fog going on-do not recall things; have been doing the stretches at home, they help--have an exercise ball; have been going to the pool and letting the water help her back; PAIN: range in the past week 5-8/10; both lumbar-sacral, no longer sharp shooting pain into legs, but radiates into R lateral ankle/ L to mid calf decrease pain: gabapentin, celebrex, pain patch opioid increase pain: do activity--bend over, home chores, 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 Compared to the initial evaluation: pain rating from 4-9/10 to 5-8/10; continues to have radicular pain into both LE's; Self assessment Oswestry from 54% to 74% limitation in activity level; decreased reported sleep, sit, walk and activity tolerance; is not working due to her pain; children assisting with home tasks; 2 minute walking test distance of 310' weakness of trunk and hips, with single leg standing time R 3/L 7 seconds--unsteady and mat exercises 10-15 reps; bilateral UE lift max floor /waist height 5# due to back pain; Discussed aquatic therapy with pt and she is not interested in water exercises. She likes water and sits in the pool; discussed with her walking in the water and standing leg exercises. The goals for education were met; continues to have weakness and decreased activity tolerance. Continue PT treatment. Plan of Care Interventions Electrical Stimulation,Hot Pack/Cold
--- NOTE | 2023-12-03 13:31 | PCPTNOTE ---
This treatment is being continued on visit number [id number]. Please see documentation on both accounts to view progress. Completed interventions, outcomes, and problems have been marked as Inactive to facilitate the copying of the Care plan routine for recurring accounts.
== END 2023-12-03 09:42 | disposition home or self-care (01) ==
LOC: ANHPT 08:00
PROVIDERS: PCP Nurse Practitioner Family; Visit Provider Neurological Surgery
DX: Z98.1 Arthrodesis status (principal)
CPT/HCPCS: 97014; 97110; 97140; 97161; 97530; G0283

== ENCOUNTER 2023-11-24 08:37 | Emergency (ER) | payer OTHER, SELFPAY ==
--- NOTE | 2023-11-24 08:47 | ED.FEMALEGU ---
HPI - Female Genitourinary General Chief complaint: Urogenital-Female Stated complaint: Urinary issue Time Seen by Provider: 11/24/23 08:47 Source: patient Mode of arrival: ambulatory Limitations: no limitations History of Present Illness HPI Narrative: Alice is a 48-year-old female patient presenting to the clinic today with complaints of possible urinary tract infection. She reports she was seen 1 month ago and prescribed antibiotics and states that the antibiotics that were prescribed did not cover the bacteria in her urine so she was changed to Augmentin. States she finished the antibiotics approximately 1 week ago and felt better however now she is having pain itchy vaginal discharge in some burning with urination. She denies any odor to the vaginal discharge. She is not concern for any sexually transmitted infections as she has been with the same partner. Denies any changes in soaps, shampoos, or detergents. Denies any fevers, chills, body aches, back pain, or abdominal pain. Related Data Home Medications Medication Instructions Recorded Confirmed letrozole 2.5 mg tablet 2.5 mg PO DAILY 01/05/22 11/24/23 buprenorphine 15 mcg/hour weekly 15 mcg transdermal WEEKLY 11/24/23 11/24/23 transdermal patch Allergies Allergy/AdvReac Type Severity Reaction Status Date / Time No Known Allergies Allergy Verified 11/24/23 08:49 Review of Systems Review of Systems: Pertinent positives per HPI. Patient denies any fever, chills, rash, headache, visual changes, dizziness, cough, runny nose, sore throat, shortness of breath, chest pain, palpitations, nausea, vomiting, diarrhea, constipation, abdominal pain. PMFSH Past Medical History Medical History Acne ADHD Anemia Anorexia Anxiety Anxiety and depression Breast cancer Chronic allergic rhinitis Chronic idiopathic constipation Constipation Depression Elevated liver enzymes Encounter to establish care Interstitial cystitis Irritable bowel syndrome with constipation Kidney infection Low back pain with right-sided sciatica Osteoporosis Post-operative pain Sinusitis Urinary frequency UTI (urinary tract infection) Surgical History Surgical History H/O: hysterectomy History of lumpectomy of left breast Hx of breast augmentation Family History Family History Father Lung cancer Social History Social History Smoking status: Never smoker Second hand tobacco smoke exposure: No Alcohol intake: former Drinks per week: 0 Alcohol use details: LAST 2019 Substance use: current Substance use type: marijuana Other substance usage details: MEDICAL MARIJUANA Last use: 10/31/2020 Do You Feel Safe in your Home?: Yes Lack of Transportation: No Lack of Food: Never True Current Housing: I Have Housing Concerned About Future Housing: No Difficulty Paying Gas/Electric Bills: No Difficulty Paying for Meds: No Currently Unemployed: YES Education: Associate Degree Difficulty w/ Childcare or Family Care: No Living arrangements: with family Gender identity (if verbalized by the patient): Female Spiritual care concerns: No Agree to blood products: Yes Comments At the time of my signature, I reviewed and agree with the nursing past medical, surgical, social, and family history. There is no relevant family history pertinent to the patient complaint. Exam Narrative: General: Well-developed, well nourished, in no apparent distress. Head: Normocephalic, atraumatic. Cardio: Regular rate and rhythm, s1 and s2 normal, no murmur appreciated. Resp: Clear to auscultation bilaterally, no rhonchi, rales, wheezing or rubs. Abdomen: Soft, pliable, bowel sounds present in all quadrants, non-tender
[2023-11-24 08:53] LABS: EDUAAPPEAR Clear; EDUABILI Negative; EDUABLOOD Trace; EDUACOLOR1 Yellow; EDUAGLUCOSE Negative; EDUAKETONE Negative; EDUALEUKO Negative; EDUANITRATE Negative; EDUAPH 6.5; EDUAPROTEIN Negative; EDUASPGRAVITY 1.025
[2023-11-24 08:55] VITALS: BP 108/64; PULSE 67; RESP 16; TEMP 37.2; O2SAT 99
== END 2023-11-24 09:09 | disposition home or self-care (01) ==
PROVIDERS: Emergency Provider Nurse Practitioner Family; PCP Nurse Practitioner Family
DX: R30.0 Dysuria (principal); N89.8 Other specified noninflammatory disorders of vagina; M81.0 Age-related osteoporosis without current pathological fracture; Z85.3 Personal history of malignant neoplasm of breast; Z90.12 Acquired absence of left breast and nipple
CPT/HCPCS: 81003; 87086; 99213; G0463

== ENCOUNTER 2024-01-03 09:45 | Outpatient (RCR) | payer OTHER, SELFPAY ==
--- NOTE | 2023-12-03 13:32 | PCPTNOTE ---
This treatment is being continued from visit number [id number]. Please see documentation on both accounts to view progress. Completed interventions, outcomes, and problems have been marked as Inactive to facilitate the copying of the Care plan routine for recurring accounts.
--- NOTE | 2023-12-19 11:08 | PCPTNOTE ---
Cancelled, reason unknown. AKS
--- NOTE | 2023-12-26 09:34 | PCPTNOTE ---
Pt canceled due to ill child.
--- NOTE | 2024-01-10 09:39 | PCPTNOTE ---
Pt. called and canceled her appointment due to feeling ill.
--- NOTE | 2024-02-15 14:27 | PTOPDC ---
Assessment and note entered by Dunia Link, PT Discharge Report Assessment Status Discharge - Pt Not Present Diagnosis arthrodesis s/p lumbar fusion ICD-10 Condition Codes (PT) R26.9,Weakness R53.1,Pain in low back M54.50,M54. 16 Onset 07/18/2023 Subjective Information pt was not seen this date. Assessment PT Clinical Summary Alice has received 11 PT sessions, from August 22 to Jan 02. She called/canceled 7 appointments. Discharge PT services, due to not attending. The goals were not addressed. Plan of Care PT Services Indicated No
== END 2024-02-15 16:39 | disposition home or self-care (01) ==
LOC: ANHPT 09:45
PROVIDERS: PCP Nurse Practitioner Family; Visit Provider Neurological Surgery
DX: Z98.1 Arthrodesis status (principal)
CPT/HCPCS: 97110; 97140

== ENCOUNTER 2024-03-11 14:14 | Outpatient (CLI) | payer OTHER, SELFPAY ==
--- NOTE | ~2024-03-11 | XR_ITS ---
3 VIEWS LUMBAR SPINE Ordering provider: Aggie Dumont MD History: . Z98.1 - Arthrodesis status, POST FUSION . Comparison: None. FINDINGS: VERTEBRAL BODIES: Dextroscoliosis. Postoperative changes in the lower lumbar and sacral area. No visible fracture or s ubluxation. DISK SPACES: Normal. SOFT TISSUES: Normal. IMPRESSION: No acute osseous abnormality lumbar spine. ). Reviewed, dictated and finalized at location A. N RESOURCES TECHNICIAN
--- NOTE | ~2024-03-11 | MR_ITS ---
EXAMINATION: MR lumbar spine wo/w con DATE: 03/11/2024 15:26 INDICATION: Spinal stenosis of lumbar region. Pain radiating to the left foot. TECHNIQUE: Magnetic resonance imaging (MRI) of the lumbar spine was performed without and with 11 mL MultiHance intravenous contrast. COMPARISON: Lumbar spine MRI 04/04/2023, radiographs 03/11/2024 FINDINGS: There is 8 degrees dextrocurvature of thoracolumbar spine. There is 3 mm retrolisthesis of L3 on L4 and L4 on L5 and 3 mm anterolisthesis of L5 on S1. There are changes of posterior fusion pro cedure at L5-S1 with pedicle screws. There is mildly decreased disc height at L2-L3, L3-L4, and L4-L5 and moderately decreased disc height at L5-S1. The distal spinal cord signal intensity is normal. Th e conus medullaris is at L1. The following disc levels are specifically discussed: L1-L2: The disc does not extend beyond the endplate margin. There is mild bilateral facet joint osteo arthritis. There is no neural foraminal stenosis. There is no central canal stenosis. L2-L3: The disc is bulging with superimposed right foraminal extrusion. There is moderate right and m ild left facet joint osteoarthritis. There is mild bilateral neural foraminal stenosis. There is mild central canal stenosis. L3-L4: The disc is bulging and has an annular fissure. There is moderate bilateral facet joint osteoa rthritis. There is moderate bilateral neural foraminal stenosis. There is mild central canal stenosis . L4-L5: The disc is bulging and has an annular fissure. There is moderate bilateral facet joint osteoa rthritis. There is moderate right and mild left neural foraminal stenosis. There is mild central bienvenido l stenosis. L5-S1: The disc is bulging and has an annular fissure. There is mild bilateral facet joint hypertroph y. There is mild bilateral neural foraminal stenosis. There is no central canal stenosis. IMPRESSION: 1. Moderate lumbar spondylosis. 2. Posterior fusion procedure at L5-S1. Reviewed, dictated and finalized at location A. [employer]
== END 2024-03-11 14:15 | disposition home or self-care (01) ==
PROVIDERS: PCP Nurse Practitioner Family; Visit Provider Anesthesiology Pain Medicine
DX: M48.061 Spinal stenosis, lumbar region without neurogenic claudication (principal); M47.816 Spondylosis without myelopathy or radiculopathy, lumbar region; Z98.1 Arthrodesis status
CPT/HCPCS: 72100; 72158; A9577

== ENCOUNTER 2024-03-24 11:59 | Emergency (ER) | payer OTHER, SELFPAY ==
[2024-03-24 12:08] VITALS: BP 117/75; PULSE 70; RESP 16; TEMP 37.1; O2SAT 100
--- NOTE | 2024-03-24 12:52 | ED.BACK ---
HPI - Back Pain/Injury General Chief Complaint: Back Pain/Injury Stated Complaint: Bodyaches Time Seen by Provider: 03/24/24 12:53 Source: patient, RN notes reviewed and old records reviewed Mode of arrival: ambulatory Limitations: no limitations History of Present Illness HPI Narrative: Patient presents with complaints of exacerbation of chronic pain. Patient reports spinal fusion surgery earlier this year. Reports that she has been in significant pain since the time of her surgery. She is managed by pain management. Says next appointment is tomorrow. She denies any recent injury or trauma. She reports that she has been working too hard at work Related Data Home Medications Medication Instructions Recorded Confirmed letrozole 2.5 mg tablet 2.5 mg PO DAILY 01/05/22 03/24/24 buprenorphine 15 mcg/hour weekly 15 mcg transdermal WEEKLY 11/24/23 03/24/24 transdermal patch Allergies Allergy/AdvReac Type Severity Reaction Status Date / Time No Known Allergies Allergy Verified 03/24/24 13:30 Review of Systems Review of Systems: All systems reviewed & are unremarkable except as noted in HPI and below Constitutional: Constitutional: Reports no additional constitutional complaints ENT: Reports system reviewed and no additional complaints, except as documented Cardiovascular: Cardiovascular: Reports no additional cardiovascular complaints Respiratory: Respiratory: Reports no additional respiratory complaints Gastrointestinal: Gastrointestinal: Reports no additional gastrointestinal complaints Musculoskeletal: Musculoskeletal: Reports as per HPI and Reports back pain PMFSH Past Medical History Medical History Acne ADHD Anemia Anorexia Anxiety Anxiety and depression Breast cancer Chronic allergic rhinitis Chronic idiopathic constipation Constipation Depression Elevated glucose Elevated liver enzymes Encounter to establish care Interstitial cystitis Irritable bowel syndrome with constipation Kidney infection Low back pain with right-sided sciatica Osteoporosis Post-operative pain Sinusitis Urinary frequency UTI (urinary tract infection) Surgical History Surgical History H/O: hysterectomy History of lumpectomy of left breast Hx of breast augmentation Family History Family History Father Lung cancer Social History Social History Smoking status: Never smoker Second hand tobacco smoke exposure: No Alcohol intake: former Drinks per week: 0 Alcohol use details: LAST 2019 Substance use: current Substance use type: marijuana Other substance usage details: MEDICAL MARIJUANA Last use: 10/31/2020 Do You Feel Safe in your Home?: Yes Lack of Transportation: No Lack of Food: Never True Current Housing: I Have Housing Concerned About Future Housing: No Difficulty Paying Gas/Electric Bills: No Difficulty Paying for Meds: No Currently Unemployed: YES Education: Associate Degree Difficulty w/ Childcare or Family Care: No Living arrangements: with family Gender identity (if verbalized by the patient): Female Spiritual care concerns: No Agree to blood products: Yes Comments At the time of my signature, I reviewed and agree with the nursing past medical, surgical, social, and family history. There is no relevant family history pertinent to the patient complaint. Exam Const: General: cooperative, no acute distress, alert and awake Orientation/consciousness: oriented to person, oriented to place and oriented to time HENMT: Head: normal to inspection Resp: Effort & Inspection: normal respiratory effort and able to speak in complete sentences Auscultation: clear to auscultation bilaterally, no crackles, no rales, no rhonchi and no wheezes Cardio: Palpation: normal PMI Rate: regular rate Rhythm: regular rhythm Heart sounds: S1 normal heart sound present and S2 normal heart sound present Neuro: General: oriented to person, oriented to place and oriented to time Cranial nerves: Yes CN's II-XII intact bilaterally Psych: Appearance: grossly normal Thought process: Normal thought process present Insight: Good insight present (Psych) Judgement: Good judgement present (Psych) Course Course Level of Care: Express Care Visit Vital Signs Vital signs: Vital Signs Temperature 98.7 F 03/24/24 12:08 Pulse Rate 70 03/24/24 12:08 Respiratory Rate 16 03/24/24 12:08 Blood Pressure 117/75 03/24/24 12:08 Pulse Oximetry 100 03/24/24 12:08 Oxygen Delivery Room Air 03/24/24 12:08 Temperature 98.7 F 03/24/24 12:08 Pulse Rate 70 03/24/24 12:08 Respiratory Rate 16 03/24/24 12:08 Blood Pressure 117/75 03/24/24 12:08 Pulse Oximetry 100 03/24/24 12:08 Oxygen Delivery Room Air 03/24/24 12:08 Reviewed MDM - Back Pain/Injury MDM Narrative Medical decision making narrative: Patient with exacerbation of chronic pain. Toradol shot given while in clinic. Patient has appointment to follow with pain management tomorrow. Discharge instructions reviewed with patient, as well as provided in writing per nursing staff. The instructions also include specific and strict return/GO TO THE ER as well as f/u information. All questions have been answered, and the patient deny any further questions with discharge and discharge plan. Some parts of this dictation were generated by voice recognition software and may contain typographical and/or grammatical inaccuracies. Differential Diagnosis Differential diagnosis: Likely lumbar radiculopathy, sciatica, strain of lumbar region and thoracic back pain Medical Records Attestation: I reviewed the patient's medical records. Discharge Plan Discharge Clinical Impression: Back pain Qualifiers: Back pain location: back pain in unspecified location Chronicity: unspecified Back pain laterality: unspecified Qualified Code(s): M54.9 - Dorsalgia, unspecified Patient Disposition: Home, Self-Care Condition: Stable Instructions: Antibiotic Form, Back Pain (ED) Additional Instructions: Follow-up with pain management in the morning as scheduled. Emergency department for new or worse symptoms Patient Language: Faroese Prescriptions: No Action buprenorphine 15 mcg/hour patch weekly 15 mcg transdermal WEEKLY letrozole 2.5 mg tablet 2.5 mg PO DAILY Rx Instructions: begin between days 2 and 5 of mentrual cycle minocycline 100 mg tablet 100 mg PO BID Qty: 60 11RF famotidine 40 mg tablet 40 mg PO BID Qty: 60 5RF ondansetron HCl 4 mg tablet 4 mg PO Q8H PRN (Reason: nausea and vomiting) Qty: 30 2RF trazodone 150 mg tablet 150 mg PO QHS PRN (Reason: sleep) Qty: 90 3RF lidocaine 5 % adhesive patch,medicated 1 patch topical DAILY Qty: 30 11RF Rx Instructions: leave on most painful area for up to 12 hrs, then remove for 12hours gabapentin 300 mg capsule 900 mg PO TID Qty: 300 11RF Rx Instructions: Take 900mg in the AM and afternoon. Take 1200mg at bedtime. clonazepam 1 mg tablet 1 mg PO BID PRN (Reason: Anxiety) Qty: 60 5RF Hold Instructions: Resume on 11/10/20. Hold while taking narcotic pain medications cyclobenzaprine 10 mg tablet 10 mg PO TID PRN (Reason: muscle spasm) Qty: 30 3RF solifenacin [Vesicare] 10 mg tablet 10 mg PO DAILY Qty: 90 3RF montelukast 10 mg tablet 10 mg PO QHS Qty: 30 11RF dextroamphetamine-amphetamine [Adderall] 20 mg tablet 20 mg PO BID Qty: 60 0RF Rx Instructions: administer doses at least 4-6 hours apart Follow-up/Referrals: Leonie Ortega NP [Primary Care Provider] - 2 Weeks Stand Alone Forms: Work/School Release IP Time of Disposition: 13:19
[2024-03-24] MEDS: KETOROLAC (*BKC) 60 MG/2 ML VIAL IM (13:12)
== END 2024-03-24 13:41 | disposition home or self-care (01) ==
PROVIDERS: Emergency Provider Nurse Practitioner Family; PCP Nurse Practitioner Family
DX: M54.9 Dorsalgia, unspecified (principal); M81.0 Age-related osteoporosis without current pathological fracture; Z85.3 Personal history of malignant neoplasm of breast
CPT/HCPCS: 96372; 99213; G0463; J1885

== ENCOUNTER 2024-07-25 14:37 | Emergency (ER) | payer OTHER, SELFPAY ==
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
--- OUTSIDE RECORDS SUMMARY | 2024-07-25 14:40 | XMS_ITS | Clinical Summary ---
Author Organization [facility] Address [address], [facility] [address] [place] [address] Phone Care Team Providers Care Account Clerk Name Role Phone Leonie Ortega APRN, NOHEMI Primary Care Provider + Pierre Arnett DO Unavailable [phone] Allergies No known active allergies Medications amphetamine-dex troamphetamine (ADDERALL) 20 MG Tablet TK 1 T PO BID 0 Active buPROPion (WELLBUTRIN) 300 MG TABLET SR 24 HR XL tablet 0 Active clonazePAM (KlonoPIN) 1 MG Tablet TK 1 T PO BID PRA 0 Active montelukast (SINGULAIR) 10 MG Tablet 0 Active Probiotic Product (Acidophilus/Go at Milk) Capsule Take 1 Tab by mouth. Active vitamin b-12 (CYANOCOBALAMIN ) 100 MCG Tablet Take 100 mcg by mouth daily. Active solifenacin (VESICARE) 10 MG Tablet 1 Active SSD 1 % Cream 1 Active Ascorbic Acid 1000 MG Tablet Take 1,000 mg by mouth. Active ondansetron (Zofran) 4 MG Tablet Take 1 Tablet by mouth every 6 hours as needed for Nausea - 1st line. 30 Tablet 1 Active prochlorperazin e (COMPAZINE) 10 MG Tablet Take 1 Tablet by mouth every 8 hours as needed for Nausea - 2nd line. 14 Tablet 2 Active gabapentin (NEURONTIN) 300 MG Capsule 3 Active tiZANidine (ZANAFLEX) 4 MG Tablet TAKE 1 TABLET BY MOUTH THREE TIMES DAILY NEEDED FOR MUSCLE SPASMS 3 Active lidocaine (LIDODERM) 5 % Patch 3 Active traZODone (DESYREL) 150 MG Tablet TAKE 1 TABLET BY MOUTH EVERY DAY AT BEDTIME NEEDED FOR SLEEP 3 Active naloxegol (MOVANTIK) 25 MG Tablet Take 1 Tablet by mouth daily. 3 Active Minocycline HCl 100 MG Tablet Take 1 Tablet by mouth 2 times daily. 4 Active methocarbamol (ROBAXIN) 750 MG Tablet Take 750 mg by mouth 3 times daily as needed. 4 Active busPIRone HCl 7.5 MG Tablet TAKE 1 TABLET BY MOUTH 2 TIMES PER DAY 4 Active HYDROcodone-elma taminophen (NORCO) 5-325 MG Tablet TAKE 1 TABLET BY MOUTH EVERY 4-6 HOURS NEEDED FOR MODERATE PAIN 4 Active buprenorphine 15 MCG/HR PATCH WEEKLY APPLY 1 PATCH TOPICALLY TO THE SKIN EVERY 7 DAYS Active cyclobenzaprine (FLEXERIL) 10 MG Tablet Take 10 mg by mouth 3 times daily as needed for Muscle spasms. 4 Active letrozole (FEMARA) 2.5 MG TabletIndicatio ns:Er+ [place]+ carcinoma of breast, left (HCC) TAKE 1 TABLET BY MOUTH DAILY 30 Tablet 3 4 Active Active Problems Problem Noted Date Diagnosed Date Osteoporosis 02/20/2023 Seasonal allergies 10/25/2021 Overview (01/05/2022): Well controlled on singulair. Can add zyrtec with flares of symptoms Recurrent major depressive disorder, in partial remission 10/25/2021 Overview (01/05/2022): As above. I feel that adding buspar to her regimen would be a great option to improve symtpoms. She declines. I won't fill the clonazepam Psychophysiological insomnia 10/25/2021 Overview (01/05/2022): Okay with trazodone, but not the combination of trazodone with clonazepam Attention deficit hyperactiv ity disorder (ADHD), combined type 10/25/2021 Overview (01/05/2022): ILP reviewed. Okay to refill medication. Refill sent to pharmacy Bone pain 02/25/2021 Malignant neoplasm of overla pping sites of left breast in female, estrogen receptor positive 06/18/2020 Malignant neoplasm of female breast 06/18/2020 Er+ [place]+ carcinoma of breast, left 05/18/2020 Neuropathy 10/28/2019 Bipolar disorder 01/07/2016 Depression with anxiety 01/05/2016 Encounters Date Type Department Care Team Description 07/15/2024 Telephone [facility] [address] [address] Pierre Arnett, DO [employer] / Spa injection from Last 3 Months Immunizations Immunization Administration Dates Next Due Influenza Vaccine 03/15/2015 Influenza Vaccine, Quadrivalent, PF 12/23/2019,0 01/05/2016,03/03/2013 TDAP Vaccine 03/11/2018 Family History Medical History Relation Name Comments No Known Problems Brother 1 No Known Problems Brother 2 Cancer Father No Known Problems Sister Relation Name Status Comments Brother 1 Alive Brother 2 Alive Father asbestos from [employer] Mother Alive Sister Alive Social History Tobacco Use Types Packs/Day Years Used Date Smoking Tobacco: Never Smokeless Tobacco: Never Tobacco Cessation:Counseling Given: Not Answered Alcohol Use Standard Drinks/Week Comments Yes 0 (1 standard drink = 0.6 oz pur e alcohol) not often, couple months PHQ-2 Answer Date Recorded Total Score - Questions 1-9 0 09/14 Education Answer Date Recorded What is the highest level of school you have completed or the highest degree you have received? 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 Not on file Not on file Not on file Last Filed Vital Signs Vital Sign Reading Time Taken Comments Blood Pressure 140/90 04/04/2024 11:10 AM CSR RETAIL Pulse 77 04/04/2024 11:10 AM CSR RETAIL Temperature 36.7 C (98 F) 04/04/2024 11:10 AM CSR RETAIL Respiratory Rate 18 04/04/2024 11:1 0 AM CSR RETAIL Oxygen Saturation 95% 04/04/2024 11: 10 AM CSR RETAIL Inhaled Oxygen Concentration - - Weight 54.3 kg (119 lb 11.2 oz) 024 11:10 AM CSR RETAIL Height 172.7 cm (5' 8 ) 04/04/2024 11:1 0 AM CSR RETAIL Body Mass Index 18.2 04/04/2024 11:10 AM CSR RETAIL Plan of Treatment Upcoming Encounters Date Type Department Care Team (Late st Contact Info) Description 08/08/2024 10:30 AM CDT Office Visit [facility] [address] [place] [address] Pierre Arnett, [address] [place] [address] Health Maintenance Due Date Last Done Comments SARS-COV-2 Immunization (#1) 1982 Hepatitis B Immunization (1 of 3 - 19+ 3-dose series) 1996 Pneumococcal Immunization Combined (1 of 2 - PCV) 1996 Pap Smear 1998 Cervical Cancer Screening ([facility]S) 11/14/2007 HPV/Cotest 11/14/2007 Colonoscopy 2022 Colorectal Cancer Screening 2022 Influenza Immunization (Season Ended) 2024 12/23/2019, 01/05/2016, 03/15/2015, Additional history exists Mammogram Unilateral 04/22/2025 04/22/2024, 04/22/2024, 11/03/2022, Additional history exists Td Immunization Every 10 Years (Adults With 1 Tdap) 03/11/2028 03/11/2018 Respiratory Syncytial Virus (RSV) Immunization (Adult) (1 - 1-dose 75+ series) 2052 DTaP/Tdap/Td Immunization Discontinued 03/11/2018 Hepatitis C Virus (HCV) Screening Completed 11/26/2018 Discussion re Starting/Frequency of Mammograms Completed 04/22/2024, 11/03/2022, 06/29/2021, Additional history exists Meningococcal Immunization (ACWY) Aged Out No longer eligible based on patient's age to complete this topic Rotavirus Immunization Aged Out No lo nger eligible based on patient's age to complete this topic Insurance MEDICAID [place] Care Teams Account Clerk Relationship Specialty Start Date End Date Leonie Ortega APRN, TR[employer]HY [employer]SEMBLER [address] [place] [id number] PCP - General Advanced Practice Nurse 03/21/22 Pierre Arnett DO [address] [place] [phone] Consulting Physician Oncology 03/19/23
--- OUTSIDE RECORDS SUMMARY | 2024-07-25 14:40 | XMS_ITS | Clinical Summary ---
Author Organization [facility] [place] Address [address] [place] [address] Care Team Providers Care Research Recruiter Name Role Phone Leonie Ortega DEBORAH Primary Care Provider [phone] Pierre Arnett DO Unavailable [phone] Allergies No known active allergies Medications buPROPion XL 300 MG 24 hr tabletIndicatio ns:Depression with anxiety Take 1 tablet (300 mg total) by mouth daily. 90 tablet 1 2 Active Additional Information Patient taking differently:300 mg OralNightly, Reported on 07/09/2023 TRAZODONE 150 MG tabletIndicatio ns:Primary insomnia TAKE 1 TABLET(150 MG) BY MOUTH EVERY NIGHT AT BEDTIME 90 tablet 1 2 Active clonazePAM 1 MG tabletIndicatio ns:Depression with anxiety Take 1 tablet (1 mg total) by mouth 2 (two) times daily as needed. FOR ANXIETY 60 tablet 1 2 Active letrozole (FEMARA) 2.5 MG tablet Take 1 tablet by mouth nightly. Active montelukast (SINGULAIR) 10 MG tabletIndicatio ns:Allergies Take 1 tablet (10 mg total) by mouth nightly at bedtime. Appointment required for future refills 90 tablet 3 Active gabapentin (NEURONTIN) 300 MG capsule Take 1 capsule (300 mg total) by mouth 4 (four) times daily. 3 Active busPIRone (BUSPAR) 7.5 MG tablet Take 1 tablet (7.5 mg total) by mouth 2 (two) times a day. 4 Active solifenacin succinate (VESICARE) 10 MG Tab Take 1 tablet (10 mg total) by mouth nightly. 4 Active Multiple Vitamins-Minera ls (HAIR SKIN AND NAILS FORMULA) Tab Take 1 tablet by mouth nightly. Active Multiple Vitamin (MULTIVITAMIN ADULT OR) Take 1 tablet by mouth nightly. Active Cholecalciferol (VITAMIN D-3 OR) Take 1 tablet by mouth nightly. Active CALCIUM MAGNESIUM ZINC OR Take 1 tablet by mouth nightly. Active minocycline (MINOCIN) 100 MG tablet Take 1 tablet (100 mg total) by mouth 2 (two) times daily. 4 Active oxyCODONE-aceta minophen (PERCOCET) 5-325 MG tabletIndicatio ns:Acute Pain < 7 Day Supply Take 1-2 tablets by mouth every 6 (six) hours as needed. Indications: Acute Pain < 7 Day Supply 56 tablet 4 Active naloxone (NARCAN) 4 MG/0.1ML nasal spray 1 spray by Nasal route as needed for Opioid reversal. may repeat every 2 to 3 minutes in alternating nostrils until medical assistance becomes available 1 each 4 07/19/19 25 Active Problems Problem Noted Date Diagnosed Date Spondylolisthesis of lumbar region 07/18/2023 Generalized body aches 01/26/2021 Fatigue, unspecified type 01/26/2021 COVID-19 vaccine series not administered 021 Malignant neoplasm of overla pping sites of left breast in female, estrogen receptor positive ([facility]) 06/18/2020 Primary insomnia 05/18/2020 Invasive ductal carcinoma of breast, female, left ([facility]) 05/18/2020 Er+ NC+ carcinoma of breast, left ([facility]) 05/18/2020 Left breast mass 12/24/2019 Neck pain 10/28/2019 Abnormal TSH 10/28/2019 Neuropathy 10/28/2019 OAB (overactive bladder) 10/28/2019 Yeast vaginitis 05/18/2019 Frequent urination 11/27/2018 High risk sexual behavior, unspecified type 11/14 Vitamin D deficiency 11/27/2018 Frequent UTI 11/27/2018 Urgency of urination 11/27/2018 Vaginal yeast infection 11/27/2018 Acute cystitis without hematuria 07/02/2018 ADD (attention deficit disorder) without hyperac tivity 07/02/2018 Bipolar disorder ([facility]) 01/07/2016 Depression with anxiety 01/05/2016 Resolved Problems Problem Noted Date Diagnosed Date Resolved Date Need for COVID-19 vaccine 12/29/2020 Pap smear for cervical cancer screening 11/27/2018 12/26/2019 Immunizations Name Administration Dates Next Due Fluzone 6 Months+ Quad (0.5 mL Prefilled Syringe) 12/23/2019 Influenza (Generic) 01/05/2016 Influenza Adult (Generic) 01/05/2016,03/15/2015, 03/03/2013 Tdap (Boostrix) 03/11/2018 Family History Medical History Relation Comments Cancer Father cancer from work ing around asbestos at [employer] No Known Problems Maternal Aunt No Known Problems Maternal Grandfather No Known Problems Maternal Grandmother No Known Problems Maternal Uncle No Known Problems Mother No Known Problems Paternal Aunt No Known Problems Paternal Grandfather Diabetes Paternal Grandmother No Known Problems Paternal Uncle Asthma Son Relation Status Comments Daughter Alive Father (Age 64) of cancer 2017 Maternal Aunt Maternal Grandfather Maternal Grandmother Maternal Uncle Mother Alive Paternal Aunt Paternal Grandfather Paternal Grandmother Paternal Uncle Son Alive Social History Tobacco Use Types Packs/Day Years Used Date Smoking Tobacco: Never Passive Smoke Exposure: Never Smokeless Tobacco: Never Tobacco Cessation:Counseling Given: Not Answered Alcohol Use Standard Drinks/Week Comments Not Currently 0 (1 standard drink = 0.6 oz pur e alcohol) [facility] Utilities Answer Date Recorded In the past 12 months has e [employer], oil, or water [employer] threatened to shut off services in your home? No 07/18/2023 Humiliation, Afraid, Rape, and Kick questionnair e Answer Date Recorded Within the last year, have y ou been afraid of your partner or ex-partner? No 07/18/2023 Within the last year, have y ou been humiliated or emotionally abused in other ways by your partner or ex-partner? No Within the last year, have y ou been kicked, hit, slapped, or otherwise physically hurt by your partner or ex-partner? No 07/18/2023 Within the last year, have y ou been raped or forced to have any kind of sexual activity by your partner or ex-partner? No 07/18/2023 Overall Financial Resource Strain (CARDIA) Answe r Date Recorded How hard is it for you to pa y for the very basics like food, housing, medical care, and heating? Very hard 07/18/2023 PHQ-2 Answer Date Recorded PHQ-2 Score - If the patient scores above 3, please move on to questions 3-9 1 05/17/2020 [facility] - Occupational Stress Questionnaire Answer Date Recorded Do you feel stress - tense, restless, nervous, or anxious, or unable to sleep at night because your mind is troubled all the time - these days? Very much 07/18/2023 Exercise Vital Sign Answer Date Recorde d On average, how many days pe r week do you engage in moderate to strenuous exercise (like a brisk walk)? 0 days 07/18/2023 On average, how many minutes do you engage in exercise at this level? 0 min 07/18/2023 Hunger Vital Sign Answer Date Recorded Within the past 12 months, y ou worried that your food would run out before you got the money to buy more. Sometimes true Within the past 12 months, t he food you bought just didn't last and you didn't have money to get more. Often true 06/2023 PRAPARE - Transportation Answer Date Re corded In the past 12 months, has l ack of transportation kept you from medical appointments or from getting medications? No 06/2023 In the past 12 months, has l ack of transportation kept you from meetings, work, or from getting things needed for daily living? No 07/18/2023 Housing Stability Vital Sign Answer Thony e Recorded In the last 12 months, was t here a time when you were not able to pay the mortgage or rent on time? No 07/18/2023 In the last 12 months, how many places have you lived? 1 07/18/2023 In the last 12 months, was t here a time when you did not have a steady place to sleep or slept in a fpc (including now)? No 07/18/2023 Comments No Sex and Gender Information Value Date Recorded Sex Assigned at Not on file Legal Sex Female 4:27 PM CDT Gender Identity Not on file Sexual Orientation Not on file Last Filed Vital Signs Vital Sign Reading Time Taken Comments Blood Pressure 150/84 07/19/2023 12:06 PM CDT Pulse 69 07/19/2023 12:06 PM CDT Temperature 36.7 C (98.1 F) 07/19/2023 12:06 PM CDT Respiratory Rate 18 07/19/2023 12:06 PM CDT Oxygen Saturation 100% 07/19/2023 12:06 PM CDT Inhaled Oxygen Concentration - - Weight 58.1 kg (128 lb 1.4 oz) 07/19/2023 5:00 A M CDT Height 172.7 cm (5' 7.99 ) 07/18/2023 9:32 AM CD T Body Mass Index 19.48 07/18/2023 9:32 AM CDT Plan of Treatment Upcoming Encounters Date Type Department Care Team (Late st Contact Info) Description 06/02/2025 10:00 AM RESISTOR WINDER Appointment [facility] [place] [address] Sukh Mcdaniel MD [address] [place] [address] [place] [address] Health Maintenance Due Date Last Done Comments Colorectal Cancer Screening Colonoscopy (10 Years) 1977 Annual Physical 1980 Hepatitis B Vaccines (1 of 3 - 19+ 3-dose series) 1996 COVID-19 Vaccine ( - season) 2023 PHQ-2 (Physician Minto) 04/16/2024 Mammogram Screening 04/22/2026 04/22/2024, 11/03/2022, 01/03/2022, Additional history exists DTaP, Tdap and Td Vaccines (2 - Td or Tdap) 03/11/2028 03/11/2018 Hepatitis C Completed 11/26/2018 Meningococcal B Vaccine Aged Out No l onger eligible based on patient's age to complete this topic Meningococcal Vaccine Aged Out No artem zane eligible based on patient's age to complete this topic Pneumococcal Vaccine: Pediatrics (0 to 5 Years) and At-Risk Patients (6 to 64 Years) Aged Out No longer eligible based on patient's age to complete this topic RSV Immunizations Under 20 Months Aged Out No longer eligible based on patient's age to complete this topic Goals Goal Patient Goal Type Associated Problems Recent Progress Patient-Stated? Author Family - family caregiver with be involved in care transitions and discharge planning Lifestyle No Hubert Zee RN Medical Devices Implanted Type Area Production Worker Device Identifier Shelf Expiration Date Model / Serial / Lot Graft Bone Cancellous 15ml 4-10mm Freeze Dried Chips - [id number] Implanted:Qty: 1 on 07/18/2023 by Aggie Dumont MD at [facility] Bone N/A: Spine Lumbar [employer] [id number] 03/11/2027 [id number] / / [id number] Breast Breast Ofx 40mm Charles Implanted:Qty: 2 on 07/18/2023 by Aggie Dumont MD at [facility] Charles N/A: Spine Lumbar ORTHOFIX [id number] / / Set Screw Implanted:Qty: 4 on 07/18/2023 by Aggie Dumont MD at [facility] Screw N/A: Spine Lumbar ORTHOFIX [id number] / / Ofx 6.5x45mm Implanted:Qty: 2 on 07/18/2023 by Aggie Dumont MD at [facility] Screw N/A: Spine Lumbar ORTHOFIX [id number] / / Ofx 6.5x50mm Implanted:Qty: 2 on 07/18/2023 by Aggie Dumont MD at [facility] Screw N/A: Spine Lumbar ORTHOFIX [id number] / / Magnetos Implanted:Qty: 1 on 07/18/2023 by Aggie Dumont MD at [facility] N/A: Spine Lumbar [id number] 12/16/2027 [id number] / / [id number] Description:MFR: On [employer] Net Yet IENCES Top Loading Body Implanted:Qty: 4 on 07/18/2023 by Aggie Dumont MD at [facility] N/A: Spine Lumbar [id number] / / Procedures Procedure Name Priority Date/Time Associated Diagnosis Comments MG SCREENING IMPLANT W JEREMIAH RT DIGI Routine 04/22/2024 12:09 PM RESISTOR WINDER Screening mammogram, encounter for HEPATITIS C ANTIBODY Routine 11/26/2018 2:32 PM CDT High risk sexual behavior, unspecified type from Last 3 Months or Most Recently Relevant to Health Maintenance Results * MG SCREENING IMPLANT W JEREMIAH RT DIGI (04/22/2024 12:09 PM RESISTOR WINDER) Anatomical Region Laterality Modality Breast Right Mammography 04/22/2024 12:2 4 PM RESISTOR WINDER Impressions 04/22/2024 1:33 PM RESISTOR WINDER ===== IMPRESSION: ===== 1. Stable mammographic appearance with no new findings to suggest malignancy in the breast. Assessment: ACR BI-RADS 2 - BENIGN FINDING(S) Recommendation: 1:Routine Screening Right Comments: Ordered By: SUKH MCDANIEL Interpreted By: Joseph Jimenez MD, 04/22/2024 12:24 PM Narrative 04/22/2024 1:33 PM RESISTOR WINDER [facility] [place] [address] Examination: Digital right screening mammogram with 3-D tomosynthesis Exam Date/Time: 04/22/2024 11:57 AM Clinical history: Left mastectomy in 2020 for malignancy. Radiation therapy completed in 2020. Bilateral implants 2004. Implants replaced in 2020. No family history of breast cancer. No current complaints. Comparison: Mammograms from 11/03/2022 01/03/2022 06/21/2021 12/16/2019 Technique: Digital screening mammography of the right breast was performed in addition to 3-D Tomosynthesis technique. This study was read with the assistance of a computer-aided detection system. Tissue density: The breasts are heterogeneously dense, which may obscure small masses. Findings:Implant again seen with stable appearance from prior exams. No suspicious interval change in parenchymal pattern from prior exams. There is no new focal asymmetry, dominant mass lesion, area of skin thickening, or cluster of suspicious calcifications in the breast to suggest malignancy. Sukh Mcdaniel MD MAMMO Final Result * HEPATITIS C ANTIBODY (11/26/2018 2:32 PM CDT) HEPATITIS C AB NON-REACTI VE NON-REACTI VE 11/26/2018 9:20 PM CDT [facility] 11/26/2018 2:32 PM CDT Arlene Rodrigeuz SENIOR SOFTWARE DEVELOPMENT MANAGER LABORATORY Final Result [facility] [address] [place] [address], [place] [phone] from Last 3 Months or Most Recently Relevant to Health Maintenance Insurance [place] Advance Directives Documents on File Type Date Recorded Patient Sap Bw Developer Expl anation Legal Documents 04/10/2019 Charge Estim ate Form-Self Pay * Full Code (Latest Code Status on File) Date Activated Date Inactivated Comments 07/18/2023 5:29 PM 07/19/2023 3:55 PM Care Teams Research Recruiter Relationship Specialty Start Date End Date Leonie Ortega APNP [address] [id number] PCP - General Nurse Practitioner Family 08/12/22 Pierre Arnett DO [address] [place] [address] Consulting Physician INTERNAL MEDICINE 07/09/23
--- OUTSIDE RECORDS SUMMARY | 2024-07-25 14:40 | XMS_ITS | Encounter Summary ---
Author Organization [facility] Address [address] [place] [address] Phone Care Team Providers Care Probation Agent Name Role Phone Arlene Rodriguez APRN, WOVEN WOOD SHADE ASSEMBLER Primary Care Provider Leonie Ortega APRN, WOVEN WOOD SHADE ASSEMBLER Primary Care Provider + Pierre Arnett DO Unavailable [phone] Reason for Visit * Reason Comments Medication Refill Encounter Details Date Type Department Care Team (Late st Contact Info) Description 08/26/2021 Refill [facility] [address] [place] [address] Pierre Arnett, DO [address] [place] [address] Medication Refill Social History Tobacco Use Types Packs/Day Years Used Date Smoking Tobacco: Never Smokeless Tobacco: Never Alcohol Use Standard Drinks/Week Comments Yes 0 (1 standard drink = 0.6 oz pur e alcohol) not often, couple months PHQ-2 Answer Date Recorded Total Score - Questions 1-9 0 05/17 Education Answer Date Recorded What is the highest level of school you have completed or the highest degree you have received? 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 Unable to assess 08/26/2021 1:00 PM CDT documented as of this encounter Miscellaneous Notes * Telephone Encounter - Kim Ward - 08/26/2021 2:59 PM CDT Please refill to pharmacy if appropriate. documented in this encounter Plan of Treatment Upcoming Encounters Date Type Department Care Team (Late st Contact Info) Description 08/08/2024 10:30 AM CDT Office Visit [facility] [address] [address] Pierre Arnett DO [address] [place] [phone] documented as of this encounter Visit Diagnoses Not on filedocumented in this encounter Additional Health Concerns Assessment Noted Time PHQ-9 Depression Total Score: 0 02/26/20 21 9:12 AM AGENT TELEGRAPHER documented as of this encounter Care Teams Probation Agent Relationship Specialty Start Date End Date Arlene Rodriguez APRN, WOVEN WOOD SHADE ASSEMBLER [address] [place] [id number] PCP - General Internal Medicine 02/20/20 03/20/22 Leonie Ortega APRN, WOV[employer] WO[employer] SHADE ASSEMBLER [address] [place] [id number] PCP - General Advanced Practice Nurse 03/21/22 Pierre Arnett DO [address] [place] [phone] Consulting Physician Oncology 03/19/23 documented as of this encounter
--- OUTSIDE RECORDS SUMMARY | 2024-07-25 14:40 | XMS_ITS | Encounter Summary ---
Author Organization [facility] Address [address] [place] [address] Care Team Providers Care Ultrasound Tech Name Role Phone NikkiArlene lujan YUDELKA Primary Care Provider [phone] Shameka Wright MD Unavailable [phone] Latha Jean RN Unavailable Leonie Hooper Primary Care Provider [phone] Pierre Arnett DO Unavailable [phone] Encounter Details Date Type Department Care Team (Late st Contact Info) Description 08/04/2020 Pastoral Care Encounter [facility] [address] [place] [id number] Martínez Morrissey Social History Tobacco Use Types Packs/Day Years Used Date Smoking Tobacco: Former Smokeless Tobacco: Never Comments:smokes sporadically when drinks alcohol, only 1 a day recently Alcohol Use Standard Drinks/Week Comments Not Currently 11.7 (1 standard drink = 0.6 oz pure alcohol) PHQ-2 Answer Date Recorded PHQ-2 Score - If the patient scores above 3, please move on to questions 3-9 1 05/17/2020 Comments No Sex and Gender Information Value Date Recorded Sex Assigned at Not on file Legal Sex Female 4:27 PM CDT Gender Identity Not on file Sexual Orientation Not on file COVID-19 Exposure Response Date Recorded In the last month, have you been in contact with someone who was confirmed or suspected to have Coronavirus / COVID-19? No / Unsure 07/30/2020 8:52 AM CDT documented as of this encounter Progress Notes * Martínez Morrissey - 08/04/2020 12:00 PM CDT 08/04/20 1000 Clinical Encounter Type Visited With Patient Total number in room 2 Routine Visit Initial visit;Assessment;Referral Referral From Nurse Referral To Senior Controller Plan of Care Care Plan Initiated Yes;Patient Spiritual care goals begin/continue to experience spiritual support in manner that is comfortable for them;awareness of pastoral presence/services;identified spiritual strengths/resources;explore images of God;make use of appropriate resources/support system;verbalizes sources of meaning/hope;develop effective coping skills Spiritual Care interventions Spiritual care plan interventions Affirmed decisions made by patient;Affirmed patient's attitude/actions in choosing life;Assist patient with search for meaning/self worth;Explore grief/loss issues;Link patient/family with spiritual/emotional resources;Offered a listening/supportive presence for pat ient/family;Provide prayer/ritual/sacraments;Provide support to patient/family documented in this encounter Plan of Treatment Upcoming Encounters Date Type Department Care Team (Late st Contact Info) Description 06/02/2025 10:00 AM ARMATURE BANDER Appointment [facility] [address] Kai Davenport MD [address] [place] [phone] documented as of this encounter Visit Diagnoses Not on filedocumented in this encounter Additional Health Concerns Infection Onset Date Last Indicated Resolved Time COVID-19 Rule Out 01/26/2021 01/26/2021 01/26/2021 10:51 AM CDT COVID-19 Rule Out 01/26/2021 01/26/2021 01/27/2021 12:16 AM CDT COVID-19 Rule Out 04/22/2021 04/22/2021 04/29/2021 12:32 AM ARMATURE BANDER Assessment Noted Time PHQ-9 Depression Total Score: 5 05/17/19 3:11 PM ARMATURE BANDER documented as of this encounter Care Teams Ultrasound Tech Relationship Specialty Start Date End Date Arlene RodriguezYUDELKA [address] [place] [address] PCP - General Nurse Practitioner Family 04/24/18 08/11/22 Leonie Ortega APNP [address] [address] PCP - General Nurse Practitioner Family 08/12/22 Shameka Wright MD [address] [place] [address] Radiation Oncologist RADIATION ONCOLOGY 07/30/20 Latha Jean, field hauler Nurse Navigator REGISTERED NURSE 07/30/20 07/08/23 Pierre Arnett, [address] [place] [address] Consulting Physician INTERNAL MEDICINE 07/09/23 documented as of this encounter
--- OUTSIDE RECORDS SUMMARY | 2024-07-25 14:40 | XMS_ITS ---
Author Organization [facility] [address] Address [address] [place] [phone] Care Team Providers Care Ditch Worker Name Role Phone Arlene Rodriguez MAMMAL CONTROL AGENT Unavailable [phone] Leonie Ortega NP Primary Care Provider [phone] Eusebio Villanueva MAMMAL CONTROL AGENT Unavailable Active Problems Problem Noted Date Diagnosed Date Myalgia 05/27/2024 Lumbar post-laminectomy syndrome 02/27/2024 Therapeutic opioid induced constipation 01/02/20 24 Lumbar radiculopathy 05/11/2022 Spinal stenosis of lumbar re gion without neurogenic claudication 05/11/2022 Recurrent major depressive disorder, in partial remission 10/25/2021 Overview (10/25/2021): As above. I feel that adding buspar to her regimen would be a great option to improve symtpoms. She declines. I won't fill the clonazepam RICARDO (generalized anxiety disorder) 10/25/2021 Overview (10/25/2021): Discussed that I am uncomfortable with the combo of medications. I would be okay to adjust meds to improve anxiety control, but not combining the meds she is on Attention deficit hyperactiv ity disorder (ADHD), combined type 10/25/2021 [place] (10/25/[place]21): [place] medication. Refill sent to pharmacy Urinary urgency 10/25/2021 Psychophysiological insomnia 10/25/2021 Overview (10/25/2021): Okay with trazodone, but not the combination of trazodone with clonazepam Seasonal allergies 10/25/2021 Overview (10/25/2021): Well controlled on singulair. Can add zyrtec with flares of symptoms History of left breast cancer 10/25/2021 Overview (10/25/2021): s/p lumpectomy and radiation Malignant neoplasm of overla pping sites of left female breast 10/25/2021 Overview (10/25/2021): Currently on 5 year treatment plan with letrozole Acne vulgaris 10/25/2021 Overview (10/25/2021): currently on minocycline and managing symptoms well History of left breast cancer 08/12/2021 Malignant neoplasm of overla pping sites of left breast in female, estrogen receptor positive 06/24/2020 Current Treatment and Therapy Plans No current plan information found. Past Treatment and Therapy Plans No past plan information found. Lifetime Dose Tracking * Chemical Lifetime Dose Automatic Entry Manual Entr y Fluoro Time 0.4 minutes 0.4 minutes 0 minutes Air kerma at the reference point (Ka,r) 3.079 mGy 3 .079 mGy 0 mGy
--- OUTSIDE RECORDS SUMMARY | 2024-07-25 14:40 | XMS_ITS | Referral Summary ---
Author Organization [facility] [address] Address [address] [place] [id number] Care Team Providers Care Material Handling Crew Supervisor Name Role Phone Arlene Rodriguez CREW FOREMAN Unavailable [phone] Leonie Ortega NP Primary Care Provider [phone] Eusebio Villanueva CREW FOREMAN Unavailable [phone] Encounters Date Type Department Care Team Description 05/27/2024 9:00 AM UNIX MANAGER - 05/27/2024 11:59 PM UNIX MANAGER Hospital Encounter [facility] [address] [place] [address] Eusebio Villanueva NP Lumbar post-laminectomy syndrome (Primary Dx); Spinal stenosis of lumbar region without neurogenic claudication; Lumbar radiculopathy; Myalgia Discharge Disposition: Discharge to home or self care 04/29/2024 Orders Only [facility] [address] [place] [address] Christopher Villasenor MD Arthritis (Primary Dx) 04/29/2024 12:45 PM UNIX MANAGER - 04/29/2024 11:59 PM UNIX MANAGER Hospital Encounter [facility] [address] [place] [address] Christopher Villasenor MD Lumbosacral spondylosis without myelopathy [M47.817] (Primary Dx); Lumbar radiculopathy; Spinal stenosis of lumbar region without neurogenic claudication; Lumbar post-laminectomy syndrome Discharge Disposition: Discharge to home or self care from Last 3 Months Allergies Active Allergy Reactions Criticality Noted Date Comments Codeine Stomach upset Low 09/03/2017 Medications buPROPion (WELLBUTRIN) 100 mg tablet 1 Active cholecalciferol (VITAMIN D-3) 400 unit capsule Take 25 mcg by mouth daily Active clonazePAM (KlonoPIN) 1 mg tablet Take 1 tablet (1 mg total) by mouth nightly as needed for anxiety Usually takes at night 30 tablet 2 Active dextroamphetamine -amphetamine (ADDERALL) 20 mg tablet Take 1 tablet (20 mg total) by mouth 2 (two) times a day 60 tablet 2 Active minocycline (MINOCIN,DYNACIN) 100 mg capsule Take 1 capsule (100 mg total) by mouth 2 (two) times a day 60 capsule 2 Active letrozole (FEMARA) 2.5 mg tablet Take by mouth daily Active traZODone (DESYREL) 150 mg tablet Take 1 tablet (150 mg total) by mouth nightly Active montelukast (SINGULAIR) 10 mg tablet Take 1 tablet (10 mg total) by mouth nightly Active lidocaine (LIDODERM) 5 % Place 1 patch on the skin daily for 7 days Remove & discard patch within 12 hours or as directed by MD. 7 patch 3 3 Active ascorbic acid (VITAMIN C) 1,000 mg tablet Take 1 tablet (1,000 mg total) by mouth Active buprenorphine (BUTRANS) 15 mcg/hourIndicatio ns:severe chronic pain with opioid tolerance Place 1 patch on the skin every 7 days 4 patch 1 5 Active celecoxib (CeleBREX) 100 mg capsuleIndication s:Osteoarthritis Take 1 capsule (100 mg total) by mouth every 12 (twelve) hours as needed for pain 60 capsule 1 5 025 Active gabapentin (NEURONTIN) 300 mg capsuleIndication s:Neuropathic Pain Take 1 capsule (300 mg total) by mouth 3 (three) times a day 90 capsule 1 5 Active ibuprofen (ADVIL,MOTRIN) 600 mg tabletIndications :Lumbar post-laminectomy syndrome,Myalgia, Spinal stenosis of lumbar region without neurogenic claudication,Lumb ar radiculopathy TAKE 1 TABLET BY MOUTH EVERY 8 HOURS NEEDED FOR PAIN 90 tablet 1 5 Active naloxone (NARCAN) 4 mg/actuation spray,non-aerosol Administer 1 spray into affected nostril(s) as needed 4 025 Active Problems Problem Noted Date Diagnosed Date [...] breast in female, estrogen receptor positive 06/24/2020 Social History Tobacco Use Types Packs/Day Years Used Date Smoking Tobacco: Never Smokeless Tobacco: Never Tobacco Cessation:Counseling Given: Not Answered AUDIT-C Answer Date Recorded Q1: How often do you have a drink containing alc ohol? Never 05/11/2022 Average Number of Drinks Not on file 023 Frequency of Binge Drinking Not on file 04/17 PHQ-2 Answer Date Recorded PHQ-2 Total Score 0 10/25/2021 Personal Safety Answer Date Recorded Getting School Help Needed Denies 04/17 Comments No Sex and Gender Information Value Date Recorded Sex Assigned at Not on file Legal Sex Female 6:01 AM UNIX MANAGER Gender Identity Not on file Sexual Orientation Not on file Last Filed Vital Signs Vital Sign Reading Time Taken Comments Blood Pressure 138/89 05/27/2024 9:28 AM UNIX MANAGER Pulse 70 05/27/2024 9:28 AM UNIX MANAGER Temperature 37.1 C (98.7 F) 04/29/2024 1:32 PM UNIX MANAGER Respiratory Rate 16 05/27/2024 9:28 AM UNIX MANAGER Oxygen Saturation 100% 05/27/2024 9:28 AM UNIX MANAGER Inhaled Oxygen Concentration - - Weight 58.1 kg (128 lb) 05/11/2022 9:10 AM UNIX MANAGER Height 172.7 cm (5' 8 ) 05/11/2022 9:10 AM UNIX MANAGER Body Mass Index 19.46 05/11/2022 9:10 AM UNIX MANAGER Plan of Treatment Not on file Medical Devices Implanted Type Area General Accounting Clerk Device Identifier Shelf Expiration Date Model / Serial / Lot [employer] Implant Breast High Profile Smooth Memorygel Boost 545cc Gel [id number] - [id number] - [id number] Implanted:Qty: 1 on 08/12/2021 by cJ Hernandez, DO at [facility] [employer] 06/21/2026 S [id number] / [id number] / [id number] [employer] Implant Breast High Profile Smooth Memorygel Boost 480cc Gel [id number] - [id number] - [id number] Implanted:Qty: 1 on 08/12/2021 by Jc Hernandez DO at [facility] [employer] 04/20/2026 S [id number] / [id number] / [id number] Procedures Procedure Name Priority Date/Time Associated Diagnosis Comments PAIN MGMT IMAGING LUMBAR/SACRAL FACET/ MEDIAL BRANCH BLOCK BILATERAL Schedule Routine, Read Routine (OP Routine) 04/29/2024 1:50 PM UNIX MANAGER Lumbar radiculopathy Spinal stenosis of lumbar region without neurogenic claudication Lumbar post-laminectomy syndrome from Last 3 Months Results * Imaging Lumbar/Sacral Facet Medial Branch Block Bilateral (23950) (04/29/2024 1:50 PM UNIX MANAGER) Narrative RAD_PACS_CH - 04/29/2024 1:59 PM UNIX MANAGER The images from this study are not interpreted by Radiology. Please refer to the physician's procedure / OR operative note. us Christopher Villasenor MD IMG PAIN MGMT PROCEDU RES Final Result RAD_PACS_CH from Last 3 Months Insurance [facility] Advance Directives For more information, please contact: [phone] * Full Code (Latest Code Status on File) Date Activated Date Inactivated Comments 08/13/2021 1:26 AM 08/14/2021 3:39 PM Care Teams Material Handling Crew Supervisor Relationship Specialty Start Date End Date Leonie Ortega NP [address] [place] [id number] PCP - General Family Medicine 03/28/22 Arlene Rodriguez NP [address] [place] [id number] 10/11/21 [place] [address] [address] [facility] [address] [place] [address] Nurse Practitioner Pain Management 03/31/24
--- OUTSIDE RECORDS SUMMARY | 2024-07-25 14:40 | XMS_ITS | Clinical Summary ---
Author Organization [facility] Address [address] [place] [address] Care Team Providers Care Manganese Wheeler Name Role Phone Arlene Rodriguez ANIYA-LINING MACHINE OPERATOR Primary Care Provider [phone] Source Comments [facility],non-owned Affiliates and Associated Physician Practices is amultiple site organization consisting of ambulatory clinics and hospital sitesin [place], [place], [place] and [place]. This disclosure is being madepursuant to the Care Everywhere program and may not contain all information available regarding this patient. Last updated 18.[facility] Allergies Active Allergy Reactions Criticality Noted Date Comments Codeine GI Discomfort 09/03/2017 Medications * Be aware that medications may not be up to date on this document. Alwaysverify current medications with the patient. Medication Sig Dispensed Refills Start Date End Date Status lactulose (CHRONULAC) 20 GM/30ML solution Take 30 mL by mouth BID PRN. 437 mL 1 01/12/2016 Active Additional Information Patient not taking.Reported on 09/03/2020 traZODone (DESYREL) 100 MG tablet 150 mg 11/19/2017 Active buPROPion (WELLBUTRIN) 100 MG tablet Take 300 mg by mouth once daily Active phenazopyridine (PYRIDIUM) 100 MG tablet Take 1 tablet by mouth 3 times daily as needed for Pain 15 tablet 12/05/2017 Active fluconazole (DIFLUCAN) 150 MG tablet Take 1 tablet by mouth once daily 1 tablet 12/13/2017 Active Additional Information Patient not taking.Reported on 09/03/2020 ELMIRON 100 MG capsule TAKE ONE CAPSULE BY MOUTH THREE TIMES DAILY, BEFORE MEALS 90 capsule 06/20/2018 Active Additional Information Patient not taking.Reported on 09/03/2020 clonazePAM (KLONOPIN) 1 MG tablet TAKE 1 TABLET BY MOUTH TWICE DAILY NEEDED FOR ANXIETY 02/23/2020 Active minocycline (MINOCIN) 100 MG capsule 03/05/2020 Active tamoxifen (NOLVADEX) 20 MG tablet Take 20 mg by mouth once daily 08/22/2020 Active solifenacin (VESICARE) 10 MG tablet 04/27/2020 Active montelukast (SINGULAIR) 10 MG tablet 01/28/2020 Active traMADol (Ultram) 50 MG tablet Take by mouth every 6 hours as needed 03/22/2022 Active tiZANidine (Zanaflex) 4 MG tablet Take 1 (one) tablet by mouth 3 times daily as needed 04/21/2022 Active naloxegol (Movantik) 25 MG tablet Take 1 (one) tablet by mouth once daily 05/11/2022 Active Family History Medical History Relation Name Comments None Known Brother Status: Alive None Known Father Status: Alive None Known Mother Status: Alive Diabetes Paternal Grandmother None Known Sister 1 Status: Alive None Known Sister 2 Status: Alive Relation Name Status Comments Brother Father Mother Paternal Grandmother Sister 1 Sister 2 Social History Tobacco Use Types Packs/Day Years Used Date Smoking Tobacco: Never Smokeless Tobacco: Never Alcohol Use Standard Drinks/Week Comments Yes 0 (1 standard drink = 0.6 oz pur e alcohol) Sex and Gender Information Value Date Recorded Sex Assigned at Not on file Gender Identity Not on file Sexual Orientation Not on file Last Filed Vital Signs Vital Sign Reading Time Taken Comments Blood Pressure 130/74 09/03/2020 1:58 PM CDT Pulse 82 09/03/2020 1:58 PM CDT Temperature 37 C (98.6 F) 12/05/2017 11:20 AM CDT Respiratory Rate 18 10/04/2015 10:26 AM CDT Oxygen Saturation 100% 12/05/2017 11:20 AM CDT Inhaled Oxygen Concentration - - Weight 64.9 kg (143 lb) 09/06/2022 10:01 AM CDT Height 175.3 cm (5' 9 ) 12/05/2017 11:20 AM CDT Body Mass Index 21.12 12/05/2017 11:20 AM CDT Plan of Treatment Health Maintenance Due Date Last Done Comments COLOGUARD (AGES 45-75) - COLON CA SCREENING 1977 COLON MONITORING 1977 COLONOSCOPY - COLON CA SCREENING 1977 CT COLONOGRAPHY - COLON CA SCREENING 1977 Colorectal Cancer Screening 1977 FIT - COLON CA SCREENING 1977 FLEX SIG - COLON CA SCREENING 1977 LIPID TESTING 1977 MAMMOGRAM 1977 PAP SMEAR 1977 HIV SCREENING 1992 HEPATITIS C SCREENING 11/09/1995 DTAP/TDAP/TD VACCINES (1 - Tdap) 1996 HEPATITIS B VACCINE (1 of 3 - 19+ 3-dose series) 1996 COVID-19 VACCINE (1 - season) 2023 DEPRESSION SCREENING 04/16/2024 INFLUENZA VACCINE (Season Ended) 2024 12/23/2019, 01/05/2016, 03/15/2015, Additional history exists ZOSTER VACCINE (1 of 2) 11/14/2027 HIB VACCINE Aged Out No longer eligi ble based on patient's age to complete this topic HPV VACCINE Aged Out No longer eligi ble based on patient's age to complete this topic MENINGOCOCCAL (Group B) VACCINE SHARED DECISION-MAKING Aged Out No longer eligible based on patient's age to complete this topic MENINGOCOCCAL GROUPS A/C/Y/W VACCINE Aged Out No longer eligible based on patient's age to complete this topic PNEUMOCOCCAL VACCINE Aged Out No long er eligible based on patient's age to complete this topic Care Teams Manganese Wheeler Relationship Specialty Start Date End Date Arlene Rodriguez APRN-LINING MACHINE OPERATOR [address] [place] [address] PCP - General 12/17/20
--- OUTSIDE RECORDS SUMMARY | 2024-07-25 14:40 | XMS_ITS | Encounter Summary ---
Author Organization [facility] Address [facility] [place] [address] Care Team Providers Care Convenience Store Clerk Name Role Phone NikkiArlene lujan YUDELKA Primary Care Provider [phone] Shameka Wright MD Unavailable [phone] Latha Jean RN Unavailable UnavailLeonie Montana Primary Care Provider [phone] Pierre Arnett DO Unavailable [phone] Encounter Details Date Type Department Care Team (Late st Contact Info) Description 08/01/2019 [facility] Patient Accounts [address] [place] [address] [facility] Provider Notice regarding your past due balance Social History Tobacco Use Types Packs/Day Years Used Date Smoking Tobacco: Never Smokeless Tobacco: Never Alcohol Use Standard Drinks/Week Comments Yes 0 (1 standard drink = 0.6 oz pur e alcohol) OCCASIONALLY PHQ-2 Answer Date Recorded PHQ-2 Score 0 05/13/2019 Comments No Sex and Gender Information Value Date Recorded Sex Assigned at Not on file Legal Sex Female 4:27 PM CDT Gender Identity Not on file Sexual Orientation Not on file COVID-19 Exposure Response Date Recorded In the last month, have you been in contact with someone who was confirmed or suspected to have Coronavirus / COVID-19? Unable to assess 08/01/2019 7:29 AM CDT documented as of this encounter Plan of Treatment Upcoming Encounters Date Type Department Care Team (Late st Contact Info) Description 06/02/2025 10:00 AM LAW FIRM ADMINISTRATOR Appointment [facility] [place] [address] Kai Davenport MD [facility] [address] [phone] documented as of this encounter Visit Diagnoses Not on filedocumented in this encounter Additional Health Concerns Infection Onset Date Last Indicated Resolved Time COVID-19 Rule Out 02/14/2020 02/14/2020 02/15/2020 6:11 PM LAW FIRM ADMINISTRATOR COVID-19 Rule Out 01/26/2021 01/26/2021 01/26/2021 10:51 AM CDT COVID-19 Rule Out 01/26/2021 01/26/2021 01/27/2021 12:16 AM CDT COVID-19 Rule Out 04/22/2021 04/22/2021 04/29/2021 12:32 AM LAW FIRM ADMINISTRATOR Assessment Noted Time PHQ-9 Depression Total Score: 1 05/13/19 20 11:10 AM LAW FIRM ADMINISTRATOR documented as of this encounter Care Teams Convenience Store Clerk Relationship Specialty Start Date End Date Arlene Rodriguez FNP [address] [place] [phone] PCP - General Nurse Practitioner Family 04/24/18 08/11/22 Leonie Ortega APNP [address] [id number] PCP - General Nurse Practitioner Family 08/12/22 Shameka Wright MD [address] [place] [address] Radiation Oncologist RADIATION ONCOLOGY 07/30/20 Latha Jean, communications agent Nurse Navigator REGISTERED NURSE 07/30/20 07/08/23 Pierre Arnett DO [address] [place] [address] Consulting Physician INTERNAL MEDICINE 07/09/23 documented as of this encounter
--- OUTSIDE RECORDS SUMMARY | 2024-07-25 14:40 | XMS_ITS | Clinical Summary ---
Author Organization [facility] [address] Address [address] [place] [id number] Care Team Providers Care Rn Perinatal Name Role Phone Arlene Rodriguez CREDIT REVIEW MANAGER Unavailable Leonie Ortega NP Primary Care Provider [phone] Eusebio Villanueva CREDIT REVIEW MANAGER Unavailable [phone] Allergies Active Allergy Reactions Criticality Noted Date [...] breast in female, estrogen receptor positive 06/24/2020 Encounters Date Type Department Care Team Description 05/27/2024 9:00 AM MANAGER PROJECT - 05/27/2024 11:59 PM MANAGER PROJECT Hospital Encounter [facility] [address] [place] [phone] Eusebio Villanueva NP Lumbar post-laminectomy syndrome (Primary Dx); Spinal stenosis of lumbar region without neurogenic claudication; Lumbar radiculopathy; Myalgia Discharge Disposition: Discharge to home or self care 04/29/2024 12:45 PM MANAGER PROJECT - 04/29/2024 11:59 PM MANAGER PROJECT Hospital Encounter [facility] [address] [place] [phone] Christopher Villasenor MD Lumbosacral spondylosis without myelopathy [M47.817] (Primary Dx); Lumbar radiculopathy; Spinal stenosis of lumbar region without neurogenic claudication; Lumbar post-laminectomy syndrome Discharge Disposition: Discharge to home or self care 04/29/2024 Orders Only [facility] [address] [place], [place] [id number] Christopher Villasenor MD Arthritis (Primary Dx) from Last 3 Months Surgical History Surgery Date Site/Laterality Comments COLONOSCOPY HYSTERECTOMY 12/15/2020 - 01/13/2021 SECTION 04/16/2009 - 04/15/2010 SECTION 04/16/2012 - 04/15/2013 BREAST SURGERY 04/16/2020 - 05/16/2020 Left lumpectomy with tissue monitor and storage bin tender on L BREAST SURGERY 04/16/2011 - 04/15/2012 Bilateral bilat breast augmentation LUMBAR FUSION 07/18/2023 L4/L5 by BREAST SURGERY 04/16/2020 - 04/15/2021 Bilateral Luis Enrique breast augmentation Medical History Medical History Date Comments ADHD (attention deficit hyperactivity disorder) Cancer (HCC) 2020 left breast Depression Anxiety Raynaud's disease Family History Medical History Relation Name Comments Cancer Father Lung cancer Father No Known Problems Mother Diabetes Paternal Grandmother Relation Name Status Comments Father Mother Alive Paternal Grandmother Social History Tobacco Use Types Packs/Day Years [...] on file Legal Sex Female 6:01 AM MANAGER PROJECT Gender Identity Not on file Sexual Orientation Not on file Obstetrics History Last Filed Vital Signs Vital Sign Reading Time Taken Comments Blood Pressure 138/89 05/27/2024 9:28 AM MANAGER PROJECT Pulse 70 05/27/2024 9:28 AM MANAGER PROJECT Temperature 37.1 C (98.7 F) 04/29/2024 1:32 PM MANAGER PROJECT Respiratory Rate 16 05/27/2024 9:28 AM MANAGER PROJECT Oxygen Saturation 100% 05/27/2024 9:28 AM MANAGER PROJECT Inhaled Oxygen Concentration - - Weight 58.1 kg (128 lb) 05/11/2022 9:10 AM MANAGER PROJECT Height 172.7 cm (5' 8 ) 05/11/2022 9:10 AM MANAGER PROJECT Body Mass Index 19.46 05/11/2022 9:10 AM MANAGER PROJECT Plan of Treatment Health Maintenance Due Date Last Done Comments Breast Cancer Screening-Mammogram 1977 Colon Cancer Screening-Colonoscopy 1977 Hepatitis C Screening 1977 Hepatitis B Screening 11/14/1995 Regular Well Visit/Exam 18-64 11/14/1995 Pneumococcal vaccine <65 (1 of 2 - PCV) 1996 Zoster Vaccine (1 of 2) 1996 Depression Screening 10/25/2022 10/25/2021, 10/26/19 22 Influenza Vaccine (#1) 2023 , 01/05/2016, 03/15/2015, Additional history exists DTaP/Tdap/Td Vaccine (2 - Td or Tdap) 03/11/2028 03/11/2018 HPV Vaccines Aged Out No longer eligi ble based on patient's age to complete this topic Medical Devices Implanted Type Area Volunteer Services Supervisor Device Identifier Shelf Expiration Date Model / Serial / Lot [employer] Implant Breast High Profile Smooth Memorygel Boost 545cc Gel [id number] - [id number] - [id number] Implanted:Qty: 1 on 08/12/2021 by Jc Hernandez, DO at [facility] [employer] 06/21/2026 S [id number] / [id number] / [id number] [employer] Implant Breast High Profile Smooth Memorygel Boost 480cc Gel [id number] - [id number] - [id number] Implanted:Qty: 1 on 08/12/2021 by Jc Hernandez, DO at [facility] [employer] 04/20/2026 S [id number] / [id number] / [id number] Procedures Procedure Name Priority Date/Time Associated Diagnosis Comments PAIN MGMT IMAGING LUMBAR/SACRAL FACET/ MEDIAL BRANCH BLOCK BILATERAL Schedule Routine, Read Routine (OP Routine) 04/29/2024 1:50 PM MANAGER PROJECT Lumbar radiculopathy Spinal stenosis of lumbar region without neurogenic claudication Lumbar post-laminectomy syndrome from Last 3 Months Results * Imaging Lumbar/Sacral Facet Medial Branch Block Bilateral ([id number]) (04/29/2024 1:50 PM MANAGER PROJECT) Narrative RAD_PACS_CH - 04/29/2024 1:59 PM MANAGER PROJECT The images from this study are not interpreted by Radiology. Please refer to the physician's procedure / OR operative note. us Christopher Villasenor MD IMG PAIN MGMT PROCEDU RES Final Result RAD_PACS_CH from Last 3 Months Insurance [facility] Advance Directives For more information, please contact: [phone] * Full Code (Latest Code Status on File) Date Activated Date Inactivated Comments 08/13/2021 1:26 AM 08/14/2021 3:39 PM Care Teams Rn Perinatal Relationship Specialty Start Date End Date Leonie Ortega NP [address] [place] [id number] PCP - General Family Medicine 03/28/22 Arlene Rodriguez NP [address] [place] [address] 10/11/21 [place] [address] [place] [address] Nurse Practitioner Pain Management 03/31/24
--- OUTSIDE RECORDS SUMMARY | 2024-07-25 14:40 | XMS_ITS ---
Author Organization [facility] Address [address] [place] [address] Care Team Providers Care Scientific Manager Name Role Phone Ortega Leonie DEBORAH Primary Care Provider [phone] Pierre Arnett DO Unavailable [phone] Active Problems Problem Noted Date Diagnosed Date Spondylolisthesis of lumbar region 07/18/2023 Generalized body aches 01/26/2021 Fatigue, unspecified type 01/26/2021 COVID-19 vaccine series not administered 021 Malignant neoplasm of overla pping sites of left breast in female, estrogen receptor positive ([facility]) 06/18/2020 Primary insomnia 05/18/2020 Invasive ductal carcinoma of breast, female, left ([facility]) 05/18/2020 Er+ NV+ carcinoma of breast, left ([facility] HHS/ CC) 05/18/2020 Left breast mass 12/24/2019 Neck pain 10/28/2019 Abnormal TSH 10/28/2019 Neuropathy 10/28/2019 OAB (overactive bladder) 10/28/2019 Yeast vaginitis 05/18/2019 Frequent urination 11/27/2018 High risk sexual behavior, unspecified type 11/14 Vitamin D deficiency 11/27/2018 Frequent UTI 11/27/2018 Urgency of urination 11/27/2018 Vaginal yeast infection 11/27/2018 Acute cystitis without hematuria 07/02/2018 ADD (attention deficit disorder) without hyperac tivity 07/02/2018 Bipolar disorder ([facility]) 01/07/2016 Depression with anxiety 01/05/2016 Current Oncology Plans No current plan information found. Past Plans No past plan information found. Radiation Treatments * Plan Last Treated On Elapsed Days Fractions Treated Prescribed Fraction Dose Prescribed Total Dose Scar boost:1 09/30/2020 4 of 4 Scar boost 09/24/2020 1 of 5 Left_CW_LN 09/23/2020 25 of 25 Reference Point Last Treated On Elapsed Days Session Dose Total Dose Scar Wire 09/30/[address] 09/23/2020 50 Resolved Problems Problem Noted Date Diagnosed Date Resolved Date Need for COVID-19 vaccine 12/29/2020 Pap smear for cervical cancer screening 11/27/2018 12/26/2019
--- OUTSIDE RECORDS SUMMARY | 2024-07-25 14:40 | XMS_ITS ---
Author Organization [facility] Address [address] [place], [facility] [place] [address] Phone Care Team Providers Care Ride Attendant Name Role Phone Leonie Ortega APRN, TOY DEPARTMENT MANAGER Primary Care Provider + Pierre Arnett DO Unavailable [phone] Active Problems Problem Noted Date Diagnosed Date [...] Malignant neoplasm of female breast 06/18/2020 Er+ [facility]+ carcinoma of breast, left 05/18/2020 Neuropathy 10/28/2019 Bipolar disorder 01/07/2016 Depression with anxiety 01/05/2016 Current Treatment and Therapy Plans SUPPORT - ZOMETA - [facility]* Plan Start Date:02/21/2023 Plan Provider:Pierre Arnett, DO Linked Problems Osteoporosis, unspecified os teoporosis type, unspecified pathological fracture presenceMalignant neoplasm of overlapping sites of left breast in female, estrogen receptor positive (HCC) Treatment Medications Current Day (Day 1, Cycle 4 - Planned for 10/17/2024) No medications scheduled. No medications schedul ed. Past Treatment and Therapy Plans ONCOLOGY SUPPORTIVE [facility]ARE Plan Name Start Date Discontinue Date Treatment Medications Discontinue Reason Plan Provider Cycles PROSTATE - LEUPROLIDE (LUPRON, ELIGARD), TRELSTAR, FIRMAGON - [facility] 1 07/19/2021 No medications scheduled. Plan Clean Up Melquiades, Pierre D, DO Treatment not started ORAL CHEMO TREATMENT Plan Name Start Date Discontinue Date Treatment Medications Discontinue Reason Plan Provider Cycles BREAST - LETROZOLE - [facility] 1 07/19/2021 letrozole (FEMARA) Plan Clean Up Melquiades, Pierre D, DO Treatment not started
--- OUTSIDE RECORDS SUMMARY | 2024-07-25 14:40 | XMS_ITS | Encounter Summary ---
Author Organization [facility] Address [address] [place] [address] Phone Care Team Providers Care Triage Technician Name Role Phone Arlene Rodriguez APRN, FLYER BUILDER Primary Care Provider Leonie Ortega APRN, FLYER BUILDER Primary Care Provider + Pierre Arnett DO Unavailable [phone] Encounter Details Date Type Department Care Team (Late st Contact Info) Description 04/02/2020 Telephone [facility] [address] [place] [address] Pierre Arnett, DO [address] [place] [address] Social History Tobacco Use Types Packs/Day Years Used Date Smoking Tobacco: Never Smokeless Tobacco: Never Alcohol Use Standard Drinks/Week Comments Yes 0 (1 standard drink = 0.6 oz pur e alcohol) not often, couple months PHQ-2 Answer Date Recorded PHQ-2 Score 0 03/26/2020 Education Answer Date Recorded What is the highest level of school you have completed or the highest degree you have received? 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 No / Unsure 03/26/2020 10:02 AM TABLET MACHINE OPERATOR documented as of this encounter Miscellaneous Notes * Telephone Encounter - Pierre Arnett DO - 04/02/2020 1:22 PM CST Try to call her sister and send letter ET MACHINE OPERATOR * Telephone Encounter - Marta Marina - 04/02/2020 10:57 AM CST CHRISTI HAS BEEN TRYING TO REACH THE PT TO GET SCHEDULED FOR RADIATION AND PT HAS NOT RETURNED THEIR CALL. I HAVE LEFT SEVERAL MESSAGES FOR THE PT WELL HER OTHER LISTED CONTACTS AND NO ONE HAS RETURNED THE CALL. DID YOU WANT US TO KEEP TRYINGOR HAVE US MAIL A LETTER? PLEASE ADVISE. ET MACHINE OPERATOR documented in this encounter Plan of Treatment Upcoming Encounters Date Type Department Care Team (Late st Contact Info) Description 08/08/2024 10:30 AM CDT [facility] [address] [address] Pierre Arnett DO [address] [place] [phone] documented as of this encounter Visit Diagnoses Not on filedocumented in this encounter Additional Health Concerns Assessment Noted Time PHQ-9 Depression Total Score: 0 03/26/20 20 10:15 AM TABLET MACHINE OPERATOR documented as of this encounter Care Teams Triage Technician Relationship Specialty Start Date End Date Arlene Rodriguez APRN, FLYER BUILDER [address] [place] [phone] PCP - General Internal Medicine 02/20/20 03/20/22 Leonie Ortega APRN, FLYER BUILDER [address] [address] PCP - General Advanced Practice Nurse 03/21/22 Pierre Arnett DO [address] [place] [phone] Consulting Physician Oncology 03/19/23 documented as of this encounter
--- OUTSIDE RECORDS SUMMARY | 2024-07-25 14:40 | XMS_ITS | Encounter Summary ---
Author Organization [facility] Address [address] [place] [address] Phone Care Team Providers Care Auto Winder Name Role Phone Arlene Rodriguez APRN, RADIO DISPATCHER Primary Care Provider Leonie Ortega APRN, RADIO DISPATCHER Primary Care Provider + Pierre Arnett DO Unavailable [phone] Encounter Details Date Type Department Care Team (Late st Contact Info) Description 02/25/2021 Telephone [facility] [place] [address] [place] [address] Pierre Arnett, DO [address] [place] [address] Social History Tobacco Use Types Packs/Day Years Used Date Smoking Tobacco: Never Smokeless Tobacco: Never Alcohol Use Standard Drinks/Week Comments Yes 0 (1 standard drink = 0.6 oz pur e alcohol) not often, couple months PHQ-2 Answer Date Recorded Total Score - Questions 1-9 0 02/14 Education Answer Date Recorded What is the highest level of school you have completed or the highest degree you have received? 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 No / Unsure 02/25/2021 8:41 AM BRAIN PICKER documented as of this encounter Miscellaneous Notes * Telephone Encounter - Courtney Langston PAC - 02/25/2021 2:46 PM BRAIN PICKER Thank you! N PICKER * Telephone Encounter - Marta Marina - 02/25/2021 2:08 PM CST PATIENT IS SCHEDULED FOR BONE SCAN 03/16/21 AT 12PM. N PICKER documented in this encounter Plan of Treatment Upcoming Encounters Date Type Department Care Team (Late st Contact Info) Description 08/08/2024 10:30 AM CDT [facility] [address] [address] Pierre Arnett, [address] [place] [phone] documented as of this encounter Visit Diagnoses Not on filedocumented in this encounter Additional Health Concerns Assessment Noted Time PHQ-9 Depression Total Score: 0 02/26/20 9:12 AM BRAIN PICKER documented as of this encounter Care Teams Auto Winder Relationship Specialty Start Date End Date Arlene Rodriguez APRN, RADIO DISPATCHER [address] [place] [phone] PCP - General Internal Medicine 02/20/20 03/20/22 Leonie Ortega APRN, RADIO DISPATCHER [address] [place] [phone] PCP - General Advanced Practice Nurse 03/21/22 Pierre Arnett DO [address] [place] [phone] Consulting Physician Oncology 03/19/23 documented as of this encounter
--- OUTSIDE RECORDS SUMMARY | 2024-07-25 14:40 | XMS_ITS | Continuity of Care Document ---
Author Organization [facility] Address [address] [address] [place] [address] Phone Care Team Providers Care Land Acquisition Analyst Name Role Phone Bassam Gannon MD Unavailable Unavailable Allergies, Adverse Reactions, Alerts Substance Reaction Status Criticality No Known Allergies Active No Inform ation Medications Medication Instructions Dosage Effective Dates (start - stop) Status Comments trazodone 50 mg tablet take 1 tablet by oral route every bedtime after meals 50 MG - Active Klonopin 0.5 mg tablet take 1 tablet by oral route 2 times every day as needed 0.5 MG - Active PRN for anxiety, avoid driving or operate machines venlafaxine 37.5 mg tablet take 1 tablet by oral route 2 times every day with food 37.5 MG - Active Flonase 50 mcg/actuation nasal spray,suspension inhale 2 spray by intranasal route every day in each nostril 100 MCG - Active Procedures Procedure Date PREV VISIT, NEW, AGE 18-39 Advance Directives Directive Yes / No Effective Date File Name No Information Encounters Encounter Description Practice Location Reason(s) For Visit Diagnoses Date Provider Providers Copied on Encounter [facility], [address] [place], [place], [id number], [place] tel:[phone] [facility] No Information Jagdeep Banegas. [address] [place], [place], [id number], [place]. tel:[phone] PREV VISIT, NEW, AGE 18-39 [facility], [address] [place], [place], [id number], [place] tel:[phone] [facility] Family Medicine PHysical (chief complaint) Encntr for general adult medical exam w/o abnormal findings Jagdeep Banegas. [address] [facility] [address], [place], [place], [id number], [place]. tel:[phone] Referring Provider: Bella Miguel [address], [place], [place], [id number]. tel:[phone] Family History Family Member Type Diagnosis Age At Onset Brother Problem (finding) Alive and well Mother Problem (finding) Alive and well Father Problem (finding) Alive and well Payers Payer name Insurance type Covered green party ID Authoriza tion(s) No Information Social History Type Description Quantity Date Captured Comments Sex Female Smoking Status No Information Chief Complaint And Reason For Visit No Information Plan Of Treatment Date Type Action Status No Information History Of Present Illness Encounter Date Complaint History Of Prese nt Illness PHysical Pt needs annual physical. pt has acute sinus infection for 8 days. pt c/o sinus pain, congestion green nasal drainage, for 7 days. Pt denies any sore throat. Pt denies any ear pain. Pt denies any coughing. Pt feels very stuffed up. pt also has chronic anxiety and depression Pt takes wellbutrin and klonopin. Pt states that she does not feel that wellbutrin helps anymore. Pt has crying spells and feels depressed Pt denies any suiciadl or homicdial thought Pt denies any other complaints Instructions Date Instruction Additional Infor mation No Information Assessments Type Assessment Date No Information
[2024-07-25 14:51] VITALS: BP 134/80; PULSE 59; RESP 14; TEMP 36.4; O2SAT 99
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
--- OUTSIDE RECORDS SUMMARY | 2024-07-25 15:24 | XMS_ITS | Clinical Summary ---
Author Organization [facility] Address [address] [place] [address] Care Team Providers Care Dough Maker Name Role Phone Leonie Ortega DEBORAH Primary Care Provider [phone] Pierre [place] DO Unavailable [phone] Allergies No known active allergies Medications [...] left breast in female, estrogen receptor positive ([facility]) 06/18/2020 Primary insomnia 05/18/2020 Invasive ductal carcinoma of breast, female, left ([facility]) 05/18/2020 Er+ [place]+ carcinoma of breast, left ([facility]/H [facility]) 05/18/2020 Left breast mass 12/24/2019 Neck pain 10/28/2019 Abnormal TSH 10/28/2019 Neuropathy 10/28/2019 OAB (overactive bladder) 10/28/2019 Yeast vaginitis 05/18/2019 Frequent urination 11/27/2018 High risk sexual behavior, unspecified type 11/14 Vitamin D deficiency 11/27/2018 Frequent UTI 11/27/2018 Urgency of urination 11/27/2018 Vaginal yeast infection 11/27/2018 Acute cystitis without hematuria 07/02/2018 ADD (attention deficit disorder) without hyperac tivity 07/02/2018 Bipolar disorder (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 Utilities Answer Date Recorded In the past 12 months has e [employer], oil, or water [employer] threatened to shut off services in your [...] move on to questions 3-9 1 05/17/2020 [facility] - Occupational Stress [...] place to sleep or slept in a skilled nursing (including now)? No 07/18/2023 Comments No Sex [...] st Contact Info) Description 06/02/2025 10:00 AM IGNITION SPECIALIST Appointment [facility] Mammography [address] [facility] [address] Sukh Mcdaniel MD [address] [place] [address] [place] [address] Health Maintenance Due Date Last Done Comments Colorectal Cancer Screening Colonoscopy (10 Years) 1977 Annual Physical 1980 Hepatitis B Vaccines (1 of 3 - 19+ 3-dose series) 1996 COVID-19 Vaccine ( - season) 2023 PHQ-2 (Physician [place]) 04/16/2024 Mammogram Screening 04/22/2026 04/22/2024, 11/03/2022, 01/03/2022, [...] Zee RN Medical Devices Implanted Type Area Sox Analyst Device Identifier Shelf Expiration Date Model / Serial / Lot Graft Bone Cancellous 15ml 4-10mm Freeze Dried Chips - [id number] Implanted:Qty: 1 on 07/18/2023 by Aggie [place] MD at [facility] Bone N/A: Spine Lumbar [employer] [id number] 03/11/2027 [id number] / / [id number] Breast Breast Ofx 40mm Charles Implanted:Qty: 2 on 07/18/2023 by Aggie [place] MD at [facility] Charles N/A: Spine Lumbar ORTHOFIX [id number] / / Set Screw Implanted:Qty: 4 on 07/18/2023 by Aggie [place] MD at [facility] Screw N/A: Spine Lumbar ORTHOFIX 36-2001 / / Ofx 6.5x45mm Implanted:Qty: 2 on 07/18/2023 by Aggie [place] MD at [facility] Screw N/A: Spine Lumbar ORTHOFIX [id number] / / Ofx 6.5x50mm Implanted:Qty: 2 on 07/18/2023 by Aggie [place] MD at [facility] Screw N/A: Spine Lumbar ORTHOFIX 44-5650 / / Magnetos Implanted:Qty: 1 on 07/18/2023 by Aggie [place] MD at [facility] N/A: Spine Lumbar [id number] 12/16/2027 [id number] / / [id number] Description:MFR: Overcart IENCES Top Loading Body Implanted:Qty: 4 on 07/18/2023 by Aggie [place] MD at [facility] N/A: Spine Lumbar [id number] / / Procedures Procedure Name Priority Date/Time Associated Diagnosis Comments MG SCREENING IMPLANT W JEREMIAH RT DIGI Routine 04/22/2024 12:09 PM IGNITION SPECIALIST Screening mammogram, encounter for HEPATITIS C ANTIBODY Routine 11/26/2018 2:32 PM CDT High risk sexual behavior, unspecified type from Last 3 Months or Most Recently Relevant to Health Maintenance Results * MG SCREENING IMPLANT W JEREMIAH RT DIGI (04/22/2024 12:09 PM IGNITION SPECIALIST) Anatomical Region Laterality Modality Breast Right Mammography 04/22/2024 12:2 4 PM IGNITION SPECIALIST Impressions 04/22/2024 1:33 PM IGNITION SPECIALIST ===== IMPRESSION: ===== 1. Stable mammographic appearance with no new findings to suggest malignancy in the breast. Assessment: ACR BI-RADS 2 - BENIGN FINDING(S) Recommendation: 1:Routine Screening Right Comments: Ordered By: SUKH MCDANIEL Interpreted By: Joseph Jimenez MD, 04/22/2024 12:24 PM Narrative 04/22/2024 1:33 PM IGNITION SPECIALIST [facility] [place] [address] Examination: Digital right screening mammogram with 3-D [...] VE NON-REACTI VE 11/26/2018 9:20 PM CDT [facility] 11/26/2018 2:32 PM CDT Arlene Rodriguez TRACTION POWER ENGINEER LABORATORY Final Result [facility] [address] [place] [address], [place] [phone] from Last 3 Months or Most Recently Relevant to Health Maintenance Insurance [place] Advance Directives Documents on File Type Date Recorded Patient Technical Solution Architect Expl anation Legal Documents 04/10/2019 Charge Estim ate Form-Self Pay * Full Code (Latest Code Status on File) Date Activated Date Inactivated Comments 07/18/2023 5:29 PM 07/19/2023 3:55 PM Care Teams Dough Maker Relationship Specialty Start Date End Date Leonie Ortega APNP [address] [phone] PCP - General Nurse Practitioner Family 08/12/22 Pierre [place] DO [address] [place] [address] Consulting Physician INTERNAL MEDICINE 07/09/23
--- OUTSIDE RECORDS SUMMARY | 2024-07-25 15:24 | XMS_ITS | Encounter Summary ---
Author Organization [facility] Address [address] [place] [address] Care Team Providers Care Sugar Refinery Supervisor Name Role Phone NikkiArlene lujan YUDELKA Primary Care Provider [phone] Shameka [place] MD Unavailable [phone] Latha Jean RN Unavailable Leonie Hooper Primary Care Provider [phone] Pierre [place] DO Unavailable [phone] Encounter Details Date Type Department Care Team (Late st Contact Info) Description 08/04/2020 Pastoral Care Encounter [facility] [place] [id number] Martínez Morrissey Social History Tobacco Use Types [...] Initial visit;Assessment;Referral Referral From Nurse Referral To Director Hospice Operations Plan of Care Care Plan Initiated Yes;Patient [...] st Contact Info) Description 06/02/2025 10:00 AM LEAF BLENDER Appointment [place] [address] Kai Davenport MD [address] [place] [phone] documented as of this encounter Visit Diagnoses Not on filedocumented in this encounter Additional Health Concerns Infection Onset Date Last Indicated Resolved Time COVID-19 Rule Out 01/26/2021 01/26/2021 01/26/2021 10:51 AM CDT COVID-19 Rule Out 01/26/2021 01/26/2021 01/27/2021 12:16 AM CDT COVID-19 Rule Out 04/22/2021 04/22/2021 04/29/2021 12:32 AM LEAF BLENDER Assessment Noted Time PHQ-9 Depression Total Score: 5 05/17/19 3:11 PM LEAF BLENDER documented as of this encounter Care Teams Sugar Refinery Supervisor Relationship Specialty Start Date End Date Arlene RodriguezYUDELKA [address] [place] [address] PCP - General Nurse Practitioner Family 04/24/18 08/11/22 Leonie Ortega APNP [address] [address] PCP - General Nurse Practitioner Family 08/12/22 Shameka [place] MD [address] [place] [address] Radiation Oncologist RADIATION ONCOLOGY 07/30/20 Lahta Jean, placement assistant Nurse Navigator REGISTERED NURSE 07/30/20 07/08/23 Pierre [place], [address] [place] [address] Consulting Physician INTERNAL MEDICINE 07/09/23 documented as of this encounter
--- OUTSIDE RECORDS SUMMARY | 2024-07-25 15:24 | XMS_ITS ---
Author Organization [facility] Address [address] [place] [address] Care Team Providers Care Recycling Or Rubbish Collector Name Role Phone Ortega Leonie DEBORAH Primary Care Provider [phone] Pierre [place] DO Unavailable [phone] Active Problems Problem Noted Date Diagnosed Date Spondylolisthesis of lumbar region 07/18/2023 Generalized body aches 01/26/2021 Fatigue, unspecified type 01/26/2021 COVID-19 vaccine series not administered 021 Malignant neoplasm of overla pping sites of left breast in female, estrogen receptor positive ([facility]) 06/18/2020 Primary insomnia 05/18/2020 Invasive ductal carcinoma of breast, female, left ([facility]) 05/18/2020 Er+ [place]+ carcinoma of breast, left ([facility] HHS/ CC) 05/18/2020 Left breast mass 12/24/2019 Neck pain 10/28/2019 Abnormal TSH 10/28/2019 Neuropathy 10/28/2019 OAB (overactive bladder) 10/28/2019 Yeast vaginitis 05/18/2019 Frequent urination 11/27/2018 High risk sexual behavior, unspecified type 11/14 Vitamin D deficiency 11/27/2018 Frequent UTI 11/27/2018 Urgency of urination 11/27/2018 Vaginal yeast infection 11/27/2018 Acute cystitis without hematuria 07/02/2018 ADD (attention deficit disorder) without hyperac tivity 07/02/2018 Bipolar disorder ([facility]) 01/07/2016 Depression with anxiety 01/05/2016 Current Oncology [...]
--- OUTSIDE RECORDS SUMMARY | 2024-07-25 15:24 | XMS_ITS ---
Author Organization [facility] [address] Address [address] [place] [phone] Care Team Providers Care Vp Customer Service Name Role Phone Arlene Rodriguez SAMPLE DISTRIBUTOR Unavailable [phone] Leonie Ortega NP Primary Care Provider [phone] Eusebio Villanueva SAMPLE DISTRIBUTOR Unavailable [phone] Active Problems Problem Noted Date Diagnosed Date [...]
--- OUTSIDE RECORDS SUMMARY | 2024-07-25 15:24 | XMS_ITS ---
Author Organization [facility] Address [address] [place], [facility] [address] [place] [address] Phone Care Team Providers Care Director Regulatory Agency Name Role Phone Leonie Ortega APRN, INSURANCE SOLICITOR Primary Care Provider + [place] DO Unavailable [phone] Active Problems Problem Noted Date Diagnosed Date [...] Malignant neoplasm of female breast 06/18/2020 Er+ [place]+ carcinoma of breast, left 05/18/2020 Neuropathy 10/28/2019 Bipolar disorder 01/07/2016 Depression with anxiety 01/05/2016 Current Treatment and Therapy Plans SUPPORT - ZOMETA - [facility]* Plan Start Date:02/21/2023 Plan Provider:Pierre [place], DO [...] - LEUPROLIDE (LUPRON, ELIGARD), TRELSTAR, FIRMAGON - [facility] 1 07/19/2021 No medications scheduled. Plan Clean Up Melquiades, Pierre D, DO Treatment not started ORAL CHEMO TREATMENT Plan Name Start Date Discontinue Date Treatment Medications Discontinue Reason Plan Provider Cycles BREAST - LETROZOLE - [facility] 1 07/19/2021 letrozole (FEMARA) Plan Clean Up Melquiades, Pierre D, DO Treatment not started
--- OUTSIDE RECORDS SUMMARY | 2024-07-25 15:24 | XMS_ITS | Encounter Summary ---
Author Organization [facility] Address [address] [place] [address] Phone Care Team Providers Care Supervisor Blood Donor Recruiters Name Role Phone Arlene Rodriguez APRN, CHEMICAL DEPENDENCY NURSE Primary Care Provider Leonie Ortega APRN, CHEMICAL DEPENDENCY NURSE Primary Care Provider + [place] DO Unavailable [phone] Reason for Visit * Reason Comments Medication Refill Encounter Details Date Type Department Care Team (Late st Contact Info) Description 08/26/2021 Refill [facility] [address] [place] [address] Pierre [place], DO [address] [place] [address] Medication Refill Social History Tobacco [...] on file Legal Sex Female 8:29 [address]PUTY CLERK OF COURT Gender Identity Not on file Sexual Orientation Not on file 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 Not on file Not [...] CDT Office Visit [facility] [address] [address] Pierre [place] DO [address] [place] [phone] documented as of this encounter Visit Diagnoses Not on filedocumented in this encounter Additional Health Concerns Assessment Noted Time PHQ-9 Depression Total Score: 0 02/26/20 21 9:[address] documented as of this encounter Care Teams Supervisor Blood Donor Recruiters Relationship Specialty Start Date End Date Arlene Rodriguez APRN, CHEMICAL DEPENDENCY NURSE [address] [place] [address] PCP - General Internal Medicine 02/20/20 03/20/22 Leonie Ortega APRN, CHEMICAL DEPENDENCY NURSE [address] [place] [address] PCP - General Advanced Practice Nurse 03/21/22 Pierre [place] DO [address] [place] [phone] Consulting Physician Oncology 03/19/23 documented as of this encounter
--- OUTSIDE RECORDS SUMMARY | 2024-07-25 15:24 | XMS_ITS | Encounter Summary ---
Author Organization [facility] Address [facility] [place] [address] Care Team Providers Care Melt Room Operator Name Role Phone NikkiArlene lujan YUDELKA Primary Care Provider [phone] Shameka [place] MD Unavailable [phone] Latha Jean RN Unavailable UnavailLeonie Montana Primary Care Provider [phone] Pierre [place] DO Unavailable [phone] Encounter Details Date Type Department Care Team (Late st Contact Info) Description 08/01/2019 [facility] Patient Accounts [address] [place] [address] [facility] Provider Notice regarding your past due balance [...] st Contact Info) Description 06/02/2025 10:00 AM EMD SPECIAL EDUCATION TEACHER Appointment [facility] [place] [address] Kai [place] MD [facility] [address] [phone] documented as of this encounter Visit Diagnoses Not on filedocumented in this encounter Additional Health Concerns Infection Onset Date Last Indicated Resolved Time COVID-19 Rule Out 02/14/2020 02/14/2020 02/15/2020 6:11 PM EMD SPECIAL EDUCATION TEACHER COVID-19 Rule Out 01/26/2021 01/26/2021 01/26/2021 10:51 AM CDT COVID-19 Rule Out 01/26/2021 01/26/2021 01/27/2021 12:16 AM CDT COVID-19 Rule Out 04/22/2021 04/22/2021 04/29/2021 12:32 AM EMD SPECIAL EDUCATION TEACHER Assessment Noted Time PHQ-9 Depression Total Score: 1 05/13/19 20 11:10 AM EMD SPECIAL EDUCATION TEACHER documented as of this encounter Care Teams Melt Room Operator Relationship Specialty Start Date End Date Arlene Rodriguez FNP [address] [place] [phone] PCP - General Nurse Practitioner Family 04/24/18 08/11/22 Leonie Ortega APNP [address] [phone] PCP - General Nurse Practitioner Family 08/12/22 Shameka [place] MD [address] [place] [address] Radiation Oncologist RADIATION ONCOLOGY 07/30/20 Latha Jean, enamel burner Nurse Navigator REGISTERED NURSE 07/30/20 07/08/23 Pierre [place] DO [address] [place] [address] Consulting Physician INTERNAL MEDICINE 07/09/23 documented as of this encounter
--- OUTSIDE RECORDS SUMMARY | 2024-07-25 15:24 | XMS_ITS | Encounter Summary ---
Author Organization [facility] Address [address] [place] [address] Phone Care Team Providers Care Learning And Development Coordinator Name Role Phone Arlene Rodriguez APRN, FAMILY SERVICES ASSISTANT Primary Care Provider Leonie Ortega APRN, FAMILY SERVICES ASSISTANT Primary Care Provider + Pierre [place] DO Unavailable [phone] Encounter Details Date Type Department Care Team (Late st Contact Info) Description 02/25/2021 Telephone [facility] [place] [address] [place] [address] Pierre [place], DO [address] [place] [address] Social History Tobacco Use Types [...] on file Legal Sex Female 8:29 AM ABSORBER OPERATOR Gender Identity Not on file Sexual Orientation Not on file 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 No / Unsure 02/25/2021 8:41 AM ABSORBER OPERATOR documented as of this encounter Miscellaneous Notes * Telephone Encounter - Courtney Langston PAC - 02/25/2021 2:46 PM ABSORBER OPERATOR Thank you! RBER OPERATOR * Telephone Encounter - Marta Marina - 02/25/2021 2:08 PM CST PATIENT IS SCHEDULED FOR BONE SCAN 03/16/21 AT 12PM. RBER OPERATOR documented in this encounter Plan of Treatment Upcoming Encounters Date Type Department Care Team (Late st Contact Info) Description 08/08/2024 10:30 AM CDT [facility] [address] [address] Pierre [place], [address] [place] [phone] documented as of this encounter Visit Diagnoses Not on filedocumented in this encounter Additional Health Concerns Assessment Noted Time PHQ-9 Depression Total Score: 0 02/26/20 9:12 AM ABSORBER OPERATOR documented as of this encounter Care Teams Learning And Development Coordinator Relationship Specialty Start Date End Date Arlene Rodriguez APRN, FAMILY SERVICES ASSISTANT [address] [place] [address] PCP - General Internal Medicine 02/20/20 03/20/22 Leonie Ortega APRN, FAMILY SERVICES ASSISTANT [address] [place] [address] PCP - General Advanced Practice Nurse 03/21/22 Pierre [place] DO [address] [place] [phone] Consulting Physician Oncology 03/19/23 documented as of this encounter
--- OUTSIDE RECORDS SUMMARY | 2024-07-25 15:24 | XMS_ITS | Clinical Summary ---
Author Organization [facility] Address [address], [facility] 1 [place] [address] Phone Care Team Providers Care Field Gauger Name Role Phone Leonie Ortega APRN, NOHEMI Primary Care Provider + Pierre [place] DO Unavailable [phone] Allergies No known active allergies Medications amphetamine-dex [...] Active letrozole (FEMARA) 2.5 MG TabletIndicatio ns:Er+ [place]+ carcinoma of breast, left (HCC) TAKE 1 [...] Malignant neoplasm of female breast 06/18/2020 Er+ [place]+ carcinoma of breast, left 05/18/2020 Neuropathy 10/28/2019 Bipolar disorder 01/07/2016 Depression with anxiety 01/05/2016 Encounters Date Type Department Care Team Description 07/15/2024 Telephone [facility] [address] [address] Pierre [place], DO Canopy Call [...] Alive Brother 2 Alive Father asbestos from [employer] Mother Alive Sister Alive Social History [...] on file Legal Sex Female 8:29 AM PAPER GOODS MACHINE OPERATOR Gender Identity Not on file Sexual Orientation Not on file 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 Not on file Not on file Last Filed Vital Signs Vital Sign Reading Time Taken Comments Blood Pressure 140/90 04/04/2024 11:10 AM PAPER GOODS MACHINE OPERATOR Pulse 77 04/04/2024 11:10 AM PAPER GOODS MACHINE OPERATOR Temperature 36.7 C (98 F) 04/04/2024 11:10 AM PAPER GOODS MACHINE OPERATOR Respiratory Rate 18 04/04/2024 11:1 0 AM PAPER GOODS MACHINE OPERATOR Oxygen Saturation 95% 04/04/2024 11: 10 AM PAPER GOODS MACHINE OPERATOR Inhaled Oxygen Concentration - - Weight 54.3 kg (119 lb 11.2 oz) 024 11:10 AM PAPER GOODS MACHINE OPERATOR Height 172.7 cm (5' 8 ) 04/04/2024 11:1 0 AM PAPER GOODS MACHINE OPERATOR Body Mass Index 18.2 04/04/2024 11:10 AM PAPER GOODS MACHINE OPERATOR Plan of Treatment Upcoming Encounters Date Type Department Care Team (Late st Contact Info) Description 08/08/2024 10:30 AM CDT Office Visit [facility] [place] [address] [place] [address] Pierre [place], [address] [place] [address] Health Maintenance Due Date Last [...] age to complete this topic Insurance [place]ID [place] Care Teams Field Gauger Relationship Specialty Start Date End Date Leonie Ortega APRN, BIT AND SHANK DEPARTMENT SUPERVISOR [address] [place] [address] PCP - General Advanced Practice Nurse 03/21/22 Pierre [place] DO [address] [place] [phone] Consulting Physician Oncology 03/19/23
--- OUTSIDE RECORDS SUMMARY | 2024-07-25 15:24 | XMS_ITS | Encounter Summary ---
Author Organization [facility] [[email or web address] Address [address] [place] [address] Phone Care Team Providers Care Parking Cashier Name Role Phone Arlene Rodriguez APRN, RETAIL ADVERTISING ACCOUNT EXECUTIVE Primary Care Provider Leonie Ortega APRN, RETAIL ADVERTISING ACCOUNT EXECUTIVE Primary Care Provider + Pierre [place] DO Unavailable [phone] Encounter Details Date Type Department Care Team (Late st Contact Info) Description 04/02/2020 Telephone [facility] [place] [address] [place] [address] Pierre [place], DO [address] [place] [address] Social History Tobacco Use Types [...] on file Legal Sex Female 8:29 AM REHAB THERAPIST Gender Identity Not on file Sexual Orientation Not on file 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 No / Unsure 03/26/2020 10:02 AM REHAB THERAPIST documented as of this encounter Miscellaneous Notes * Telephone Encounter - Pierre [place] DO - 04/02/2020 1:22 PM CST Try to call her sister and send letter B THERAPIST * Telephone Encounter - Marta Marina - [...] HAVE US MAIL A LETTER? PLEASE ADVISE. B THERAPIST documented in this encounter Plan of Treatment Upcoming Encounters Date Type Department Care Team (Late st Contact Info) Description 08/08/2024 10:30 AM CDT Office Visit [facility] [address] [address] Pierre [place] DO [address] [place] [phone] documented as of this encounter Visit Diagnoses Not on filedocumented in this encounter Additional Health Concerns Assessment Noted Time PHQ-9 Depression Total Score: 0 03/26/20 20 10:15 AM REHAB THERAPIST documented as of this encounter Care Teams Parking Cashier Relationship Specialty Start Date End Date Arlene Rodriguez APRN, RETAIL ADVERTISING ACCOUNT EXECUTIVE [address] [place] [address] PCP - General Internal Medicine 02/20/20 03/20/22 Leonie Ortega APRN, RETAIL ADVERTISING ACCOUNT EXECUTIVE [address] [address] PCP - General Advanced Practice Nurse 03/21/22 Pierre [place] DO [address] [place] [phone] Consulting Physician Oncology 03/19/23 documented as of this encounter
--- OUTSIDE RECORDS SUMMARY | 2024-07-25 15:24 | XMS_ITS | Continuity of Care Document ---
Author Organization [facility] Address [address] [place] [address] Phone Care Team Providers Care Instrument And Controls Technician Name Role Phone Bassam Gannon MD Unavailable Unavailable Allergies, Adverse Reactions, Alerts Substance Reaction Status Criticality No Known Allergies Active No Inform ation Medications Medication Instructions Dosage Effective Dates (start - stop) Status Comments trazodone 50 mg tablet take 1 tablet by oral route every bedtime after meals 50 MG - Active Flonase 50 mcg/actuation nasal spray,suspension inhale 2 spray by intranasal route every day in each nostril 100 MCG - Active venlafaxine 37.5 mg tablet take 1 tablet by oral route 2 times every day with food 37.5 MG - Active Klonopin 0.5 mg tablet take 1 tablet by oral route 2 times every day as needed 0.5 MG - Active PRN for anxiety, avoid driving or operate machines Procedures Procedure Date PREV VISIT, NEW, AGE 18-39 Advance Directives Directive Yes / No Effective Date File Name No Information Encounters Encounter Description Practice Location Reason(s) For Visit Diagnoses Date Provider Providers Copied on [facility]counter [facility], [address] [place], [id number], [place] tel:[phone] [facility] No Information Jagdeep Banegas. [address], [place], [place], [id number], [place]. tel:[phone] PREV VISIT, NEW, AGE 18-39 [facility], [address], [place], [place], [id number], [place] tel:[phone] [facility] PHysical (chief complaint) Encntr for general adult medical exam w/o abnormal findings Jagdeep Banegas. [address] [facility], [place], [place], [id number], [place]. tel:[phone] Referring Provider: Bella [address], [place], [place], [id number]. tel:[phone] Family History Family Member Type Diagnosis Age At Onset Brother Problem (finding) Alive and well Mother Problem (finding) Alive and well Father Problem (finding) Alive and well Payers Payer name Insurance type Covered democrat ID Authoriza tion(s) No Information Social History [...]
--- OUTSIDE RECORDS SUMMARY | 2024-07-25 15:24 | XMS_ITS | Clinical Summary ---
Author Organization [facility] [address] Address [address] [place] [address] Care Team Providers Care Curator Name Role Phone Arlene Rodriguez CERTIFIED PROSTHETIST/ORTHOTIST Unavailable [phone] Leonie Ortega NP Primary Care Provider [phone] Eusebio Villanueva CERTIFIED PROSTHETIST/ORTHOTIST Unavailable [phone] Allergies Active Allergy Reactions Criticality Noted [...] Department Care Team Description 05/27/2024 9:00 AM INSPECTOR AND UNLOADER - 05/27/2024 11:59 PM INSPECTOR AND UNLOADER Hospital Encounter [facility] [address] [place] [address] Eusebio Villanueva NP Lumbar post-laminectomy syndrome (Primary Dx); Spinal stenosis of lumbar region without neurogenic claudication; Lumbar radiculopathy; Myalgia Discharge Disposition: Discharge to home or self care 04/29/2024 12:45 PM INSPECTOR AND UNLOADER - 04/29/2024 11:59 PM INSPECTOR AND UNLOADER Hospital Encounter [facility] [address] [place] [address] Christopher Villasenor MD Lumbosacral spondylosis without myelopathy [M47.817] (Primary Dx); Lumbar radiculopathy; Spinal stenosis of lumbar region without neurogenic claudication; Lumbar post-laminectomy syndrome Discharge Disposition: Discharge to home or self care 04/29/2024 Orders Only [facility] [address] [place], [place] [id number] Christopher Villasenor MD Arthritis (Primary Dx) from Last 3 Months Surgical History Surgery Date Site/Laterality Comments COLONOSCOPY HYSTERECTOMY 12/15/2020 - 01/13/2021 SECTION 04/16/2009 - 04/15/2010 SECTION 04/16/2012 - 04/15/2013 BREAST SURGERY 04/16/2020 - 05/16/2020 Left lumpectomy with tissue wiping cloth cutter on L BREAST SURGERY 04/16/2011 - 04/15/2012 [...] on file Legal Sex Female 6:01 AM INSPECTOR AND UNLOADER Gender Identity Not on file Sexual Orientation Not on file Obstetrics History Last Filed Vital Signs Vital Sign Reading Time Taken Comments Blood Pressure 138/89 05/27/2024 9:28 AM INSPECTOR AND UNLOADER Pulse 70 05/27/2024 9:28 AM INSPECTOR AND UNLOADER Temperature 37.1 C (98.7 F) 04/29/2024 1:32 PM INSPECTOR AND UNLOADER Respiratory Rate 16 05/27/2024 9:28 AM INSPECTOR AND UNLOADER Oxygen Saturation 100% 05/27/2024 9:28 AM INSPECTOR AND UNLOADER Inhaled Oxygen Concentration - - Weight 58.1 kg (128 lb) 05/11/2022 9:10 AM INSPECTOR AND UNLOADER Height 172.7 cm (5' 8 ) 05/11/2022 9:10 AM INSPECTOR AND UNLOADER Body Mass Index 19.46 05/11/2022 9:10 AM INSPECTOR AND UNLOADER Plan of Treatment Health Maintenance Due Date [...] this topic Medical Devices Implanted Type Area Cognos Bi Developer Device Identifier Shelf Expiration Date Model / Serial / Lot [employer] Implant Breast High Profile Smooth Memorygel Boost 545cc Gel [id number] - [id number] - [id number] Implanted:Qty: 1 on 08/12/2021 by Jc Hernandez, DO at [facility] 06/21/2026 S [id number] / [id number] / [id number] [employer] Implant Breast High Profile Smooth Memorygel Boost 480cc Gel [id number] - [id number] - [id number] Implanted:Qty: 1 on 08/12/2021 by Jc Hernandez, DO at [facility] 04/20/2026 S [id number] / [id number] / [id number] Procedures Procedure Name Priority Date/Time Associated Diagnosis Comments PAIN MGMT IMAGING LUMBAR/SACRAL FACET/ MEDIAL BRANCH BLOCK BILATERAL Schedule Routine, Read Routine (OP Routine) 04/29/2024 1:50 PM INSPECTOR AND UNLOADER Lumbar radiculopathy Spinal stenosis of lumbar region without neurogenic claudication Lumbar post-laminectomy syndrome from Last 3 Months Results * Imaging Lumbar/Sacral Facet Medial Branch Block Bilateral (59358) (04/29/2024 1:50 PM INSPECTOR AND UNLOADER) Narrative RAD_PACS_CH - 04/29/2024 1:59 PM INSPECTOR AND UNLOADER The images from this study are not interpreted by Radiology. Please refer to the physician's procedure / OR operative note. us Christopher Villasenor MD IMG PAIN MGMT PROCEDU RES Final Result RAD_PACS_CH from Last 3 Months Insurance [facility] Advance Directives For more information, please contact: [phone] * Full Code (Latest Code Status on File) Date Activated Date Inactivated Comments 08/13/2021 1:26 AM 08/14/2021 3:39 PM Care Teams Curator Relationship Specialty Start Date End Date Leonie Ortega NP [address] [place] [address] PCP - General Family Medicine 03/28/22 Arlene Rodriguez NP [address] [place] [address] 10/11/21 [place] [address] [place] [address] Nurse Practitioner Pain Management 03/31/24
--- OUTSIDE RECORDS SUMMARY | 2024-07-25 15:24 | XMS_ITS | Clinical Summary ---
Author Organization [facility] Address [address] [place] [address] Care Team Providers Care Labor Relations Teacher Name Role Phone Arlene Rodriguez ANIYA-SOCK DRIER Primary Care Provider [phone] Source Comments [facility],non-owned Affiliates and Associated Physician Practices is amultiple site organization consisting of ambulatory clinics and hospital sitesin [place], [place], [place] and [place]. This disclosure is being madepursuant to the Care Everywhere program and may not contain all information available regarding this patient. Last updated 18.[facility] Allergies Active Allergy Reactions Criticality Noted Date [...] age to complete this topic Care Teams Labor Relations Teacher Relationship Specialty Start Date End Date Arlene Rodriguez APRN-SOCK DRIER [address] [place] [address] PCP - General 12/17/20
--- OUTSIDE RECORDS SUMMARY | 2024-07-25 15:24 | XMS_ITS | Referral Summary ---
Author Organization [facility] [address] Address [address] [place] [address] Care Team Providers Care Tool Room Supervisor Name Role Phone Arlene Rodriguez FISH HATCHERY WORKER Unavailable [phone] Leonie Ortega NP Primary Care Provider [phone] Eusebio Villanueva FISH HATCHERY WORKER Unavailable [phone] Encounters Date Type Department Care Team Description 05/27/2024 9:00 AM SUPERINTENDENT CONCRETE MIXING PLANT - 05/27/2024 11:59 PM SUPERINTENDENT CONCRETE MIXING PLANT Hospital Encounter [facility] [address] [place] [address] Eusebio Villanueva NP Lumbar post-laminectomy syndrome (Primary Dx); Spinal stenosis of lumbar region without neurogenic claudication; Lumbar radiculopathy; Myalgia Discharge Disposition: Discharge to home or self care 04/29/2024 Orders Only [facility] [address] [place] [address] Christopher Villasenor MD Arthritis (Primary Dx) 04/29/2024 12:45 PM SUPERINTENDENT CONCRETE MIXING PLANT - 04/29/2024 11:59 PM SUPERINTENDENT CONCRETE MIXING PLANT Hospital Encounter [facility] [address] [place] [address] Christopher Villasenor MD Lumbosacral spondylosis without myelopathy [...] on file Legal Sex Female 6:01 AM SUPERINTENDENT CONCRETE MIXING PLANT Gender Identity Not on file Sexual Orientation Not on file Last Filed Vital Signs Vital Sign Reading Time Taken Comments Blood Pressure 138/89 05/27/2024 9:28 AM SUPERINTENDENT CONCRETE MIXING PLANT Pulse 70 05/27/2024 9:28 AM SUPERINTENDENT CONCRETE MIXING PLANT Temperature 37.1 C (98.7 F) 04/29/2024 1:32 PM SUPERINTENDENT CONCRETE MIXING [employer]ANT Respiratory Rate 16 05/27/2024 9:28 AM SUPERINTENDENT CONCRETE MIXING PLANT Oxygen Saturation 100% 05/27/2024 9:28 AM SUPERINTENDENT CONCRETE MIXING PLANT Inhaled Oxygen Concentration - - Weight 58.1 kg (128 lb) 05/11/2022 9:10 AM SUPERINTENDENT CONCRETE MIXING PLANT Height 172.7 cm (5' 8 ) 05/11/2022 9:10 AM SUPERINTENDENT CONCRETE MIXING PLANT Body Mass Index 19.46 05/11/2022 9:10 AM SUPERINTENDENT CONCRETE MIXING PLANT Plan of Treatment Not on file Medical Devices Implanted Type Area Director Targeted Marketing Device Identifier Shelf Expiration Date Model / Serial / Lot [employer] Implant Breast High Profile Smooth Memorygel Boost 545cc Gel [id number] - [id number] - [id number] Implanted:Qty: 1 on 08/12/2021 by Jc Hernandez, DO at [facility] [employer] 06/21/2026 S [id number] / [id number] / [id number] [employer] Implant Breast High Profile Smooth Memorygel Boost 480cc Gel [id number] - [id number] - [id number] Implanted:Qty: 1 on 08/12/2021 by Jc Hernandez DO at [facility] [employer] [facility] [employer] 04/20/2026 S [id number] / [id number] / [id number] Procedures Procedure Name Priority Date/Time Associated Diagnosis Comments PAIN MGMT IMAGING LUMBAR/SACRAL FACET/ MEDIAL BRANCH BLOCK BILATERAL Schedule Routine, Read Routine (OP Routine) 04/29/2024 1:50 PM SUPERINTENDENT CONCRETE MIXING PLANT Lumbar radiculopathy Spinal stenosis of lumbar region without neurogenic claudication Lumbar post-laminectomy syndrome from Last 3 Months Results * Imaging Lumbar/Sacral Facet Medial Branch Block Bilateral ([id number]) (04/29/2024 1:50 PM SUPERINTENDENT CONCRETE MIXING PLANT) Narrative RAD_PACS_CH - 04/29/2024 1:59 PM SUPERINTENDENT CONCRETE MIXING PLANT The images from this study are not interpreted by Radiology. Please refer to the physician's procedure / OR operative note. us Christopher Villasenor MD IMG PAIN MGMT PROCEDU RES Final Result RAD_PACS_CH from Last 3 Months Insurance [facility] Advance Directives For more information, please contact: [phone] * Full Code (Latest Code Status on File) Date Activated Date Inactivated Comments 08/13/2021 1:26 AM 08/14/2021 3:39 PM Care Teams Tool Room Supervisor Relationship Specialty Start Date End Date Leonie Ortega NP [address] [place] [address] PCP - General Family Medicine 03/28/22 Arlene Rodriguez NP [address] [place] [address] 10/11/21 [place] [address] [address] [facility] [address] [place] [address] Nurse Practitioner Pain Management 03/31/24
[2024-07-25] MEDS: KETOROLAC (*BKC) 60 MG/2 ML VIAL IM (16:19)
[2024-07-25 16:37] LABS: Add Urine Microscopic? YES; Appearance Urine Clear (Clear); Bacteria Urine None Seen /hpf; Bilirubin Urine Negative (Negative); Blood Urine Non-Hemolyzed Trace (Negative); Color Urine Yellow (Yellow); Glucose Urine UA Negative (Negative); Ketones Urine Negative (Negative); Leukocyte Esterase Ur Trace LEU/UL (Negative); Nitrate Urine Negative (Negative); Non Pathogenic Casts 0-2; Protein Urine Negative (Negative); RBC Urine 0-2 /hpf (0-2); Specific Grav Ur 1.004 (1.001-1.035); Squamous Epithelial Cell Urine None Seen /hpf (Few); Urobilinogen Urine 0.2 mg/dL (<2.0); WBC Urine 0-5 /hpf (0-3); pH Urine 6.5 (5.0-9.0)
== END 2024-07-25 17:31 | disposition home or self-care (01) ==
PROVIDERS: Emergency Provider Registered Nurse; PCP Nurse Practitioner Family
DX: S06.0X0A Concussion without loss of consciousness, initial encounter (principal); S16.1XXA Strain of muscle, fascia and tendon at neck level, initial encounter; S39.012A Strain of muscle, fascia and tendon of lower back, initial encounter; S79.911A Unspecified injury of right hip, initial encounter; Z98.1 Arthrodesis status; Z85.3 Personal history of malignant neoplasm of breast; M81.0 Age-related osteoporosis without current pathological fracture; K58.1 Irritable bowel syndrome with constipation; F32.A Depression, unspecified; F90.9 Attention-deficit hyperactivity disorder, unspecified type; F41.9 Anxiety disorder, unspecified; Z87.440 Personal history of urinary (tract) infections; Z90.710 Acquired absence of both cervix and uterus; Z79.899 Other long term (current) drug therapy; M50.320 Other cervical disc degeneration, mid-cervical region, unspecified level; V43.52XA Car driver injured in collision with other type car in traffic accident, initial encounter
CPT/HCPCS: 70450; 72125; 72128; 72131; 73521; 81001; 96372; 99284; J1885

== ENCOUNTER 2024-08-11 16:41 | Emergency (ER) | payer OTHER, SELFPAY ==
--- NOTE | 2024-08-11 16:49 | ED.FEMALEGU ---
HPI - Female Genitourinary General Chief complaint: Urogenital-Female Stated complaint: urinary issue Time Seen by Provider: 08/11/24 16:49 Source: patient and RN notes reviewed Mode of arrival: ambulatory Limitations: no limitations History of Present Illness HPI Narrative: 48-year-old female presents with concern for urine frequency, burning with urination, general malaise. Reports she has been taking Macrobid that was called in by her doctor 3 days ago. She called her doctor to let them know she was not feeling any better, they recommended she go to the lab and give a urine sample for culture, she did leave a sample at [facility]. But came here for treatment. She also reports a lump in her left labia majora that is tender. Reports she gets these when she gets urinary tract infections. She denies drainage from the area MD elicited complaint: UTI Related Data Home Medications ?Medication ?Instructions ?Recorded ?Confirmed ?Last Taken ?Type letrozole 2.5 mg tablet 2.5 mg PO DAILY 01/05/22 05/21/24 Unknown History buprenorphine 15 mcg/hour weekly 15 mcg transdermal WEEKLY 11/24/23 05/21/24 Unknown History transdermal patch ibuprofen 600 mg tablet 600 mg PO TID PRN 05/21/24 05/21/24 Unknown History Allergies Allergy/AdvReac Type Severity Reaction Status Date / Time No Known Allergies Allergy Verified 07/25/24 14:38 Review of Systems Review of Systems: CONSTITUTIONAL: Denies malaise, chills, sweats, or fever. CARDIOVASCULAR: Denies chest pain, palpitations, or edema. RESPIRATORY: Denies cough or dyspnea. GASTROINTESTINAL: Denies abdominal pain, nausea, vomiting, diarrhea GENITOURINARY: Reports dysuria, frequency, urgency, suprapubic pressure. Denies flank pain or hematuria. SKIN: Denies rash or itching. Reports painful lump in her left labia MUSCULOSKELETAL: Denies back pain or myalgia. All systems reviewed & are unremarkable except as noted in HPI and below PMFSH Past Medical History Medical History Elevated BP without diagnosis of hypertension Chronic low back pain Insomnia Elevated glucose Elevated liver enzymes Anemia Osteoporosis Urinary frequency Irritable bowel syndrome with constipation Chronic idiopathic constipation Low back pain with right-sided sciatica Constipation Acne Chronic allergic rhinitis ADHD Depression Encounter to establish care Sinusitis Post-operative pain Interstitial cystitis Breast cancer Anorexia Anxiety Anxiety and depression Kidney infection UTI (urinary tract infection) Surgical History Surgical History H/O: hysterectomy History of lumpectomy of left breast Hx of breast augmentation Family History Family History Father Lung cancer Social History Social History Smoking status: Never smoker Second hand tobacco smoke exposure: No Alcohol intake: former Drinks per week: 0 Alcohol use details: LAST 2019 Substance use: current Substance use type: marijuana Other substance usage details: MEDICAL MARIJUANA Last use: 10/31/2020 Do You Feel Safe in your Home?: Yes Lack of Transportation: No Lack of Food: Never True Current Housing: I Have Housing Concerned About Future Housing: No Difficulty Paying Gas/Electric Bills: No Difficulty Paying for Meds: No Currently Unemployed: YES Education: Associate Degree Difficulty w/ Childcare or Family Care: No Living arrangements: with family Gender identity (if verbalized by the patient): Female Spiritual care concerns: No Agree to blood products: Yes Comments At time of signature, agree with nursing past medical, surgical, social and family history. There is no relevant family history pertinent to the presenting complaint Exam Narrative: GENERAL: Well-appearing, well-nourished, and in no acute distress. HEAD: Normocephalic. EYES: PERRLA, conjunctivae clear. NECK: Supple. No lymphadenopathy CHEST: Clear to auscultation. No respiratory distress. HEART: Regular rate and rhythm. ABDOMEN: Soft, nontender upon palpation, nondistended, normal active bowel sounds, no palpable or pulsatile masses, no guarding. No CVA tenderness : 2 cm palpable cyst in the left labia majora without erythema, warmth, induration, no fluctuation or drainage noted SKIN: Warm, dry, no rash. NEURO: Alert and oriented x3. PSYCH: Normal mood and affect Course Course Emergency Course: Patient is aware of diagnosis, understands and agrees to treatment plan. Anticipatory guidance given. Patient agrees to follow-up as directed and is aware of reasons to seek care at the emergency department. Portions of this record may have been created with voice recognition software Level of Care: Express Care Visit Vital Signs Vital signs: Reviewed. MDM - Female Genitourinary MDM Narrative Medical decision making narrative: Exam findings and UA show no acute concerns or changes; patient is non-toxic appearing and is in no distress. Patient is appropriate for outpatient treatment and follow-up. Differential Diagnosis Differential diagnosis: Likely urinary tract infection and cystitis Critical Care Time Critical Care Time Critical Care Time: No Discharge Plan Discharge Clinical Impression: Urinary tract infection, Labial cyst Patient Disposition: Home Condition: Stable Instructions: Antibiotic Form, Urinary Tract Infection in Women (ED), Bartholin Cyst (ED) Additional Instructions: Schedule a follow-up appointment with her software test automation engineer regarding the cyst on your labia. You can apply warm compress to the area or take a warm bath for comfort. We will send a urine culture to the lab; if the culture identifies an organism that the prescribed antibiotic will not treat, you will receive a phone call from an urgent care staff member and an appropriate antibiotic will be prescribed. -Your symptoms should begin to improve within a day of starting antibiotics. But you should finish all the antibiotic pills you get. Otherwise your infection might come back. -Also recommend: increase water intake. Tylenol/ibuprofen as needed for pain or fever -Follow-up with your primary care provider for urine recheck or seek ER visit if condition worsens with high fever, nausea, vomiting and severe back pain. Patient Language: Jordanian Prescriptions: New amoxicillin-pot clavulanate 875-125 mg tablet 1 tablet PO Q12H 10 Days Qty: 20 0RF No Action buprenorphine 15 mcg/hour patch weekly 15 mcg transdermal WEEKLY letrozole 2.5 mg tablet 2.5 mg PO DAILY Rx Instructions: begin between days 2 and 5 of mentrual cycle clonazepam 1 mg tablet 1 mg PO BID PRN (Reason: Anxiety) Qty: 60 5RF ondansetron HCl 4 mg tablet 4 mg PO Q8H PRN (Reason: nausea and vomiting) Qty: 30 2RF duloxetine 30 mg capsule,delayed release(DR/EC) 30 mg PO BID Qty: 60 5RF Rx Instructions: start 1 tab daily x7 days, then increase to 2x/day ibuprofen 600 mg tablet 600 mg PO TID PRN Linzess 290 mcg capsule 290 mcg PO DAILY Qty: 30 11RF minocycline 100 mg tablet 100 mg PO BID Qty: 60 11RF tizanidine [Zanaflex] 2 mg capsule 2 mg PO TID PRN (Reason: muscle spasticity) Qty: 12 0RF naproxen 500 mg tablet 500 mg PO BID PRN (Reason: pain) Qty: 14 0RF gabapentin 300 mg capsule 900 mg PO TID Qty: 300 11RF Rx Instructions: Take 900mg in the AM and afternoon. Take 1200mg at bedtime. solifenacin [Vesicare] 10 mg tablet 10 mg PO DAILY Qty: 90 3RF montelukast 10 mg tablet 10 mg PO QHS Qty: 30 11RF lidocaine 5 % adhesive patch,medicated 1 patch topical DAILY Qty: 30 11RF Rx Instructions: leave on most painful area for up to 12 hrs, then remove for 12hours cyclobenzaprine 10 mg tablet 10 mg PO BID PRN (Reason: muscle spasm) Qty: 60 5RF dextroamphetamine-amphetamine [Adderall] 20 mg tablet 20 mg PO BID Qty: 60 0RF Rx Instructions: administer doses at least 4-6 hours apart famotidine 40 mg tablet 40 mg PO BID Qty: 60 5RF trazodone 150 mg tablet 150 mg PO QHS PRN (Reason: sleep) Qty: 30 11RF nitrofurantoin monohyd/m-cryst [Macrobid] 100 mg capsule 100 mg PO Q12H 5 Days Qty: 10 0RF Rx Instructions: must administer with a meal/food Follow-up/Referrals: Leonie Ortega NP [Primary Care Provider] - Time of Disposition: 17:13
[2024-08-11 16:51] VITALS: BP 151/92; PULSE 71; RESP 16; TEMP 36.9; O2SAT 100
[2024-08-11 17:00] LABS: EDUAAPPEAR Clear; EDUABILI 2+ (Negative); EDUABLOOD Negative (Negative); EDUACOLOR1 Orange; EDUAGLUCOSE 1+ (Negative); EDUAKETONE 3+ (Negative); EDUALEUKO 3+ (Negative); EDUANITRATE Positive (Negative); EDUAPROTEIN 2+ (Negative); EDUASPGRAVITY 1.005
== END 2024-08-11 17:17 | disposition home or self-care (01) ==
PROVIDERS: Emergency Provider Nurse Practitioner; PCP Nurse Practitioner Family
DX: N39.0 Urinary tract infection, site not specified (principal); N90.7 Vulvar cyst; M81.0 Age-related osteoporosis without current pathological fracture; F41.9 Anxiety disorder, unspecified; F32.A Depression, unspecified; F90.9 Attention-deficit hyperactivity disorder, unspecified type; Z85.3 Personal history of malignant neoplasm of breast; Z90.12 Acquired absence of left breast and nipple
CPT/HCPCS: 81003; 87086; 99213; G0463

== ENCOUNTER 2024-08-16 08:05 | Emergency (ER) | payer MEDICARE, MEDICAID, SELFPAY ==
--- NOTE | 2024-08-16 08:12 | ED_ITS ---
HPI - Female Genitourinary General Chief complaint: Urogenital-Female Stated complaint: urinary issue, feeling sick Time Seen by Provider: 08/16/24 08:06 Source: patient Mode of arrival: ambulatory Limitations: no limitations History of Present Illness HPI Narrative: Alice is a 48-year-old female patient presenting to the clinic today with complaints of burning with urination and throbbing x2 weeks. She reports she overall does not feel well. Does report some associated nausea as well. Denies any back pain or abdominal pain. No fevers, chills, or body aches. She has taken Macrobid without relief and was switched to Augmentin. Related Data Home Medications ?Medication ?Instructions ?Recorded ?Confirmed ?Last Taken ?Type letrozole 2.5 mg tablet 2.5 mg PO DAILY 01/05/22 08/14/24 Unknown History buprenorphine 15 mcg/hour weekly 15 mcg transdermal WEEKLY 11/24/23 08/14/24 Unknown History transdermal patch ibuprofen 600 mg tablet 600 mg PO TID PRN 05/21/24 08/14/24 Unknown History Allergies Allergy/AdvReac Type Severity Reaction Status Date / Time No Known Allergies Allergy Verified 08/14/24 10:35 Review of Systems Review of Systems: Pertinent positives per HPI. Patient denies any fever, chills, rash, headache, visual changes, dizziness, cough, runny nose, sore throat, shortness of breath, chest pain, palpitations, nausea, vomiting, diarrhea, constipation, abdominal pain. PMFSH Past Medical History Medical History Bartholin cyst Urinary urgency Elevated BP without diagnosis of hypertension Chronic low back pain Insomnia Elevated glucose Elevated liver enzymes Anemia Osteoporosis Urinary frequency Irritable bowel syndrome with constipation Chronic idiopathic constipation Low back pain with right-sided sciatica Constipation Acne Chronic allergic rhinitis ADHD Depression Encounter to establish care Sinusitis Post-operative pain Interstitial cystitis Breast cancer Anorexia Anxiety Anxiety and depression Kidney infection UTI (urinary tract infection) Surgical History Surgical History H/O: hysterectomy History of lumpectomy of left breast Hx of breast augmentation Family History Family History Father Lung cancer Social History Social History Smoking status: Never smoker Second hand tobacco smoke exposure: No Alcohol intake: former Drinks per week: 0 Alcohol use details: LAST 2019 Substance use: current Substance use type: marijuana Other substance usage details: MEDICAL MARIJUANA Last use: 10/31/2020 Do You Feel Safe in your Home?: Yes Lack of Transportation: No Lack of Food: Never True Current Housing: I Have Housing Concerned About Future Housing: No Difficulty Paying Gas/Electric Bills: No Difficulty Paying for Meds: No Currently Unemployed: YES Education: Associate Degree Difficulty w/ Childcare or Family Care: No Living arrangements: with family Gender identity (if verbalized by the patient): Female Spiritual care concerns: No Agree to blood products: Yes Comments At the time of my signature, I reviewed and agree with the nursing past medical, surgical, social, and family history. There is no relevant family history pertinent to the patient complaint. Exam Narrative: General: Well-developed, well nourished, in no apparent distress Head: Normocephalic, atraumatic. Cardio: Regular rate and rhythm, s1 and s2 normal, no murmur appreciated. Resp: Clear to auscultation bilaterally, no rhonchi, rales, wheezing or rubs. Abdomen: Soft, pliable, bowel sounds present in all quadrants, non-tender to palpation, no CVAT tenderness. : Deferred-patient declined Course Course Emergency Course: Portions of this record may have been created with voice recognition software. Level of Care: Express Care Visit Vital Signs Vital signs: Vital Signs Temperature 36.7 C 08/16/24 08:15 Pulse Rate 66 08/16/24 08:15 Respiratory Rate 20 08/16/24 08:15 Blood Pressure 107/39 L 08/16/24 08:15 Pulse Oximetry 100 08/16/24 08:15 Oxygen Delivery Room Air 08/16/24 08:15 Temperature 36.7 C 08/16/24 08:15 Pulse Rate 66 08/16/24 08:15 Respiratory Rate 20 08/16/24 08:15 Blood Pressure 107/39 L 08/16/24 08:15 Pulse Oximetry 100 08/16/24 08:15 Oxygen Delivery Room Air 08/16/24 08:15 Vital signs reviewed MDM - Female Genitourinary MDM Narrative Medical decision making narrative: At the time of visit patient is resting comfortably on the exam table. Patient appears to be nontoxic. Labs: Urinalysis skewed due to taking azo. We will send urine for culture Plan: Will have patient continue taking Augmentin for Bartholin cyst/UTI symptoms. Prescription sent for Pyridium. Will await culture results to determine if patient needs to change antibiotics as her last culture was negative for any growth. Reports that her Bartholin cyst has decreased in size and is less painful but still having some pain when she is wiping. She denies any vaginal discharge or itching. She is not concerned for any STIs. States she has not had intercourse in over 1 year. Recommend follow-up with PCP and OBGYN as soon as possible. Supportive measures were discussed with the patient and they voiced understanding discharge instructions and agrees to treatment plan. Return precautions reviewed Differential Diagnosis Differential diagnosis: Likely urinary tract infection, bacterial vaginosis, trichomoniasis, cervicitis, ovarian cyst, vaginitis, cyst of Bartholin's gland, cystitis and other (Yeast infection, STI, overactive bladder,) Discharge Plan Discharge Clinical Impression: Dysuria Patient Disposition: Home Condition: Stable Instructions: Antibiotic Form, Dysuria (ED) Additional Instructions: You have been taking azo so that Will skew a urine dip. We will send urine for culture. Take Pyridium as prescribed Continue Augmentin as prescribed Increase fluids and stay well hydrated Wipe front to back. May use wet wipes. Avoid tub baths If sexually active- pee before and after intercourse. Wear cotton panties Avoid tight clothing up against the genitals Follow up with your PCP in 1 week if symptoms persist. Follow-up with your OBGYN as discussed Patient Language: [place] Prescriptions: New phenazopyridine [Pyridium] 200 mg tablet 200 mg PO TID PRN (Reason: pain) Qty: 6 0RF No Action buprenorphine 15 mcg/hour patch weekly 15 mcg transdermal WEEKLY amoxicillin-pot clavulanate 875-125 mg tablet 1 tablet PO Q12H 10 Days Qty: 20 0RF letrozole 2.5 mg tablet 2.5 mg PO DAILY Rx Instructions: begin between days 2 and 5 of mentrual cycle clonazepam 1 mg tablet 1 mg PO BID PRN (Reason: Anxiety) Qty: 60 5RF ondansetron HCl 4 mg tablet 4 mg PO Q8H PRN (Reason: nausea and vomiting) Qty: 30 2RF duloxetine 30 mg capsule,delayed release(DR/EC) 30 mg PO BID Qty: 60 5RF Rx Instructions: start 1 tab daily x7 days, then increase to 2x/day ibuprofen 600 mg tablet 600 mg PO TID PRN Linzess 290 mcg capsule 290 mcg PO DAILY Qty: 30 11RF minocycline 100 mg tablet 100 mg PO BID Qty: 60 11RF dextroamphetamine-amphetamine [Adderall] 20 mg tablet 20 mg PO BID Qty: 60 0RF Rx Instructions: administer doses at least 4-6 hours apart tizanidine [Zanaflex] 2 mg capsule 2 mg PO TID PRN (Reason: muscle spasticity) Qty: 12 0RF naproxen 500 mg tablet 500 mg PO BID PRN (Reason: pain) Qty: 14 0RF gabapentin 300 mg capsule 900 mg PO TID Qty: 300 11RF Rx Instructions: Take 900mg in the AM and afternoon. Take 1200mg at bedtime. solifenacin [Vesicare] 10 mg tablet 10 mg PO DAILY Qty: 90 3RF montelukast 10 mg tablet 10 mg PO QHS Qty: 30 11RF lidocaine 5 % adhesive patch,medicated 1 patch topical DAILY Qty: 30 11RF Rx Instructions: leave on most painful area for up to 12 hrs, then remove for 12hours cyclobenzaprine 10 mg tablet 10 mg PO BID PRN (Reason: muscle spasm) Qty: 60 5RF famotidine 40 mg tablet 40 mg PO BID Qty: 60 5RF trazodone 150 mg tablet 150 mg PO QHS PRN (Reason: sleep) Qty: 30 11RF Follow-up/Referrals: Leonie Ortega NP [Primary Care Provider] - Time of Disposition: 08:26 Quality NIHSS Nursing Documentation ED NIHSS nursing documentation: reviewed/agree
[2024-08-16 08:15] VITALS: BP 107/39; PULSE 66; RESP 20; TEMP 36.7; O2SAT 100
== END 2024-08-16 08:33 | disposition home or self-care (01) ==
PROVIDERS: Emergency Provider Nurse Practitioner Family; PCP Nurse Practitioner Family
DX: R30.0 Dysuria (principal); M81.0 Age-related osteoporosis without current pathological fracture; Z85.3 Personal history of malignant neoplasm of breast; Z90.12 Acquired absence of left breast and nipple
CPT/HCPCS: 87086; 99213; G0463

== ENCOUNTER 2024-08-28 12:56 | Emergency (ER) | payer MEDICARE, MEDICAID, SELFPAY ==
[2024-08-28 13:07] VITALS: BP 143/69; PULSE 73; RESP 20; TEMP 36.9; O2SAT 97
--- NOTE | 2024-08-28 13:20 | ED.FEMALEGU ---
HPI - Female Genitourinary General Chief complaint: Urogenital-Female Stated complaint: Vaginal Problems Time Seen by Provider: 08/28/24 12:58 Source: patient Mode of arrival: ambulatory Limitations: no limitations History of Present Illness HPI Narrative: Patient is a 48-year-old female who presents with lower abdominal pain, dysuria, urgency and frequency for 3 weeks. Patient has been on Macrobid then switched to Augmentin. Patient finished Augmentin 1 week ago and has been on Bactrim since with no relief of symptoms. Patient has seen PCP and has been seen here on the . Patient has not followed up with OBGYN or urologist as directed. Patient states she is in significant pain and has not been able to sleep due to pain. Also reports low back pain. Patient states she was told she had a kidney stone 1 point time but nothing was done about it. Denies any vaginal discharge or concern for STD. Patient has been taking azo and ibuprofen. MD elicited complaint: dysuria Related Data Home Medications Medication Instructions Recorded Confirmed Last Taken Type letrozole 2.5 mg tablet 2.5 mg PO DAILY 01/05/22 08/28/24 Unknown History buprenorphine 15 mcg/hour weekly 15 mcg transdermal WEEKLY 11/24/23 08/28/24 Unknown History transdermal patch ibuprofen 600 mg tablet 600 mg PO TID PRN fever or pain 05/21/24 08/28/24 Unknown History Allergies Allergy/AdvReac Type Severity Reaction Status Date / Time No Known Allergies Allergy Verified 08/16/24 09:38 Review of Systems Review of Systems: All systems reviewed & are unremarkable except as noted in HPI and below Constitutional: Constitutional: Denies chills, Denies fever(s), Denies headache(s), Denies malaise and Denies weakness Eyes: Eyes: Denies change in vision, Denies eye discharge and Denies irritation ENT: Denies otalgia, Denies headache(s), Denies nasal congestion, Denies nasal discharge, Denies sinus pain and Denies sore throat Cardiovascular: Cardiovascular: Denies chest pain, Denies edema, Denies palpitations and Denies dyspnea Respiratory: Respiratory: Denies cough and Denies dyspnea Gastrointestinal: Gastrointestinal: Reports abdominal pain, Denies diarrhea, Denies nausea and Denies vomiting Genitourinary: Genitourinary: Denies hematuria, Reports nocturia, Reports dysuria, Denies flank pain and Reports urinary urgency Musculoskeletal: Musculoskeletal: Denies back pain and Denies numbness Integumentary/Breasts: Skin/Breast: Denies pruritus and Denies rash Neurologic: Denies headache(s), Denies numbness and Denies weakness Psychiatric: Psychiatric: Reports no additional psychiatric complaints Endocrine: Endocrine: Denies palpitations PMFSH Past Medical History Medical History Bartholin cyst Urinary urgency Elevated BP without diagnosis of hypertension Chronic low back pain Insomnia Elevated glucose Elevated liver enzymes Anemia Osteoporosis Urinary frequency Irritable bowel syndrome with constipation Chronic idiopathic constipation Low back pain with right-sided sciatica Constipation Acne Chronic allergic rhinitis ADHD Depression Encounter to establish care Sinusitis Post-operative pain Interstitial cystitis Breast cancer Anorexia Anxiety Anxiety and depression Kidney infection UTI (urinary tract infection) Surgical History Surgical History H/O: hysterectomy History of lumpectomy of left breast Hx of breast augmentation Family History Family History Father Lung cancer Social History Social History Smoking status: Never smoker Second hand tobacco smoke exposure: No Alcohol intake: former Drinks per week: 0 Alcohol use details: LAST 2019 Substance use: current Substance use type: marijuana Other substance usage details: MEDICAL MARIJUANA Last use: 10/31/2020 Do You Feel Safe in your Home?: Yes Lack of Transportation: No Lack of Food: Never True Current Housing: I Have Housing Concerned About Future Housing: No Difficulty Paying Gas/Electric Bills: No Difficulty Paying for Meds: No Currently Unemployed: YES Education: Associate Degree Difficulty w/ Childcare or Family Care: No Living arrangements: with family Gender identity (if verbalized by the patient): Female Spiritual care concerns: No Agree to blood products: Yes Comments At time of signature, agree with nursing past medical, surgical, social and family history. There is no relevant family history pertinent to the presenting complaint. Exam Const: General: cooperative, healthy appearing, comfortable, no acute distress and well nourished Nutritional Appearance: well nourished Orientation/consciousness: patient oriented x3 HENMT: Head: normocephalic and atraumatic Ears: external ears normal Face/Nose/Sinus: Normal external nose present, Normal nares present and normal facial exam Face and sinus: normal facial exam Eyes: General: appearance normal, both eyes and all related structures Pupils: Equal, round and reactive pupils present EOM: EOMs intact bilaterally Neck: Neck: normal visual inspection, full ROM and supple Chest: Chest palpation & inspection: normal inspection of the chest Resp: Effort & Inspection: normal respiratory effort and able to speak in complete sentences Cardio: Rate: regular rate Rhythm: regular rhythm GI: Inspection: normal to inspection GI Palp: No abdominal tenderness and Yes Soft to palpation : General: Yes no CVA tenderness Back/Spine/Pelvis: Back: no CVA tenderness Skin: General skin exam: normal color and no rashes or lesions noted Neuro: General: patient oriented x3 and moves all extremities Cranial nerves: Yes Equal, round and reactive pupils present Extrem: General: normal to inspection and full ROM Psych: Appearance: grossly normal and well kempt Course Course Emergency Course: Patient being transferred to [facility] for further workup and evaluation. Patient requires labs and imaging due to significant pain in length of symptoms. Portions of this record may have been created with voice recognition software Level of Care: Express Care Visit Vital Signs Vital signs: Vital Signs Temperature 36.9 C 08/28/24 13:07 Pulse Rate 73 08/28/24 13:07 Respiratory Rate 20 08/28/24 13:07 Blood Pressure 143/69 H 08/28/24 13:07 Pulse Oximetry 97 08/28/24 13:07 Oxygen Delivery Room Air 08/28/24 13:07 Temperature 36.9 C 08/28/24 13:07 Pulse Rate 73 08/28/24 13:07 Respiratory Rate 20 08/28/24 13:07 Blood Pressure 143/69 H 08/28/24 13:07 Pulse Oximetry 97 08/28/24 13:07 Oxygen Delivery Room Air 08/28/24 13:07 Reviewed Transfer Transfered to: [facility] Transportation: Other (Private auto) Transfer rationale: Patient being transferred to [facility] for further workup and evaluation. Patient requires labs and imaging due to significant pain in length of symptoms. Accepting physician: Jim LIRIANO MDM - Female Genitourinary MDM Narrative Medical decision making narrative: Patient being transferred to [facility] for further workup and evaluation. Patient requires labs and imaging due to significant pain in length of symptoms. Differential Diagnosis Differential diagnosis: Likely urinary tract infection, bacterial vaginosis, trichomoniasis, cervicitis, vaginitis and cystitis Medical Records Attestation: I reviewed the patient's medical records. Lab Data Attestation: I reviewed the patient's lab results. Labs: Lab Results 08/28/24 Range/Units 13:10 POC Urine Color [place] POC Urine Clarity Clear POC Urine pH 5.0 POC Ur Specif [place] 1.010 POC Urine Protein 3+ (Negative) POC Ur Glucose (UA) 1+ (Negative) POC Urine Ketones 1+ (Negative) POC Urine Blood Trace (Negative) POC Urine Nitrite Positive (Negative) POC Urine Bilirubin 3+ (Negative) POC Urine Urobilinogen 8.0 POC U Leukocyte Esteras 3+ (Negative) Discharge Plan Discharge Clinical Impression: Lower abdominal pain Patient Disposition: Acute Care Hospital Condition: Stable Patient Language: Greek Prescriptions: No Action buprenorphine 15 mcg/hour patch weekly 15 mcg transdermal WEEKLY phenazopyridine [Pyridium] 200 mg tablet 200 mg PO TID PRN (Reason: pain) Qty: 6 0RF letrozole 2.5 mg tablet 2.5 mg PO DAILY Rx Instructions: begin between days 2 and 5 of mentrual cycle clonazepam 1 mg tablet 1 mg PO BID PRN (Reason: Anxiety) Qty: 60 5RF ondansetron HCl 4 mg tablet 4 mg PO Q8H PRN (Reason: nausea and vomiting) Qty: 30 2RF ibuprofen 600 mg tablet 600 mg PO TID PRN (Reason: fever or pain) minocycline 100 mg tablet 100 mg PO BID Qty: 60 11RF dextroamphetamine-amphetamine [Adderall] 20 mg tablet 20 mg PO BID Qty: 60 0RF Rx Instructions: administer doses at least 4-6 hours apart tizanidine [Zanaflex] 2 mg capsule 2 mg PO TID PRN (Reason: muscle spasticity) Qty: 12 0RF naproxen 500 mg tablet 500 mg PO BID PRN (Reason: pain) Qty: 14 0RF gabapentin 300 mg capsule 900 mg PO TID Qty: 300 11RF Rx Instructions: Take 900mg in the AM and afternoon. Take 1200mg at bedtime. solifenacin [Vesicare] 10 mg tablet 10 mg PO DAILY Qty: 90 3RF montelukast 10 mg tablet 10 mg PO QHS Qty: 30 11RF lidocaine 5 % adhesive patch,medicated 1 patch topical DAILY Qty: 30 11RF Rx Instructions: leave on most painful area for up to 12 hrs, then remove for 12hours trazodone 150 mg tablet 150 mg PO QHS PRN (Reason: sleep) Qty: 30 11RF sulfamethoxazole-trimethoprim [Bactrim DS] 800-160 mg tablet 1 tablet PO Q12H Qty: 20 0RF Follow-up/Referrals: Leonie Ortega NP [Primary Care Provider] - Stand Alone Forms: Work/School Release IP Time of Disposition: 14:16
[2024-08-28 13:28] LABS: EDUAAPPEAR Clear; EDUABILI 3+ (Negative); EDUABLOOD Trace (Negative); EDUACOLOR1 Orange; EDUAGLUCOSE 1+ (Negative); EDUAKETONE 1+ (Negative); EDUALEUKO 3+ (Negative); EDUANITRATE Positive (Negative); EDUAPROTEIN 3+ (Negative)
== END 2024-08-28 14:27 | disposition short-term general hospital (02) ==
PROVIDERS: Emergency Provider Nurse Practitioner Family; PCP Nurse Practitioner Family
DX: R10.30 Lower abdominal pain, unspecified (principal); M81.0 Age-related osteoporosis without current pathological fracture; N30.10 Interstitial cystitis (chronic) without hematuria; F90.9 Attention-deficit hyperactivity disorder, unspecified type; F41.9 Anxiety disorder, unspecified; F32.A Depression, unspecified; Z85.3 Personal history of malignant neoplasm of breast; Z90.12 Acquired absence of left breast and nipple
CPT/HCPCS: 81003; 87086; 99213; G0463

== ENCOUNTER 2024-08-28 14:40 | Emergency (ER) | payer MEDICARE, MEDICAID, SELFPAY ==
--- OUTSIDE RECORDS SUMMARY | 2024-08-28 14:46 | XMS_ITS | Encounter Summary ---
Author Organization [facility] Address [address] [place] [address] Phone Care Team Providers Care Bindery Supervisor Name Role Phone Arlene Rodriguez APRN, ENTERTAINMENT PRODUCTION PROFESSIONAL Primary Care Provider Leonie Ortega APRN, ENTERTAINMENT PRODUCTION PROFESSIONAL Primary Care Provider + Pierre Arnett DO Unavailable [phone] Reason for Visit * Reason Comments Medication Refill Encounter Details Date Type Department Care Team (Late st Contact Info) Description 08/26/2021 Refill [facility] [address] [place] [address] Pierre Arnett, DO [address] [place] [address] Medication Refill Social History Tobacco [...] on file 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
--- OUTSIDE RECORDS SUMMARY | 2024-08-28 14:46 | XMS_ITS | Clinical Summary ---
Author Organization [facility] Address [address] [place] [address] Care Team Providers Care Manager Marketing Communication Name Role Phone Leonie Ortega DEBORAH Primary Care Provider [phone] Pierre Arnett DO Unavailable [phone] Allergies No known active allergies Medications [...] 7 Day Supply 56 tablet 4 Active Active Problems Problem Noted Date Diagnosed Date Spondylolisthesis of lumbar region 07/18/2023 Generalized body aches 01/26/2021 Fatigue, unspecified type 01/26/2021 COVID-19 vaccine series not administered 021 Malignant neoplasm of overla pping sites of left breast in female, estrogen receptor positive ([facility]) 06/18/2020 Primary insomnia 05/18/2020 Invasive ductal carcinoma of breast, female, left ([facility]) 05/18/2020 Er+ DE+ carcinoma of breast, left ([facility] HHS/H CC) 05/18/2020 Left breast mass 12/24/2019 Neck pain 10/28/2019 Abnormal TSH 10/28/2019 Neuropathy 10/28/2019 OAB (overactive bladder) 10/28/2019 Yeast vaginitis 05/18/2019 Frequent urination 11/27/2018 High risk sexual behavior, unspecified type 11/14 Vitamin D deficiency 11/27/2018 Frequent UTI 11/27/2018 Urgency of urination 11/27/2018 Vaginal yeast infection 11/27/2018 Acute cystitis without hematuria 07/02/2018 ADD (attention deficit disorder) without hyperac tivity 07/02/2018 Bipolar disorder ([facility]) 01/07/2016 Depression with anxiety 01/05/2016 Resolved Problems Problem Noted Date Diagnosed Date Resolved Date Need for COVID-19 vaccine 12/29/2020 Pap smear for cervical cancer screening 11/27/2018 12/26/2019 Immunizations Immunization Administration Dates Next Due Fluzone 6 Months+ Quad (0.5 mL Prefilled Syringe) 12/23/2019 Influenza (Generic) 01/05/2016 Influenza Adult (Generic) 01/05/2016,03/15/2015, 03/03/2013 Tdap (Boostrix) 03/11/2018 Family History Medical History Relation Comments Cancer Father cancer from work ing around asbestos at [employer] No Known Problems Maternal Aunt No Known [...] drink = 0.6 oz pur e alcohol) [facility] Utilities Answer Date Recorded In the past 12 months has e Ship Mate, gas, oil, or water [employer] threatened to shut off services in your [...] move on to questions 3-9 1 05/17/2020 [facility] - Occupational Stress Questionnaire Answer Date Recorded [...] place to sleep or slept in a correction (including now)? No 07/18/2023 Comments No Sex [...] st Contact Info) Description 06/02/2025 10:00 AM STORE ASSISTANT Appointment [facility] Mammography [address] [place], [place] [phone] Sukh Mcdaniel MD [address] [place] [address] [place] [phone] Health Maintenance Due Date Last Done Comments Colorectal Cancer Screening Colonoscopy (10 Years) 1977 Annual Physical 1980 Hepatitis B Vaccines (1 of 3 - 19+ 3-dose series) 1996 COVID-19 Vaccine ( - season) 2023 PHQ-2 (Physician [place]) 04/16/2024 Mammogram Screening 04/22/2026 04/22/2024, 11/03/2022, 01/03/2022, [...] 5 Years) and At-Risk Patients (6 to 49 Years) Aged Out No longer eligible based on patient's age to complete this topic RSV Immunizations Under 20 Months Aged Out No longer eligible based on patient's age to complete this topic Goals Goal Patient Goal Type Associated Problems Recent Progress Patient-Stated? Author Family - family caregiver with be involved in care transitions and discharge planning Lifestyle No Hubert Zee, RN Medical Devices Implanted Type Area Public Finance Specialist Device Identifier Shelf Expiration Date Model / Serial / Lot Graft Bone Cancellous 15ml 4-10mm Freeze Dried Chips - [id number] Implanted:Qty: 1 on 07/18/2023 by Aggie Dumont MD at [facility] Bone N/A: Spine Lumbar [employer] [id number] 03/11/2027 [id number] / / [id number] Breast Breast Ofx 40mm Charles Implanted:Qty: 2 on 07/18/2023 by Aggie Dumont MD at [facility] Charles N/A: Spine Lumbar ORTHOFIX [id number] / / Set Screw Implanted:Qty: 4 on 07/18/2023 by Aggie Dumont MD at [facility] Screw N/A: Spine Lumbar ORTHOFIX [id number] / / Ofx 6.5x45mm Implanted:Qty: 2 on 07/18/2023 by Aggie Dumont MD at [facility] Screw N/A: Spine Lumbar ORTHOFIX [id number] / / Ofx 6.5x50mm Implanted:Qty: 2 on 07/18/2023 by Aggie Dumont MD at [facility] Screw N/A: Spine Lumbar ORTHOFIX 44-5650 / / Magnetos Implanted:Qty: 1 on 07/18/2023 by Aggie Dumont MD at [facility] N/A: Spine Lumbar [id number] 12/16/2027 [id number] / / [id number] Description:MFR: [employer] IENCES Top Loading Body Implanted:Qty: 4 on 07/18/2023 by Aggie Dumont MD at [facility] N/A: Spine Lumbar [id number] / / Procedures Procedure Name Priority Date/Time Associated Diagnosis Comments MG SCREENING IMPLANT W JEREMIAH RT DIGI Routine 04/22/2024 12:09 PM STORE ASSISTANT Screening mammogram, encounter for HEPATITIS C ANTIBODY Routine 11/26/2018 2:32 PM CDT High risk sexual behavior, unspecified type from Last 3 Months or Most Recently Relevant to Health Maintenance Results * MG SCREENING IMPLANT W JEREMIAH RT DIGI (04/22/2024 12:09 PM STORE ASSISTANT) Anatomical Region Laterality Modality Breast Right Mammography 04/22/2024 12:2 4 PM STORE ASSISTANT Impressions 04/22/2024 1:33 PM STORE ASSISTANT ===== IMPRESSION: ===== 1. Stable mammographic appearance with no new findings to suggest malignancy in the breast. Assessment: ACR BI-RADS 2 - BENIGN FINDING(S) Recommendation: 1:Routine Screening Right Comments: Ordered By: SUKH MCDANIEL Interpreted By: Joseph Jimenez MD, 04/22/2024 12:24 PM Narrative 04/22/2024 1:33 PM STORE ASSISTANT [facility] [address] [place] [address] Examination: Digital right screening mammogram with 3-D [...] LAB 11/26/2018 2:32 PM CDT Arlene Rodriguez REFINERY OPERATOR [facility] Final Result [facility] [address] [place] [address], from Last 3 Months or Most Recently Relevant to Health Maintenance Insurance [employer] Advance Directives Documents on File Type Date Recorded Patient Farm Advisor Expl anation Legal Documents 04/10/2019 Charge Estim ate Form-Self Pay * Full Code (Latest Code Status on File) Date Activated Date Inactivated Comments 07/18/2023 5:29 PM 07/19/2023 3:55 PM Care Teams Manager Marketing Communication Relationship Specialty Start Date End Date Leonie Ortega APNP [address] [facility] [address] [facility] [place] [address] PCP - General Nurse Practitioner Family 08/12/22 Pierre Arnett, DO [address] [place] [address] Consulting Physician INTERNAL MEDICINE 07/09/23
--- OUTSIDE RECORDS SUMMARY | 2024-08-28 14:46 | XMS_ITS ---
Author Organization [facility] [address] Address [address] [place] [phone] Care Team Providers Care Fruit Tester Name Role Phone Arlene Rodriguez POLE SHAVER Unavailable [phone] Leonie Ortega NP Primary Care Provider [phone] Eusebio Villanueva POLE SHAVER Unavailable [phone] Active Problems Problem Noted Date Diagnosed [...]
--- OUTSIDE RECORDS SUMMARY | 2024-08-28 14:46 | XMS_ITS | Encounter Summary ---
Author Organization [facility] Address [facility] [place] [address] Care Team Providers Care Psych Therapist Name Role Phone NikkiArlene lujan YUDELKA Primary Care Provider [phone] Shameka Wright MD Unavailable [phone] Latha Jean RN Unavailable UnavailLeonie Montana Primary Care Provider [phone] Pierre Arnett DO Unavailable [phone] Encounter Details Date Type Department Care Team (Late st Contact Info) Description 08/01/2019 My eStore App [facility] [address] [place] [address] [facility] Provider Notice regarding your past due balance [...] st Contact Info) Description 06/02/2025 10:00 AM DIRECTOR PATIENT ACCOUNTING Appointment [facility] [place] [address] Kai Davenport MD [facility] [address] [phone] documented as of this encounter Visit Diagnoses Not on filedocumented in this encounter Additional Health Concerns Infection Onset Date Last Indicated Resolved Time COVID-19 Rule Out 02/14/2020 02/14/2020 02/15/2020 6:11 PM DIRECTOR PATIENT ACCOUNTING COVID-19 Rule Out 01/26/2021 01/26/2021 01/26/2021 10:51 AM CDT COVID-19 Rule Out 01/26/2021 01/26/2021 01/27/2021 12:16 AM CDT COVID-19 Rule Out 04/22/2021 04/22/2021 04/29/2021 12:32 AM DIRECTOR PATIENT ACCOUNTING Assessment Noted Time PHQ-9 Depression Total Score: 1 05/13/19 20 11:10 AM DIRECTOR PATIENT ACCOUNTING documented as of this encounter Care Teams Psych Therapist Relationship Specialty Start Date End Date Arlene Rodriguez FNP [address] [place] [phone] PCP - General Nurse Practitioner Family 04/24/18 08/11/22 Leonie Ortega APNP [address] [phone] PCP - General Nurse Practitioner Family 08/12/22 Shameka Wright MD [address] [place] [phone] Radiation Oncologist RADIATION ONCOLOGY 07/30/20 Latha Jean, liquor clerk Nurse Navigator REGISTERED NURSE 07/30/20 07/08/23 Pierre Arnett DO [address] [place] [address] Consulting Physician INTERNAL MEDICINE 07/09/23 documented as of this encounter
--- OUTSIDE RECORDS SUMMARY | 2024-08-28 14:46 | XMS_ITS | Clinical Summary ---
Author Organization [facility] Address [address] [place] [address] Care Team Providers Care Blood Bank Order Control Clerk Name Role Phone Arlene Rodriguez [employer] Primary Care Provider [phone] Source Comments [facility],non-owned Affiliates and Associated Physician Practices is amultiple site organization consisting of ambulatory clinics and hospital sitesin [place] and [place]. This disclosure is being madepursuant to the Care Everywhere program and may not contain all information available regarding this patient. Last updated 18.[facility] Allergies Active Allergy Reactions Criticality Noted Date Comments Codeine GI Discomfort 09/03/2017 Medications * Be aware that medications may not be up to date on this document. Alwaysverify current medications with the patient. lactulose (CHRONULAC) 20 GM/30ML solution Take 30 mL by mouth BID PRN. 437 mL 1 6 Active Additional Information Patient not taking.Reported on 09/03/2020 traZODone (DESYREL) 100 MG tablet 150 mg 8 Active buPROPion (WELLBUTRIN) 100 MG tablet Take 300 mg by mouth once daily Active phenazopyridine (PYRIDIUM) 100 MG tablet Take 1 tablet by mouth 3 times daily as needed for Pain 15 tablet 8 Active fluconazole (DIFLUCAN) 150 MG tablet Take 1 tablet by mouth once daily 1 tablet 8 Active Additional Information Patient not taking.Reported on 09/03/2020 ELMIRON 100 MG capsule TAKE ONE CAPSULE BY MOUTH THREE TIMES DAILY, BEFORE MEALS 90 capsule 9 Active Additional Information Patient not taking.Reported on 09/03/2020 clonazePAM (KLONOPIN) 1 MG tablet TAKE 1 TABLET BY MOUTH TWICE DAILY NEEDED FOR ANXIETY 0 Active minocycline (MINOCIN) 100 MG capsule 0 Active tamoxifen (NOLVADEX) 20 MG tablet Take 20 mg by mouth once daily 1 Active solifenacin (VESICARE) 10 MG tablet 1 Active montelukast (SINGULAIR) 10 MG tablet 0 Active traMADol (Ultram) 50 MG tablet Take by mouth every 6 hours as needed 2 Active tiZANidine (Zanaflex) 4 MG tablet Take 1 (one) tablet by mouth 3 times daily as needed 3 Active naloxegol (Movantik) 25 MG tablet Take 1 (one) tablet by mouth once daily 3 Active Family History Medical History Relation Name [...] drink = 0.6 oz pur e alcohol) Comments Unknown Sex and Gender Information Value Date Recorded Sex Assigned at Not on file Legal Sex Female 5:46 PM CRIMINAL INVESTIGATIVE AGENT Gender Identity Not on file Sexual Orientation [...] patient's age to complete this topic Insurance Care Teams Blood Bank Order Control Clerk Relationship Specialty Start Date End Date Arlene Rodriguez APRN-CNP [address] [place] [address] PCP - General 12/17/20
--- OUTSIDE RECORDS SUMMARY | 2024-08-28 14:46 | XMS_ITS | Clinical Summary ---
Author Organization [facility] Address [address], [facility] [address] [place] [address] Phone Care Team Providers Care Management Supervisor Name Role Phone Leonie Ortega APRN, NOHEMI Primary Care Provider + Pierre Arnett DO Unavailable [phone] Allergies No known active allergies Medications amphetamine-dex [...] Active letrozole (FEMARA) 2.5 MG TabletIndicatio ns:Er+ [place]+ carcinoma of breast, left (HCC) TAKE 1 [...] Malignant neoplasm of female breast 06/18/2020 Er+ [place]+ carcinoma of breast, left 05/18/2020 Neuropathy 10/28/2019 Bipolar disorder 01/07/2016 Depression with anxiety 01/05/2016 Encounters Date Type Department Care Team Description 08/08/2024 10:30 AM CDT Office Visit [facility] [address] [phone] Pierre Arnett DO Osteoporosis, unspecified osteoporosis type, unspecified pathological fracture presence (Primary Dx); Malignant neoplasm of overlapping sites of left breast in female, estrogen receptor positive (HCC) 08/08/2024 10:25 AM CDT Lab [facility] [address] [phone] Lab, [facility] [place] Er+ [place]+ carcinoma of breast, left (HCC); Osteoporosis, unspecified osteoporosis type, unspecified pathological fracture presence; Malignant neoplasm of overlapping sites of left breast in female, estrogen receptor positive (HCC) 08/08/2024 Travel 07/15/2024 Telephone [facility] [address] [phone] Pierre Arnett DO Canopy Call / Spa injection from [...] Alive Brother 2 Alive Father asbestos from [employer] steel Mother Alive Sister Alive Social History [...] on file Legal Sex Female 8:29 AM STAKER SURVEYING Gender Identity Not on file Sexual Orientation Not on file 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 Not on file Not on file Not on file Last Filed Vital Signs Vital Sign Reading Time Taken Comments Blood Pressure 122/60 08/08/2024 10:46 AM CDT Pulse 63 08/08/2024 10:46 AM CDT Temperature 36.7 C (98 F) 08/08/2024 10:46 AM CDT Respiratory Rate 18 08/08/2024 10:46 AM CDT Oxygen Saturation 95% 08/08/2024 10:46 AM CDT Inhaled Oxygen Concentration - - Weight 54.6 kg (120 lb 4.8 oz) 08/08/2024 10:46 AM CDT Height 172.7 cm (5' 8 ) 08/08/2024 10:46 AM CDT Body Mass Index 18.29 08/08/2024 10:46 AM CDT Plan of Treatment Upcoming Encounters Date Type Department Care Team (Late st Contact Info) Description 11/07/2024 10:00 AM CDT Clinical Support [facility] [address] [address] [facility] 02/06/2025 10:30 AM CDT Office Visit [facility] [address] [address] Pierre Arnett, DO [address] [place] [phone] Health Maintenance Due Date Last Done Comments [...] Completed 04/22/2024, 11/03/2022, 06/29/2021, Additional history exists Human Papillomavirus (HPV) Immunization Aged Out No longer eligible based on patient's age to complete this topic Meningococcal Immunization (ACWY) Aged Out No longer eligible based on patient's age to complete this topic Rotavirus Immunization Aged Out No lo nger eligible based on patient's age to complete this topic Procedures Procedure Name Priority Date/Time Associated Diagnosis Comments CBC WITH AUTO DIFF OH Routine 08/08/2024 10:11 AM CDT CMP (COMPREHENSIVE METABOLIC PANEL) Routine 08/08/2024 10:11 AM CDT Er+ [place]+ carcinoma of breast, left (HCC) Osteoporosis, unspecified osteoporosis type, unspecified pathological fracture presence Malignant neoplasm of overlapping sites of left breast in female, estrogen receptor positive (HCC) from Last 3 Months Results * (ABNORMAL) CBC WITH AUTO DIFF OH (08/08/2024 10:11 AM CDT) WBC 6.6 4.0 - 10.0 10*3/uL CANCER TELEPHONE CLERK TELEGRAPH OFFICE [facility] HGB 11.7 11.2 - 15.7 g/dL CANCER TELEPHONE CLERK TELEGRAPH OFFICE [facility] HCT 36.0 34.1 - 44.9 % CANCER TELEPHONE CLERK TELEGRAPH OFFICE [facility] PLT 200 163 - 369 10*3/uL CANCER TELEPHONE CLERK TELEGRAPH OFFICE [facility] MPV 9.1(L) 9.4 - 12.4 fL CANCER TELEPHONE CLERK TELEGRAPH OFFICE [facility] RBC 3.87(L) 3.93 - 5.22 10*6/uL CANCER TELEPHONE CLERK TELEGRAPH OFFICE [facility] MCV 93 79 - 95 fL CANCER TELEPHONE CLERK TELEGRAPH OFFICE [facility] MCH 30.2 25.6 - 32.2 pg CANCER TELEPHONE CLERK TELEGRAPH OFFICE [facility] MCHC 32.5 32.2 - 36.5 g/dL CANCER TELEPHONE CLERK TELEGRAPH OFFICE [facility] RDW 11.7 11.6 - 14.4 % CANCER TELEPHONE CLERK TELEGRAPH OFFICE [facility] Neutrophils % 70.7(H) 36.0 - 66.0 % CANCER TELEPHONE CLERK TELEGRAPH OFFICE [facility] Lymphocytes % 21.4 19.0 - 40.0 % CANCER TELEPHONE CLERK TELEGRAPH OFFICE [facility] Monocytes % 4.7 4.1 - 12.1 % CANCER TELEPHONE CLERK TELEGRAPH OFFICE [facility] Eosinophils % 2.3 0.0 - 3.5 % CANCER TELEPHONE CLERK TELEGRAPH OFFICE [facility] Basophils % 0.9 0.0 - 1.0 % CANCER TELEPHONE CLERK TELEGRAPH OFFICE [facility] Absolute Neutrophils 4.7 1.4 - 6.6 10*3/uL CANCER TELEPHONE CLERK TELEGRAPH OFFICE [facility] Absolute Lymphocytes 1.4 0.8 - 4.0 10*3/uL CANCER TELEPHONE CLERK TELEGRAPH OFFICE [facility] Absolute Monocytes 0.3 0.2 - 1.2 10*3/uL CANCER TELEPHONE CLERK TELEGRAPH OFFICE [facility] Absolute Eosinophils 0.2 0.0 - 0.4 10*3/uL CANCER TELEPHONE CLERK TELEGRAPH OFFICE [facility] Absolute Basophils 0.1 0.0 - 0.1 10*3/uL CANCER TELEPHONE CLERK TELEGRAPH OFFICE [facility] 08/08/2024 10:1 1 AM CDT us Pierre Arnett DO LAB SEND OUTS Final Result CANCER TELEPHONE CLERK TELEGRAPH OFFICE [facility] [place] [address], * (ABNORMAL) CMP (COMPREHENSIVE METABOLIC PANEL) (08/08/2024 10:11 AM CDT) Glucose 74 70 - 105 mg/dL [facility] Blood Urea Nitrogen 16 7 - 25 mg/dL [facility] Creatinine 0.7 0.6 - 1.2 mg/dL [facility] Sodium 140 136 - 145 mEq/L [facility] Potassium 3.5 3.5 - 5.1 mEq/L [facility] Chloride 103 98 - 107 mEq/L [facility] Bicarbonate 28 21 - 31 mEq/L [facility] Total Bilirubin 0.8 0.3 - 1.0 mg/dL [facility] Alk. Phosphatase 25(L) 34 - 104 U/L [facility] Aspartate Aminotransferase 19 13 - 39 U/L [facility] Alanine Aminotransferase 17 7 - 52 U/L [facility] Total Protein 7.1 6.4 - 8.9 g/dL [facility] Albumin 4.7 3.5 - 5.7 g/dL [facility] Calcium 9.0 8.6 - 10.3 mg/dL [facility] Anion Gap 12.5 7.0 - 15.0 mEq/L [facility] Globulin 2.4 2.0 - 3.5 g/dL [facility] EGFR 107 >60 ml/min/1. 73m2 [facility] Comment: This eGFR is calculated using 2020 CKD-EPI Creatinine equation without race modifier based on the NKF-ASN task force recommendations Equation: tVXG=735*min(SCr/k,1)a*max(SCr/k,1)-1.200*0.9938Age*1.012 (if female), where SCr is serum creatinine, k is 0.7 for females and 0.9 for males, and a is -0.241 for females and -0.302 for males Blood 08/08/2024 10:[address] [facility] - 08/08/2024 11:04 AM CDT Release to patient->Immediate IS THE PATIENT REQUIRED TO BE FASTING FOR 8 HOURS?->No Pierre Arnett DO CHEMISTRY ORDERABLES Final Res ult CANCER TELEPHONE CLERK TELEGRAPH OFFICE [facility] [place] [address], [place] [phone] from Last 3 Months Insurance MEDICARE [place]ICAID [place] Care Teams Management Supervisor Relationship Specialty Start Date End Date Leonie Ortega APRN, CHIEF MEDICAL PHYSICIST [address] [place] [address] PCP - General Advanced Practice Nurse 03/21/22 Pierre Arnett DO [address] [place] [phone] Consulting Physician Oncology 03/19/23
--- OUTSIDE RECORDS SUMMARY | 2024-08-28 14:46 | XMS_ITS | Encounter Summary ---
Author Organization [facility] Address [address] [place] [address] Phone Care Team Providers Care Paid Search Marketing Strategist Name Role Phone Arlene Rodriguez APRN, HOUSEFELLOW Primary Care Provider Leonie Ortega APRN, HOUSEFELLOW Primary Care Provider + Pierre Arnett DO Unavailable [phone] Encounter Details Date Type Department Care Team (Late st Contact Info) Description 02/25/2021 Telephone [facility] [place] [address] [place] [address] Pierre Arnett, DO [address] [place] [address] Social History Tobacco Use Types [...] on file Legal Sex Female 8:29 AM AGRICULTURAL CONSULTANT Gender Identity Not on file Sexual Orientation Not on file 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 No / Unsure 02/25/2021 8:41 AM AGRICULTURAL CONSULTANT documented as of this encounter Miscellaneous Notes * Telephone Encounter - Courtney Langston PAC - 02/25/2021 2:46 PM AGRICULTURAL CONSULTANT Thank you! CULTURAL CONSULTANT * Telephone Encounter - Marta Marina - 02/25/2021 2:08 PM CST PATIENT IS SCHEDULED FOR BONE SCAN 03/16/21 AT 12PM. CULTURAL CONSULTANT documented in this encounter Plan of Treatment Upcoming Encounters Date Type Department Care Team (Late st Contact Info) Description 11/07/2024 10:00 AM CDT Clinical Support [facility] [address] [phone] Nurse, Adele [facility] 02/06/2025 10:30 AM CDT Office Visit [facility] [address] [phone] Pierre Arnett DO [address] [place] [phone] documented as of this encounter Visit Diagnoses Not on filedocumented in this encounter Additional Health Concerns Assessment Noted Time PHQ-9 Depression Total Score: 0 02/26/20 9:12 AM AGRICULTURAL CONSULTANT documented as of this encounter Care Teams Paid Search Marketing Strategist Relationship Specialty Start Date End Date Arlene Rodriguez APRN, HOUSEFELLOW [address] [place] [address] PCP - General Internal Medicine 02/20/20 03/20/22 Leonie Ortega APRN, HOUSEFELLOW [address] [address] PCP - General Advanced Practice Nurse 03/21/22 Pierre Arnett DO [address] [place] [phone] Consulting Physician Oncology 03/19/23 documented as of this encounter
--- OUTSIDE RECORDS SUMMARY | 2024-08-28 14:46 | XMS_ITS ---
Author Organization [facility] Address [address] [place] [address] Care Team Providers Care Continuity Editor Name Role Phone Ortega Leonie DEBORAH Primary Care Provider [phone] Pierre Arnett DO Unavailable [phone] Active Problems Problem Noted Date Diagnosed Date Spondylolisthesis of lumbar region 07/18/2023 Generalized body aches 01/26/2021 Fatigue, unspecified type 01/26/2021 COVID-19 vaccine series not administered 021 Malignant neoplasm of overla pping sites of left breast in female, estrogen receptor positive ([facility]) 06/18/2020 Primary insomnia 05/18/2020 Invasive ductal carcinoma of breast, female, left ([facility]) 05/18/2020 Er+ AR+ carcinoma of breast, left ([facility] HHS/ CC) 05/18/2020 Left breast mass 12/24/2019 Neck pain 10/28/2019 Abnormal TSH 10/28/2019 Neuropathy 10/28/2019 OAB (overactive bladder) 10/28/2019 Yeast vaginitis 05/18/2019 Frequent urination 11/27/2018 High risk sexual behavior, unspecified type 11/14 Vitamin D deficiency 11/27/2018 Frequent UTI 11/27/2018 Urgency of urination 11/27/2018 Vaginal yeast infection 11/27/2018 Acute cystitis without hematuria 07/02/2018 ADD (attention deficit disorder) without hyperac tivity 07/02/2018 Bipolar disorder ([facility]) 01/07/2016 Depression with anxiety 01/05/2016 Current Treatment and Therapy Plans No current plan information found. Past Treatment and Therapy Plans No past plan information found. Radiation Treatments * Course C1 08/18/2020 - 09/30/2020 Treatment Period Energy Fraction Dose Fractions Total Dose Plans Planned Scar boost:1 09/27/2020 - 09/30/2020 4 of 4 / Scar boost 09/24/2020 - 09/24/2020 1 of 5 / Left_CW_LN 08/18/2020 - 09/23/2020 25 of 25 / Reference Points Delivered Scar Wire 09/24/2020 - 09/30/[address] 08/18/2020 - 09/23/2020 [id number] Resolved Problems Problem Noted Date Diagnosed Date Resolved Date Need for COVID-19 vaccine 12/29/2020 Pap smear for cervical cancer screening 11/27/2018 12/26/2019
--- OUTSIDE RECORDS SUMMARY | 2024-08-28 14:46 | XMS_ITS | Referral Summary ---
Author Organization [facility] [address] Address [address] [place] [address] Care Team Providers Care Sheet Rock Nailer Name Role Phone Arlene Rodriguez PST SUPERVISOR Unavailable [phone] Leonie Ortega NP Primary Care Provider [phone] Eusebio Villanueva PST SUPERVISOR Unavailable [phone] Encounters Date Type Department Care Team Description 08/28/2024 11:00 AM CDT Hospital [facility] [address] [place] [phone] Eusebio Villanueva NP Lumbar radiculopathy (Primary Dx); Spinal stenosis of lumbar region without neurogenic claudication; Lumbar post-laminectomy syndrome; Myalgia 08/13/2024 Telephone [facility] [address] [place] [phone] Eric Sandhu from Last 3 Months Allergies Active Allergy [...] needed for pain 60 capsule 1 5 Active gabapentin (NEURONTIN) 300 mg capsuleIndication s:Neuropathic Pain Take 1 capsule (300 mg total) by mouth 3 (three) times a day 90 capsule 1 5 Active Additional Information Patient not taking.Reported on 08/28/2024 ibuprofen (ADVIL,MOTRIN) 600 mg tabletIndications :Lumbar post-laminectomy syndrome,Myalgia, Spinal stenosis of lumbar region without neurogenic claudication,Lumb ar radiculopathy TAKE 1 TABLET BY MOUTH EVERY 8 HOURS NEEDED FOR PAIN 90 tablet 1 5 Active Active Problems Problem Noted Date Diagnosed [...] on file Legal Sex Female 6:01 AM PLATE CONDITIONER Gender Identity Not on file Sexual Orientation Not on file Last Filed Vital Signs Vital Sign Reading Time Taken Comments Blood Pressure 147/78 08/28/2024 11:20 AM CDT Pulse 65 08/28/2024 11:20 AM CDT Temperature 37.1 C (98.7 F) 04/29/2024 1:32 PM PLATE CONDITIONER Respiratory Rate 16 08/28/2024 11:20 AM CDT Oxygen Saturation 100% 08/28/2024 11:20 AM CDT Inhaled Oxygen Concentration - - Weight 58.1 kg (128 lb) 05/11/2022 9:10 AM PLATE CONDITIONER Height 172.7 cm (5' 8 ) 05/11/2022 9:10 AM PLATE CONDITIONER Body Mass Index 19.46 05/11/2022 9:10 AM PLATE CONDITIONER Plan of Treatment Not on file Medical Devices Implanted Type Area Boiling House Hand Device Identifier Shelf Expiration Date Model / Serial / Lot [employer] Implant Breast High Profile Smooth Memorygel Boost 545cc Gel [id number] - [id number] - [id number] Implanted:Qty: 1 on 08/12/2021 by Jc Hernandez, DO at [facility] 06/21/2026 S [id number] / [id number] / [id number] [employer] Implant Breast High Profile Smooth Memorygel Boost 480cc Gel [id number] - [id number] - [id number] Implanted:Qty: 1 on 08/12/2021 by Jc Hernandez, DO at [facility] [employer] 04/20/2026 S [id number] / [id number] / [id number] Insurance [facility] IDND IDND MEDICARE [facility] Address: [address] [address] [facility] Advance Directives For more information, please contact: [phone] * Full Code (Latest Code Status on File) Date Activated Date Inactivated Comments 08/13/2021 1:26 AM 08/14/2021 3:39 PM Care Teams Sheet Rock Nailer Relationship Specialty Start Date End Date Leonie Ortega NP [address] [place] [address] PCP - General Family Medicine 03/28/22 Arlene Rodriguez NP [address] [place] [address] 10/11/21 Eusebio Villanueva PST SUPERVISOR [id number] [facility] [address] [place] [address] Nurse Practitioner Pain Management 03/31/24
--- OUTSIDE RECORDS SUMMARY | 2024-08-28 14:46 | XMS_ITS ---
Author Organization [facility] Address [address], 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 Plan Clean Up Melquiades, Pierre D, DO Treatment not started ORAL CHEMO TREATMENT Plan Name Start Date Discontinue Date Treatment Medications Discontinue Reason Plan Provider Cycles BREAST - LETROZOLE - ON LICENSE OF [facility] 1 07/19/2021 letrozole (FEMARA) Plan Clean Up Melquiades, Pierre D, DO Treatment not started
--- OUTSIDE RECORDS SUMMARY | 2024-08-28 14:46 | XMS_ITS | Continuity of Care Document ---
Author Organization [facility] Address [address] [place] [place] [address] Phone Care Team Providers Care Imaging Analyst Name Role Phone Bassam Gannon MD [...] Diagnoses Date Provider Providers Copied on Encounter [facility], [address] [place], [id number], [place] tel:[phone] [facility] No Information Jagdeep Banegas. [address], [id number], [place]. tel:[phone] PREV VISIT, NEW, AGE 18-39 [facility], [address], [place], [place], [id number], [place] tel:[phone] [facility] Family Medicine PHysical (chief complaint) Encntr for general adult medical exam w/o abnormal findings Jagdeep Banegas. [address], [facility] A, [place], [place], [id number], [place]. tel:[phone] Referring Provider: Bella Miguel [address], [place], [place], [id number]. tel:[phone] Family History Family Member Type Diagnosis Age At Onset Brother Problem (finding) Alive and well Mother Problem (finding) Alive and well Father Problem (finding) Alive and well Payers Payer name Insurance type Covered constitution party ID Authoriza tion(s) No Information Social [...]
--- OUTSIDE RECORDS SUMMARY | 2024-08-28 14:46 | XMS_ITS | Encounter Summary ---
Author Organization [facility] Address [address] [place] [address] Phone Care Team Providers Care Rotor Pilot Name Role Phone Arlene Rodriguez APRN, FARM HELPER Primary Care Provider Leonie Ortega APRN, FARM HELPER Primary Care Provider + Pierre Arnett DO Unavailable [phone] Encounter Details Date Type Department Care Team (Late st Contact Info) Description 04/02/2020 Telephone [facility] [place] [address] [place] [address] Pierre Arnett, DO [address] [place] [address] Social History Tobacco Use Types [...] on file Legal Sex Female 8:29 AM LIME PULLER Gender Identity Not on file Sexual Orientation Not on file 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 No / Unsure 03/26/2020 10:02 AM LIME PULLER documented as of this encounter Miscellaneous Notes * Telephone Encounter - Pierre Arnett DO - 04/02/2020 1:22 PM CST Try to call her sister and send letter PULLER * Telephone Encounter - Marta Marina - [...] HAVE US MAIL A LETTER? PLEASE ADVISE. PULLER documented in this encounter Plan of Treatment Upcoming Encounters Date Type Department Care Team (Late st Contact Info) Description 11/07/2024 10:00 AM CDT Clinical Support [facility] [address] [phone] Nurse, [facility] 02/06/2025 10:30 AM CDT Office Visit [facility] [address] [phone] Pierre Arnett DO [address] [place] [phone] documented as of this encounter Visit Diagnoses Not on filedocumented in this encounter Additional Health Concerns Assessment Noted Time PHQ-9 Depression Total Score: 0 03/26/20 20 10:15 AM LIME PULLER documented as of this encounter Care Teams Rotor Pilot Relationship Specialty Start Date End Date Arlene Rodriguez, FIELD ORGANIZER, FARM HELPER [address] [place] [address] PCP - General Internal Medicine 02/20/20 03/20/22 Leonie Ortega, FIELD ORGANIZER, FARM HELPER [address] [place] [address] PCP - General Advanced Practice Nurse 03/21/22 Pierre Arnett DO [address] [place] [phone] Consulting Physician Oncology 03/19/23 documented as of this encounter
--- OUTSIDE RECORDS SUMMARY | 2024-08-28 14:46 | XMS_ITS | Encounter Summary ---
Author Organization [facility] Address [address] [place] [address] Care Team Providers Care Radio Equipment Installer Name Role Phone NikkiArlene lujan YUDELKA Primary Care Provider [phone] Shameka Wright MD Unavailable [phone] Latha Jean RN Unavailable Leonie Hooper Primary Care Provider [phone] Pierre Arnett DO Unavailable [phone] Encounter Details Date Type Department Care Team (Late st Contact Info) Description 08/04/2020 Pastoral Care Encounter [facility] [place] [phone] Martínez Morrissey Social History Tobacco Use Types [...] Initial visit;Assessment;Referral Referral From Nurse Referral To [facility] Certified Concierge Plan of Care Care Plan Initiated Yes;Patient [...] st Contact Info) Description 06/02/2025 10:00 AM LIQUID COMPOUNDER Appointment [facility] [address] Kai Davenport MD [address] [place] [phone] documented as of this encounter Visit Diagnoses Not on filedocumented in this encounter Additional Health Concerns Infection Onset Date Last Indicated Resolved Time COVID-19 Rule Out 01/26/2021 01/26/2021 01/26/2021 10:51 AM CDT COVID-19 Rule Out 01/26/2021 01/26/2021 01/27/2021 12:16 AM CDT COVID-19 Rule Out 04/22/2021 04/22/2021 04/29/2021 12:32 AM LIQUID COMPOUNDER Assessment Noted Time PHQ-9 Depression Total Score: 5 05/17/19 3:11 PM LIQUID COMPOUNDER documented as of this encounter Care Teams Radio Equipment Installer Relationship Specialty Start Date End Date Arlene RodriguezYUDELKA [address] [place] [address] PCP - General Nurse Practitioner Family 04/24/18 08/11/22 Leonie Ortega APNP [address] [address] PCP - General Nurse Practitioner Family 08/12/22 Shameka Wright MD [address] [place] [address] Radiation Oncologist RADIATION ONCOLOGY 07/30/20 Latha Jean, transit mix operator Nurse Navigator REGISTERED NURSE 07/30/20 07/08/23 Pierre Arnett, [address] [place] [address] Consulting Physician INTERNAL MEDICINE 07/09/23 documented as of this encounter
--- OUTSIDE RECORDS SUMMARY | 2024-08-28 14:46 | XMS_ITS | Clinical Summary ---
Author Organization [facility] [address] [place] [phone] Care Team Providers Care Bread Dumper Name Role Phone Arlene Rodriguez PROFESSOR OF EXERCISE SCIENCE Unavailable [phone] Leonie Ortega NP Primary Care Provider [phone] Eusebio Villanueva PROFESSOR OF EXERCISE SCIENCE Unavailable [phone] Allergies Active Allergy Reactions Criticality Noted [...] Description 08/28/2024 11:00 AM CDT Hospital Encounter [facility] [address] [place] [address] Eusebio Villanueva, NAILA Lumbar radiculopathy (Primary Dx); Spinal stenosis of lumbar region without neurogenic claudication; Lumbar post-laminectomy syndrome; Myalgia 08/13/2024 Telephone [facility] [address] [place] [address] Eric Sandhu from Last 3 Months Surgical History Surgery Date Site/Laterality Comments COLONOSCOPY HYSTERECTOMY 12/15/2020 - 01/13/2021 SECTION 04/16/2009 - 04/15/2010 SECTION 04/16/2012 - 04/15/2013 BREAST SURGERY 04/16/2020 - 05/16/2020 Left lumpectomy with tissue logistics center manager on L BREAST SURGERY 04/16/2011 - 04/15/2012 [...] on file Legal Sex Female 6:01 AM HEALTH DATA ADMINISTRATOR Gender Identity Not on file Sexual Orientation Not on file Obstetrics History Last Filed Vital Signs Vital Sign Reading Time Taken Comments Blood Pressure 147/78 08/28/2024 11:20 AM CDT Pulse 65 08/28/2024 11:20 AM CDT Temperature 37.1 C (98.7 F) 04/29/2024 1:32 PM HEALTH DATA ADMINISTRATOR Respiratory Rate 16 08/28/2024 11:20 AM CDT Oxygen Saturation 100% 08/28/2024 11:20 AM CDT Inhaled Oxygen Concentration - - Weight 58.1 kg (128 lb) 05/11/2022 9:10 AM HEALTH DATA ADMINISTRATOR Height 172.7 cm (5' 8 ) 05/11/2022 9:10 AM HEALTH DATA ADMINISTRATOR Body Mass Index 19.46 05/11/2022 9:10 AM HEALTH DATA ADMINISTRATOR Plan of Treatment Health Maintenance Due Date Last Done Comments Breast Cancer Screening-Mammogram 1977 Colon Cancer Screening-Colonoscopy 1977 Hepatitis C Screening 1975 Hepatitis B Screening 11/14/1995 Regular Well Visit/Exam 18-64 11/14/1995 Pneumococcal vaccine <65 (1 of 2 - PCV) 1996 Zoster Vaccine (1 of 2) 1996 Depression Screening 10/25/2022 10/25/2021, 10/26/19 Influenza Vaccine (Season Ended) 2024 12/23/2019, 01/05/2016, 03/15/2015, Additional history exists DTaP/Tdap/Td Vaccine (2 - Td or Tdap) 03/11/2028 03/11/2018 HPV Vaccines Aged Out No longer eligi ble based on patient's age to complete this topic Medical Devices Implanted Type Area Press Operator Automatic Device Identifier Shelf Expiration Date Model / Serial / Lot [employer] Implant Breast High Profile Smooth Memorygel Boost 545cc Gel [id number] - [id number] - [id number] Implanted:Qty: 1 on 08/12/2021 by Jc Hernandez, DO at [facility] [employer] 06/21/2026 S [id number] / [id number] / [id number] [employer] Implant Breast High Profile Smooth Memorygel Boost 480cc Gel [id number] - [id number] - [id number] Implanted:Qty: 1 on 08/12/2021 by Jc Hernandez, DO at [facility] [employer] 04/20/2026 S [id number] / [id number] / [id number] Insurance [facility] MEDICARE [facility] Advance Directives For more information, please contact: [phone] * Full Code (Latest Code Status on File) Date Activated Date Inactivated Comments 08/13/2021 1:26 AM 08/14/2021 3:39 PM Care Teams Bread Dumper Relationship Specialty Start Date End Date Leonie Ortega NP [address] [place] [address] PCP - General Family Medicine 03/28/22 Arlene Rodriguez NP [address] [place] [address] 10/11/21 [place] [address] [place] [address] Nurse Practitioner Pain Management 03/31/24
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
[2024-08-28 14:55] VITALS: BP 137/82; PULSE 64; RESP 18; TEMP 36.5; O2SAT 100
--- OUTSIDE RECORDS SUMMARY | 2024-08-28 15:18 | XMS_ITS | Encounter Summary ---
Author Organization [facility] Address [address] [place] [address] Phone Care Team Providers Care Interface Developer Name Role Phone Arlene Rodriguez APRN, FOOD SERVICE [facility] Primary Care Provider Leonie Ortega APRN, FOOD SERVICE WORKER [facility] Primary Care Provider + Pierre Arnett DO Unavailable [phone] Reason for Visit * Reason Comments Medication Refill Encounter Details Date Type Department Care Team (Late st Contact Info) Description 08/26/2021 [address]ill 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 Not on file Not on file Not [...] AM CDT Clinical Support [facility] [address] [phone] Nurse, [facility] 02/06/2025 10:30 AM CDT Office Visit [facility] [address] [phone] Pierre Arnett DO [address] [place] [phone] documented as of this encounter Visit Diagnoses Not on filedocumented in this encounter Additional Health Concerns Assessment Noted Time PHQ-9 Depression Total Score: 0 02/26/20 21 9:12 AM BOOTH CASHIER documented as of this encounter Care Teams Interface Developer Relationship Specialty Start Date End Date Arlene Rodriguez APRN, [facility] [address] [place] [address] PCP - General Internal Medicine 02/20/20 03/20/22 Leonie Ortega APRN, FOOD SERVICE [facility] [address] [place] [address] PCP - General Advanced Practice Nurse 03/21/22 Pierre Arnett DO [address] [place] [phone] Consulting Physician Oncology 03/19/23 documented as of this encounter
--- OUTSIDE RECORDS SUMMARY | 2024-08-28 15:18 | XMS_ITS | Continuity of Care Document ---
Author Organization [facility] Address [address] [place] [address] [place] [address] Phone Care Team Providers Care Thoracic Surgeon Name Role Phone Bassam Gannon MD Unavailable [...] Diagnoses Date Provider Providers Copied on Encounter [facility], [address] [employer] [place], [id number], [place] tel:[phone] [facility] No Information Jagdeep Banegas. [address], [place], [place], [id number], [place]. tel:[phone] PREV VISIT, NEW, AGE 18-39 [facility], [address], [place], [place], [id number], [place] tel:[phone] [facility] Family Medicine PHysical (chief complaint) Encntr for general adult medical exam w/o abnormal findings Jagdeep Banegas. [address], [facility] A, [place], [place], [id number], [place]. tel:[phone] Referring Provider: Bella [address], [place], [place], [id number]. tel:[phone] Family History Family Member Type Diagnosis Age At Onset Brother Problem (finding) Alive and well Mother Problem (finding) Alive and well Father Problem (finding) Alive and well Payers Payer name Insurance type Covered republican ID Authoriza tion(s) No Information Social History [...]
--- OUTSIDE RECORDS SUMMARY | 2024-08-28 15:18 | XMS_ITS ---
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 Plan Clean Up Melquiades, Pierre D, DO Treatment not started ORAL CHEMO TREATMENT Plan Name Start Date Discontinue Date Treatment Medications Discontinue Reason Plan Provider Cycles BREAST - LETROZOLE - [facility] 1 07/19/2021 letrozole (FEMARA) Plan Clean Up Melquiades, Pierre D, DO Treatment not started
--- OUTSIDE RECORDS SUMMARY | 2024-08-28 15:18 | XMS_ITS | Referral Summary ---
Author Organization [facility] [address] Address [address] [place] [address] Care Team Providers Care Counter Person Name Role Phone Arlene Rodriguez ELECTRICAL DESIGN ENGINEER Unavailable [phone] Leonie Ortega NP Primary Care Provider [phone] Eusebio Villanueva ELECTRICAL DESIGN ENGINEER Unavailable [phone] Encounters Date Type Department Care Team Description 08/28/2024 11:00 AM CDT Hospital Encounter [facility] [address] [place] [address] Eusebio Villanueva NP Lumbar radiculopathy (Primary Dx); Spinal stenosis of lumbar region without neurogenic claudication; Lumbar post-laminectomy syndrome; Myalgia 08/13/2024 Telephone [facility] [address] [place] [phone] Eric Sandhu from Last 3 Months Allergies [...] on file 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 Gender Identity Not on file Sexual Orientation Not on file Last Filed Vital Signs Vital Sign Reading Time Taken Comments Blood Pressure 147/78 08/28/2024 11:20 AM CDT Pulse 65 08/28/2024 11:20 AM CDT Temperature 37.1 C (98.7 F) 04/29/2024 1:32 PM SERVICE DISPATCHER Respiratory Rate 16 08/28/2024 11:20 AM CDT Oxygen Saturation 100% 08/28/2024 11:20 AM CDT Inhaled Oxygen Concentration - - Weight 58.1 kg (128 lb) 05/11/2022 9:10 AM SERVICE DISPATCHER Height 172.7 cm (5' 8 ) 05/11/2022 9:10 AM SERVICE DISPATCHER Body Mass Index 19.46 05/11/2022 9:10 AM SERVICE DISPATCHER Plan of Treatment Not on file Medical Devices Implanted Type Area Platinumsmith Device Identifier Shelf Expiration Date Model / Serial / Lot [employer] Implant Breast High Profile Smooth Memorygel Boost 545cc Gel [id number] - [id number] - [id number] Implanted:Qty: 1 on 08/12/2021 [facility] 06/21/2026 S [id number] / [id number] / [id number] [employer] Implant Breast High Profile Smooth Memorygel Boost 480cc Gel [id number] - [id number] - [id number] Implanted:Qty: 1 on 08/12/2021 by Jc Hernandez, DO at [facility] [employer] 04/20/2026 S [id number] / [id number] / [id number] Insurance [facility] [employer] MEDICARE [facility] Advance Directives For more information, please contact: [phone] * Full Code (Latest Code Status on File) Date Activated Date Inactivated Comments 08/13/2021 1:26 AM 08/14/2021 3:39 PM Care Teams Counter Person Relationship Specialty Start Date End Date Leonie Ortega NP [address] [place] [address] PCP - General Family Medicine 03/28/22 Arlene Rodriguez NP [address] [place] [address] 10/11/21 Eusebio Villanueva ELECTRICAL DESIGN ENGINEER [address] [address] [place] [address] Nurse Practitioner Pain Management 03/31/24
--- OUTSIDE RECORDS SUMMARY | 2024-08-28 15:18 | XMS_ITS | Clinical Summary ---
Author Organization [facility] [address] [place] [address] Care Team Providers Care Coal Screener Name Role Phone Arlene Rodriguez HEAD CD REACTOR OPERATOR Unavailable [phone] Leonie Ortega NP Primary Care Provider [phone] Eusebio Villanueva HEAD CD REACTOR OPERATOR Unavailable [phone] Allergies Active Allergy Reactions Criticality Noted [...] Description 08/28/2024 11:00 AM CDT Hospital Encounter [facility] [address] [place] [address] Eusebio Villanueva, NAILA Lumbar radiculopathy (Primary Dx); Spinal stenosis of lumbar region without neurogenic claudication; Lumbar post-laminectomy syndrome; Myalgia 08/13/2024 Telephone [facility] [address] [place] [address] Eric Sandhu from Last 3 Months Surgical History Surgery Date Site/Laterality Comments COLONOSCOPY HYSTERECTOMY 12/15/2020 - 01/13/2021 SECTION 04/16/2009 - 04/15/2010 SECTION 04/16/2012 - 04/15/2013 BREAST SURGERY 04/16/2020 - 05/16/2020 Left lumpectomy with tissue carbonating stone cleaner on L BREAST SURGERY 04/16/2011 - 04/15/2012 [...] on file 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 Gender Identity Not on file Sexual Orientation Not on file Obstetrics History Last Filed Vital Signs Vital Sign Reading Time Taken Comments Blood Pressure 147/78 08/28/2024 11:20 AM CDT Pulse 65 08/28/2024 11:20 AM CDT Temperature 37.1 C (98.7 F) 04/29/2024 1:32 PM JOURNALISM TEACHER Respiratory Rate 16 08/28/2024 11:20 AM CDT Oxygen Saturation 100% 08/28/2024 11:20 AM CDT Inhaled Oxygen Concentration - - Weight 58.1 kg (128 lb) 05/11/2022 9:10 AM JOURNALISM TEACHER Height 172.7 cm (5' 8 ) 05/11/2022 9:10 AM JOURNALISM TEACHER Body Mass Index 19.46 05/11/2022 9:10 AM JOURNALISM TEACHER Plan of Treatment Health Maintenance Due Date [...] this topic Medical Devices Implanted Type Area Dial Mounter Device Identifier Shelf Expiration Date Model / Serial / Lot [employer] Implant Breast High Profile Smooth Memorygel Boost 545cc Gel [id number] - [id number] - [id number] Implanted:Qty: 1 on 08/12/2021 by Jc Hernandez, DO at [facility] [employer] 06/21/2026 S [id number] / [id number] / [id number] [employer] Implant Breast High Profile Smooth Memorygel Boost 480cc Gel [id number] - [id number] - [id number] Implanted:Qty: 1 on 08/12/2021 by Jc Hernandez, DO at [facility] [employer] 04/20/2026 S [id number] / [id number] / [id number] Insurance [facility] MEDICARE [facility] Advance Directives For more information, please contact: [phone] * Full Code (Latest Code Status on File) Date Activated Date Inactivated Comments 08/13/2021 1:26 AM 08/14/2021 3:39 PM Care Teams Coal Screener Relationship Specialty Start Date End Date Leonie Ortega NP [address] [place] [address] PCP - General Family Medicine 03/28/22 Arlene Rodriguez NP [address] [place] [address] 10/11/21 [place] [address] [place] [address] Nurse Practitioner Pain Management 03/31/24
--- OUTSIDE RECORDS SUMMARY | 2024-08-28 15:18 | XMS_ITS | Encounter Summary ---
Author Organization [facility] Healthcare Address [address] [place] [address] Care Team Providers Care Automobile Mechanic Apprentice Name Role Phone Arlene Rodriguez BRANCH ASSISTANT Unavailable [phone] Leonie Ortega NP Primary Care Provider [phone] Eusebio Villanueva BRANCH ASSISTANT Unavailable [phone] Reason for Visit * Reason Comments Back Pain Follow-up Encounter Details Date Type Department Care Team (Latest Contact Info) Description 08/28/2024 11:00 AM CDT Hospital Encounter [facility] [address] [place], [place] [id number] [place] [id number] [place] [address] [address] [place] [address] Lumbar radiculopathy (Primary Dx); Spinal stenosis of [...] on file 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 There may be some sociology research assistant variances which are not appreciated or corrected [...] myositis documented in this encounter Care Teams Automobile Mechanic Apprentice Relationship Specialty Start Date End Date Leonie Ortega NP [address] [place] [address] PCP - General Family Medicine 03/28/22 Arlene Rodriguez NP [address] [place] [address] 10/11/21 [place] [address] [facility] [address] [place] [address] Nurse Practitioner Pain Management 03/31/24 documented as of this encounter
--- OUTSIDE RECORDS SUMMARY | 2024-08-28 15:18 | XMS_ITS | Encounter Summary ---
Author Organization [facility] Address [facility] [place] [address] Care Team Providers Care Doll Eye Setter Name Role Phone NikkiArlene lujan YUDELKA Primary Care Provider [phone] Shameka Wright MD Unavailable [phone] Latha Jean RN Unavailable UnavailLeonie Montana Primary Care Provider [phone] Pierre Arnett DO Unavailable [phone] Encounter Details Date Type Department Care Team (Late st Contact Info) Description 08/01/2019 [facility] Patient Accounts [address] [place] [address] [facility] Provider Notice regarding your past due balance [...] st Contact Info) Description 06/02/2025 10:00 AM MICROSOFT ACCESS DEVELOPER Appointment [facility] [place] [address] Kai Davenport MD [facility] [address] [id number] documented as of this encounter Visit Diagnoses Not on filedocumented in this encounter Additional Health Concerns Infection Onset Date Last Indicated Resolved Time COVID-19 Rule Out 02/14/2020 02/14/2020 02/15/2020 6:11 PM MICROSOFT ACCESS DEVELOPER COVID-19 Rule Out 01/26/2021 01/26/2021 01/26/2021 10:51 AM CDT COVID-19 Rule Out 01/26/2021 01/26/2021 01/27/2021 12:16 AM CDT COVID-19 Rule Out 04/22/2021 04/22/2021 04/29/2021 12:32 AM MICROSOFT ACCESS DEVELOPER Assessment Noted Time PHQ-9 Depression Total Score: 1 05/13/19 20 11:10 AM MICROSOFT ACCESS DEVELOPER documented as of this encounter Care Teams Doll Eye Setter Relationship Specialty Start Date End Date Arlene Rodriguez FNP [address] [place] [address] [phone] PCP - General Nurse Practitioner Family 04/24/18 08/11/22 Leonie Ortega APNP [address] [phone] PCP - General Nurse Practitioner Family 08/12/22 Shameka Wright MD [address] [place] [address] Radiation Oncologist RADIATION ONCOLOGY 07/30/20 Latha Jean, bad work gatherer Nurse Navigator REGISTERED NURSE 07/30/20 07/08/23 Pierre Arnett DO [address] [place] [address] Consulting Physician INTERNAL MEDICINE 07/09/23 documented as of this encounter
--- OUTSIDE RECORDS SUMMARY | 2024-08-28 15:18 | XMS_ITS | Clinical Summary ---
Author Organization [facility] Address [address] [place] [address] Care Team Providers Care Redipper Name Role Phone Leonie Ortega DEBORAH Primary Care Provider [phone] Pierre Arnett DO Unavailable [phone] Allergies No known active allergies Medications [...] left breast in female, estrogen receptor positive ([facility]) 06/18/2020 Primary insomnia 05/18/2020 Invasive ductal carcinoma of breast, female, left ([facility]) 05/18/2020 Er+ [place]+ carcinoma of breast, left ([facility] HHS/H CC) 05/18/2020 Left breast mass 12/24/2019 Neck pain 10/28/2019 Abnormal TSH 10/28/2019 Neuropathy 10/28/2019 OAB (overactive bladder) 10/28/2019 Yeast vaginitis 05/18/2019 Frequent urination 11/27/2018 High risk sexual behavior, unspecified type 11/14 Vitamin D deficiency 11/27/2018 Frequent UTI 11/27/2018 Urgency of urination 11/27/2018 Vaginal yeast infection 11/27/2018 Acute cystitis without hematuria 07/02/2018 ADD (attention deficit disorder) without hyperac tivity 07/02/2018 Bipolar disorder ([facility]) 01/07/2016 Depression with anxiety 01/05/2016 Resolved Problems [...] cancer from work ing around asbestos at [employer] No Known Problems Maternal Aunt No Known [...] drink = 0.6 oz pur e alcohol) [facility] Utilities Answer Date Recorded In the past 12 months has e [employer], gas, oil, or water [employer] threatened to shut off services in your [...] move on to questions 3-9 1 05/17/2020 [facility] - Occupational Stress Questionnaire Answer Date Recorded [...] place to sleep or slept in a longterm (including now)? No 07/18/2023 Comments No Sex [...] st Contact Info) Description 06/02/2025 10:00 AM PALS NURSE Appointment [facility] Mammography [address] [facility] [address] [place], [place] [phone] Sukh Mcdaniel MD [address] [place] [address] [place] [address] Health Maintenance Due Date Last Done Comments Colorectal Cancer Screening Colonoscopy (10 Years) 1977 Annual Physical 1980 Hepatitis B Vaccines (1 of 3 - 19+ 3-dose series) 1996 COVID-19 Vaccine ( - season) 2023 PHQ-2 (Physician [place]) 04/16/2024 Mammogram Screening 04/22/2026 04/22/2024, 11/03/2022, 01/03/2022, [...] Zee, RN Medical Devices Implanted Type Area Middle School Counselor Device Identifier Shelf Expiration Date Model / Serial / Lot Graft Bone Cancellous 15ml 4-10mm Freeze Dried Chips - [id number] Implanted:Qty: 1 on 07/18/2023 by Aggie Dumont MD at [facility] Bone N/A: Spine Lumbar [employer] [id number] 03/11/2027 [id number] / / [id number] Breast Breast Ofx 40mm Charles Implanted:Qty: 2 on 07/18/2023 by Aggie Dumont MD at [facility] Charles N/A: Spine Lumbar ORTH[employer] [id number] / / Set Screw Implanted:Qty: 4 on 07/18/2023 by Aggie Dumont MD at [facility] Screw N/A: Spine Lumbar ORTHOFIX [id number] / / Ofx 6.5x45mm Implanted:Qty: 2 on 07/18/2023 by Aggie Dumont MD at [facility] Screw N/A: Spine Lumbar ORTHOFIX [id number] / / Ofx 6.5x50mm Implanted:Qty: 2 on 07/18/2023 by Aggie Dumont MD at [facility] Screw N/A: Spine Lumbar ORTHOFIX 44-5650 / / Magnetos Implanted:Qty: 1 on 07/18/2023 by Aggie Dumont MD at [facility] N/A: Spine Lumbar [id number] 12/16/2027 [id number] / / [id number] Description:MFR: Typo Keyboards IENCES Top Loading Body Implanted:Qty: 4 on 07/18/2023 by Aggie Dumont MD at [facility] N/A: Spine Lumbar [id number] / / Procedures Procedure Name Priority Date/Time Associated Diagnosis Comments MG SCREENING IMPLANT W JEREMIAH RT DIGI Routine 04/22/2024 12:09 PM PALS NURSE Screening mammogram, encounter for HEPATITIS C ANTIBODY Routine 11/26/2018 2:32 PM CDT High risk sexual behavior, unspecified type from Last 3 Months or Most Recently Relevant to Health Maintenance Results * MG SCREENING IMPLANT W JEREMIAH RT DIGI (04/22/2024 12:09 PM PALS NURSE) Anatomical Region Laterality Modality Breast Right Mammography 04/22/2024 12:2 4 PM PALS NURSE Impressions 04/22/2024 1:33 PM PALS NURSE ===== IMPRESSION: ===== 1. Stable mammographic appearance with no new findings to suggest malignancy in the breast. Assessment: ACR BI-RADS 2 - BENIGN FINDING(S) Recommendation: 1:Routine Screening Right Comments: Ordered By: SUKH MCDANIEL Interpreted By: Joseph Jimenez MD, 04/22/2024 12:24 PM Narrative 04/22/2024 1:33 PM PALS NURSE [facility] [place] [address] Examination: Digital right screening mammogram with 3-D [...] VE NON-REACTI VE 11/26/2018 9:20 PM CDT [facility] 11/26/2018 2:32 PM CDT Arlene Rodriguez TEST TECHNICIAN LABORATORY Final Result [facility] [address] [place] [address], from Last 3 Months or Most Recently Relevant to Health Maintenance Insurance [employer] Advance Directives Documents on File Type Date Recorded Patient Horse Rider Expl anation Legal Documents 04/10/2019 Charge Estim ate Form-Self Pay * Full Code (Latest Code Status on File) Date Activated Date Inactivated Comments 07/18/2023 5:29 PM 07/19/2023 3:55 PM Care Teams Redipper Relationship Specialty Start Date End Date Leonie Ortega APNP [address] [facility] 2 [place] [address] PCP - General Nurse Practitioner Family 08/12/22 Pierre Arnett, DO [address] [place] [address] Consulting Physician INTERNAL MEDICINE 07/09/23
--- OUTSIDE RECORDS SUMMARY | 2024-08-28 15:18 | XMS_ITS ---
Author Organization [facility] [address] Address [address] [place] [address] Care Team Providers Care Boat Wrapper Name Role Phone Arlene Rodriguez MOTOR VEHICLE LECTURER Unavailable [phone] Leonie Ortega NP Primary Care Provider [phone] Eusebio Villanueva MOTOR VEHICLE LECTURER Unavailable Active Problems Problem Noted Date Diagnosed [...]
--- OUTSIDE RECORDS SUMMARY | 2024-08-28 15:18 | XMS_ITS ---
Author Organization [facility] Address [address] [place] [address] Care Team Providers Care Supportive Employment Case Manager Name Role Phone Ortega Leonie DEBORAH Primary Care Provider [phone] Pierre Arnett DO Unavailable [phone] Active Problems Problem Noted Date Diagnosed Date Spondylolisthesis of lumbar region 07/18/2023 Generalized body aches 01/26/2021 Fatigue, unspecified type 01/26/2021 COVID-19 vaccine series not administered 021 Malignant neoplasm of overla pping sites of left breast in female, estrogen receptor positive ([facility]) 06/18/2020 Primary insomnia 05/18/2020 Invasive ductal carcinoma of breast, female, left ([facility]) 05/18/2020 Er+ [place]+ carcinoma of breast, left ([facility] HHS/ CC) 05/18/2020 Left breast mass 12/24/2019 Neck pain 10/28/2019 Abnormal TSH 10/28/2019 Neuropathy 10/28/2019 OAB (overactive bladder) 10/28/2019 Yeast vaginitis 05/18/2019 Frequent urination 11/27/2018 High risk sexual behavior, unspecified type 11/14 Vitamin D deficiency 11/27/2018 Frequent UTI 11/27/2018 Urgency of urination 11/27/2018 Vaginal yeast infection 11/27/2018 Acute cystitis without hematuria 07/02/2018 ADD (attention deficit disorder) without hyperac tivity 07/02/2018 Bipolar disorder ([facility]) 01/07/2016 Depression with anxiety 01/05/2016 Current Treatment [...] [address] 08/18/2020 - 09/23/2020 [id number] Resolved Problems Problem Noted Date Diagnosed Date Resolved Date Need for COVID-19 vaccine 12/29/2020 Pap smear for cervical cancer screening 11/27/2018 12/26/2019
--- OUTSIDE RECORDS SUMMARY | 2024-08-28 15:18 | XMS_ITS | Clinical Summary ---
Author Organization [facility] Address [address] [place], [facility] 1 [place] [address] Phone Care Team Providers Care Jewel Inspector Name Role Phone Leonie Ortega APRN, NOHEMI Primary Care Provider + Pierre Arnett DO Unavailable [phone] Allergies No known active allergies Medications amphetamine-dex [...] CDT Office Visit [facility] [address] [phone] Pierre Arnett DO Osteoporosis, unspecified osteoporosis type, unspecified pathological fracture presence (Primary Dx); Malignant neoplasm of overlapping sites of left breast in female, estrogen receptor positive (HCC) 08/08/2024 10:25 AM CDT Lab [facility] [address] [phone] Lab, [facility] [place] Er+ [place]+ carcinoma of breast, left (HCC); Osteoporosis, unspecified osteoporosis type, unspecified pathological fracture presence; Malignant neoplasm of overlapping sites of left breast in female, estrogen receptor positive (HCC) 08/08/2024 Travel 07/15/2024 Telephone [facility] [address] [phone] Pierre Arnett DO [employer] [...] Alive Brother 2 Alive Father asbestos from [employer] Mother Alive Sister Alive Social History [...] on file Legal Sex Female 8:29 AM MARKET RESEARCHER Gender Identity Not on file Sexual Orientation Not on file 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 Not on file Not [...] CDT Clinical Support [facility] [address] [phone] Nurse, [facility] 02/06/2025 10:30 AM CDT Office Visit [facility] [address] [phone] Pierre Arnett, DO [address] [place] [phone] Health Maintenance Due Date Last Done Comments [...] PANEL) Routine 08/08/2024 10:11 AM CDT Er+ [place]+ carcinoma of breast, left (HCC) Osteoporosis, unspecified osteoporosis type, unspecified pathological fracture presence Malignant neoplasm of overlapping sites of left breast in female, estrogen receptor positive (HCC) from Last 3 Months Results * (ABNORMAL) CBC WITH AUTO DIFF [place] (08/08/2024 10:11 AM CDT) WBC 6.6 4.0 - 10.0 10*3/uL [facility] HGB 11.7 11.2 - 15.7 g/dL [facility] HCT 36.0 34.1 - 44.9 % [facility] PLT 200 163 - 369 10*3/uL [facility] MPV 9.1(L) 9.4 - 12.4 fL [facility] RBC 3.87(L) 3.93 - 5.22 10*6/uL [facility] MCV 93 79 - 95 fL [facility] MCH 30.2 25.6 - 32.2 pg [facility] MCHC 32.5 32.2 - 36.5 g/dL [facility] RDW 11.7 11.6 - 14.4 % [facility] Neutrophils % 70.7(H) 36.0 - 66.0 % [facility] Lymphocytes % 21.4 19.0 - 40.0 % [facility] Monocytes % 4.7 4.1 - 12.1 % [facility] Eosinophils % 2.3 0.0 - 3.5 % [facility] Basophils % 0.9 0.0 - 1.0 % [facility] Absolute Neutrophils 4.7 1.4 - 6.6 10*3/uL [facility] Absolute Lymphocytes 1.4 0.8 - 4.0 10*3/uL [facility] Absolute Monocytes 0.3 0.2 - 1.2 10*3/uL [facility] Absolute Eosinophils 0.2 0.0 - 0.4 10*3/uL [facility] Absolute Basophils 0.1 0.0 - 0.1 10*3/uL [facility] 08/08/2024 10:1 1 AM CDT us Pierre Arnett DO LAB SEND OUTS Final Result [facility] [place] [address], * (ABNORMAL) CMP (COMPREHENSIVE METABOLIC PANEL) (08/08/2024 10:11 AM CDT) Glucose 74 70 - 105 mg/dL [facility] Blood Urea Nitrogen 16 7 - 25 mg/dL [facility] Creatinine 0.7 0.6 - 1.2 mg/dL [facility] Sodium 140 136 - 145 mEq/L [facility] Potassium 3.5 3.5 - 5.1 mEq/L [facility] Chloride 103 98 - 107 mEq/L [facility] Bicarbonate 28 21 - 31 mEq/L [facility] Total Bilirubin 0.8 0.3 - 1.0 mg/dL [facility] Alk. Phosphatase 25(L) 34 - 104 U/L [facility] Aspartate Aminotransferase 19 13 - 39 U/L [facility] Alanine Aminotransferase 17 7 - 52 U/L [facility] Total Protein 7.1 6.4 - 8.9 g/dL [facility] Albumin 4.7 3.5 - 5.7 g/dL [facility] Calcium 9.0 8.6 - 10.3 mg/dL [facility] Anion Gap 12.5 7.0 - 15.0 mEq/L [facility] Globulin 2.4 2.0 - 3.5 g/dL [facility] EGFR 107 >60 ml/min/1. 73m2 [facility] Comment: This eGFR is calculated using 2020 CKD-EPI Creatinine equation without race modifier based on the NKF-ASN task force recommendations Equation: zKLV=969*min(SCr/k,1)a*max(SCr/k,1)-1.200*0.9938Age*1.012 (if female), where SCr is serum creatinine, k is 0.7 for females and 0.9 for males, and a is -0.241 for females and -0.302 for males Blood 08/08/2024 10:1 1 AM CDT Narrative [facility] - 08/08/2024 11:04 AM CDT Release to patient->Immediate IS THE PATIENT REQUIRED TO BE FASTING FOR 8 HOURS?->No Pierre Arnett DO CHEMISTRY ORDERABLES Final Res ult [facility] [place] [address], [place] [phone] from Last 3 Months Insurance MEDICARE [place]ICAID [place] Care Teams Jewel Inspector Relationship Specialty Start Date End Date Leonie Ortega APRN, CEMETERY MANAGER [address] [place] [phone] PCP - General Advanced Practice Nurse 03/21/22 Pierre Arnett DO [address] [place] [phone] Consulting Physician Oncology 03/19/23
--- OUTSIDE RECORDS SUMMARY | 2024-08-28 15:18 | XMS_ITS | Encounter Summary ---
Author Organization [facility] Address [address] [place] [address] Phone Care Team Providers Care Truck Driver Supervisor Name Role Phone Arlene Rodriguez APRN, SHUTTLE OPERATOR Primary Care Provider Leonie Ortega APRN, SHUTTLE OPERATOR Primary Care Provider + Pierre Arnett DO Unavailable [phone] Encounter Details Date Type Department Care Team (Late st Contact Info) Description 04/02/2020 Telephone [facility] [address] [place] [address] Pierre Arnett, DO [address] [place] [address] Social History Tobacco Use Types [...] on file Legal Sex Female 8:29 AM VETERINARY EPIDEMIOLOGIST Gender Identity Not on file Sexual Orientation Not on file 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 No / Unsure 03/26/2020 10:02 AM VETERINARY EPIDEMIOLOGIST documented as of this encounter Miscellaneous Notes * Telephone Encounter - Pierre Arnett DO - 04/02/2020 1:22 PM CST Try to call her sister and send letter RINARY EPIDEMIOLOGIST * Telephone Encounter - Marta Marina - [...] HAVE US MAIL A LETTER? PLEASE ADVISE. RINARY EPIDEMIOLOGIST documented in this encounter Plan of Treatment Upcoming Encounters Date Type Department Care Team (Late st Contact Info) Description 11/07/2024 10:00 AM CDT Clinical Support [facility] [address] [phone] Nurse, [facility] 02/06/2025 10:30 AM CDT Office Visit [facility] [address] [phone] Pierre Arnett DO [address] [place] [phone] documented as of this encounter Visit Diagnoses Not on filedocumented in this encounter Additional Health Concerns Assessment Noted Time PHQ-9 Depression Total Score: 0 03/26/20 20 10:15 AM VETERINARY EPIDEMIOLOGIST documented as of this encounter Care Teams Truck Driver Supervisor Relationship Specialty Start Date End Date Arlene Rodriguez, PORTUGUESE TUTOR, SHUTTLE OPERATOR [address] [place] [phone] PCP - General Internal Medicine 02/20/20 03/20/22 Leonie Ortega, PORTUGUESE TUTOR, SHUTTLE OPERATOR [address] [place] [phone] PCP - General Advanced Practice Nurse 03/21/22 Pierre Arnett DO [address] [place] [phone] Consulting Physician Oncology 03/19/23 documented as of this encounter
--- OUTSIDE RECORDS SUMMARY | 2024-08-28 15:18 | XMS_ITS | Encounter Summary ---
Author Organization [facility] Address [address] [place] [address] Phone Care Team Providers Care Electronic Calibration Technician Name Role Phone Arlene Rodriguez APRN, DRYERMAN/WOMAN Primary Care Provider Leonie Ortega APRN, DRYERMAN/WOMAN Primary Care Provider + Pierre Arnett DO Unavailable [phone] Encounter Details Date Type Department Care Team (Late st Contact Info) Description 02/25/2021 Telephone [facility] [address] [place] [address] Pierre Arnett, DO [address] [place] [address] Social History Tobacco Use Types [...] on file Legal Sex Female 8:29 AM HARDENING MACHINE OPERATOR Gender Identity Not on file Sexual Orientation Not on file 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 No / Unsure 02/25/2021 8:41 AM HARDENING MACHINE OPERATOR documented as of this encounter Miscellaneous Notes * Telephone Encounter - Courtney Langston PAC - 02/25/2021 2:46 PM HARDENING MACHINE OPERATOR Thank you! ENING MACHINE OPERATOR * Telephone Encounter - Marta Marina - 02/25/2021 2:08 PM CST PATIENT IS SCHEDULED FOR BONE SCAN 03/16/21 AT 12PM. ENING MACHINE OPERATOR documented in this encounter Plan of Treatment Upcoming Encounters Date Type Department Care Team (Late st Contact Info) Description 11/07/2024 10:00 AM CDT Clinical Support [facility] [address] [phone] Nurse, Adele [facility] 02/06/2025 10:30 AM CDT Office Visit [facility] [address] [phone] Pierre Arnett DO [address] [place] [phone] documented as of this encounter Visit Diagnoses Not on filedocumented in this encounter Additional Health Concerns Assessment Noted Time PHQ-9 Depression Total Score: 0 02/26/20 9:12 AM HARDENING MACHINE OPERATOR documented as of this encounter Care Teams Electronic Calibration Technician Relationship Specialty Start Date End Date Arlene Rodriguez APRN, DRYERMAN/WOMAN [address] [place] [phone] PCP - General Internal Medicine 02/20/20 03/20/22 Leonie Ortega APRN, DRYERMAN/WOMAN [address] [address] PCP - General Advanced Practice Nurse 03/21/22 Pierre Arnett DO [address] [place] [phone] Consulting Physician Oncology 03/19/23 documented as of this encounter
--- OUTSIDE RECORDS SUMMARY | 2024-08-28 15:18 | XMS_ITS | Clinical Summary ---
Author Organization [facility] Address [address] [place] [address] Care Team Providers Care Master Barber Name Role Phone Arlene Rodriguez ANIYA-SENIOR LINUX UNIX ENGINEER Primary Care Provider [phone] Source Comments [facility],non-owned Affiliates and Associated Physician Practices is amultiple site organization consisting of ambulatory clinics and hospital sitesin [place], [place], [place] and [place]. This disclosure is being madepursuant to the Care Everywhere program and may not contain all information available regarding this patient. Last updated 18.[facility] Allergies Active Allergy Reactions Criticality Noted Date [...] on file Legal Sex Female 5:46 PM CULINARY INTERNSHIP Gender Identity Not on file Sexual Orientation [...] to complete this topic Insurance Care Teams Master Barber Relationship Specialty Start Date End Date Arlene Rodriguez APRN-CNP [address] [place] [phone] PCP - General 12/17/20
--- OUTSIDE RECORDS SUMMARY | 2024-08-28 15:18 | XMS_ITS | Encounter Summary ---
Author Organization [facility] Address [address] [place] [address] Care Team Providers Care Cigarette Filter Inspector Name Role Phone NikkiArlene lujan YUDELKA Primary Care Provider [phone] Shameka Wright MD Unavailable [phone] Latha Jean RN Unavailable Leonie Hooper Primary Care Provider [phone] Pierre Arnett DO Unavailable Encounter Details Date Type Department Care Team (Late st Contact Info) Description 08/04/2020 Pastoral Care Encounter [facility] [place], [place] [phone] Martínez Morrissey Social History Tobacco Use Types [...] Initial visit;Assessment;Referral Referral From Nurse Referral To Bridge Crane Operator Plan of Care Care Plan Initiated Yes;Patient [...] st Contact Info) Description 06/02/2025 10:00 AM CARDIOTHORACIC PHYSIOTHERAPIST Appointment [facility] [address] Kai Davenport MD [address] [place] [phone] documented as of this encounter Visit Diagnoses Not on filedocumented in this encounter Additional Health Concerns Infection Onset Date Last Indicated Resolved Time COVID-19 Rule Out 01/26/2021 01/26/2021 01/26/2021 10:51 AM CDT COVID-19 Rule Out 01/26/2021 01/26/2021 01/27/2021 12:16 AM CDT COVID-19 Rule Out 04/22/2021 04/22/2021 04/29/2021 12:32 AM CARDIOTHORACIC PHYSIOTHERAPIST Assessment Noted Time PHQ-9 Depression Total Score: 5 05/17/19 3:11 PM CARDIOTHORACIC PHYSIOTHERAPIST documented as of this encounter Care Teams Cigarette Filter Inspector Relationship Specialty Start Date End Date Arlene RodriguezYUDELKA [address] [place] [address] PCP - General Nurse Practitioner Family 04/24/18 08/11/22 Leonie Ortega APNP [address] [address] PCP - General Nurse Practitioner Family 08/12/22 Shameka Wright MD [address] [place] [address] Radiation Oncologist RADIATION ONCOLOGY 07/30/20 Latha Jean, community mental health worker Nurse Navigator REGISTERED NURSE 07/30/20 07/08/23 Pierre Arnett, [address] [place] [address] Consulting Physician INTERNAL MEDICINE 07/09/23 documented as of this encounter
--- NOTE | 2024-08-28 15:51 | ED_ITS ---
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 She thinks she had some swelling at 1 point that has also resolved. Concerned she could have a cyst. No vaginal discharge. No concern for STI. She is very anxious. She has been on 3 rounds of antibiotics and azo for possible UTI. Related Data Home Medications Medication Instructions Recorded Confirmed Last Taken Type letrozole 2.5 mg tablet 2.5 mg PO DAILY 01/05/22 08/28/24 Unknown History buprenorphine 15 mcg/hour weekly 15 mcg transdermal WEEKLY 11/24/23 08/28/24 Unknown History transdermal patch ibuprofen 600 mg tablet 600 mg PO TID PRN fever or pain 05/21/24 08/28/24 Unknown History Allergies Allergy/AdvReac Type Severity Reaction Status Date / Time No Known Allergies Allergy Verified 08/28/24 14:42 Review of Systems Review of Systems: All systems reviewed & are unremarkable except as noted in HPI and below Constitutional: Constitutional: Reports no additional constitutional complaints Cardiovascular: Cardiovascular: Reports no additional cardiovascular complaints Respiratory: Respiratory: Reports no additional respiratory complaints Gastrointestinal: Gastrointestinal: Reports no additional gastrointestinal complaints Genitourinary: Genitourinary: Reports no additional female genitourinary complaints [facility] Past Medical History Medical History Bartholin cyst Urinary urgency Elevated BP without diagnosis of hypertension Chronic low back pain Insomnia Elevated glucose Elevated liver enzymes Anemia Osteoporosis Urinary frequency Irritable bowel syndrome with constipation Chronic idiopathic constipation Low back pain with right-sided sciatica Constipation Acne Chronic allergic rhinitis ADHD Depression Encounter to establish care Sinusitis Post-operative pain Interstitial cystitis Breast cancer Anorexia Anxiety Anxiety and depression Kidney infection UTI (urinary tract infection) Surgical History Surgical History H/O: hysterectomy History of lumpectomy of left breast Hx of breast augmentation Family History Family History Father Lung cancer Social History Social History Smoking status: Never smoker Second hand tobacco smoke exposure: No Alcohol intake: former Drinks per week: 0 Alcohol use details: LAST 2019 Substance use: current Substance use type: marijuana Other substance usage details: MEDICAL MARIJUANA Last use: 10/31/2020 Do You Feel Safe in your Home?: Yes Lack of Transportation: No Lack of Food: Never True Current Housing: I Have Housing Concerned About Future Housing: No Difficulty Paying Gas/Electric Bills: No Difficulty Paying for Meds: No Currently Unemployed: YES Education: Associate Degree Difficulty w/ Childcare or Family Care: No Living arrangements: with family Gender identity (if verbalized by the patient): Female Spiritual care concerns: No Agree to blood products: Yes Exam 2 Narrative: GENERAL: Well-appearing, well-nourished, and in no acute distress. HEAD: Normocephalic, atraumatic. ENT: Mucous membranes moist. CHEST: Clear to auscultation. No respiratory distress. HEART: Regular rate and rhythm. Normal peripheral pulses. ABDOMEN: Soft, nontender, nondistended. : Normal external genitalia. No vaginal bleeding or discharge, surgically absent cervix. Staining noted from azo. EXTREMITIES: Normal range of motion. No edema. SKIN: Warm, dry, no rash. NEURO: Alert and oriented x3. PSYCH: Normal mood and affect. Course Course Emergency Course: Patient given reassurance. Urine clean but sent for culture. Will give topical lidocaine for discomfort. Recommend seeing Gynecology. Vital Signs Vital signs: Vital Signs Temperature 97.7 F 08/28/24 14:55 Pulse Rate 64 08/28/24 14:55 Respiratory Rate 18 08/28/24 14:55 Blood Pressure 137/82 08/28/24 14:55 Pulse Oximetry 100 08/28/24 14:55 Oxygen Delivery Room Air 08/28/24 14:55 Temperature 97.7 F 08/28/24 14:55 Pulse Rate 64 08/28/24 14:55 Respiratory Rate 18 08/28/24 14:55 Blood Pressure 137/82 08/28/24 14:55 Pulse Oximetry 100 08/28/24 14:55 Oxygen Delivery Room Air 08/28/24 14:55 Medical Decision Making Vital Signs Vital Signs: Vital Signs Temperature 97.7 F 08/28/24 14:55 Pulse Rate 64 08/28/24 14:55 Respiratory Rate 18 08/28/24 14:55 Blood Pressure 137/82 08/28/24 14:55 Pulse Oximetry 100 08/28/24 14:55 Oxygen Delivery Room Air 08/28/24 14:55 Temperature 97.7 F 08/28/24 14:55 Pulse Rate 64 08/28/24 14:55 Respiratory Rate 18 08/28/24 14:55 Blood Pressure 137/82 08/28/24 14:55 Pulse Oximetry 100 08/28/24 14:55 Oxygen Delivery Room Air 08/28/24 14:55 Lab Data Labs: Lab Results 08/28/24 Range/Units 15:58 Urine Color [place] H (Yellow) Urine Appearance Sl cloudy (Clear) Urine pH (5.0-9.0) Ur Specific [place] (1.001-1.035) Urine Protein (Negative) mg/dL Urine Glucose (UA) (Negative) mg/dL Urine Ketones (Negative) mg/dL Ur Blood (Man) (Negative) Urine Nitrate (Negative) Urine Bilirubin (Negative) Urine Urobilinogen (<2.0) mg/dL Leukocyte Esterase Rfl (Negative) CHERISE/UL Urine RBC 3-5 H (0-2) /hpf Urine WBC 0-3 (0-3) /hpf Ur Squamous Epith Cells Few (Few) /hpf Urine Bacteria Trace (None) /hpf Discharge Plan Discharge Clinical Impression: Dysuria, Anxiety Patient Disposition: Home Condition: Stable Instructions: Dysuria (ED) Additional Instructions: Follow-up with your feller operator regarding concerns of recurrent dysuria and pelvic discomfort. Use topical lidocaine see if this helps. Return ER if you have fever 100.4° F, you can not keep down food water, or you have additional concerns. Patient Language: Vietnamese Prescriptions: New lidocaine HCl 2 % jelly 1 applic topical TID PRN (Reason: pain) Qty: 30 0RF No Action buprenorphine 15 mcg/hour patch weekly 15 mcg transdermal WEEKLY phenazopyridine [Pyridium] 200 mg tablet 200 mg PO TID PRN (Reason: pain) Qty: 6 0RF letrozole 2.5 mg tablet 2.5 mg PO DAILY Rx Instructions: begin between days 2 and 5 of mentrual cycle clonazepam 1 mg tablet 1 mg PO BID PRN (Reason: Anxiety) Qty: 60 5RF ondansetron HCl 4 mg tablet 4 mg PO Q8H PRN (Reason: nausea and vomiting) Qty: 30 2RF ibuprofen 600 mg tablet 600 mg PO TID PRN (Reason: fever or pain) minocycline 100 mg tablet 100 mg PO BID Qty: 60 11RF dextroamphetamine-amphetamine [Adderall] 20 mg tablet 20 mg PO BID Qty: 60 0RF Rx Instructions: administer doses at least 4-6 hours apart tizanidine [Zanaflex] 2 mg capsule 2 mg PO TID PRN (Reason: muscle spasticity) Qty: 12 0RF naproxen 500 mg tablet 500 mg PO BID PRN (Reason: pain) Qty: 14 0RF gabapentin 300 mg capsule 900 mg PO TID Qty: 300 11RF Rx Instructions: Take 900mg in the AM and afternoon. Take 1200mg at bedtime. solifenacin [Vesicare] 10 mg tablet 10 mg PO DAILY Qty: 90 3RF montelukast 10 mg tablet 10 mg PO QHS Qty: 30 11RF lidocaine 5 % adhesive patch,medicated 1 patch topical DAILY Qty: 30 11RF Rx Instructions: leave on most painful area for up to 12 hrs, then remove for 12hours trazodone 150 mg tablet 150 mg PO QHS PRN (Reason: sleep) Qty: 30 11RF sulfamethoxazole-trimethoprim [Bactrim DS] 800-160 mg tablet 1 tablet PO Q12H Qty: 20 0RF Follow-up/Referrals: Leonie Ortega NP [Primary Care Provider] - 1 Week
[2024-08-28 16:25] LABS: Appearance Urine Sl Cloudy (Clear); Color Urine Orange (Yellow)
[2024-08-28 16:28] LABS: Add Urine Microscopic? YES
[2024-08-28 16:31] LABS: Bacteria Urine Trace /hpf; Squamous Epithelial Cell Urine Few /hpf (Few); WBC Urine 0-3 /hpf (0-3)
== END 2024-08-28 17:19 | disposition home or self-care (01) ==
PROVIDERS: Emergency Provider Emergency Medicine; PCP Nurse Practitioner Family
DX: R10.30 Lower abdominal pain, unspecified (principal); Z79.899 Other long term (current) drug therapy; Z79.1 Long term (current) use of non-steroidal anti-inflammatories (NSAID); Z85.3 Personal history of malignant neoplasm of breast
CPT/HCPCS: 81001; 81003; 87070; 87086; 99284

== ENCOUNTER 2024-09-12 13:57 | Emergency (ER) | payer MEDICARE, MEDICAID, SELFPAY ==
--- OUTSIDE RECORDS SUMMARY | 2024-09-12 14:00 | XMS_ITS | Clinical Summary ---
Author Organization [facility] Address [address], [facility] [address] [place] [address] Phone Care Team Providers Care Freight Separator Name Role Phone Leonie Ortega APRN, NOHEMI Primary Care Provider + Pierre Arnett DO Unavailable [phone] Allergies No known active allergies Medications amphetamine-dex [...] Active letrozole (FEMARA) 2.5 MG TabletIndicatio ns:Er+ [place]+ carcinoma of breast, left (HCC) TAKE 1 [...] Malignant neoplasm of female breast 06/18/2020 Er+ [place]+ carcinoma of breast, left 05/18/2020 Neuropathy 10/28/2019 Bipolar disorder 01/07/2016 Depression with anxiety 01/05/2016 Encounters Date Type Department Care Team Description 08/08/2024 10:30 AM CDT Office Visit [facility] [address] [phone] Pierre Arnett DO Osteoporosis, unspecified osteoporosis type, unspecified pathological fracture presence (Primary Dx); Malignant neoplasm of overlapping sites of left breast in female, estrogen receptor positive (HCC) 08/08/2024 10:25 AM CDT Lab [facility] [address] [phone] Lab, [facility] [place] Er+ [place]+ carcinoma of breast, left (HCC); Osteoporosis, unspecified osteoporosis type, unspecified pathological fracture presence; Malignant neoplasm of overlapping sites of left breast in female, estrogen receptor positive (HCC) 08/08/2024 Travel 07/15/2024 Telephone [facility] [address] [phone] Pierre Arnett DO [employer] [...] Alive Brother 2 Alive Father asbestos from [employer]LM steel Mother Alive Sister Alive Social History [...] on file Legal Sex Female 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 Gender Identity Not on file Sexual Orientation Not on file 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 Not on file [...] 10:46 AM CDT Height 172.7 cm (5' 8) 08/08/2024 10:46 AM CDT Body Mass Index 18.29 08/08/2024 10:46 AM CDT Plan of Treatment Upcoming Encounters Date Type Department Care Team (Late st Contact Info) Description 11/07/2024 10:00 AM CDT Clinical Support [facility] [address] [phone] [facility] 02/06/2025 10:30 AM CDT Office Visit [facility] [address] [phone] Pierre Arnett, DO [address] [place] [phone] Health Maintenance Due Date Last Done Comments [...] PANEL) Routine 08/08/2024 10:11 AM CDT Er+ [place]+ carcinoma of breast, left (HCC) Osteoporosis, unspecified osteoporosis type, unspecified pathological fracture presence Malignant neoplasm of overlapping sites of left breast in female, estrogen receptor positive (HCC) from Last 3 Months Results * (ABNORMAL) CBC WITH AUTO DIFF [place] (08/08/2024 10:11 AM CDT) WBC 6.6 4.0 - 10.0 10*3/uL CANCER AIRCRAFT ENGINEER [facility] HGB 11.7 11.2 - 15.7 g/dL CANCER AIRCRAFT ENGINEER [facility] HCT 36.0 34.1 - 44.9 % CANCER AIRCRAFT ENGINEER [facility] PLT 200 163 - 369 10*3/uL CANCER AIRCRAFT ENGINEER [facility] MPV 9.1(L) 9.4 - 12.4 fL CANCER AIRCRAFT ENGINEER [facility] RBC 3.87(L) 3.93 - 5.22 10*6/uL CANCER AIRCRAFT ENGINEER [facility] MCV 93 79 - 95 fL CANCER AIRCRAFT ENGINEER [facility] MCH 30.2 25.6 - 32.2 pg CANCER AIRCRAFT ENGINEER [facility] MCHC 32.5 32.2 - 36.5 g/dL CANCER AIRCRAFT ENGINEER [facility] RDW 11.7 11.6 - 14.4 % CANCER AIRCRAFT ENGINEER [facility] Neutrophils % 70.7(H) 36.0 - 66.0 % CANCER AIRCRAFT ENGINEER [facility] Lymphocytes % 21.4 19.0 - 40.0 % CANCER AIRCRAFT ENGINEER [facility] Monocytes % 4.7 4.1 - 12.1 % CANCER AIRCRAFT ENGINEER [facility] Eosinophils % 2.3 0.0 - 3.5 % CANCER AIRCRAFT ENGINEER [facility] Basophils % 0.9 0.0 - 1.0 % CANCER AIRCRAFT ENGINEER [facility] Absolute Neutrophils 4.7 1.4 - 6.6 10*3/uL CANCER AIRCRAFT ENGINEER [facility] Absolute Lymphocytes 1.4 0.8 - 4.0 10*3/uL CANCER AIRCRAFT ENGINEER [facility] Absolute Monocytes 0.3 0.2 - 1.2 10*3/uL CANCER AIRCRAFT ENGINEER [facility] Absolute Eosinophils 0.2 0.0 - 0.4 10*3/uL CANCER AIRCRAFT ENGINEER [facility] Absolute Basophils 0.1 0.0 - 0.1 10*3/uL CANCER AIRCRAFT ENGINEER [facility] 08/08/2024 10:1 1 AM CDT us Pierre Arnett DO LAB SEND OUTS Final Result CANCER AIRCRAFT ENGINEER [facility] [place] [address], * (ABNORMAL) CMP (COMPREHENSIVE METABOLIC PANEL) (08/08/2024 10:11 AM CDT) Glucose 74 70 - 105 mg/dL [facility] Blood Urea Nitrogen 16 7 - 25 mg/dL [facility] Creatinine 0.7 0.6 - 1.2 mg/dL [facility] Sodium 140 136 - 145 mEq/L [facility] Potassium 3.5 3.5 - 5.1 mEq/L [facility] Chloride 103 98 - 107 mEq/L [facility] Bicarbonate 28 21 - 31 mEq/L [facility] Total Bilirubin 0.8 0.3 - 1.0 mg/dL [facility] Alk. Phosphatase 25(L) 34 - 104 U/L [facility] Aspartate Aminotransferase 19 13 - 39 U/L [facility] Alanine Aminotransferase 17 7 - 52 U/L [facility] Total Protein 7.1 6.4 - 8.9 g/dL [facility] Albumin 4.7 3.5 - 5.7 g/dL [facility] Calcium 9.0 8.6 - 10.3 mg/dL [facility] Anion Gap 12.5 7.0 - 15.0 mEq/L [facility] Globulin 2.4 2.0 - 3.5 g/dL [facility] EGFR 107 >60 ml/min/1. 73m2 [facility] Comment: This eGFR is calculated using 2020 CKD-EPI Creatinine equation without race modifier based on the NKF-ASN task force recommendations Equation: pRSS=919*min(SCr/k,1)a*max(SCr/k,1)-1.200*0.9938Age*1.012 (if female), where SCr is serum creatinine, k is 0.7 for females and 0.9 for males, and a is -0.241 for females and -0.302 for males Blood 08/08/2024 10:1 1 AM CDT Narrative [facility] - 08/08/2024 11:04 AM CDT Release to patient->Immediate IS THE PATIENT REQUIRED TO BE FASTING FOR 8 HOURS?->No Pierre Arnett DO CHEMISTRY ORDERABLES Final Res ult CANCER AIRCRAFT ENGINEER [facility] [place] [address], [place] [phone] from Last 3 Months Insurance MEDICARE [facility] [place] [id number] MEDICAID [place] Care Teams Freight Separator Relationship Specialty Start Date End Date Leonie Ortega APRN, STUDENT SERVICES COUNSELOR [address] [place] [phone] PCP - General Advanced Practice Nurse 03/21/22 Pierre Arnett DO [address] [place] [phone] Consulting Physician Oncology 03/19/23
--- OUTSIDE RECORDS SUMMARY | 2024-09-12 14:00 | XMS_ITS | Encounter Summary ---
Author Organization [facility] Address [address] [place] [address] Phone Care Team Providers Care Striker Out Name Role Phone Arlene Rodriguez APRN, OPHTHALMIC MEDICAL ASSISTANT Primary Care Provider Leonie Ortega APRN, OPHTHALMIC MEDICAL ASSISTANT Primary Care Provider + Pierre Arnett DO Unavailable [phone] Encounter Details Date Type Department Care Team (Late st Contact Info) Description 04/02/2020 Telephone [facility] [place] [address] [place] [address] Pierre Arnett, DO [address] [place] [address] Social History Tobacco Use Types [...] on file 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 No / Unsure 03/26/2020 10:02 AM BURNISHING MACHINE OPERATOR documented as of this encounter Miscellaneous Notes * Telephone Encounter - Pierre Arnett DO - 04/02/2020 1:22 PM CST Try to call her sister and send letter ISHING MACHINE OPERATOR * Telephone Encounter - Marta [...] HAVE US MAIL A LETTER? PLEASE ADVISE. ISHING MACHINE OPERATOR documented in this encounter Plan of Treatment Upcoming Encounters Date Type Department Care Team (Late st Contact Info) Description 11/07/2024 10:00 AM CDT Clinical Support [facility] [address] [phone] Nurse, [facility] 02/06/2025 10:30 AM CDT Office Visit [facility] [address] [phone] Pierre Arnett DO [address] [place] [phone] documented as of this encounter Visit Diagnoses Not on filedocumented in this encounter Additional Health Concerns Assessment Noted Time PHQ-9 Depression Total Score: 0 03/26/20 20 10:15 AM BURNISHING MACHINE OPERATOR documented as of this encounter Care Teams Striker Out Relationship Specialty Start Date End Date Arlene Rodriguez, SLOT AMBASSADOR, OPHTHALMIC MEDICAL ASSISTANT [address] [place] [phone] PCP - General Internal Medicine 02/20/20 03/20/22 Leonie Ortega, SLOT AMBASSADOR, OPHTHALMIC MEDICAL ASSISTANT [address] [place] [address] PCP - General Advanced Practice Nurse 03/21/22 Pierre Arnett DO [address] [place] [phone] Consulting Physician Oncology 03/19/23 documented as of this encounter
--- OUTSIDE RECORDS SUMMARY | 2024-09-12 14:00 | XMS_ITS | Encounter Summary ---
Author Organization [facility] Address [address] [place] [address] Phone Care Team Providers Care Farm Operations Manager Name Role Phone Arlene Rodriguez APRN, HELIX COIL WINDER Primary Care Provider Leonie Ortega APRN, HELIX COIL WINDER Primary Care Provider + Pierre Arnett DO Unavailable [phone] Encounter Details Date Type Department Care Team (Late st Contact Info) Description 02/25/2021 Telephone [facility] [place] [address] [place] [address] Pierre Arnett, DO [address] [place] [address] Social History Tobacco Use Types [...] on file Legal Sex Female 8:29 AM INTEGRATED CAMPAIGN MANAGER Gender Identity Not on file Sexual Orientation Not on file 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 No / Unsure 02/25/2021 8:41 AM INTEGRATED CAMPAIGN MANAGER documented as of this encounter Miscellaneous Notes * Telephone Encounter - Courtney Langston PAC - 02/25/2021 2:46 PM INTEGRATED CAMPAIGN MANAGER Thank you! GRATED CAMPAIGN MANAGER * Telephone Encounter - Marta Marina - 02/25/2021 2:08 PM CST PATIENT IS SCHEDULED FOR BONE SCAN 03/16/21 AT 12PM. GRATED CAMPAIGN MANAGER documented in this encounter Plan of Treatment Upcoming Encounters Date Type Department Care Team (Late st Contact Info) Description 11/07/2024 10:00 AM CDT Clinical Support [facility] [address] [phone] Nurse, Ade[facility] 02/06/2025 10:30 AM CDT Office Visit [facility] [address] [phone] Pierre Arnett DO [address] [place] [phone] documented as of this encounter Visit Diagnoses Not on filedocumented in this encounter Additional Health Concerns Assessment Noted Time PHQ-9 Depression Total Score: 0 02/26/20 9:12 AM INTEGRATED CAMPAIGN MANAGER documented as of this encounter Care Teams Farm Operations Manager Relationship Specialty Start Date End Date Arlene Rodriguez APRN, HELIX COIL WINDER [address] [place] [address] PCP - General Internal Medicine 02/20/20 03/20/22 Leonie Ortega APRN, HELIX COIL WINDER [address] [address] PCP - General Advanced Practice Nurse 03/21/22 Pierre Arnett DO [address] [place] [phone] Consulting Physician Oncology 03/19/23 documented as of this encounter
--- OUTSIDE RECORDS SUMMARY | 2024-09-12 14:00 | XMS_ITS ---
Author Organization [facility] Address [address] [place], [facility] [place] [address] Phone Care Team Providers Care Clinical Documentation Improvement Specialist Name Role Phone Leonie Ortega APRN, NEUROLOGY PHYSICIAN ASSISTANT Primary Care Provider + Pierre Arnett DO Unavailable Active Problems Problem Noted Date Diagnosed [...] Malignant neoplasm of female breast 06/18/2020 Er+ ND+ carcinoma of breast, left 05/18/2020 Neuropathy 10/28/2019 Bipolar disorder 01/07/2016 Depression with anxiety 01/05/2016 Current Treatment and Therapy Plans SUPPORT - ZOMETA - [facility]* Plan Start Date:02/21/2023 Plan Provider:Pierre Arnett, DO [...] (LUPRON, ELIGARD), TRELSTAR, FIRMAGON - [facility] 1 07/19/2021 No medications scheduled. Plan Clean Up Melquiades, Pierre D, DO Treatment not started ORAL CHEMO TREATMENT Plan Name Start Date Discontinue Date Treatment Medications Discontinue Reason Plan Provider Cycles BREAST - LETROZOLE - [facility] 1 07/19/2021 letrozole (FEMARA) Plan Clean Up Melquiades, Pierre D, DO Treatment not started
--- OUTSIDE RECORDS SUMMARY | 2024-09-12 14:00 | XMS_ITS | Encounter Summary ---
Author Organization [facility] Address [address] [place] [address] Phone Care Team Providers Care Neurodiagnostic Technician Name Role Phone Arlene Rodriguez APRN, CORNER BLOCK CUTTER Primary Care Provider Leonie Ortega APRN, CORNER BLOCK CUTTER Primary Care Provider + Pierre Arnett DO Unavailable [phone] Reason for Visit * Reason Comments Medication Refill Encounter Details Date Type Department Care Team (Late st Contact Info) Description 08/26/2021 Refill [facility] [address] [place] [address] Pierre Arnett, DO [address] [place] [address] Medication Refill Social History Tobacco [...] on file Legal Sex Female 8:29 AM TIRE MAINTENANCE TECHNICIAN Gender Identity Not on file Sexual Orientation Not on file 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 Not on file [...] AM CDT Clinical Support [facility] [address] [phone] Nurse, [facility] 02/06/2025 10:30 AM CDT Office Visit [facility] [address] [phone] Pierre Arnett DO [address] [place] [phone] documented as of this encounter Visit Diagnoses Not on filedocumented in this encounter Additional Health Concerns Assessment Noted Time PHQ-9 Depression Total Score: 0 02/26/20 21 9:12 AM TIRE MAINTENANCE TECHNICIAN documented as of this encounter Care Teams Neurodiagnostic Technician Relationship Specialty Start Date End Date Arlene Rodriguez APRN, CORNER BLOCK CUTTER [address] [place] [address] PCP - General Internal Medicine 02/20/20 03/20/22 Leonie Ortega APRN, CORNER BLOCK CUTTER [address] [place] [address] PCP - General Advanced Practice Nurse 03/21/22 Pierre Arnett DO [address] [place] [phone] Consulting Physician Oncology 03/19/23 documented as of this encounter
[2024-09-12 14:01] VITALS: BP 144/67; PULSE 68; RESP 20; TEMP 36.7; O2SAT 100
--- OUTSIDE RECORDS SUMMARY | 2024-09-12 15:35 | XMS_ITS ---
Author Organization [facility] Address [address] [place], [facility] [place] [address] Phone Care Team Providers Care Payloader Operator Name Role Phone Leonie Ortega APRN, SOLE LEVELER MACHINE Primary Care Provider + Pierre Arnett DO Unavailable [phone] Active Problems Problem Noted Date Diagnosed Date [...] Malignant neoplasm of female breast 06/18/2020 Er+ DC+ carcinoma of breast, left 05/18/2020 Neuropathy 10/28/2019 Bipolar disorder 01/07/2016 Depression with anxiety 01/05/2016 Current Treatment and Therapy Plans SUPPORT - ZOMETA - [facility]* Plan Start Date:02/21/2023 Plan Provider:Pierre Arnett, DO [...] - LEUPROLIDE (LUPRON, ELIGARD), TRELSTAR, FIRMAGON - [facility] 1 07/19/2021 No medications scheduled. Plan Clean Up Melquiades, Pierre D, DO Treatment not started ORAL CHEMO TREATMENT Plan Name Start Date Discontinue Date Treatment Medications Discontinue Reason Plan Provider Cycles BREAST - LETROZOLE - [facility] 1 07/19/2021 letrozole (FEMARA) Plan Clean Up Melquiades, Pierre D, DO Treatment not started
--- OUTSIDE RECORDS SUMMARY | 2024-09-12 15:35 | XMS_ITS | Encounter Summary ---
Author Organization [facility] Address [address] [place] [address] Phone Care Team Providers Care Finisher Cold Rolling Name Role Phone Arlene Rodriguez APRN, SKINNING MACHINE FEEDER Primary Care Provider Leonie Ortega APRN, SKINNING MACHINE FEEDER Primary Care Provider + Pierre Arnett DO Unavailable [phone] Encounter Details Date Type Department Care Team (Late st Contact Info) Description 04/02/2020 Telephone [facility] [place] [address] [place] [address] Pierre Arnett, DO [address] [place] [address] Social History Tobacco Use Types [...] on file Legal Sex Female 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 No / Unsure 03/26/2020 10:02 AM FOLDER OPERATOR documented as of this encounter Miscellaneous Notes * Telephone Encounter - Pierre Arnett DO - 04/02/2020 1:22 PM CST Try to call her sister and send letter ER OPERATOR * Telephone Encounter - Marta Marina [...] HAVE US MAIL A LETTER? PLEASE ADVISE. ER OPERATOR documented in this encounter Plan of Treatment Upcoming Encounters Date Type Department Care Team (Late st Contact Info) Description 11/07/2024 10:00 AM CDT Clinical Support [facility] [address] [phone] Nurse, [facility] 02/06/2025 10:30 AM CDT Office Visit [facility] [address] [phone] Pierre Arnett DO [address] [place] [phone] documented as of this encounter Visit Diagnoses Not on filedocumented in this encounter Additional Health Concerns Assessment Noted Time PHQ-9 Depression Total Score: 0 03/26/20 20 10:15 AM FOLDER OPERATOR documented as of this encounter Care Teams Finisher Cold Rolling Relationship Specialty Start Date End Date Arlene Rodriguez, BOLOGNA LACER, SKINNING MACHINE FEEDER [address] [place] [address] PCP - General Internal Medicine 02/20/20 03/20/22 Leonie Ortega, BOLOGNA LACER, SKINNING MACHINE FEEDER [address] [place] [place] [address] PCP - General Advanced Practice Nurse 03/21/22 Pierre Arnett DO [address] [place] [phone] Consulting Physician Oncology 03/19/23 documented as of this encounter
--- OUTSIDE RECORDS SUMMARY | 2024-09-12 15:35 | XMS_ITS | Encounter Summary ---
Author Organization [facility] Address [address] [place] [address] Phone Care Team Providers Care Cake Press Operator Helper Name Role Phone Arlene Rodriguez APRN, FINANCIAL INVESTIGATOR Primary Care Provider Leonie Ortega APRN, FINANCIAL INVESTIGATOR Primary Care Provider + Pierre Arnett DO Unavailable [phone] Reason for Visit * Reason Comments Medication Refill Encounter Details Date Type Department Care Team (Late st Contact Info) Description 08/26/2021 Refill [facility] [address] [place] [address] Pierre Arnett, DO [address] [place] [address] Medication Refill Social History Tobacco [...] on file Legal Sex Female 8:29 AM ELDER ASSISTANT Gender Identity Not on file Sexual Orientation Not on file 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 Not on file Not [...] AM CDT Clinical Support [facility] [address] [phone] Nurse, [facility] 02/06/2025 10:30 AM CDT Office Visit [facility] [address] [phone] Pierre Arnett DO [address] [place] [phone] documented as of this encounter Visit Diagnoses Not on filedocumented in this encounter Additional Health Concerns Assessment Noted Time PHQ-9 Depression Total Score: 0 02/26/20 21 9:12 AM ELDER ASSISTANT documented as of this encounter Care Teams Cake Press Operator Helper Relationship Specialty Start Date End Date Arlene Rodriguez APRN, FINANCIAL INVESTIGATOR [address] [place] [address] PCP - General Internal Medicine 02/20/20 03/20/22 Leonie Ortega APRN, FINANCIAL INVESTIGATOR [address] [place] [address] PCP - General Advanced Practice Nurse 03/21/22 Pierre Arnett DO [address] [place] [phone] Consulting Physician Oncology 03/19/23 documented as of this encounter
--- OUTSIDE RECORDS SUMMARY | 2024-09-12 15:35 | XMS_ITS | Encounter Summary ---
Author Organization [facility] Address [address] [place] [address] Phone Care Team Providers Care Training Assistant Name Role Phone Arlene Rodriguez APRN, MERCHANT BANKER Primary Care Provider Leonie Ortega APRN, MERCHANT BANKER Primary Care Provider + Pierre Arnett DO Unavailable [phone] Encounter Details Date Type Department Care Team (Late st Contact Info) Description 02/25/2021 Telephone [facility] [place] [address] [place] [address] Pierre Arnett, DO [address] [place] [phone] Social History Tobacco Use Types [...] on file Legal Sex Female 8:29 AM COLLECTIONS ANALYST Gender Identity Not on file Sexual Orientation Not on file 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 No / Unsure 02/25/2021 8:41 AM COLLECTIONS ANALYST documented as of this encounter Miscellaneous Notes * Telephone Encounter - Courtney Langston PAC - 02/25/2021 2:46 PM COLLECTIONS ANALYST Thank you! ECTIONS ANALYST * Telephone Encounter - Marta Marina - 02/25/2021 2:08 PM CST PATIENT IS SCHEDULED FOR BONE SCAN 03/16/21 AT 12PM. ECTIONS ANALYST documented in this encounter Plan of Treatment Upcoming Encounters Date Type Department Care Team (Late st Contact Info) Description 11/07/2024 10:00 AM CDT Clinical Support [facility] [address] [phone] Nurse, Ade[facility] 02/06/2025 10:30 AM CDT Office Visit [facility] [address] [phone] Pierre Arnett DO [address] [place] [phone] documented as of this encounter Visit Diagnoses Not on filedocumented in this encounter Additional Health Concerns Assessment Noted Time PHQ-9 Depression Total Score: 0 02/26/20 9:12 AM COLLECTIONS ANALYST documented as of this encounter Care Teams Training Assistant Relationship Specialty Start Date End Date Arlene Rodriguez APRN, MERCHANT BANKER [address] [place] [address] PCP - General Internal Medicine 02/20/20 03/20/22 Leonie Ortega APRN, MERCHANT BANKER [address] [address] PCP - General Advanced Practice Nurse 03/21/22 Pierre Arnett DO [address] [place] [phone] Consulting Physician Oncology 03/19/23 documented as of this encounter
--- OUTSIDE RECORDS SUMMARY | 2024-09-12 15:35 | XMS_ITS | Clinical Summary ---
Author Organization [facility] Address [address] [place], [facility] [place] [address] Phone Care Team Providers Care Hunting Sales Leader Name Role Phone Leonie Ortega APRN, NOHEMI Primary Care Provider + Pierre Arnett DO Unavailable [phone] Allergies No known active allergies Medications amphetamine-dex [...] Active letrozole (FEMARA) 2.5 MG TabletIndicatio ns:Er+ DC+ carcinoma of breast, left (HCC) TAKE 1 [...] Office Visit [facility] [address] [phone] Pierre Arnett DO Osteoporosis, unspecified osteoporosis type, unspecified pathological fracture presence (Primary Dx); Malignant neoplasm of overlapping sites of left breast in female, estrogen receptor positive (HCC) 08/08/2024 10:25 AM CDT Lab [facility] [address] [phone] Lab, [facility] [place] Er+ DC+ carcinoma of breast, left (HCC); Osteoporosis, unspecified osteoporosis type, unspecified pathological fracture presence; Malignant neoplasm of overlapping sites of left breast in female, estrogen receptor positive (HCC) 08/08/2024 Travel 07/15/2024 Telephone [facility] [address] [phone] Pierre Arnett DO [employer] [...] Alive Brother 2 Alive Father asbestos from [employer] Mother Alive Sister Alive Social History [...] on file 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 Sex Female 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 Gender Identity Not on file Sexual Orientation Not on file 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 Not on file Not [...] Clinical Support [facility] [address] [phone] [facility] 02/06/2025 10:30 AM CDT Office Visit [facility] [address] [phone] Pierre Arnett, DO [address] [place] [phone] Health Maintenance Due Date Last Done Comments [...] PANEL) Routine 08/08/2024 10:11 AM CDT Er+ DC+ carcinoma of breast, left (HCC) Osteoporosis, unspecified osteoporosis type, unspecified pathological fracture presence Malignant neoplasm of overlapping sites of left breast in female, estrogen receptor positive (HCC) from Last 3 Months Results * (ABNORMAL) CBC WITH AUTO DIFF [place] (08/08/2024 10:11 AM CDT) WBC 6.6 4.0 - 10.0 10*3/uL [facility] HGB 11.7 11.2 - 15.7 g/dL [facility] HCT 36.0 34.1 - 44.9 % [facility] PLT 200 163 - 369 10*3/uL [facility] MPV 9.1(L) 9.4 - 12.4 fL [facility] RBC 3.87(L) 3.93 - 5.22 10*6/uL [facility] MCV 93 79 - 95 fL [facility] MCH 30.2 25.6 - 32.2 pg [facility] MCHC 32.5 32.2 - 36.5 g/dL [facility] RDW 11.7 11.6 - 14.4 % [facility] Neutrophils % 70.7(H) 36.0 - 66.0 % [facility] Lymphocytes % 21.4 19.0 - 40.0 % [facility] Monocytes % 4.7 4.1 - 12.1 % [facility] Eosinophils % 2.3 0.0 - 3.5 % [facility] Basophils % 0.9 0.0 - 1.0 % [facility] Absolute Neutrophils 4.7 1.4 - 6.6 10*3/uL [facility] Absolute Lymphocytes 1.4 0.8 - 4.0 10*3/uL [facility] Absolute Monocytes 0.3 0.2 - 1.2 10*3/uL [facility] Absolute Eosinophils 0.2 0.0 - 0.4 10*3/uL [facility] Absolute Basophils 0.1 0.0 - 0.1 10*3/uL [facility] 08/08/2024 10:1 1 AM CDT us Pierre Arnett DO LAB SEND OUTS Final Result [facility] [place] [address], * (ABNORMAL) CMP (COMPREHENSIVE METABOLIC PANEL) (08/08/2024 [...] on the NKF-ASN task force recommendations Equation: qKJI=966*min(SCr/k,1)a*max(SCr/k,1)-1.200*0.9938Age*1.012 (if female), where SCr is serum creatinine, [...] DO CHEMISTRY ORDERABLES Final Res ult [facility] [place] [address], [place] [phone] from Last 3 Months Insurance MEDICARE MEDICAID [place] Care Teams Hunting Sales Leader Relationship Specialty Start Date End Date Leonie Ortega APRN, MILKER MACHINE [address] [place] [address] PCP - General Advanced Practice Nurse 03/21/22 Pierre Arnett DO [address] [place] [phone] Consulting Physician Oncology 03/19/23
--- NOTE | 2024-09-12 15:53 | ED_ITS ---
HPI - General Adult General Chief complaint: Unspecified Stated complaint: EYE PAIN DUE TO LASHES, POSS CYST/ACSCESS TO GENIT Time Seen by Provider: 09/12/24 14:54 Source: patient Mode of arrival: ambulatory Limitations: no limitations History of Present Illness HPI narrative: This is a 48 year old female that presents to the ER for 2 complaints. Reports she is having an allergic reaction to her eyelash extensions. Reports she had them placed yesterday. Immediately after she had redness, irritation of her eyes. She was able to remove most of them. She also reports over the last month she has been having vaginal irritation, dysuria, itching. Reports she has been on a couple of different antibiotics without relief. Related Data Home Medications ?Medication ?Instructions ?Recorded ?Confirmed ?Last Taken ?Type letrozole 2.5 mg tablet 2.5 mg PO DAILY 01/05/22 08/28/24 Unknown History buprenorphine 15 mcg/hour weekly 15 mcg transdermal WEEKLY 11/24/23 08/28/24 Unknown History transdermal patch ibuprofen 600 mg tablet 600 mg PO TID PRN fever or pain 05/21/24 08/28/24 Unknown History Allergies Allergy/AdvReac Type Severity Reaction Status Date / Time No Known Allergies Allergy Verified 09/12/24 18:08 Review of Systems Review of Systems: CONSTITUTIONAL: Denies fever EYES: Reports redness, tearing GENITOURINARY: Reports dysuria SKIN: Reports itching. All systems reviewed & are unremarkable except as noted in HPI and below PMFSH Past Medical History Medical History Bartholin cyst Urinary urgency Elevated BP without diagnosis of hypertension Chronic low back pain Insomnia Elevated glucose Elevated liver enzymes Anemia Osteoporosis Urinary frequency Irritable bowel syndrome with constipation Chronic idiopathic constipation Low back pain with right-sided sciatica Constipation Acne Chronic allergic rhinitis ADHD Depression Encounter to establish care Sinusitis Post-operative pain Interstitial cystitis Breast cancer Anorexia Anxiety Anxiety and depression Kidney infection UTI (urinary tract infection) Surgical History Surgical History H/O: hysterectomy History of lumpectomy of left breast Hx of breast augmentation Family History Family History Father Lung cancer Social History Social History Smoking status: Never smoker Second hand tobacco smoke exposure: No Alcohol intake: former Drinks per week: 0 Alcohol use details: LAST 2019 Substance use: current Substance use type: marijuana Other substance usage details: MEDICAL MARIJUANA Last use: 10/31/2020 Do You Feel Safe in your Home?: Yes Lack of Transportation: No Lack of Food: Never True Current Housing: I Have Housing Concerned About Future Housing: No Difficulty Paying Gas/Electric Bills: No Difficulty Paying for Meds: No Currently Unemployed: YES Education: Associate Degree Difficulty w/ Childcare or Family Care: No Living arrangements: with family Gender identity (if verbalized by the patient): Female Spiritual care concerns: No Agree to blood products: Yes Exam Narrative: GENERAL: Well-appearing, well-nourished, and in no acute distress. HEAD: Normocephalic, atraumatic. EYES: PERRLA and EOMI. Mild conjunctival injection bilaterally CHEST: No respiratory distress. HEART: Regular rate EXTREMITIES: Normal range of motion. No edema. SKIN: Warm, dry, no rash. NEURO: No focal deficits. Alert and oriented x3. PSYCH: Normal mood and affect PELVIC: Normal external genitalia. Vaginal vault is normal. No abnormal drainage Course Course Emergency Course: Patient updated on her workup and agrees with care Vital Signs Vital signs: Vital Signs Temperature 98.0 F 09/12/24 14:01 Pulse Rate 68 09/12/24 14:01 Respiratory Rate 20 09/12/24 14:01 Blood Pressure 144/67 H 09/12/24 14:01 Pulse Oximetry 100 09/12/24 14:01 Temperature 98.0 F 09/12/24 14:01 Pulse Rate 68 09/12/24 14:01 Respiratory Rate 20 09/12/24 14:01 Blood Pressure 144/67 H 09/12/24 14:01 Pulse Oximetry 100 09/12/24 14:01 Medical Decision Making MDM Narrative Medical decision making narrative: Patient presents the emergency department for dysuria, vaginal irritation. She is afebrile and nontoxic appearing. UA with evidence of infection. Chlamydia, gonorrhea and Trichomonas tests are negative. Genital culture is pending. The patient will be started on oral antibiotics. This does seem to be recurrent for her. Will be given information for follow-up with Urology. She was given warnings to return to the ER Additionally endorsing to allergic reaction to her eyelash extensions. She was able to remove these. Will be given Pataday eye drops for her symptoms Vital Signs Vital Signs: Vital Signs Temperature 98.0 F 09/12/24 14:01 Pulse Rate 68 09/12/24 14:01 Respiratory Rate 20 09/12/24 14:01 Blood Pressure 144/67 H 09/12/24 14:01 Pulse Oximetry 100 09/12/24 14:01 Temperature 98.0 F 09/12/24 14:01 Pulse Rate 68 09/12/24 14:01 Respiratory Rate 20 09/12/24 14:01 Blood Pressure 144/67 H 09/12/24 14:01 Pulse Oximetry 100 09/12/24 14:01 Lab Data Lab results reviewed: Yes I reviewed the patient's lab results. Labs: Lab Results 09/12/24 09/12/24 09/12/24 Range/Units 16:09 16:10 17:00 Urine Color Dark yellow (Yellow) Urine Appearance Cloudy H (Clear) Urine pH 7.0 (5.0-9.0) Ur Specific [place] 1.018 (1.001-1.035) Urine Protein 1+ H (Negative) mg/dL Urine Glucose (UA) Negative (Negative) mg/dL Urine Ketones Negative (Negative) mg/dL Ur Blood (Man) 2+ H (Negative) Urine Nitrate Positive H (Negative) Urine Bilirubin Negative (Negative) Urine Urobilinogen 1.0 (<2.0) mg/dL Leukocyte Esterase Rfl 3+ H (Negative) CHERISE/UL Urine RBC >100 H (0-2) /hpf Urine WBC >100 H (0-3) /hpf Ur Squamous Epith Cells None seen (Few) /hpf Urine Bacteria 4+ H /hpf Urine Casts 0-2 C. trachomatis (PCR) Not detected (NOT DETECTE) N. gonorrhoeae (PCR) Not detected (NOT DETECTE) T. vaginalis (PCR) Not detected (NOT DETECTE) Bact Vaginosis Panel Pending Critical Care Time Critical Care Time Critical Care Time: No Discharge Plan Discharge Clinical Impression: Acute UTI Allergic conjunctivitis Qualifiers: Laterality: bilateral Qualified Code(s): H10.13 - Acute atopic conjunctivitis, bilateral Patient Disposition: Home Condition: Stable Instructions: Antibiotic Form, Urinary Tract Infection in Women (ED) Additional Instructions: Return to the ER if you experience fever, abdominal pain with nausea and vom iting, you are unable to keep down liquids or solids, blood in the urine or any other symptoms that are concerning to you Remain well hydrated. Take oral antibiotics as prescribed Allergy eyedrops once daily Follow up with urology Patient Language: Yoruba Prescriptions: New cefdinir 300 mg capsule 300 mg PO Q12H 5 Days Qty: 10 0RF No Action buprenorphine 15 mcg/hour patch weekly 15 mcg transdermal WEEKLY phenazopyridine [Pyridium] 200 mg tablet 200 mg PO TID PRN (Reason: pain) Qty: 6 0RF letrozole 2.5 mg tablet 2.5 mg PO DAILY Rx Instructions: begin between days 2 and 5 of mentrual cycle clonazepam 1 mg tablet 1 mg PO BID PRN (Reason: Anxiety) Qty: 60 5RF ondansetron HCl 4 mg tablet 4 mg PO Q8H PRN (Reason: nausea and vomiting) Qty: 30 2RF ibuprofen 600 mg tablet 600 mg PO TID PRN (Reason: fever or pain) minocycline 100 mg tablet 100 mg PO BID Qty: 60 11RF lidocaine HCl 2 % jelly 1 applic topical TID PRN (Reason: pain) Qty: 30 0RF tizanidine [Zanaflex] 2 mg capsule 2 mg PO TID PRN (Reason: muscle spasticity) Qty: 12 0RF naproxen 500 mg tablet 500 mg PO BID PRN (Reason: pain) Qty: 14 0RF gabapentin 300 mg capsule 900 mg PO TID Qty: 300 11RF Rx Instructions: Take 900mg in the AM and afternoon. Take 1200mg at bedtime. solifenacin [Vesicare] 10 mg tablet 10 mg PO DAILY Qty: 90 3RF montelukast 10 mg tablet 10 mg PO QHS Qty: 30 11RF lidocaine 5 % adhesive patch,medicated 1 patch topical DAILY Qty: 30 11RF Rx Instructions: leave on most painful area for up to 12 hrs, then remove for 12hours trazodone 150 mg tablet 150 mg PO QHS PRN (Reason: sleep) Qty: 30 11RF sulfamethoxazole-trimethoprim [Bactrim DS] 800-160 mg tablet 1 tablet PO Q12H Qty: 20 0RF dextroamphetamine-amphetamine [Adderall] 20 mg tablet 20 mg PO BID Qty: 60 0RF Rx Instructions: administer doses at least 4-6 hours apart Follow-up/Referrals: Hakan Worrell MD [Physician] - Leonie Ortega NP [Primary Care Provider] -
[2024-09-12 16:32] LABS: Add Urine Microscopic? YES; Appearance Urine Cloudy (Clear); Bacteria Urine 4+ /hpf; Bilirubin Urine Negative (Negative); Blood Urine 2+ (Negative); Color Urine Dark Yellow (Yellow); Glucose Urine UA Negative (Negative); Ketones Urine Negative (Negative); Leukocyte Esterase Ur 3+ LEU/UL (Negative); Nitrate Urine Positive (Negative); Non Pathogenic Casts 0-2; Protein Urine 1+ mg/dL (Negative); RBC Urine >100 /hpf (0-2); Specific Grav Ur 1.018 (1.001-1.035); Squamous Epithelial Cell Urine None Seen /hpf (Few); WBC Urine >100 /hpf (0-3)
[2024-09-12 17:34] LABS: Trichomonas Vag PCR NOT DETECTED (NOT DETECTE)
[2024-09-12] MEDS: OLOPATADINE 0.1% OPHTH SOLN 5 ML BTL 1 DROP EACH EYE (17:57)
[2024-09-12 17:59] LABS: Chlamydia trachomatis NOT DETECTED (NOT DETECTE); Neisseria gonorrhoeae PCR NOT DETECTED (NOT DETECTE)
[2024-09-12] MEDS: FLUCONAZOLE 150 MG TABLET PO (18:19)
[2024-09-15 14:28] LABS: Bacterial Vaginosis NEGATIVE (NEGATIVE)
== END 2024-09-12 18:20 | disposition home or self-care (01) ==
PROVIDERS: Emergency Provider Physician Assistant; PCP Nurse Practitioner Family
DX: N39.0 Urinary tract infection, site not specified (principal); H10.13 Acute atopic conjunctivitis, bilateral; M81.0 Age-related osteoporosis without current pathological fracture; F90.9 Attention-deficit hyperactivity disorder, unspecified type; Z85.3 Personal history of malignant neoplasm of breast; Z11.3 Encounter for screening for infections with a predominantly sexual mode of transmission; L29.2 Pruritus vulvae
CPT/HCPCS: 81001; 81513; 87070; 87077; 87086; 87186; 87491; 87591; 87661; 99284; A9270

== ENCOUNTER 2024-10-06 12:25 | Emergency (ER) | payer MEDICARE, MEDICAID, SELFPAY ==
--- NOTE | 2024-10-06 12:27 | ED_ITS ---
HPI - Eye Problem General Chief complaint: Eye Problems Stated complaint: eye pain/swollen Time Seen by Provider: 10/06/24 12:27 Source: patient Mode of arrival: ambulatory Limitations: no limitations History of Present Illness HPI Narrative: Patient is a 48-year-old female presents with swelling to bilateral eyebrows. Patient blocked eyebrows with dirty tweezers few days ago and so we started after that. Patient use warm compresses with no relief. Denies any vision changes, drainage in eyes or redness. Denies any procedures to face recently. Related Data Home Medications ?Medication ?Instructions ?Recorded ?Confirmed ?Last Taken ?Type letrozole 2.5 mg tablet 2.5 mg PO DAILY 01/05/22 08/28/24 Unknown History buprenorphine 15 mcg/hour weekly 15 mcg transdermal WEEKLY 11/24/23 08/28/24 Unknown History transdermal patch bupropion HCl 300 mg 24 hr tablet, mg PO 10/06/24 Unknown History extended release Allergies Allergy/AdvReac Type Severity Reaction Status Date / Time No Known Allergies Allergy Verified 09/12/24 18:08 Review of Systems 2 Review of Systems: All systems reviewed & are unremarkable except as noted in HPI and below Constitutional: Constitutional: Denies body ache(s), Denies chills, Denies fatigue, Denies fever(s), Denies headache(s), Denies malaise and Denies weakness Eyes: Eyes: Denies blurry vision, Denies irritation and Denies loss of vision ENT: Denies otalgia, Denies headache(s), Denies nasal discharge, Denies sinus pain and Denies sore throat Cardiovascular: Cardiovascular: Denies chest pain, Denies irregular heart rhythm and Denies dyspnea Respiratory: Respiratory: Denies dyspnea Gastrointestinal: Gastrointestinal: Denies abdominal pain, Denies melena, Denies hematochezia, Denies diarrhea, Denies nausea and Denies vomiting Musculoskeletal: Musculoskeletal: Denies back pain, Denies myalgias and Denies arthralgias Integumentary/Breasts: Skin/Breast: Denies pruritus, Reports erythema, Denies rash and Reports skin swelling Neurologic: Denies headache(s), Denies loss of vision and Denies weakness Psychiatric: Psychiatric: Reports no additional psychiatric complaints Endocrine: Endocrine: Denies fatigue PMFSH Past Medical History Medical History Paresthesia Bartholin cyst Urinary urgency Elevated BP without diagnosis of hypertension Chronic low back pain Insomnia Elevated glucose Elevated liver enzymes Anemia Osteoporosis Urinary frequency Irritable bowel syndrome with constipation Chronic idiopathic constipation Low back pain with right-sided sciatica Constipation Acne Chronic allergic rhinitis ADHD Depression Encounter to establish care Sinusitis Post-operative pain Interstitial cystitis Breast cancer Anorexia Anxiety Anxiety and depression Kidney infection UTI (urinary tract infection) Surgical History Surgical History H/O: hysterectomy History of lumpectomy of left breast Hx of breast augmentation Family History Family History Father Lung cancer Social History Social History Smoking status: Never smoker Second hand tobacco smoke exposure: No Alcohol intake: former Drinks per week: 0 Alcohol use details: LAST 2019 Substance use: current Substance use type: marijuana Other substance usage details: MEDICAL MARIJUANA Last use: 10/31/2020 Do You Feel Safe in your Home?: Yes Lack of Transportation: No Lack of Food: Never True Current Housing: I Have Housing Concerned About Future Housing: No Difficulty Paying Gas/Electric Bills: No Difficulty Paying for Meds: No Currently Unemployed: YES Education: Associate Degree Difficulty w/ Childcare or Family Care: No Living arrangements: with family Gender identity (if verbalized by the patient): Female Spiritual care concerns: No Agree to blood products: Yes Comments At time of signature, agree with nursing past medical, surgical, social and family history. There is no relevant family history pertinent to the presenting complaint. Exam 2 Const: General: cooperative, healthy appearing, comfortable, no acute distress and well nourished Nutritional Appearance: well nourished O rientation/consciousness: patient oriented x3 Limitations: no limitations HENMT: Head: normal to inspection, normocephalic and atraumatic Ears: h earing grossly normal bilaterally and external ears normal Face/Nose/Sinus: N ormal external nose present, normal facial exam and face symmetric Face and sinus: normal facial exam and face symmetric Mouth: Yes lip normal Eyes: General: appearance normal, both eyes and all related structures A lignment and Position: alignment normal and position normal Periorbital: p eriorbital findings normal Eyelids: eyelids normal Pupils: Equal, round and reactive pupils present EOM: EOMs intact bilaterally Eyes/upper lids images: 1. 1 cm area of erythema and swelling. no fluctuation, open wounds or drainage 2. 0.5 cm area of erythema and swelling. no fluctuation, open wounds or drainage Neck: Neck: normal visual inspection, full ROM and supple Chest: Chest palpation & inspection: normal inspection of the chest Resp: Effort & Inspection: normal respiratory effort and able to speak in complete sentences Auscultation: clear to auscultation bilaterally Cardio: Rate: regular rate Rhythm: regular rhythm Heart sounds: S1 normal heart sound present and S2 normal heart sound present GI: Inspection: normal to inspection Skin: General skin exam: normal color and no rashes or lesions noted Neuro: General: patient oriented x3 and moves all extremities Cranial nerves: Yes Equal, round and reactive pupils present Speech: normal speech Gait exam (Neuro): Normal gait present Extrem: General: normal to inspection, full ROM and no edema Psych: Appearance: grossly normal and well kempt Mental Status: mental status grossly normal Speech and movement: Normal speech and movement present Affect: normal affect Attitude: cooperative Thought process: Normal thought process present Course Course Emergency Course: Patient is aware of diagnosis, understands and agrees to treatment plan. Anticipatory guidance given. Patient agrees to follow-up as directed and is aware of reasons to seek care at the emergency department. Portions of this record may have been created with voice recognition software Level of Care: Express Care Visit Vital Signs Vital signs: Vital Signs Temperature 36.6 C 10/06/24 12:35 Pulse Rate 64 10/06/24 12:35 Respiratory Rate 16 10/06/24 12:35 Blood Pressure 123/82 10/06/24 12:35 Pulse Oximetry 100 10/06/24 12:35 Temperature 36.6 C 10/06/24 12:35 Pulse Rate 64 10/06/24 12:35 Respiratory Rate 16 10/06/24 12:35 Blood Pressure 123/82 10/06/24 12:35 Pulse Oximetry 10/06/24 12:35 Reviewed MDM - Eye Problem MDM Narrative Medical decision making narrative: Patient has had frequent antibiotic use last 2 months due to recurrent UTI/cysts. Patient is seeing physician/ophthalmologist tomorrow. List of recent antibiotic use is Macrobid 08/08, Augmentin 08/11, Bactrim 08/18, cefdinir 09/12, ciprofloxacin 10/02. Will cover with doxycycline. Pt well hydrated appearing, in no respiratory distress, hemodynamically stable. Recommend supportive care. The patient is stable at time of discharge the clinical impression was discussed and the patient was given the opportunity to ask questions, which were addressed as completely as possible given the information available at present. Anticipatory guidance and return to care precautions were discussed and the importance of primary care follow-up was stressed and encouraged. The patient voiced understanding of the plan, indications to return, and the need for follow-up. Exam findings show no acute concerns or changes Patient is appropriate for outpatient treatment and follow-up. Differential Diagnosis Differential diagnosis: Likely conjunctivitis, periorbital cellulitis and other (Folliculitis, abscess) Medical Records Attestation: I reviewed the patient's medical records. Discharge Plan Discharge Clinical Impression: Folliculitis, Abscess Patient Disposition: Home Condition: Stable Instructions: Folliculitis (ED) Additional Instructions: Keep the area clean and dry - cleanse with warm water and mild soap and allow to fully dry. apply the antibiotic ointment as directed, take antibiotics as prescribed You have been prescribed Doxycycline today.It may make your skin more sensitive to sunlight than normal. Make sure you wear sunscreen at all times when outside while on the medication. Use warm compresses Watch for worsening symptoms including pain, redness, swelling, fever. Go to the ER with any of these symptoms or concerns. Follow up with primary care provider in 1 week as needed. Patient Language: Italian Prescriptions: New doxycycline monohydrate 100 mg tablet 100 mg PO BID 7 Days Qty: 14 0RF mupirocin 2 % ointment 1 applic topical BID Qty: 15 0RF No Action bupropion HCl 300 mg tablet extended release 24 hr PO buprenorphine 15 mcg/hour patch weekly 15 mcg transdermal WEEKLY phenazopyridine [Pyridium] 200 mg tablet 200 mg PO TID PRN (Reason: pain) Qty: 6 0RF letrozole 2.5 mg tablet 2.5 mg PO DAILY Rx Instructions: begin between days 2 and 5 of mentrual cycle clonazepam 1 mg tablet 1 mg PO BID PRN (Reason: Anxiety) Qty: 60 5RF ondansetron HCl 4 mg tablet 4 mg PO Q8H PRN (Reason: nausea and vomiting) Qty: 30 2RF lidocaine HCl 2 % jelly 1 applic topical TID PRN (Reason: pain) Qty: 30 0RF phenazopyridine [Pyridium] 200 mg tablet 200 mg PO TID PRN (Reason: pain) Qty: 6 0RF tizanidine [Zanaflex] 2 mg capsule 2 mg PO TID PRN (Reason: muscle spasticity) Qty: 12 0RF gabapentin 300 mg capsule 900 mg PO TID Qty: 300 11RF Rx Instructions: Take 900mg in the AM and afternoon. Take 1200mg at bedtime. solifenacin [Vesicare] 10 mg tablet 10 mg PO DAILY Qty: 90 3RF montelukast 10 mg tablet 10 mg PO QHS Qty: 30 11RF dextroamphetamine-amphetamine [Adderall] 20 mg tablet 20 mg PO BID Qty: 60 0RF Rx Instructions: administer doses at least 4-6 hours apart fluconazole 150 mg tablet 150 mg PO Q3D Qty: 2 0RF ibuprofen 600 mg tablet 600 mg PO TID PRN (Reason: pain) Qty: 90 3RF minocycline 100 mg tablet 100 mg PO BID Qty: 60 11RF trazodone 150 mg tablet 150 mg PO QHS PRN (Reason: sleep) Qty: 30 11RF lidocaine 5 % adhesive patch,medicated 1 patch topical DAILY Qty: 30 11RF Rx Instructions: leave on most painful area for up to 12 hrs, then remove for 12hours Follow-up/Referrals: Leonie Ortega NP [Primary Care Provider] - 3 Days Stand Alone Forms: Work/School Release IP Time of Disposition: 12:54
[2024-10-06 12:35] VITALS: BP 123/82; PULSE 64; RESP 16; TEMP 36.6; O2SAT 100
== END 2024-10-06 13:00 | disposition home or self-care (01) ==
PROVIDERS: Emergency Provider Nurse Practitioner Family; PCP Nurse Practitioner Family
DX: L73.9 Follicular disorder, unspecified (principal); H00.034 Abscess of left upper eyelid; H00.031 Abscess of right upper eyelid; F41.9 Anxiety disorder, unspecified; F32.A Depression, unspecified; F90.9 Attention-deficit hyperactivity disorder, unspecified type; Z85.3 Personal history of malignant neoplasm of breast; Z90.12 Acquired absence of left breast and nipple; M81.0 Age-related osteoporosis without current pathological fracture
CPT/HCPCS: 99213; G0463

== ENCOUNTER 2024-11-22 11:08 | Emergency (ER) | payer MEDICARE, MEDICAID, SELFPAY ==
[2024-11-22 11:24] VITALS: BP 153/75; PULSE 74; RESP 14; TEMP 37.1; O2SAT 100
--- NOTE | 2024-11-22 12:08 | ED_ITS ---
HPI - Skin/Abscess/Foreign Bdy General Chief complaint: Skin/Abscess/Foreign Body Stated complaint: eyes swollen/irritation on forehead Time Seen by Provider: 11/22/24 11:30 Source: patient and RN notes reviewed Mode of arrival: ambulatory Limitations: no limitations History of Present Illness HPI narrative: 49-year-old female presents Express Care complaining infected visit to her forehead for approximately 1 week. Patient noticed is in between her eyes decide the pop it since then she has increased redness swelling and drainage to the area. Patient is also reporting her eyes feel swollen. Patient denies any eye drainage, eye pain, vision problems, nausea vomiting, diarrhea, fevers, or any other symptoms. Patient has not tried anything to help with symptoms. Related Data Home Medications ?Medication ?Instructions ?Recorded ?Confirmed ?Last Taken ?Type letrozole 2.5 mg tablet 2.5 mg PO DAILY 01/05/22 10/08/24 Unknown History buprenorphine 15 mcg/hour weekly 15 mcg transdermal WEEKLY 11/24/23 10/08/24 Unknown History transdermal patch alprazolam 0.5 mg tablet mg 11/22/24 Unknown History Allergies Allergy/AdvReac Type Severity Reaction Status Date / Time No Known Allergies Allergy Verified 11/22/24 11:45 Review of Systems Review of Systems: CONSTITUTIONAL: Denies fever, chills, or sweats. EYES: Denies visual changes, redness, or discharge. ENT: Denies rhinorrhea, congestion, sore throat, or otalgia. CARDIOVASCULAR: Denies chest pain, palpitations, or edema. RESPIRATORY: Denies cough or dyspnea. GASTROINTESTINAL: Denies abdominal pain, nausea, vomiting, or diarrhea. GENITOURINARY: Denies dysuria or hematuria. SKIN: Denies rash or itching. Positive for facial wound. MUSCULOSKELETAL: Denies back pain, joint pain, or myalgia. NEUROLOGIC: Denies headache, numbness, or weakness. PSYCHIATRIC: Denies anxiety or depression. All other systems reviewed are negative, except as documented in HPI. [facility] Past Medical History Medical History Screening for colon cancer Weight loss, abnormal Nausea & vomiting Paresthesia Bartholin cyst Urinary urgency Elevated BP without diagnosis of hypertension Chronic low back pain Insomnia Elevated glucose Elevated liver enzymes Anemia Osteoporosis Urinary frequency Irritable bowel syndrome with constipation Chronic idiopathic constipation Low back pain with right-sided sciatica Constipation Acne Chronic allergic rhinitis ADHD Depression Encounter to establish care Sinusitis Post-operative pain Interstitial cystitis Breast cancer Anorexia Anxiety Anxiety and depression Kidney infection UTI (urinary tract infection) Surgical History Surgical History H/O: hysterectomy History of lumpectomy of left breast Hx of breast augmentation Family History Family History Father Lung cancer Social History Social History Smoking status: Never smoker Second hand tobacco smoke exposure: No Alcohol intake: former Drinks per week: 0 Alcohol use details: LAST 2019 Substance use: current Substance use type: marijuana Other substance usage details: MEDICAL MARIJUANA Last use: 10/31/2020 Do You Feel Safe in your Home?: Yes Lack of Transportation: No Lack of Food: Never True Current Housing: I Have Housing Concerned About Future Housing: No Difficulty Paying Gas/Electric Bills: No Difficulty Paying for Meds: No Currently Unemployed: YES Education: Associate Degree Difficulty w/ Childcare or Family Care: No Living arrangements: with family Gender identity (if verbalized by the patient): Female Spiritual care concerns: No Agree to blood products: Yes Comments At the time of my signature, I reviewed and agree with the nursing past medical, surgical, social, and family history. There is no relevant family history pertinent to the patient complaint. Exam Narrative: GENERAL: This is a well-nourished, well-developed adult, in no apparent distress. They are non ill-appearing, nontoxic appearing. HEAD: normocephalic, atraumatic. EYES: Sclera clear/white. Conjunctiva normal. Vision is grossly intact. Extraocular movements intact. Pupils PERRLA. No swelling. Upper and lower eyelids bilaterally are normal. EARS: External ears normal, auditory canals clear and without drainage, TMs normal without perforation. Hearing grossly intact. NOSE: External nose normal THROAT: Mucous membranes moist, NECK: Neck supple, CARDIOVASCULAR: Regular rate and rhythm RESPIRATORY: Respiratory rate normal, respiratory effort nonlabored, no respiratory distress SKIN: Erythematous macular papular wound in between the patient's size located in the middle of her forehead. It is not actively draining. It measures approximately 2 cm x 2 cm. It is tender to palpate in warm to touch. NEURO: awake, alert, and oriented to person, place and time. There were no obvious focal neurologic abnormalities. EXTREMITIES: No joint tenderness, effusion, or edema noted. Course Course Emergency Course: Portions of this record may have been created with voice recognition software Level of Care: Express Care Visit Vital Signs Vital signs: Vital Signs Temperature 98.7 F 11/22/24 11:24 Pulse Rate 74 11/22/24 11:24 Respiratory Rate 14 11/22/24 11:24 Blood Pressure 153/75 H 11/22/24 11:24 Pulse Oximetry 100 11/22/24 11:24 Oxygen Delivery Room Air 11/22/24 11:24 Temperature 98.7 F 11/22/24 11:24 Pulse Rate 74 11/22/24 11:24 Respiratory Rate 14 11/22/24 11:24 Blood Pressure 153/75 H 11/22/24 11:24 Pulse Oximetry 100 11/22/24 11:24 Oxygen Delivery Room Air 11/22/24 11:24 Reviewed MDM - Skin/Abscess/Foreign Bdy MDM Narrative Medical decision making narrative: Patient likely developed a small abscess from picking at her forehead. It is actively draining. Will prescribe clindamycin given patient's length the history of any recent antibiotic use. Discussed physical exam findings. Advised supportive measures and signs/symptoms to go to the ER. Pt is appropriate for outpt treatment and f/u. Differential Diagnosis Differential diagnosis: Likely abscess of skin or subcutaneous tissue and other (Acne vulgaris, cellulitis) Critical Care Time Critical Care Time Critical Care Time: No Discharge Plan Discharge Clinical Impression: Abscess Patient Disposition: Home Condition: Stable Instructions: Antibiotic Form Additional Instructions: Take clindamycin as directed. Wash her face daily with mild soap and water. Avoid picking or scratching at the wound. May use warm compresses to promote drainage. Use mupirocin ointment as directed. Follow-up with PCP in 3-5 days. If you developed worsening redness, swelling, pain, fevers, vision problems, or any other concerns please go to the ER immediately. Patient Language: Kinyarwanda Prescriptions: New clindamycin HCl [Cleocin HCl] 150 mg capsule 450 mg PO Q8H 5 Days Qty: 45 0RF mupirocin calcium 2 % cream 1 applic topical BID 5 Days Qty: 30 0RF No Action buprenorphine 15 mcg/hour patch weekly 15 mcg transdermal WEEKLY alprazolam 0.5 mg tablet letrozole 2.5 mg tablet 2.5 mg PO DAILY Rx Instructions: begin between days 2 and 5 of mentrual cycle famotidine [Pepcid] 40 mg tablet 40 mg PO QHS Qty: 30 5RF ondansetron HCl 4 mg tablet 4 mg PO Q8H PRN (Reason: nausea and vomiting) Qty: 60 2RF lidocaine HCl 2 % jelly 1 applic topical TID PRN (Reason: pain) Qty: 30 0RF solifenacin [Vesicare] 10 mg tablet 10 mg PO DAILY Qty: 90 3RF montelukast 10 mg tablet 10 mg PO QHS Qty: 30 11RF ibuprofen 600 mg tablet 600 mg PO TID PRN (Reason: pain) Qty: 90 3RF minocycline 100 mg tablet 100 mg PO BID Qty: 60 11RF trazodone 150 mg tablet 150 mg PO QHS PRN (Reason: sleep) Qty: 30 11RF lidocaine 5 % adhesive patch,medicated 1 patch topical DAILY Qty: 30 11RF Rx Instructions: leave on most painful area for up to 12 hrs, then remove for 12hours clonazepam 1 mg tablet 1 mg PO BID PRN (Reason: Anxiety) Qty: 60 5RF sertraline 100 mg tablet 100 mg PO DAILY Qty: 30 5RF dextroamphetamine-amphetamine [Adderall] 20 mg tablet 20 mg PO BID Qty: 60 0RF Rx Instructions: administer doses at least 4-6 hours apart Follow-up/Referrals: Leonie Ortega NP [Primary Care Provider] - Time of Disposition: 11:45
== END 2024-11-22 12:17 | disposition home or self-care (01) ==
PROVIDERS: PCP Nurse Practitioner Family
DX: L02.01 Cutaneous abscess of face (principal); M81.0 Age-related osteoporosis without current pathological fracture; N30.10 Interstitial cystitis (chronic) without hematuria; F41.9 Anxiety disorder, unspecified; F32.A Depression, unspecified; F90.9 Attention-deficit hyperactivity disorder, unspecified type
CPT/HCPCS: 99213; G0463

== ENCOUNTER 2024-11-27 13:57 | Emergency (ER) | payer MEDICARE, MEDICAID, SELFPAY ==
--- OUTSIDE RECORDS SUMMARY | 2024-11-27 14:01 | XMS_ITS | Encounter Summary ---
Author Organization [facility] Address [address] [place] [address] Phone Care Team Providers Care Space Control Agent Name Role Phone Arlene Rodriguez APRN, STATISTICAL TECHNICIAN Primary Care Provider Leonie Ortega APRN, STATISTICAL TECHNICIAN Primary Care Provider + Pierre Arnett DO Unavailable [phone] Encounter Details Date Type Department Care Team (Late st Contact Info) Description 02/25/2021 Telephone [facility] [address] [place] [address] Pierre Arnett, DO [address] [place] [address] Social History Tobacco Use Types [...] on file Legal Sex Female 8:29 AM RESIDENT CARE COORDINATOR Gender Identity Not on file Sexual Orientation Not on file 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 No / Unsure 02/25/2021 8:41 AM RESIDENT CARE COORDINATOR documented as of this encounter Miscellaneous Notes * Telephone Encounter - Courtney Langston PAC - 02/25/2021 2:46 PM RESIDENT CARE COORDINATOR Thank you! DENT CARE COORDINATOR * Telephone Encounter - Marta Marina - 02/25/2021 2:08 PM CST PATIENT IS SCHEDULED FOR BONE SCAN 03/16/21 AT 12PM. DENT CARE COORDINATOR documented in this encounter Plan of Treatment Upcoming Encounters Date Type Department Care Team (Late st Contact Info) Description 12/03/2024 8:00 AM CDT Clinical Support [facility] [address] [phone] Nurse, [facility] 02/06/2025 10:30 AM CDT Office Visit [facility] [address] [phone] Pierre Arnett DO [address] [place] [phone] documented as of this encounter Visit Diagnoses Not on filedocumented in this encounter Additional Health Concerns Assessment Noted Time PHQ-9 Depression Total Score: 0 02/26/20 9:12 AM RESIDENT CARE COORDINATOR documented as of this encounter Care Teams Space Control Agent Relationship Specialty Start Date End Date Arlene Rodriguez APRN, STATISTICAL TECHNICIAN [address] [place] [address] PCP - General Internal Medicine 02/20/20 03/20/22 Leonie Ortega APRN, STATISTICAL TECHNICIAN [address] [address] PCP - General Advanced Practice Nurse 03/21/22 Pierre Arnett DO [address] [place] [phone] Consulting Physician Oncology 03/19/23 documented as of this encounter
--- OUTSIDE RECORDS SUMMARY | 2024-11-27 14:01 | XMS_ITS | Encounter Summary ---
Author Organization [facility] Address [address] [place] [address] Care Team Providers Care Franchise Consultant Name Role Phone NikkiArlene lujan YUDELKA Primary Care Provider [phone] Shameka Wright MD Unavailable [phone] Latha Jean RN Unavailable Leonie Hooper Primary Care Provider [phone] Pierre Arnett DO Unavailable [phone] Encounter Details Date Type Department Care Team (Late st Contact Info) Description 08/04/2020 Pastoral Care Encounter [facility] [place], [place] [id number] Martínez Morrissey Social History Tobacco Use Types [...] Initial visit;Assessment;Referral Referral From Nurse Referral To Tar [facility] Man Plan of Care Care Plan Initiated Yes;Patient [...] st Contact Info) Description 06/02/2025 10:00 AM DRAFT ROLLER PICKER Appointment [facility] [place] [address] Kai Davenport MD [address] [place] [phone] documented as of this encounter Visit Diagnoses Not on filedocumented in this encounter Additional Health Concerns Infection Onset Date Last Indicated Resolved Time COVID-19 Rule Out 01/26/2021 01/26/2021 01/26/2021 10:51 AM CDT COVID-19 Rule Out 01/26/2021 01/26/2021 01/27/2021 12:16 AM CDT COVID-19 Rule Out 04/22/2021 04/22/2021 04/29/2021 12:32 AM DRAFT ROLLER PICKER Assessment Noted Time PHQ-9 Depression Total Score: 5 05/17/19 3:11 PM DRAFT ROLLER PICKER documented as of this encounter Care Teams Franchise Consultant Relationship Specialty Start Date End Date Arlene RodriguezYUDELKA [address] [place] [address] PCP - General Nurse Practitioner Family 04/24/18 08/11/22 Leonie Ortega APNP [address] [address] PCP - General Nurse Practitioner Family 08/12/22 Shameka Wright MD [address] [place] [address] Radiation Oncologist RAD[facility] ONCOL[facility]Y 07/30/20 Latha Jean, stacking machine operator Nurse Navigator REGISTERED NURSE 07/30/20 07/08/23 Pierre Arnett, [address] [place] [address] Consulting Physician INTERNAL MEDICINE 07/09/23 documented as of this encounter
--- OUTSIDE RECORDS SUMMARY | 2024-11-27 14:01 | XMS_ITS | Clinical Summary ---
Author Organization [facility] Address [address] [place] [address] Care Team Providers Care Digital Strategy Director Name Role Phone Leonie Ortega DEBORAH Primary Care Provider [phone] Pierre Arnett DO Unavailable [phone] Allergies No known active allergies Medications [...] left breast in female, estrogen receptor positive ([facility]) 06/18/2020 Primary insomnia 05/18/2020 Invasive ductal carcinoma of breast, female, left ([facility]) 05/18/2020 Er+ [place]+ carcinoma of breast, left ([facility] HHS/H CC) 05/18/2020 Left breast mass 12/24/2019 Neck pain 10/28/2019 Abnormal TSH 10/28/2019 Neuropathy 10/28/2019 OAB (overactive bladder) 10/28/2019 Yeast vaginitis 05/18/2019 Frequent urination 11/27/2018 High risk sexual behavior, unspecified type 11/14 Vitamin D deficiency 11/27/2018 Frequent UTI 11/27/2018 Urgency of urination 11/27/2018 Vaginal yeast infection 11/27/2018 Acute cystitis without hematuria 07/02/2018 ADD (attention deficit disorder) without hyperac tivity 07/02/2018 Bipolar disorder ([facility]) 01/07/2016 Depression with anxiety [...] cancer from work ing around asbestos at [employer] No Known Problems Maternal Aunt No Known [...] drink = 0.6 oz pur e alcohol) [facility] Utilities Answer Date Recorded In the past 12 months has e [employer], gas, oil, or water [employer] threatened to shut off services in your [...] move on to questions 3-9 1 05/17/2020 [facility] - Occupational Stress Questionnaire Answer Date [...] place to sleep or slept in a mcc (including now)? No 07/18/2023 Comments No Sex [...] A M CDT Height 172.7 cm (5' 7.99) 07/18/2023 9:32 AM CD T Body Mass Index 19.48 07/18/2023 9:32 AM CDT Plan of Treatment Upcoming Encounters Date Type Department Care Team (Late st Contact Info) Description 06/02/2025 10:00 AM BULLET SWAGING MACHINE OPERATOR Appointment [facility] Mammography [address] [place], [place] [phone] Kai Mcdaniel MD [address] [place] [address] [place] [address] Health Maintenance Due Date Last Done Comments Colorectal Cancer Screening Colonoscopy (10 Years) 1977 Annual Physical 1980 Hepatitis B Vaccines (1 of 3 - 19+ 3-dose series) 1996 COVID-19 Vaccine ( - season) 2023 Mammogram Screening 04/22/2026 04/22/2024, 11/03/2022, 01/03/2022, Additional [...] and discharge planning Lifestyle No Hubert Zee, FABIÁN Medical Devices Implanted Type Area Informatics Developer Device Identifier Shelf Expiration Date Model / Serial / Lot Graft Bone Cancellous 15ml 4-10mm Freeze Dried Chips - [id number] Implanted:Qty: 1 on 07/18/2023 by Aggie Dumont MD at [facility] Bone N/A: Spine Lumbar [employer] [id number] 03/11/2027 [id number] / / [id number] Breast Breast Ofx 40mm Charles Implanted:Qty: 2 on 07/18/2023 by Aggie Dumont MD at [facility] Charles N/A: Spine Lumbar ORTHOFIX 52-6040 / / Set Screw Implanted:Qty: 4 on 07/18/2023 by Aggie Dumont MD at [facility] Screw N/A: Spine Lumbar ORTHOFIX 36-2001 / / Ofx 6.5x45mm Implanted:Qty: 2 on 07/18/2023 by Aggie Dumont MD at [facility] Screw N/A: Spine Lumbar ORTHOFIX [id number] / / Ofx 6.5x50mm Implanted:Qty: 2 on 07/18/2023 by Aggie Dumont MD at [facility] Screw N/A: Spine Lumbar ORTHOFIX 44-5650 / / Magnetos Implanted:Qty: 1 on 07/18/2023 by Aggei Dumont MD at [facility] N/A: Spine Lumbar [id number] 12/16/2027 [id number] / / [id number] Description:MFR: [employer] BIOS[employer] IENCES Top Loading Body Implanted:Qty: 4 on 07/18/2023 by Aggie Dumont MD at [facility] N/A: Spine Lumbar [id number] / / Procedures Procedure Name Priority Date/Time Associated Diagnosis Comments MG SCREENING IMPLANT W JEREMIAH RT DIGI Routine 04/22/2024 12:09 PM BULLET SWAGING MACHINE OPERATOR Screening mammogram, encounter for HEPATITIS C ANTIBODY Routine 11/26/2018 2:32 PM CDT High risk sexual behavior, unspecified type from Last 3 Months or Most Recently Relevant to Health Maintenance Results * MG SCREENING IMPLANT W JEREMIAH RT DIGI (04/22/2024 12:09 PM BULLET SWAGING MACHINE OPERATOR) Anatomical Region Laterality Modality Breast Right Mammography 04/22/2024 12:2 4 PM BULLET SWAGING MACHINE OPERATOR Impressions 04/22/2024 1:33 PM BULLET SWAGING MACHINE OPERATOR ===== IMPRESSION: ===== 1. Stable mammographic appearance with no new findings to suggest malignancy in the breast. Assessment: ACR BI-RADS 2 - BENIGN FINDING(S) Recommendation: 1:Routine Screening Right Comments: Ordered By: KAI MCDANIEL Interpreted By: Joseph Jimenez MD, 04/22/2024 12:24 PM Narrative 04/22/2024 1:33 PM BULLET SWAGING MACHINE OPERATOR [facility] [address] [place] [address] Examination: Digital right screening mammogram with 3-D [...] calcifications in the breast to suggest malignancy. Kai Mcdaniel MD MAMMO Final Result * HEPATITIS C ANTIBODY (11/26/2018 2:32 PM CDT) HEPATITIS C AB NON-REACTI VE NON-REACTI VE 11/26/2018 9:20 PM CDT [facility] 11/26/2018 2:32 PM CDT Arlene Michael CUTTING MACHINE TENDER [facility] Final Result [facility] [address] [place] [address], [place] [phone] from Last 3 Months or Most Recently Relevant to Health Maintenance Insurance [employer] Advance Directives Documents on File Type Date Recorded Patient Home Health Outreach Coordinator Expl anation Legal Documents 04/10/2019 Charge Estim ate Form-Self Pay * Full Code (Latest Code Status on File) Date Activated Date Inactivated Comments 07/18/2023 5:29 PM 07/19/2023 3:55 PM Care Teams Digital Strategy Director Relationship Specialty Start Date End Date Leonie Ortega APNP [address] [phone] PCP - General Nurse Practitioner Family 08/12/22 Pierre Arnett DO [address] [place] [address] Consulting Physician INTERNAL MEDICINE 07/09/23
--- OUTSIDE RECORDS SUMMARY | 2024-11-27 14:01 | XMS_ITS ---
Author Organization [facility] Address [address] [place], [facility] [address] [place] [address] Phone Care Team Providers Care Comsec Manager Name Role Phone Leonie Ortega APRN, HEALTHCARE NETWORK PRICING CONSULTANT Primary Care Provider + Pierre Arnett DO Unavailable [phone] Active Problems Problem Noted Date Diagnosed Date [...] Malignant neoplasm of female breast 06/18/2020 Er+ [place]+ carcinoma of breast, left 05/18/2020 Neuropathy 10/28/2019 Bipolar disorder 01/07/2016 Depression with anxiety 01/05/2016 Current Treatment and Therapy Plans SUPPORT - ZOMETA - [facility]* Plan Start Date:02/21/2023 Plan Provider:Pierre Arnett, [...] - LEUPROLIDE (LUPRON, ELIGARD), TRELSTAR, FIRMAGON - [facility] 1 07/19/2021 No medications scheduled. Plan Clean Up Melquiades, Pierre D, DO Treatment not started ORAL CHEMO TREATMENT Plan Name Start Date Discontinue Date Treatment Medications Discontinue Reason Plan Provider Cycles BREAST - LETROZOLE - [facility] 1 07/19/2021 letrozole (FEMARA) Plan Clean Up Melquiades, Pierre D, DO Treatment not started
--- OUTSIDE RECORDS SUMMARY | 2024-11-27 14:01 | XMS_ITS | Encounter Summary ---
Author Organization [facility] Address [address] [place] [address] Phone Care Team Providers Care Mattress Filling Machine Tender Name Role Phone Arlene Rodriguez APRN, OIL SPRAYER Primary Care Provider Leonie Ortega APRN, OIL SPRAYER Primary Care Provider + Pierre Arnett DO Unavailable [phone] Encounter Details Date Type Department Care Team (Late st Contact Info) Description 04/02/2020 Telephone [facility] [address] [place] [address] Pierre Arnett, DO [address] [place] [address] Social History Tobacco Use Types [...] on file Legal Sex Female 8:29 AM PIPE OR STEAM FITTER FURNACE INSTALLER Gender Identity Not on file Sexual Orientation Not on file 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 No / Unsure 03/26/2020 10:02 AM PIPE OR STEAM FITTER FURNACE INSTALLER documented as of this encounter Miscellaneous Notes * Telephone Encounter - Pierre Arnett DO - 04/02/2020 1:22 PM CST Try to call her sister and send letter OR STEAM FITTER FURNACE INSTALLER * Telephone Encounter - Marta Marina - [...] HAVE US MAIL A LETTER? PLEASE ADVISE. OR STEAM FITTER FURNACE INSTALLER documented in this encounter Plan of Treatment Upcoming Encounters Date Type Department Care Team (Late st Contact Info) Description 12/03/2024 8:00 AM CDT Clinical Support [facility] [address] [phone] Nurse, [facility] 02/06/2025 10:30 AM CDT Office Visit [facility] [address] [phone] Pierre Arnett DO [address] [place] [phone] documented as of this encounter Visit Diagnoses Not on filedocumented in this encounter Additional Health Concerns Assessment Noted Time PHQ-9 Depression Total Score: 0 03/26/20 20 10:15 AM PIPE OR STEAM FITTER FURNACE INSTALLER documented as of this encounter Care Teams Mattress Filling Machine Tender Relationship Specialty Start Date End Date Arlene Rodriguez, ANESTHETIC ASSISTANT, OIL SPRAYER [address] [place] [address] PCP - General Internal Medicine 02/20/20 03/20/22 Leonie Ortega, ANESTHETIC ASSISTANT, OIL SPRAYER [address] [place] [address] PCP - General Advanced Practice Nurse 03/21/22 Pierre Arnett DO [address] [place] [phone] Consulting Physician Oncology 03/19/23 documented as of this encounter
--- OUTSIDE RECORDS SUMMARY | 2024-11-27 14:01 | XMS_ITS ---
Author Organization [facility] Address [address] [place] [id number] Care Team Providers Care Director Of Science Name Role Phone Ortega Leonie DEBORAH Primary Care Provider [phone] Pierre Arnett DO Unavailable [phone] Active Problems Problem Noted Date Diagnosed Date Spondylolisthesis of lumbar region 07/18/2023 Generalized body aches 01/26/2021 Fatigue, unspecified type 01/26/2021 COVID-19 vaccine series not administered 021 Malignant neoplasm of overla pping sites of left breast in female, estrogen receptor positive ([facility]) 06/18/2020 Primary insomnia 05/18/2020 Invasive ductal carcinoma of breast, female, left ([facility]) 05/18/2020 Er+ OR+ carcinoma of breast, left ([facility] HHS/ CC) 05/18/2020 Left breast mass 12/24/2019 Neck pain 10/28/2019 Abnormal TSH 10/28/2019 Neuropathy 10/28/2019 OAB (overactive bladder) 10/28/2019 Yeast vaginitis 05/18/2019 Frequent urination 11/27/2018 High risk sexual behavior, unspecified type 11/14 Vitamin D deficiency 11/27/2018 Frequent UTI 11/27/2018 Urgency of urination 11/27/2018 Vaginal yeast infection 11/27/2018 Acute cystitis without hematuria 07/02/2018 ADD (attention deficit disorder) without hyperac tivity 07/02/2018 Bipolar disorder ([facility]) 01/07/2016 Depression with anxiety 01/05/2016 Current Treatment [...] [address] 08/18/2020 - 09/23/2020 [id number] Resolved Problems Problem Noted Date Diagnosed Date Resolved Date Need for COVID-19 vaccine 12/29/2020 Pap smear for cervical cancer screening 11/27/2018 12/26/2019
--- OUTSIDE RECORDS SUMMARY | 2024-11-27 14:01 | XMS_ITS | Encounter Summary ---
Author Organization [facility] Address [address] [place] [address] Phone Care Team Providers Care Manager Print Name Role Phone Arlene Rodriguez APRN, RESORT KEEPER Primary Care Provider Leonie Ortega APRN, RESORT KEEPER Primary Care Provider + Pierre Arnett DO Unavailable [phone] Reason for Visit * Reason Comments Medication Refill Encounter Details Date Type Department Care Team (Late st Contact Info) Description 08/26/2021 Refill [facility] [address] [place] [address] Pierre Arnett, DO [address] [place] [address] Medication Refill Social History Tobacco [...] on file Legal Sex Female 8:29 AM RECONSIGNMENT CLERK Gender Identity Not on file Sexual Orientation Not on file 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 Not on file [...] AM CDT Clinical Support [facility] [address] [phone] Nurse, [facility] 02/06/2025 10:30 AM CDT Office Visit [facility] [address] [phone] Pierre Arnett DO [address] [place] [phone] documented as of this encounter Visit Diagnoses Not on filedocumented in this encounter Additional Health Concerns Assessment Noted Time PHQ-9 Depression Total Score: 0 02/26/20 21 9:12 AM RECONSIGNMENT CLERK documented as of this encounter Care Teams Manager Print Relationship Specialty Start Date End Date Arlene Rodriguez APRN, RESORT KEEPER [address] [place] [phone] PCP - General Internal Medicine 02/20/20 03/20/22 Leonie Ortega APRN, RESORT KEEPER [address] [place] [phone] PCP - General Advanced Practice Nurse 03/21/22 Pierre Arnett DO [address] [place] [phone] Consulting Physician Oncology 03/19/23 documented as of this encounter
--- OUTSIDE RECORDS SUMMARY | 2024-11-27 14:01 | XMS_ITS | Clinical Summary ---
Author Organization [facility] Address [address], [facility] [address] [place] [address] Phone Care Team Providers Care Co Founder And Chief Strategy Officer Name Role Phone Leonie Ortega APRN, DIRECTOR DIGITAL MARKETING Primary Care Provider + Pierre Arnett DO Unavailable [phone] Allergies No known active allergies Medications amphetamine-de xtroamphetamin e (ADDERALL) 20 MG Tablet TK 1 T PO BID 02/07/20 20 Active buPROPion (WELLBUTRIN) 300 MG TABLET SR 24 HR XL tablet 02/10/20 20 Active clonazePAM (KlonoPIN) 1 MG Tablet TK 1 T PO BID PRA 02/23/20 20 Active montelukast (SINGULAIR) 10 MG Tablet 01/28/20 20 Active Probiotic Product (Acidophilus/G oat Milk) Capsule Take 1 Tab by mouth. Active vitamin b-12 (CYANOCOBALAMI N) 100 MCG Tablet Take 100 mcg by mouth daily. Active solifenacin (VESICARE) 10 MG Tablet 07/30/19 21 Active SSD 1 % Cream 09/28/19 21 Active Ascorbic Acid 1000 MG Tablet Take 1,000 mg by mouth. Active ondansetron (Zofran) 4 MG Tablet Take 1 Tablet by mouth every 6 hours as needed for Nausea - 1st line. 30 Tablet 03/16/20 21 Active prochlorperazi ne (COMPAZINE) 10 MG Tablet Take 1 Tablet by mouth every 8 hours as needed for Nausea - 2nd line. 14 Tablet 06/12/19 22 Active gabapentin (NEURONTIN) 300 MG Capsule 08/29/19 23 Active tiZANidine (ZANAFLEX) 4 MG Tablet TAKE 1 TABLET BY MOUTH THREE TIMES DAILY NEEDED FOR MUSCLE SPASMS 09/06/19 23 Active lidocaine (LIDODERM) 5 % Patch 02/01/20 23 Active traZODone (DESYREL) 150 MG Tablet TAKE 1 TABLET BY MOUTH EVERY DAY AT BEDTIME NEEDED FOR SLEEP 11/22/19 23 Active naloxegol (MOVANTIK) 25 MG Tablet Take 1 Tablet by mouth daily. 05/11/19 23 Active Minocycline HCl 100 MG Tablet Take 1 Tablet by mouth 2 times daily. 06/29/19 24 Active methocarbamol (ROBAXIN) 750 MG Tablet Take 750 mg by mouth 3 times daily as needed. 06/27/19 24 Active busPIRone HCl 7.5 MG Tablet TAKE 1 TABLET BY MOUTH 2 TIMES PER DAY 06/19/19 24 Active HYDROcodone-ac etaminophen (NORCO) 5-325 MG Tablet TAKE 1 TABLET BY MOUTH EVERY 4-6 HOURS NEEDED FOR MODERATE PAIN 04/26/19 24 Active buprenorphine 15 MCG/HR PATCH WEEKLY APPLY 1 PATCH TOPICALLY TO THE SKIN EVERY 7 DAYS Active cyclobenzaprin e (FLEXERIL) 10 MG Tablet Take 10 mg by mouth 3 times daily as needed for Muscle spasms. 09/27/19 24 Active letrozole (FEMARA) 2.5 MG TabletIndicati ons:Er+ SC+ carcinoma of breast, left (HCC) TAKE 1 TABLET BY MOUTH DAILY 90 Tablet 1 11/13/19 25 Active letrozole (FEMARA) 2.5 MG TabletIndicati ons:Er+ SC+ carcinoma of breast, left (HCC) TAKE 1 TABLET BY MOUTH DAILY 30 Tablet 3 09/23/19 25 025 Discontinued Active Problems Problem Noted Date Diagnosed Date [...] Malignant neoplasm of female breast 06/18/2020 Er+ SC+ carcinoma of breast, left 05/18/2020 Neuropathy 10/28/2019 Bipolar disorder 01/07/2016 Depression with anxiety 01/05/2016 Encounters Date Type Department Care Team Description 11/12/2024 Refill [facility] [address] [phone] Pierre Arnett, DO Medication Refill 09/22/2024 Refill [facility] [address] [phone] Leslie Ruano, ORACLE WEBCENTER CONSULTANT, DIRECTOR DIGITAL MARKETING Medication Refill from Last 3 Months Immunizations Immunization Administration Dates Next Due Influenza Vaccine 03/15/2015 Influenza Vaccine, Quadrivalent, PF 12/23/2019,0 01/05/2016,03/03/2013 TDAP Vaccine 03/11/2018 Family History Medical History Relation Name Comments No Known Problems Brother 1 No Known Problems Brother 2 Cancer Father No Known Problems Sister Relation Name Status Comments Brother 1 Alive Brother 2 Alive Father asbestos from [employer] Mother Alive Sister Alive Social History [...] on file Legal Sex Female 8:29 AM RETAIL PARTS PRO Gender Identity Not on file Sexual Orientation Not on file 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 02/06/2025 10:30 AM CDT Office Visit [facility] [address] [phone] Pierre Arnett, DO [address] [place] [phone] Health Maintenance Due Date Last Done Comments SARS-COV-2 Immunization (#1) 1982 Hepatitis B Immunization (1 of 3 - 19+ 3-dose series) 1996 Pneumococcal Immunization Combined (1 of 2 - PCV) 1996 Pap Smear 1998 Cervical Cancer Screening (CCS) 11/14/2007 HPV/Cotest 11/14/2007 Cologuard 2022 Colonoscopy 2022 Colorectal Cancer Screening 2022 Immunochemical Fecal Occult Blood 2022 Influenza Immunization (#1) 2024 09/0 11/2019, 01/05/2016, 03/15/2015, Additional history exists Mammogram Unilateral [...] patient's age to complete this topic Insurance MEDICARE MEDICAID [place] Care Teams Co Founder And Chief Strategy Officer Relationship Specialty Start Date End Date Leonie Ortega APRN, DIRECTOR DIGITAL MARKETING [address] [place] [phone] PCP - General Advanced Practice Nurse 03/21/22 Pierre Arnett DO [address] [place] [phone] Consulting Physician Oncology 03/19/23
--- OUTSIDE RECORDS SUMMARY | 2024-11-27 14:02 | XMS_ITS | Encounter Summary ---
Author Organization [facility] Address [facility] [place] [address] Care Team Providers Care Preform Machine Operator Name Role Phone NikkiArlene lujan YUDELKA Primary Care Provider [phone] Shameka Wright MD Unavailable [phone] Latha Jean RN Unavailable UnavailLeonie Montana Primary Care Provider [phone] Pierre Arnett DO Unavailable [phone] Encounter Details Date Type Department Care Team (Late st Contact Info) Description 08/01/2019 [facility] Patient Accounts [address] [place] [address] [facility] Provider Notice regarding your past due [...] st Contact Info) Description 06/02/2025 10:00 AM INDIGO VAT TENDER CLOTH Appointment [facility] [place] [address] Kai Davenport MD [facility] [phone] documented as of this encounter Visit Diagnoses Not on filedocumented in this encounter Additional Health Concerns Infection Onset Date Last Indicated Resolved Time COVID-19 Rule Out 02/14/2020 02/14/2020 02/15/2020 6:11 PM INDIGO VAT TENDER CLOTH COVID-19 Rule Out 01/26/2021 01/26/2021 01/26/2021 10:51 AM CDT COVID-19 Rule Out 01/26/2021 01/26/2021 01/27/2021 12:16 AM CDT COVID-19 Rule Out 04/22/2021 04/22/2021 04/29/2021 12:32 AM INDIGO VAT TENDER CLOTH Assessment Noted Time PHQ-9 Depression Total Score: 1 05/13/19 20 11:10 AM INDIGO VAT TENDER CLOTH documented as of this encounter Care Teams Preform Machine Operator Relationship Specialty Start Date End Date Arlene Rodriguez FNP [address] [place] [address] [phone] PCP - General Nurse Practitioner Family 04/24/18 08/11/22 Leonie Ortega APNP [address] [phone] PCP - General Nurse Practitioner Family 08/12/22 Shameka Wright MD [address] [place] [phone] Radiation Oncologist RADIATION ONCOLOGY 07/30/20 Latha Jean, windshield technician Nurse Navigator REGISTERED NURSE 07/30/20 07/08/23 Pierre Arnett DO [address] [place] [address] Consulting Physician INTERNAL MEDICINE 07/09/23 documented as of this encounter
[2024-11-27 14:10] VITALS: BP 165/87; PULSE 87; RESP 16; TEMP 36.2; O2SAT 97
--- NOTE | 2024-11-27 14:22 | ED_ITS ---
HPI - Recheck/Abnormal Lab/Rx General Chief Complaint: Recheck/Abnormal Lab/Rx Stated Complaint: call from , told to come to ED for MRSA Time Seen by Provider: 11/27/24 14:15 Focused HPI: Patient is a 49-year-old female who presents to the ER with an abscess on her forehead. She reports she and her family were recently in [place] with a swim in the ocean and pool. Patient reports when they returned her daughter developed an abscess under her left armpit. She reports she brought her daughter into her bed and breakfast cook. Today patient reports they received a call that her daughter's abscess was positive for MRSA. She reports her infection started her left eyelid in moved to her forehead. Patient denies any recent fevers, headaches, neck stiffness, or jaw pain. She endorses a history of breast cancer. GENERAL: Well-appearing, well-nourished, and in no acute distress. HEAD: Normocephalic, atraumatic. CHEST: Clear to auscultation. ?No respiratory distress. HEART: Regular rate and rhythm.? NEURO: ?Alert and oriented x3. Patient screened in triage and initial orders placed.? ?Additional care and disposition to be based upon?diagnostic testing and treatment. Related Data Home Medications ?Medication ?Instructions ?Recorded ?Confirmed ?Last Taken ?Type letrozole 2.5 mg tablet 2.5 mg PO DAILY 01/05/22 10/08/24 Unknown History buprenorphine 15 mcg/hour weekly 15 mcg transdermal WEEKLY 11/24/23 10/08/24 Unknown History transdermal patch alprazolam 0.5 mg tablet mg 11/22/24 Unknown History Allergies Allergy/AdvReac Type Severity Reaction Status Date / Time No Known Allergies Allergy Verified 11/27/24 14:14 [facility] Past Medical History Medical History Screening for colon cancer Weight loss, abnormal Nausea & vomiting Paresthesia Bartholin cyst Urinary urgency Elevated BP without diagnosis of hypertension Chronic low back pain Insomnia Elevated glucose Elevated liver enzymes Anemia Osteoporosis Urinary frequency Irritable bowel syndrome with constipation Chronic idiopathic constipation Low back pain with right-sided sciatica Constipation Acne Chronic allergic rhinitis ADHD Depression Encounter to establish care Sinusitis Post-operative pain Interstitial cystitis Breast cancer Anorexia Anxiety Anxiety and depression Kidney infection UTI (urinary tract infection) Surgical History Surgical History H/O: hysterectomy History of lumpectomy of left breast Hx of breast augmentation Family History Family History Father Lung cancer Social History Social History Smoking status: Never smoker Second hand tobacco smoke exposure: No Alcohol intake: former Drinks per week: 0 Alcohol use details: LAST 2019 Substance use: current Substance use type: marijuana Other substance usage details: MEDICAL MARIJUANA Last use: 10/31/2020 Do You Feel Safe in your Home?: Yes Lack of Transportation: No Lack of Food: Never True Current Housing: I Have Housing Concerned About Future Housing: No Difficulty Paying Gas/Electric Bills: No Difficulty Paying for Meds: No Currently Unemployed: YES Education: Associate Degree Difficulty w/ Childcare or Family Care: No Living arrangements: with family Gender identity (if verbalized by the patient): Female Spiritual care concerns: No Agree to blood products: Yes Course Vital Signs Vital signs: Vital Signs Temperature 36.2 C L 11/27/24 14:10 Pulse Rate 87 11/27/24 14:10 Respiratory Rate 16 11/27/24 14:10 Blood Pressure 165/87 H 11/27/24 14:10 Pulse Oximetry 97 11/27/24 14:10 Oxygen Delivery Room Air 11/27/24 14:10 Temperature 36.2 C L 11/27/24 14:10 Pulse Rate 82 11/27/24 18:29 Respiratory Rate 18 11/27/24 18:29 Blood Pressure 133/83 11/27/24 18:29 Pulse Oximetry 99 11/27/24 18:29 Oxygen Delivery Room Air 11/27/24 14:10 MDM - Recheck/Abnormal Lab/Rx Lab Data Labs: Lab Results 11/27/24 Range/Units 14:33 Nasal MRSA (PCR) Not detected (NOT DETECTE) Discharge Plan Discharge Clinical Impression: Pimples Patient Disposition: Home Condition: Stable Instructions: Antibiotic Form Additional Instructions: You were seen seen for a pimple on her forehead. Please do normal treatment and follow-up with your primary care physician as needed. Patient Language: Japanese Prescriptions: No Action buprenorphine 15 mcg/hour patch weekly 15 mcg transdermal WEEKLY alprazolam 0.5 mg tablet clindamycin HCl [Cleocin HCl] 150 mg capsule 450 mg PO Q8H 5 Days Qty: 45 0RF mupirocin calcium 2 % cream 1 applic topical BID 5 Days Qty: 30 0RF letrozole 2.5 mg tablet 2.5 mg PO DAILY Rx Instructions: begin between days 2 and 5 of mentrual cycle famotidine [Pepcid] 40 mg tablet 40 mg PO QHS Qty: 30 5RF ondansetron HCl 4 mg tablet 4 mg PO Q8H PRN (Reason: nausea and vomiting) Qty: 60 2RF lidocaine HCl 2 % jelly 1 applic topical TID PRN (Reason: pain) Qty: 30 0RF solifenacin [Vesicare] 10 mg tablet 10 mg PO DAILY Qty: 90 3RF montelukast 10 mg tablet 10 mg PO QHS Qty: 30 11RF ibuprofen 600 mg tablet 600 mg PO TID PRN (Reason: pain) Qty: 90 3RF minocycline 100 mg tablet 100 mg PO BID Qty: 60 11RF trazodone 150 mg tablet 150 mg PO QHS PRN (Reason: sleep) Qty: 30 11RF lidocaine 5 % adhesive patch,medicated 1 patch topical DAILY Qty: 30 11RF Rx Instructions: leave on most painful area for up to 12 hrs, then remove for 12hours clonazepam 1 mg tablet 1 mg PO BID PRN (Reason: Anxiety) Qty: 60 5RF sertraline 100 mg tablet 100 mg PO DAILY Qty: 30 5RF dextroamphetamine-amphetamine [Adderall] 20 mg tablet 20 mg PO BID Qty: 60 0RF Rx Instructions: administer doses at least 4-6 hours apart Follow-up/Referrals: Leonie Ortega NP [Primary Care Provider] -
[2024-11-27 15:50] LABS: MRSA (PCR) NOT DETECTED (NOT DETECTE)
--- NOTE | 2024-11-27 17:05 | ED_ITS ---
HPI - General Adult General Chief complaint: Recheck/Abnormal Lab/Rx Stated complaint: call from , told to come to ED for MRSA Time Seen by Provider: 11/27/24 14:15 History of Present Illness HPI narrative: This is a 49-year-old female presenting with a pimple on her forehead. Is been there for about 1 week. She tried to pop it which was unsuccessful and actually made it worse. She is here today because her daughter had an abscess 2 weeks ago and the urgent care told her that it was MRSA and she was concerned that she might have MRSA on her face. No other symptoms. Related Data Home Medications ?Medication ?Instructions ?Recorded ?Confirmed ?Last Taken ?Type letrozole 2.5 mg tablet 2.5 mg PO DAILY 01/05/22 10/08/24 Unknown History buprenorphine 15 mcg/hour weekly 15 mcg transdermal WEEKLY 11/24/23 10/08/24 Unknown History transdermal patch alprazolam 0.5 mg tablet mg 11/22/24 Unknown History Allergies Allergy/AdvReac Type Severity Reaction Status Date / Time No Known Allergies Allergy Verified 11/27/24 14:14 [facility] Past Medical History Medical History Screening for colon cancer Weight loss, abnormal Nausea & vomiting Paresthesia Bartholin cyst Urinary urgency Elevated BP without diagnosis of hypertension Chronic low back pain Insomnia Elevated glucose Elevated liver enzymes Anemia Osteoporosis Urinary frequency Irritable bowel syndrome with constipation Chronic idiopathic constipation Low back pain with right-sided sciatica Constipation Acne Chronic allergic rhinitis ADHD Depression Encounter to establish care Sinusitis Post-operative pain Interstitial cystitis Breast cancer Anorexia Anxiety Anxiety and depression Kidney infection UTI (urinary tract infection) Surgical History Surgical History H/O: hysterectomy History of lumpectomy of left breast Hx of breast augmentation Family History Family History Father Lung cancer Social History Social History Smoking status: Never smoker Second hand tobacco smoke exposure: No Alcohol intake: former Drinks per week: 0 Alcohol use details: LAST 2019 Substance use: current Substance use type: marijuana Other substance usage details: MEDICAL MARIJUANA Last use: 10/31/2020 Do You Feel Safe in your Home?: Yes Lack of Transportation: No Lack of Food: Never True Current Housing: I Have Housing Concerned About Future Housing: No Difficulty Paying Gas/Electric Bills: No Difficulty Paying for Meds: No Currently Unemployed: YES Education: Associate Degree Difficulty w/ Childcare or Family Care: No Living arrangements: with family Gender identity (if verbalized by the patient): Female Spiritual care concerns: No Agree to blood products: Yes Exam Narrative: APPEARANCE: No apparent distress. Head: Pimple over the medial aspect of the left eyebrow. No surrounding cellulitic changes. No fluctuant mass. EYES: EOMI, NOSE: Atraumatic NECK: Trachea midline RESPIRATORY: No increased rate of breathing CARDIOVASCULAR: RRR, ABDOMINAL: Non-distended MUSCULOSKELETAl: No obvious deformities NEURO: Alert. Moving 4/4 extremities SKIN:: Warm, dry. Normal color PSYCHIATRIC: Normal affect Course Vital Signs Vital signs: Vital Signs Temperature 97.2 F L 11/27/24 14:10 Pulse Rate 87 11/27/24 14:10 Respiratory Rate 16 11/27/24 14:10 Blood Pressure 165/87 H 11/27/24 14:10 Pulse Oximetry 97 11/27/24 14:10 Oxygen Delivery Room Air 11/27/24 14:10 Temperature 97.2 F L 11/27/24 14:10 Pulse Rate 87 11/27/24 14:10 Respiratory Rate 16 11/27/24 14:10 Blood Pressure 165/87 H 11/27/24 14:10 Pulse Oximetry 97 11/27/24 14:10 Oxygen Delivery Room Air 11/27/24 14:[address] [facility] Narrative Medical decision making narrative: -Course: 49-year-old female presenting with a blemish in concerns for MRSA. Her pupil is not fluctuant. There is nothing to drain. Additionally I would not incise and drain and pimple on her face due to scarring. This should resolve on its own over time. Patient was reassured and she will be discharged with primary care follow-up. -DDX includes but is not limited to: Pimple, MRSA Vital Signs Vital Signs: Vital Signs Temperature 97.2 F L 11/27/24 14:10 Pulse Rate 87 11/27/24 14:10 Respiratory Rate 16 11/27/24 14:10 Blood Pressure 165/87 H 11/27/24 14:10 Pulse Oximetry 97 11/27/24 14:10 Oxygen Delivery Room Air 11/27/24 14:10 Temperature 97.2 F L 11/27/24 14:10 Pulse Rate 87 11/27/24 14:10 Respiratory Rate 16 11/27/24 14:10 Blood Pressure 165/87 H 11/27/24 14:10 Pulse Oximetry 97 11/27/24 14:10 Oxygen Delivery Room Air 11/27/24 14:10 Lab Data Labs: Lab Results 11/27/24 Range/Units 14:33 Nasal MRSA (PCR) Not detected (NOT DETECTE) Discharge Plan Discharge Clinical Impression: Pimples Patient Disposition: Home Condition: Stable Instructions: Antibiotic Form Additional Instructions: You were seen seen for a pimple on her forehead. Please do normal treatment and follow-up with your primary care physician as needed. Patient Language: Bruneian Prescriptions: No Action buprenorphine 15 mcg/hour patch weekly 15 mcg transdermal WEEKLY alprazolam 0.5 mg tablet clindamycin HCl [Cleocin HCl] 150 mg capsule 450 mg PO Q8H 5 Days Qty: 45 0RF mupirocin calcium 2 % cream 1 applic topical BID 5 Days Qty: 30 0RF letrozole 2.5 mg tablet 2.5 mg PO DAILY Rx Instructions: begin between days 2 and 5 of mentrual cycle famotidine [Pepcid] 40 mg tablet 40 mg PO QHS Qty: 30 5RF ondansetron HCl 4 mg tablet 4 mg PO Q8H PRN (Reason: nausea and vomiting) Qty: 60 2RF lidocaine HCl 2 % jelly 1 applic topical TID PRN (Reason: pain) Qty: 30 0RF solifenacin [Vesicare] 10 mg tablet 10 mg PO DAILY Qty: 90 3RF montelukast 10 mg tablet 10 mg PO QHS Qty: 30 11RF ibuprofen 600 mg tablet 600 mg PO TID PRN (Reason: pain) Qty: 90 3RF minocycline 100 mg tablet 100 mg PO BID Qty: 60 11RF trazodone 150 mg tablet 150 mg PO QHS PRN (Reason: sleep) Qty: 30 11RF lidocaine 5 % adhesive patch,medicated 1 patch topical DAILY Qty: 30 11RF Rx Instructions: leave on most painful area for up to 12 hrs, then remove for 12hours clonazepam 1 mg tablet 1 mg PO BID PRN (Reason: Anxiety) Qty: 60 5RF sertraline 100 mg tablet 100 mg PO DAILY Qty: 30 5RF dextroamphetamine-amphetamine [Adderall] 20 mg tablet 20 mg PO BID Qty: 60 0RF Rx Instructions: administer doses at least 4-6 hours apart Follow-up/Referrals: Leonie Ortega NP [Primary Care Provider] -
--- OUTSIDE RECORDS SUMMARY | 2024-11-27 17:56 | XMS_ITS | Encounter Summary ---
Author Organization [facility] Address [address] [place] [address] Phone Care Team Providers Care Director Writing Name Role Phone Arlene Rodriguez APRN, FURNITURE INSPECTOR Primary Care Provider Leonie Ortega APRN, FURNITURE INSPECTOR Primary Care Provider + Pierre Arnett DO Unavailable [phone] Encounter Details Date Type Department Care Team (Late st Contact Info) Description 02/25/2021 Telephone [facility] [place] [address] [place] [address] Pierre Arnett, DO [address] [place] [address] Social History Tobacco Use Types [...] on file Legal Sex Female 8:29 AM PRIVATE SECURITY GUARD Gender Identity Not on file Sexual Orientation Not on file 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 No / Unsure 02/25/2021 8:41 AM PRIVATE SECURITY GUARD documented as of this encounter Miscellaneous Notes * Telephone Encounter - Courtney Langston PAC - 02/25/2021 2:46 PM PRIVATE SECURITY GUARD Thank you! ATE SECURITY GUARD * Telephone Encounter - Marta Marina - 02/25/2021 2:08 PM CST PATIENT IS SCHEDULED FOR BONE SCAN 03/16/21 AT 12PM. ATE SECURITY GUARD documented in this encounter Plan of Treatment Upcoming Encounters Date Type Department Care Team (Late st Contact Info) Description 12/03/2024 8:00 AM CDT Clinical Support [facility] [address] [phone] Nurse, Ade[facility] 02/06/2025 10:30 AM CDT Office Visit [facility] [address] [phone] Pierre Arnett DO [address] [place] [address] documented as of this encounter Visit Diagnoses Not on filedocumented in this encounter Additional Health Concerns Assessment Noted Time PHQ-9 Depression Total Score: 0 02/26/20 9:12 AM PRIVATE SECURITY GUARD documented as of this encounter Care Teams Director Writing Relationship Specialty Start Date End Date Arlene Rodriguez APRN, FURNITURE INSPECTOR [address] [place] [address] PCP - General Internal Medicine 02/20/20 03/20/22 Leonie Ortega APRN, FURNITURE INSPECTOR [address] [address] PCP - General Advanced Practice Nurse 03/21/22 Pierre Arnett DO [address] [place] [phone] Consulting Physician Oncology 03/19/23 documented as of this encounter
--- OUTSIDE RECORDS SUMMARY | 2024-11-27 17:56 | XMS_ITS | Encounter Summary ---
Author Organization [facility] Address [address] [place] [address] Care Team Providers Care Ore Tester Name Role Phone NikkiArlene lujan YUDELKA Primary Care Provider [phone] Shameka Wright MD Unavailable [phone] Latha Jean RN Unavailable Leonie Hooper Primary Care Provider [phone] Pierre Arnett DO Unavailable [phone] Encounter Details Date Type Department Care Team (Late st Contact Info) Description 08/04/2020 Pastoral Care Encounter [facility] Care [place], [place] [phone] Martínez Morrissey Social History Tobacco Use Types [...] Initial visit;Assessment;Referral Referral From Nurse Referral To Workforce Development Vice President Plan of Care Care Plan Initiated Yes;Patient [...] st Contact Info) Description 06/02/2025 10:00 AM HUMAN SERVICE WORKER Appointment [facility] [place] [address] Kai Davenport MD [address] [place] [phone] documented as of this encounter Visit Diagnoses Not on filedocumented in this encounter Additional Health Concerns Infection Onset Date Last Indicated Resolved Time COVID-19 Rule Out 01/26/2021 01/26/2021 01/26/2021 10:51 AM CDT COVID-19 Rule Out 01/26/2021 01/26/2021 01/27/2021 12:16 AM CDT COVID-19 Rule Out 04/22/2021 04/22/2021 04/29/2021 12:32 AM HUMAN SERVICE WORKER Assessment Noted Time PHQ-9 Depression Total Score: 5 05/17/19 3:11 PM HUMAN SERVICE WORKER documented as of this encounter Care Teams Ore Tester Relationship Specialty Start Date End Date Arlene RodriguezYUDELKA [address] [place] [address] PCP - General Nurse Practitioner Family 04/24/18 08/11/22 Leonie Ortega APNP [address] [address] PCP - General Nurse Practitioner Family 08/12/22 Shameka Wright MD [address] [place] [address] Radiation Oncologist RADIATION ONCOLOGY 07/30/20 Latha Jean, crocheter hand Nurse Navigator REGISTERED NURSE 07/30/20 07/08/23 Pierre Arnett, [address] [place] [address] Consulting Physician INTERNAL MEDICINE 07/09/23 documented as of this encounter
--- OUTSIDE RECORDS SUMMARY | 2024-11-27 17:56 | XMS_ITS ---
Author Organization [facility] [address] Address [address] [place] [address] Care Team Providers Care Hull Outfit Supervisor Name Role Phone Arlene Rodriguez INSTRUCTOR NURSE Unavailable [phone] Leonie Ortega NP Primary Care Provider [phone] Eusebio Villanueva INSTRUCTOR NURSE Unavailable [phone] Active Problems Problem Noted Date Diagnosed [...]
--- OUTSIDE RECORDS SUMMARY | 2024-11-27 17:56 | XMS_ITS ---
Author Organization [facility] Address [address] [place] [address] Care Team Providers Care Black Mill Operator Name Role Phone Ortega Leonie DEBORAH Primary Care Provider [phone] Pierre Arnett DO Unavailable [phone] Active Problems Problem Noted Date Diagnosed Date Spondylolisthesis of lumbar region 07/18/2023 Generalized body aches 01/26/2021 Fatigue, unspecified type 01/26/2021 COVID-19 vaccine series not administered 021 Malignant neoplasm of overla pping sites of left breast in female, estrogen receptor positive ([facility]) 06/18/2020 Primary insomnia 05/18/2020 Invasive ductal carcinoma of breast, female, left ([facility]) 05/18/2020 Er+ [place]+ carcinoma of breast, left ([facility] H[facility]/ CC) 05/18/2020 Left breast mass 12/24/2019 Neck pain 10/28/2019 Abnormal TSH 10/28/2019 Neuropathy 10/28/2019 OAB (overactive bladder) 10/28/2019 Yeast vaginitis 05/18/2019 Frequent urination 11/27/2018 High risk sexual behavior, unspecified type 11/14 Vitamin D deficiency 11/27/2018 Frequent UTI 11/27/2018 Urgency of urination 11/27/2018 Vaginal yeast infection 11/27/2018 Acute cystitis without hematuria 07/02/2018 ADD (attention deficit disorder) without hyperac tivity 07/02/2018 Bipolar disorder ([facility]) 01/07/2016 Depression with anxiety 01/05/2016 Current Treatment [...] [address] 08/18/2020 - 09/23/2020 [id number] Resolved Problems Problem Noted Date Diagnosed Date Resolved Date Need for COVID-19 vaccine 12/29/2020 Pap smear for cervical cancer screening 11/27/2018 12/26/2019
--- OUTSIDE RECORDS SUMMARY | 2024-11-27 17:56 | XMS_ITS | Clinical Summary ---
Author Organization [facility] Address [address], [facility] [address] [place] [address] Phone Care Team Providers Care Public Records Researcher Name Role Phone Leonie Ortega APRN, ELECTRICAL INSTALLATION INSPECTOR Primary Care Provider + Pierre Arnett DO Unavailable [phone] Allergies No known active allergies Medications amphetamine-de [...] Active letrozole (FEMARA) 2.5 MG TabletIndicati ons:Er+ [place]+ carcinoma of breast, left (HCC) TAKE 1 TABLET BY MOUTH DAILY 90 Tablet 1 11/13/19 25 Active letrozole (FEMARA) 2.5 MG TabletIndicati ons:Er+ [place]+ carcinoma of breast, left (HCC) TAKE 1 [...] Malignant neoplasm of female breast 06/18/2020 Er+ [place]+ carcinoma of breast, left 05/18/2020 Neuropathy 10/28/2019 Bipolar disorder 01/07/2016 Depression with anxiety 01/05/2016 Encounters Date Type Department Care Team Description 11/12/2024 Refill [facility] [address] [address] Pierre Arnett, DO Medication Refill 09/22/2024 Refill [facility] [address] [address] Leslie Ruano, MEAT PROCESS WORKER, ELECTRICAL INSTALLATION INSPECTOR Medication Refill from Last 3 Months Immunizations Immunization Administration Dates Next Due Influenza Vaccine 03/15/2015 Influenza Vaccine, Quadrivalent, PF 12/23/2019,0 01/05/2016,03/03/2013 TDAP Vaccine 03/11/2018 Family History Medical History Relation Name Comments No Known Problems Brother 1 No Known Problems Brother 2 Cancer Father No Known Problems Sister Relation Name Status Comments Brother 1 Alive Brother 2 Alive Father asbestos from [employer] steel Mother Alive Sister Alive Social History [...] on file Legal Sex Female 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 Gender Identity Not on file Sexual Orientation Not on file 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 Not on file [...] CDT Clinical Support [facility] [address] [address] Nurse, [facility] 02/06/2025 10:30 AM CDT Office Visit [facility] [address] [address] Pierre Arnett, DO [address] [place] [address] Health Maintenance Due Date Last Done [...] topic Insurance MEDICARE MEDICAID [place] Care Teams Public Records Researcher Relationship Specialty Start Date End Date Leonie Ortega APRN, ELECTRICAL INSTALLATION INSPECTOR [address] [place] [address] PCP - General Advanced Practice Nurse 03/21/22 Pierre Arnett DO [address] [place] [phone] Consulting Physician Oncology 03/19/23
--- OUTSIDE RECORDS SUMMARY | 2024-11-27 17:56 | XMS_ITS | Clinical Summary ---
Author Organization [facility] Address [address] [place] [address] Care Team Providers Care Plant Changer Name Role Phone Leonie Ortega DEBORAH Primary Care Provider [phone] Pierre Arnett DO Unavailable [phone] Allergies No known active allergies Medications [...] left breast in female, estrogen receptor positive ([facility]) 06/18/2020 Primary insomnia 05/18/2020 Invasive ductal carcinoma of breast, female, left ([facility]) 05/18/[address]+ [address]+ carcinoma of breast, left ([facility]/H CC) 05/18/2020 Left breast mass 12/24/2019 Neck pain 10/28/2019 Abnormal TSH 10/28/2019 Neuropathy 10/28/2019 OAB (overactive bladder) 10/28/2019 Yeast vaginitis 05/18/2019 Frequent urination 11/27/2018 High risk sexual behavior, unspecified type 11/14 Vitamin D deficiency 11/27/2018 Frequent UTI 11/27/2018 Urgency of urination 11/27/2018 Vaginal yeast infection 11/27/2018 Acute cystitis without hematuria 07/02/2018 ADD (attention deficit disorder) without hyperac tivity 07/02/2018 Bipolar disorder ([facility]) 01/07/2016 Depression with anxiety 01/05/2016 Resolved Problems [...] cancer from work ing 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 No Known Problems Maternal Aunt No Known [...] drink = 0.6 oz pur e alcohol) [facility] Utilities Answer Date Recorded In the past 12 months has e [employer], gas, oil, or water [employer] threatened to shut off services in your [...] move on to questions 3-9 1 05/17/2020 [facility] - Occupational Stress Questionnaire Answer [...] st Contact Info) Description 06/02/2025 10:00 AM ALTERNATIVE EDUCATION TEACHER Appointment [facility] M[facility] [address] [place], [place] [phone] Kai Mcdaniel MD [address] [place] [address] [place] [address] Health Maintenance Due Date Last Done [...] Zee, FABIÁN Medical Devices Implanted Type Area Silk Winding Machine Operator Device Identifier Shelf Expiration Date Model / Serial / Lot Graft Bone Cancellous 15ml 4-10mm Freeze Dried Chips - [id number] Implanted:Qty: 1 on 07/18/2023 by Aggie Dumont MD at [facility] Bone N/A: Spine Lumbar [employer] [id number] 03/11/2027 [id number] / / [id number] Breast Breast Ofx 40mm Charles Implanted:Qty: 2 on 07/18/2023 by Aggie Dumont MD at [facility] Charles N/A: Spine Lumbar ORTHOFIX 52-6040 / / Set Screw Implanted:Qty: 4 on 07/18/2023 by Aggie Dumont MD at [facility] Screw N/A: Spine Lumbar ORTHOFIX 36-2001 / / Ofx 6.5x45mm Implanted:Qty: 2 on 07/18/2023 by Aggie Dumont MD at [facility] Screw N/A: Spine Lumbar ORTHOFIX [id number] / / Ofx 6.5x50mm Implanted:Qty: 2 on 07/18/2023 by Aggie Dumont MD at [facility] Screw N/A: Spine Lumbar ORTHOFIX 44-5650 / / Magnetos Implanted:Qty: 1 on 07/18/2023 by Aggie Dumont MD at [facility] N/A: Spine Lumbar [id number] 12/16/2027 [id number] / / [id number] Description:MFR: [employer] BIOSC IENCES Top Loading Body Implanted:Qty: 4 on 07/18/2023 by Aggie Dumont MD at [facility] N/A: Spine Lumbar [id number] / / Procedures Procedure Name Priority Date/Time Associated Diagnosis Comments MG SCREENING IMPLANT W JEREMIAH RT DIGI Routine 04/22/2024 12:09 PM ALTERNATIVE EDUCATION TEACHER Screening mammogram, encounter for HEPATITIS C ANTIBODY Routine 11/26/2018 2:32 PM CDT High risk sexual behavior, unspecified type from Last 3 Months or Most Recently Relevant to Health Maintenance Results * MG SCREENING IMPLANT W JEREMIAH RT DIGI (04/22/2024 12:09 PM ALTERNATIVE EDUCATION TEACHER) Anatomical Region Laterality Modality Breast Right Mammography 04/22/2024 12:2 4 PM ALTERNATIVE EDUCATION TEACHER Impressions 04/22/2024 1:33 PM ALTERNATIVE EDUCATION TEACHER ===== IMPRESSION: ===== 1. Stable mammographic appearance with no new findings to suggest malignancy in the breast. Assessment: ACR BI-RADS 2 - BENIGN FINDING(S) Recommendation: 1:Routine Screening Right Comments: Ordered By: KAI MCDANIEL Interpreted By: Joseph Jimenez MD, 04/22/2024 12:24 PM Narrative 04/22/2024 1:33 PM ALTERNATIVE EDUCATION TEACHER [facility] [address] [place] [address] Examination: Digital right screening mammogram with 3-D [...] VE NON-REACTI VE 11/26/2018 9:20 PM CDT [facility] 11/26/2018 2:32 PM CDT Arlene Michael TICKET DISPENSER CHANGER LABORATORY Final Result [facility] [address] [place] [address], [place] [phone] from Last 3 Months or Most Recently Relevant to Health Maintenance Insurance [employer] Advance Directives Documents on File Type Date Recorded Patient Canvass Manager Expl anation Legal Documents 04/10/2019 Charge Estim ate Form-Self Pay * Full Code (Latest Code Status on File) Date Activated Date Inactivated Comments 07/18/2023 5:29 PM 07/19/2023 3:55 PM Care Teams Plant Changer Relationship Specialty Start Date End Date Leonie Ortega APNP [address] [address] PCP - General Nurse Practitioner Family 08/12/22 Pierre Arnett DO [address] [place] [address] Consulting Physician INTERNAL MEDICINE 07/09/23
--- OUTSIDE RECORDS SUMMARY | 2024-11-27 17:56 | XMS_ITS | Encounter Summary ---
Author Organization [facility] Address [address] [place] [address] Phone Care Team Providers Care Cassandra Consultant Name Role Phone Arlene Rodriguez APRN, COMMUNICATION EQUIPMENT REPAIRER Primary Care Provider Leonie Ortega APRN, COMMUNICATION EQUIPMENT REPAIRER Primary Care Provider + Pierre Arnett DO Unavailable [phone] Reason for Visit * Reason Comments Medication Refill Encounter Details Date Type Department Care Team (Late st Contact Info) Description 08/26/2021 Refill [facility] [address] [place] [address] Pierre Arnett, DO [address] [place] [address] Medication Refill Social History Tobacco [...] on file Legal Sex Female 8:29 AM CRITICAL CARE REGISTERED NURSE Gender Identity Not on file Sexual Orientation Not on file 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 Not on file [...] AM CDT Clinical Support [facility] [address] [phone] Nurse, [facility] 02/06/2025 10:30 AM CDT Office Visit [facility] [address] [phone] Pierre Arnett DO [address] [place] [phone] documented as of this encounter Visit Diagnoses Not on filedocumented in this encounter Additional Health Concerns Assessment Noted Time PHQ-9 Depression Total Score: 0 02/26/20 21 9:12 AM CRITICAL CARE REGISTERED NURSE documented as of this encounter Care Teams Cassandra Consultant Relationship Specialty Start Date End Date Arlene Rodriguez APRN, COMMUNICATION EQUIPMENT REPAIRER [address] [place] [address] PCP - General Internal Medicine 02/20/20 03/20/22 Leonie Ortega APRN, COMMUNICATION EQUIPMENT REPAIRER [address] [place] [address] PCP - General Advanced Practice Nurse 03/21/22 Pierre Arnett DO [address] [place] [phone] Consulting Physician Oncology 03/19/23 documented as of this encounter
--- OUTSIDE RECORDS SUMMARY | 2024-11-27 17:56 | XMS_ITS | Clinical Summary ---
Author Organization [facility] [address] Address [address] [place] [address] Care Team Providers Care Paper Roll Machine Operator Name Role Phone Arlene Rodriguez GAMBLING DEALER Unavailable [phone] Leonie Ortega NP Primary Care Provider [phone] Euseboi Villanueva GAMBLING DEALER Unavailable [phone] Allergies Active Allergy Reactions Criticality Noted [...] tablet (1,000 mg total) by mouth Active celecoxib (CeleBREX) 100 mg capsuleIndication s:Osteoarthritis [...] FOR PAIN 90 tablet 1 5 Active buprenorphine (BUTRANS) 15 mcg/hourIndicatio ns:severe chronic pain with opioid tolerance Place 1 patch on the skin every 7 days for 7 days 4 patch 2 5 Active Active Problems Problem Noted Date [...] Encounters Date Type Department Care Team Description 10/28/2024 Telephone [facility] [address] [place] [address] [address] [place] [address] Kateryna Wright 08/28/2024 11:00 AM CDT - 08/28/2024 11:59 PM CDT Hospital Encounter [facility] [address] [place] [address] Eusebio Villanueva NP Lumbar radiculopathy (Primary Dx); Spinal stenosis of lumbar region without neurogenic claudication; Lumbar post-laminectomy syndrome; Myalgia Discharge Disposition: Discharge to home or self care from Last 3 Months Surgical History Surgery Date Site/Laterality Comments COLONOSCOPY HYSTERECTOMY 12/15/2020 - 01/13/2021 SECTION 04/16/2009 - 04/15/2010 SECTION 04/16/2012 - 04/15/2013 BREAST SURGERY 04/16/2020 - 05/16/2020 Left lumpectomy with tissue editorial writer on L BREAST SURGERY 04/16/2011 - 04/15/2012 [...] on file Legal Sex Female 6:01 AM SHEET ROCK LAYER Gender Identity Not on file Sexual Orientation Not on file Obstetrics History Last Filed Vital Signs Vital Sign Reading Time Taken Comments Blood Pressure 147/78 08/28/2024 11:20 AM CDT Pulse 65 08/28/2024 11:20 AM CDT Temperature 37.1 C (98.7 F) 04/29/2024 1:32 PM SHEET ROCK LAYER Respiratory Rate 16 08/28/2024 11:20 AM CDT Oxygen Saturation 100% 08/28/2024 11:20 AM CDT Inhaled Oxygen Concentration - - Weight 58.1 kg (128 lb) 05/11/2022 9:10 AM SHEET ROCK LAYER Height 172.7 cm (5' 8) 05/11/2022 9:10 AM SHEET ROCK LAYER Body Mass Index 19.46 05/11/2022 9:10 AM SHEET ROCK LAYER Plan of Treatment Health Maintenance Due Date Last Done Comments Breast Cancer Screening-Mammogram 1977 Colon Cancer Screening-Colonoscopy 1977 Hepatitis C Screening 1977 Hepatitis B Screening 11/14/1995 Regular Well Visit/Exam 18-64 11/14/1995 Pneumococcal vaccine <65 (1 of 2 - PCV) 1996 Zoster Vaccine (1 of 2) 1996 Depression Screening 10/25/2022 10/25/2021, 10/26/19 22 Influenza Vaccine (#1) 2024 0, 01/05/2016, 03/15/2015, Additional history exists DTaP/Tdap/Td Vaccine (2 - Td or Tdap) 03/11/2028 03/11/2018 Medical Devices Implanted Type Area Material Damage Adjuster Device Identifier Shelf Expiration Date Model / Serial / Lot [employer] Implant Breast High Profile Smooth Memorygel Boost 545cc Gel [id number] - [id number] - [id number] Implanted:Qty: 1 on 08/12/2021 by Jc Hernandez, DO at [facility] [employer] 06/21/2026 S [id number] / [id number] / [id number] [employer] [facility] Implant Breast High Profile Smooth Memorygel Boost 480cc Gel [id number] - [id number] - [id number] Implanted:Qty: 1 on 08/12/2021 by Jc Hernandez, DO at [facility] [employer] 04/20/2026 S [id number] / [id number] / [id number] Insurance [facility] IDCT [facility] MEDICARE [facility] Advance Directives For more information, please contact: [phone] * Full Code (Latest Code Status on File) Date Activated Date Inactivated Comments 08/13/2021 1:26 AM 08/14/2021 3:39 PM Care Teams Paper Roll Machine Operator Relationship Specialty Start Date End Date Leonie Ortega NP [address] [place] [address] PCP - General Family Medicine 03/28/22 Arlene Rodriguez NP [address] [place] [address] 10/11/21 [place] [address] [place] [address] Nurse Practitioner Pain Management 03/31/24
--- OUTSIDE RECORDS SUMMARY | 2024-11-27 17:56 | XMS_ITS | Encounter Summary ---
Author Organization [facility] Address [facility] [place] [address] Care Team Providers Care House Registry Rn Name Role Phone NikkiArlene lujan YUDELKA Primary Care Provider [phone] Shameka Wright MD Unavailable [phone] Latha Jean RN Unavailable UnavailLeonie [place] Primary Care Provider [phone] Pierre Arnett DO Unavailable [phone] Encounter Details Date Type Department Care Team (Late st Contact Info) Description 08/01/[address] [facility] Patient Accounts [address] [place] [address] [facility] Provider Notice regarding your past [...] st Contact Info) Description 06/02/2025 10:00 AM RN NEW GRADUATE Appointment [facility] [place] [address] Kai Davenport MD [facility] [address] [phone] documented as of this encounter Visit Diagnoses Not on filedocumented in this encounter Additional Health Concerns Infection Onset Date Last Indicated Resolved Time COVID-19 Rule Out 02/14/2020 02/14/2020 02/15/2020 6:11 PM RN NEW GRADUATE COVID-19 Rule Out 01/26/2021 01/26/2021 01/26/2021 10:51 AM CDT COVID-19 Rule Out 01/26/2021 01/26/2021 01/27/2021 12:16 AM CDT COVID-19 Rule Out 04/22/2021 04/22/2021 04/29/2021 12:32 AM RN NEW GRADUATE Assessment Noted Time PHQ-9 Depression Total Score: 1 05/13/19 20 11:10 AM RN NEW GRADUATE documented as of this encounter Care Teams House Registry Rn Relationship Specialty Start Date End Date Arlene Rodriguez FNP [address] [place] [phone] PCP - General Nurse Practitioner Family 04/24/18 08/11/22 Leonie Ortega APNP [address] [phone] PCP - General Nurse Practitioner Family 08/12/22 Shameka Wright MD [address] [place] [address] Radiation Oncologist RADIATION ONCOLOGY 07/30/20 Latha Jean, pin setter Nurse Navigator REGISTERED NURSE 07/30/20 07/08/23 Pierre Arnett DO [address] [place] [address] Consulting Physician INTERNAL MEDICINE 07/09/23 documented as of this encounter
--- OUTSIDE RECORDS SUMMARY | 2024-11-27 17:56 | XMS_ITS ---
Author Organization [facility] Address [address] [place], [facility] [address] [place] [address] Phone Care Team Providers Care Knitting Teacher Name Role Phone Leonie Ortega APRN, IMPLEMENTATION COORDINATOR Primary Care Provider + Pierre Arnett DO Unavailable [phone] Active Problems Problem Noted Date Diagnosed Date [...] Malignant neoplasm of female breast 06/18/2020 Er+ [place]+ carcinoma of breast, left 05/18/2020 Neuropathy 10/28/2019 Bipolar disorder 01/07/2016 Depression with anxiety 01/05/2016 Current Treatment and Therapy Plans SUPPORT - [facility] - [facility]* Plan Start Date:02/21/2023 Plan Provider:Pierre [...] - LEUPROLIDE (LUPRON, ELIGARD), TRELSTAR, FIRMAGON - [facility] 1 07/19/2021 No medications scheduled. Plan Clean Up Melquiades, Pierre D, DO Treatment not started ORAL CHEMO TREATMENT Plan Name Start Date Discontinue Date Treatment Medications Discontinue Reason Plan Provider Cycles BREAST - LETROZOLE - [facility] 1 07/19/2021 letrozole (FEMARA) Plan Clean Up Melquiades, Pierre D, DO Treatment not started
--- OUTSIDE RECORDS SUMMARY | 2024-11-27 17:56 | XMS_ITS | Encounter Summary ---
Author Organization [facility] Address [address] [place] [address] Phone Care Team Providers Care Cassandra Developer Name Role Phone Arlene Rodriguez APRN, CASHIER CLERK Primary Care Provider Leonie Ortega APRN, CASHIER CLERK Primary Care Provider + Pierre Arnett DO Unavailable [phone] Encounter Details Date Type Department Care Team (Late st Contact Info) Description 04/02/2020 Telephone [facility] [address] [place] [address] Pierre Arnett, DO [address] [place] [address] Social History Tobacco Use Types [...] on file Legal Sex Female 8:29 AM REPAIRER SHOE STICKS Gender Identity Not on file Sexual Orientation Not on file 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 No / Unsure 03/26/2020 10:02 AM REPAIRER SHOE STICKS documented as of this encounter Miscellaneous Notes * Telephone Encounter - Pierre Arnett DO - 04/02/2020 1:22 PM CST Try to call her sister and send letter IRER SHOE STICKS * Telephone Encounter - Marta Marina - [...] HAVE US MAIL A LETTER? PLEASE ADVISE. IRER SHOE STICKS documented in this encounter Plan of Treatment Upcoming Encounters Date Type Department Care Team (Late st Contact Info) Description 12/03/2024 8:00 AM CDT Clinical Support [facility] [address] [phone] Nurse, [facility] 02/06/2025 10:30 AM CDT Office Visit [facility] [address] [phone] Pierre Arnett DO [address] [place] [phone] documented as of this encounter Visit Diagnoses Not on filedocumented in this encounter Additional Health Concerns Assessment Noted Time PHQ-9 Depression Total Score: 0 03/26/20 20 10:15 AM REPAIRER SHOE STICKS documented as of this encounter Care Teams Cassandra Developer Relationship Specialty Start Date End Date Arlene Rodriguez, JOINER APPRENTICE, CASHIER CLERK [address] [place] [id number] PCP - General Internal Medicine 02/20/20 03/20/22 Leonie Ortega, JOINER APPRENTICE, CASHIER CLERK [address] [place] [id number] PCP - General Advanced Practice Nurse 03/21/22 Pierre Arnett DO [address] [place] [phone] Consulting Physician Oncology 03/19/23 documented as of this encounter
[2024-11-27 18:29] VITALS: BP 133/83; PULSE 82; RESP 18; O2SAT 99
== END 2024-11-27 18:30 | disposition home or self-care (01) ==
PROVIDERS: Registered Nurse; Emergency Provider Emergency Medicine; PCP Nurse Practitioner Family
DX: R23.8 Other skin changes (principal); M81.0 Age-related osteoporosis without current pathological fracture; K58.1 Irritable bowel syndrome with constipation; K59.04 Chronic idiopathic constipation; F90.9 Attention-deficit hyperactivity disorder, unspecified type; F32.A Depression, unspecified; F41.9 Anxiety disorder, unspecified; Z85.3 Personal history of malignant neoplasm of breast; Z87.440 Personal history of urinary (tract) infections; Z90.710 Acquired absence of both cervix and uterus; Z79.899 Other long term (current) drug therapy
CPT/HCPCS: 87641; 99283

== ENCOUNTER 2025-03-19 12:08 | Emergency (ER) | payer MEDICARE, MEDICAID, SELFPAY ==
[2025-03-19 12:16] VITALS: BP 166/93; PULSE 71; RESP 18; TEMP 36.7; O2SAT 100
--- NOTE | 2025-03-19 12:36 | ED.EYEPROB ---
HPI - Eye Problem General Chief complaint: Eye Problems Stated complaint: can't see Time Seen by Provider: 03/19/25 12:20 Source: patient and RN notes reviewed Mode of arrival: ambulatory Limitations: no limitations History of Present Illness HPI Narrative: 49-year-old female presents to the [facility] complaining of right eye pain that started 1 hour ago. Patient was going to take her right contact out when she accidentally scratched dry. Since the patient reports eye pain, photophobia, mild headache, nausea, and redness. Patient reports the pain a 10/10. Patient says she is able to see but it hurts to open her eye. Patient is wearing sunglasses in the room with the lights off. Patient says she had a procedure done yesterday under her eyelid for or ankle removal. Patient says she has her contacts removed. Patient denies any fevers, body aches, vomiting, discharge, double vision, dizziness, lightheadedness, breathing problems, chest pain, chills, any other symptoms. Related Data Home Medications ?Medication ?Instructions ?Recorded ?Confirmed ?Last Taken ?Type letrozole 2.5 mg tablet 2.5 mg PO DAILY 01/05/22 03/19/25 Unknown History buprenorphine 15 mcg/hour weekly 15 mcg transdermal WEEKLY 11/24/23 03/19/25 Unknown History transdermal patch oxybutynin chloride PO 01/15/25 01/15/25 Unknown History cyclobenzaprine 10 mg tablet mg 03/19/25 Unknown History Allergies Allergy/AdvReac Type Severity Reaction Status Date / Time No Known Allergies Allergy Verified 03/19/25 12:27 Review of Systems Review of Systems: CONSTITUTIONAL: Denies fever, chills, or sweats. EYES: Denies visual changes, or discharge. Positive for redness, pain, photophobia. ENT: Denies rhinorrhea, congestion, sore throat, or otalgia. CARDIOVASCULAR: Denies chest pain, palpitations, or edema. RESPIRATORY: Denies cough or dyspnea. GASTROINTESTINAL: Denies abdominal pain, vomiting, or diarrhea. Positive for nausea GENITOURINARY: Denies dysuria or hematuria. SKIN: Denies rash or itching. MUSCULOSKELETAL: Denies back pain, joint pain, or myalgia. NEUROLOGIC: Positive for headache. Negative for numbness, or weakness. PSYCHIATRIC: Denies anxiety or depression. All other systems reviewed are negative, except as documented in HPI. [facility] Past Medical History Medical History Screening for colon cancer Weight loss, abnormal Nausea & vomiting Paresthesia Bartholin cyst Urinary urgency Elevated BP without diagnosis of hypertension Chronic low back pain Insomnia Elevated glucose Elevated liver enzymes Anemia Osteoporosis Urinary frequency Irritable bowel syndrome with constipation Chronic idiopathic constipation Low back pain with right-sided sciatica Constipation Acne Chronic allergic rhinitis ADHD Depression Encounter to establish care Sinusitis Post-operative pain Interstitial cystitis Breast cancer Anorexia Anxiety Anxiety and depression Kidney infection UTI (urinary tract infection) Surgical History Surgical History H/O: hysterectomy History of lumpectomy of left breast Hx of breast augmentation Family History Family History Father Lung cancer Social History Social History Smoking status: Never smoker Second hand tobacco smoke exposure: No Alcohol intake: former Drinks per week: 0 Alcohol use details: LAST 2019 Substance use: current Substance use type: marijuana Other substance usage details: MEDICAL MARIJUANA Last use: 10/31/2020 Lack of Transportation: No Lack of Food: Never True Current Housing: I Have Housing Concerned About Future Housing: No Difficulty Paying Gas/Electric Bills: No Difficulty Paying for Meds: No Currently Unemployed: YES Education: Associate Degree Difficulty w/ Childcare or Family Care: No Living arrangements: with family Gender identity (if verbalized by the patient): Female Spiritual care concerns: No Agree to blood products: Yes Comments At the time of my signature, I reviewed and agree with the nursing past medical, surgical, social, and family history. There is no relevant family history pertinent to the patient complaint. Exam Narrative: GENERAL: This is a well-nourished, well-developed adult, in no apparent distress. They are non ill-appearing, nontoxic appearing. HEAD: normocephalic, atraumatic. EYES: Sclera clear/white. Conjunctiva normal. Vision is grossly intact. Extraocular movements intact. Pupils PERRLA. Fluorescent stain of right eye reveals large uptake of fluorescein stain to cornea. No dendritic lesions, no vitreous humor. No retained foreign body visualized, no retained removable contact identified in right eye. EARS: External ears normal, NOSE: External nose normal THROAT: Mucous membranes moist, NECK: Neck supple CARDIOVASCULAR: Regular rate and rhythm RESPIRATORY: Respiratory rate normal, respiratory effort nonlabored, no respiratory distress SKIN: warm, Dry, intact with no suspicious lesions or rash, good texture and turgor. NEURO: awake, alert, and oriented to person, place and time. There were no obvious focal neurologic abnormalities. EXTREMITIES: No joint tenderness, effusion, or edema noted. BACK: Nontender without deformity. Course Course Level of Care: Express Care Visit Vital Signs Vital signs: Vital Signs Temperature 98.1 F 03/19/25 12:16 Pulse Rate 71 03/19/25 12:16 Respiratory Rate 18 03/19/25 12:16 Blood Pressure 166/93 H 03/19/25 12:16 Pulse Oximetry 100 03/19/25 12:16 Oxygen Delivery Room Air 03/19/25 12:16 Temperature 98.1 F 03/19/25 12:16 Pulse Rate 71 03/19/25 12:16 Respiratory Rate 18 03/19/25 12:16 Blood Pressure 166/93 H 03/19/25 12:16 Pulse Oximetry 100 03/19/25 12:16 Oxygen Delivery Room Air 03/19/25 12:16 Transfer Transfered to: [facility] Hospital Transportation: Other (Private vehicle, mother to take patient) Transfer rationale: Significant eye injury, requiring higher level care, requiring ophthalmology. Accepting physician: [facility] would not provide, spoke to Jada Mejia there are aware of patient. [facility] MDM Narrative Medical decision making narrative: Unable to perform visual acuity, patient says she has to work on dex pupils say, she says she cannot see well without them, she reports her vision is blurry. Pupils PERRLA, extraocular movements intact. Fluorescein stain reveals large uptake to the cornea, concern for large cornea injury, cannot exclude globe injury. Patient reports improvement of pain with tetracaine. Given patient's symptoms, it is recommend the patient seek a higher level care and proceed immediately to the emergency department. Patient is agreeable to go to [facility] ER to the have ophthalmology services available. Called over to [facility] for [facility] ER. Spoke to Jada Mejia at the access center, would not provide excepting provider but put patient is placed on their ER tracker and they are aware the patient's coming to the ER for further evaluation. Patient's mother will take her to the hospital via private vehicle. Patient's pain manageable with the tetracaine drops. Patient advised to remain NPO and proceed immediately to the ER. Differential Diagnosis Differential Diagnosis: Corneal abrasion, corneal ulcer, globe rupture, penetrating eye trauma, retained foreign body Critical Care Time Critical Care Time Critical Care Time: No Discharge Plan Discharge Clinical Impression: Corneal injury of right eye Qualifiers: Encounter type: initial encounter Qualified Code(s): S05.8X1A - Other injuries of right eye and orbit, initial encounter Patient Disposition: Acute Care Hospital Condition: Stable Patient Language: Irish Prescriptions: No Action cyclobenzaprine 10 mg tablet buprenorphine 15 mcg/hour patch weekly 15 mcg transdermal WEEKLY letrozole 2.5 mg tablet 2.5 mg PO DAILY Rx Instructions: begin between days 2 and 5 of mentrual cycle oxybutynin chloride PO famotidine [Pepcid] 40 mg tablet 40 mg PO QHS Qty: 30 5RF ondansetron HCl 4 mg tablet 4 mg PO Q8H PRN (Reason: nausea and vomiting) Qty: 60 2RF trazodone 150 mg tablet 150 mg PO QHS PRN (Reason: sleep) Qty: 30 11RF lidocaine 5 % adhesive patch,medicated 1 patch topical DAILY Qty: 30 11RF Rx Instructions: leave on most painful area for up to 12 hrs, then remove for 12hours clonazepam 1 mg tablet 1 mg PO BID PRN (Reason: Anxiety) Qty: 60 5RF sertraline 100 mg tablet 100 mg PO DAILY Qty: 30 5RF ibuprofen 600 mg tablet 600 mg PO TID PRN (Reason: pain) Qty: 90 3RF montelukast 10 mg tablet 10 mg PO QHS Qty: 30 11RF doxycycline hyclate 50 mg capsule 50 mg PO DAILY Qty: 60 11RF dextroamphetamine-amphetamine [Adderall] 20 mg tablet 20 mg PO BID Qty: 60 0RF Rx Instructions: administer doses at least 4-6 hours apart nitrofurantoin monohyd/m-cryst [Macrobid] 100 mg capsule 100 mg PO Q12H 5 Days Qty: 10 0RF Rx Instructions: must administer with a meal/food Follow-up/Referrals: Leonie Ortega APRN [Primary Care Provider, [facility]] Time of Disposition: 13:08
== END 2025-03-19 13:09 | disposition short-term general hospital (02) ==
PROVIDERS: PCP Nurse Practitioner Family
DX: S05.8X1A Other injuries of right eye and orbit, initial encounter (principal); X58.XXXA Exposure to other specified factors, initial encounter; F90.9 Attention-deficit hyperactivity disorder, unspecified type; F41.9 Anxiety disorder, unspecified; F32.A Depression, unspecified; M81.0 Age-related osteoporosis without current pathological fracture; Z85.3 Personal history of malignant neoplasm of breast; Z90.12 Acquired absence of left breast and nipple
CPT/HCPCS: 99213; A9270; G0463